=== PATIENT | female | born 1975 | race Two or more races ===

== ENCOUNTER → 2020-08-07 10:08 | Outpatient (BNVA) | payer MEDICAID, SELFPAY | PROVIDERS: PCP Internal Medicine; Referring Provider Family Medicine; Visit Provider Internal Medicine | DX: J30.9 Allergic rhinitis, unspecified (principal); R91.1 Solitary pulmonary nodule | CPT/HCPCS: 99212 ==

== ENCOUNTER 2020-08-14 14:52 | Outpatient (REF) | payer MEDICAID, SELFPAY ==
--- NOTE | 2020-08-14 12:54 | PFT_ITS ---
INDICATION: Shortness of breath. SPIROMETRY: The FEV1 to FVC 90% with an FEV1 of 2.54 L which is 79% predicted with an FVC of 2.82 L which is 70% predicted. No significant response to bronchodilator is noted. Maximum voluntary ventilation 99% predicted. LUNG VOLUMES: Total lung capacity 69% predicted with an expiratory reserve volume of 37% predicted. DIFFUSION CAPACITY: DLCO 85% predicted. COMPARISONS: None. INTERPRETATION: No obstructive ventilatory defect. No significant response to bronchodilators noted and normal maximum voluntary ventilation. However, the patient does have a moderate restrictive ventilatory defect of unclear etiology. Need to consider underlying interstitial lung conditions and/or neuromuscular conditions. The patient's diffusion capacity is low normal. Clinical correlation warranted. MD LIZA Desir/JOSÉ MIGUEL / [phone]
== END 2020-08-14 14:53 | disposition home or self-care (01) ==
LOC: HO.RESP 14:52
PROVIDERS: Visit Provider Internal Medicine
DX: D24.2 Benign neoplasm of left breast (principal); J30.9 Allergic rhinitis, unspecified; R91.1 Solitary pulmonary nodule
CPT/HCPCS: 94060; 94727; 94729; 99212

== ENCOUNTER 2020-08-17 09:57 | Outpatient (REF) | payer MEDICAID, SELFPAY ==
--- NOTE | 2020-08-17 09:59 | CT_ITS ---
EXAMINATION: CT CHEST WITHOUT CONTRAST CLINICAL INFORMATION: Solitary pulmonary nodule. COMPARISON: CT of the abdomen and pelvis from 06/12/2019. No prior chest CT. TECHNIQUE: Multidetector volumetric CT imaging of the chest was done. Axial MIP volume rendering provided. Sagittal and coronal reformatted images were obtained. This CT examination was performed using dose optimization techniques as appropriate, variously including the following: *Automated exposure control *Adjustment of mA and/or kV according to patient size (this includes techniques or standardized protocols for targeted exams where dose is matched to indication/reason for exam; i.e. extremities or head) *Use of iterative reconstruction technique DLP: 220 mGy-cm FINDINGS: LUNGS: The central airways are patent. There is no dense consolidation. Redemonstration of the 0.5 cm right lower lobe pulmonary nodule on series 5 image 238. This is unchanged from previous. There are no additional pulmonary nodules identified. MEDIASTINUM: Normal heart size. No pericardial effusion. No mediastinal lymphadenopathy. There is mild haziness of the fat of the anterior superior mediastinum which could represent faint residual thymic tissue. This does not have a masslike appearance. PLEURA: There is no pleural effusion. No pleural mass or thickening. AXILLA: No lymphadenopathy. Left breast calcifications noted. UPPER ABDOMEN: Cholecystectomy. OSSEOUS STRUCTURES: No acute or suspicious osseous abnormality. CT/CT chest wo con IMPRESSION: Right lower lobe 0.5 cm nodule is unchanged from prior, suggesting benign etiology. No suspicious pulmonary findings.
== END 2020-08-17 09:58 | disposition home or self-care (01) ==
LOC: HO.CT 09:57
PROVIDERS: Visit Provider Internal Medicine
DX: R91.1 Solitary pulmonary nodule (principal)
CPT/HCPCS: 71250

== ENCOUNTER 2020-08-27 06:57 | Day surgery (SDC) | payer MEDICAID, SELFPAY ==
[2020-08-21 11:22] VITALS: BMI 31.4
--- NOTE | 2020-08-24 10:56 | P.CONAN_ITS ---
Documented by User: Soila Doyle 08/24/20 11:00 HPI - Anesthesia Eval Consult details Narrative: 45yo F for Breast Biopsy Needle Localization PMFSH Past Medical History Medical History Allergic rhinitis Anemia Asthma Back pain Diabetes mellitus Fibroids GERD (gastroesophageal reflux disease) Hx of migraine headaches Intraductal papilloma Liver cyst Pulmonary nodule Family History Family History Mother History of breast cancer History of hypertension History of diabetes mellitus Son History of asthma History of ADHD Paternal Grandfather History of pancreatic cancer Maternal Uncle History of colon cancer Maternal Aunt History of breast cancer Paternal Grandmother History of diabetes mellitus Paternal Uncle History of rheumatoid arthritis Family/Other Family history of throat cancer Surgical History Surgical History History of breast biopsy (~01/2020) History of section History of colonoscopy (~12/08/19) History of hysterectomy (~12/17/18) History of knee surgery Hx laparoscopic cholecystectomy Social History Social History Alcohol intake: never Smoking Status: Never smoker Meds Allergies Allergy/AdvReac Type Severity Reaction Status Date / Time gadobutrol [From GADAVIST] Allergy Mild DIFFICULTY Verified 08/14/20 13:52 BREATHING shrimp [SHRIMP] Allergy Unknown SWELLING Verified 08/14/20 13:52 tramadol [TRAMADOL] Allergy Unknown HEADACHES Verified 08/14/20 13:52 lactose [LACTOSE] AdvReac Mild STOMACH Verified 08/14/20 13:52 UPSET Home Medications Medication Instructions Recorded Confirmed Type dulaglutide 0.75 mg/0.5 mL 1.5 mg SUBCUT QWEEK ml 08/07/20 08/21/20 History subcutaneous pen injector fluocinonide 0.05 % topical 1 applic TOPICAL BID 08/14/20 08/21/20 History ointment nystatin-triamcinolone topical applic TOPICAL 08/14/20 08/14/20 History cream famotidine 20 mg PO BID 08/21/20 08/21/20 History insulin glargine [Lantus U-100 65 unit SUBCUT QPM 08/21/20 08/27/20 History Insulin] Exam Exam Date and Time: August 24, 2020 1056 Height,Weight and Vital Signs: Height 5 ft 7 in Weight 91.172 kg Pertinent Lab Results Pertinent Lab Results: Laboratory Tests 11/22/19 12:58 BUN 8 L Creatinine 0.70 Assessment and Plan Assessment Anesthesia Assessment: Chart Reviewed Documented by User: Lela Dorantes 08/27/20 08:58 HPI - Anesthesia Eval Consult details Narrative: 45yo female patient here for Left breast biopsy with needle localization. [facility] Past Medical History Medical History Allergic rhinitis Anemia Asthma Back pain Diabetes mellitus Fibroids GERD (gastroesophageal reflux disease) Hx of migraine headaches Intraductal papilloma Liver cyst Pulmonary nodule Family History Family History Mother History of breast cancer History of hypertension History of diabetes mellitus Son History of asthma History of ADHD Paternal Grandfather History of pancreatic cancer Maternal Uncle History of colon cancer Maternal Aunt History of breast cancer Paternal Grandmother History of diabetes mellitus Paternal Uncle History of rheumatoid arthritis Family/Other Family history of throat cancer Family history of problems with anesthesia: No Surgical History Surgical History History of breast biopsy (~01/2020) History of section History of colonoscopy (~12/08/19) History of hysterectomy (~12/17/18) History of knee surgery Hx laparoscopic cholecystectomy History of Problems with Anesthesia: No Social History Social History Alcohol intake: never Smoking Status: Never smoker Meds Allergies Allergy/AdvReac Type Severity Reaction Status Date / Time gadobutrol [From GADAVIST] Allergy Mild DIFFICULTY Verified 08/14/20 13:52 BREATHING shrimp [SHRIMP] Allergy Unknown SWELLING Verified 08/14/20 13:52 tramadol [TRAMADOL] Allergy Unknown HEADACHES Verified 08/14/20 13:52 lactose [LACTOSE] AdvReac Mild STOMACH Verified 08/14/20 13:52 UPSET Home Medications Medication Instructions Recorded Confirmed Type dulaglutide 0.75 mg/0.5 mL 1.5 mg SUBCUT QWEEK ml 08/07/20 08/21/20 History subcutaneous pen injector fluocinonide 0.05 % topical 1 applic TOPICAL BID 08/14/20 08/21/20 History ointment nystatin-triamcinolone topical applic TOPICAL 08/14/20 08/14/20 History cream famotidine 20 mg PO BID 08/21/20 08/21/20 History insulin glargine [Lantus U-100 65 unit SUBCUT QPM 08/21/20 08/27/20 History Insulin] Exam Height,Weight and Vital Signs: Vital Signs Temp Pulse Resp BP Pulse Ox 08/27/20 07:20 96.9 F 84 18 124/75 98 Pertinent Lab Results Pertinent Lab Results: Lab Results 08/27/20 Range/Units 07:22 POC Glucose 168 H (60-115) mg/dL Airway Mallampati Class: II TM Dist: >3cm Neck ROM: Full Loose/Missing/Broken Teeth: Yes (Some missing) Heart: RRR Lungs: CTAB Assessment and Plan Assessment Anesthesia Assessment: Anesthesia Plan Discussed and Chart Reviewed Final Anesthetic Review NPO: Yes ASA Class: III Final Preanesthetic Review: No Changes in Pt Med Stat, Meds/Allgs Chart Reviewed, Consent Obtained/Reviewed and Anes Risks/Benef Reviewed Patient Risk: Intermediate Procedure Risk: Low Anesthetic Plan Anesthetic Plan: GA Disposition: Standard PACU
[2020-08-27] VITALS (8 sets, daily range): BP systolic 113–127; BP diastolic 73–81; PULSE 75–91; RESP 12–18; TEMP 36.1–36.3; O2SAT 98–100
[2020-08-27 07:26] LABS: Glucose, Whole Blood 168 mg/dL (60-115)
[2020-08-27] MEDS: Lactated Ringers 1,000 ML 100 ML IVCONT (07:33)
[2020-08-27] MEDS: ceFAZolin Sodium/Dextrose,Iso 2 GM/50 ML PIGGYBACK IV (07:33)
--- NOTE | 2020-08-27 07:39 | MHC.SHP ---
Pre-Procedural Eval Section A The patient is an INPATIENT: No Changes since office visit: Yes Patient answered all questions; No Cold of Flu in the past 2 weeks, No New Medical Problems and No Changes in Medication The History & Physical has been completed within 30 days and I have reviewed it.: Yes Section B Chief Complaint: Intraductal Papilloma Allergies: Allergies Allergy/AdvReac Type Severity Reaction Status Date / Time gadobutrol [From GADAVIST] Allergy Mild DIFFICULTY Verified 08/14/20 13:52 BREATHING shrimp [SHRIMP] Allergy Unknown SWELLING Verified 08/14/20 13:52 tramadol [TRAMADOL] Allergy Unknown HEADACHES Verified 08/14/20 13:52 lactose [LACTOSE] AdvReac Mild STOMACH Verified 08/14/20 13:52 UPSET Plan Diagnosis/Plan: Unchanged Patient has been examined and remains a candidate for the planned procedure
--- NOTE | 2020-08-27 10:48 | PM.OP ---
Brief Operative Note Date of Service: 08/27/20 Pre-op diagnosis: iNTRADUCTAL PAPILLOMA LEFT BREAST Post-op diagnosis: same Procedure: LEFT BREAST LUMPECTOMY WITH NEEDLE LOCALIZATION Implants: NONE Surgeon: Tonny Gamez MD Anesthesia: GLMA Chassis Inspector: Emily Aguilera Estimated blood loss (mL): 5 Pathology: other (LEFT BREAST LUMP) Condition: stable Disposition: PACU
--- NOTE | 2020-08-27 11:01 | P.OP_ITS ---
Operative Note Operative Note Date of Service: 08/27/20 Narrative: Preoperative diagnosis: Intraductal papilloma left breast Postoperative diagnosis: Same Procedure: Left breast lumpectomy with needle localization Surgeon: Tonny Gamez MD Director Of Creative Services: CARLA Calles anesthesia: General LMA Indications for procedure: 45-year-old female found to have an abnormal density on MRI status post MR guided biopsy which revealed intraductal papilloma. She presents today for wider excision to assure complete removal. Operative findings: Patient was found to have the localizing wire and clip within the specimen confirming the proper excision site. Specimen: Left breast lumpectomy Estimated blood loss: 5 mL Complications: None Procedure details patient was brought to the OR placed in a supine position. After administering general anesthesia the patient's left breast was prepped with ChloraPrep and draped in a sterile fashion. A surgical time-out was called the consent confirmed. Patient received preoperative antibiotics and Venodyne boots were in place. Local anesthesia consisting of 0.75% Sensorcaine was then infiltrated in a curvilinear fashion just lateral to the nipple-areolar complex at the site of the localizing wire. Incision was carried out through subcutaneous tissue. Superior and inferior skin flaps were then created with scalpel and electrocautery. Electrocautery was then used to dissect around the localizing wire. Dissection was continued well below the tip. Lesion was then completely excised and sent to pathology for further examination. He was marked with a long suture on the lateral margin and a short suture on the superior margin and a loop suture in the posterior margin. Specimen was sent for a specimen x-ray and immediate gross pathology. Wounds were checked for hemostasis and hemostasis was assured using elec trocautery. Wounds were then irrigated with saline solution and suctioned dry. The deep breast tissue was closed using interrupted 3-0 Polysorb sutures. Superficial breast tissue and dermis reapproximated using interrupted 3-0 Polysorb sutures. Skin was then closed using a running subcuticular 4 0 Polysorb suture. Steri-Strips, 2 x 2 gauze and Tegaderm were then applied. The patient tolerated the procedure well. Sponge, instrument, needle counts reported as correct. The patient was transferred to PACU in stable condition.
[2020-08-27] MEDS: oxyCODONE HCl Immed Release 5 MG TABLET PO (11:44)
[2020-08-27] MEDS: Acetaminophen 325 MG TABLET 650 MG PO (11:44)
[2020-08-27] MEDS: ondansetron HCL 4 MG/2 ML VIAL IVPUSH (11:44)
--- NOTE | 2020-08-27 12:15 | HO.POSTANES ---
Post Anesthesia Evaluation Post Anesthesia Evaluation Vital Signs: Vital Signs Temp Pulse Resp BP Pulse Ox 08/27/20 11:45 97.4 F 78 18 113/73 99 08/27/20 11:30 75 16 127/81 98 08/27/20 11:15 86 16 123/79 98 08/27/20 11:10 82 16 114/74 99 08/27/20 11:05 78 16 116/74 99 08/27/20 11:00 80 14 122/77 99 08/27/20 10:55 97.4 F 91 12 118/75 100 08/27/20 07:20 96.9 F 84 18 124/75 98 Anesthesia: General LMA Mental Status: Awake Pain Control: Satisfactory Nausea/Vomiting: None Hydration: Adequate Anesthesia-Related Issues: No Anes. Related Issues
== END 2020-08-27 13:31 | disposition home or self-care (01) ==
PROVIDERS: PCP Internal Medicine; Visit Provider Surgery
PROC: (CPT 19301; principal; 2020-08-27 08:50)
DX: D24.2 Benign neoplasm of left breast (principal); E11.9 Type 2 diabetes mellitus without complications; Z79.4 Long term (current) use of insulin; J45.909 Unspecified asthma, uncomplicated; Z79.899 Other long term (current) drug therapy
CPT/HCPCS: 19301; 82947; 88307; 88329; J0690; J1100; J2250; J2405; J2765; J3010

== ENCOUNTER 2020-08-27 07:03 | Outpatient (REF) | payer MEDICAID, SELFPAY ==
--- NOTE | 2020-08-27 07:06 | MM_ITS ---
EXAMINATION: MM MAMMOGRAM GUIDED NEEDLE LOCALIZATION BREAST, LEFT MM NEEDLE LOCALIZATION SPECIMEN FROM THE LEFT BREAST CLINICAL INFORMATION: Detached fragments of papillary lesion/papilloma on MR biopsy 01/18/2020. COMPARISON: MRI guided biopsy and postbiopsy mammography 01/18/2020, mammography 07/13/2019 TECHNIQUE NEEDLE LOC: Proper informed consent is obtained from the patient after discussion of the procedure, potential risks and complications, and alternatives including declining the procedure today. Patient was given an opportunity for questions. The patient appeared to understand. The patient consented to the procedure and signed the consent form. GUIDANCE: Digital mammography. APPROACH: Lateral Medial. TARGET: Cylinder shaped biopsy clip marker. Note: There is another remote biopsy clip marker in the left breast, spool/barbell shaped, unrelated to the papilloma. ANESTHESIA: lidocaine 1%: 8 mL. LOCALIZATION MARKER: [employer]. 5 cm length. The skin is prepped and local anesthesia administered. The needle is positioned and position assessed with mammography. The wire is hooked into position. [place] needle protector placed. The patient tolerated the procedure well and had no immediate complication. Preliminary results called to bilingual medical receptionist (Elaine) for Dr. Gamez following the localization. TECHNIQUE SPECIMEN RADIOGRAPH: Imaging of the excised specimen is performed using digital mammography in 1 view. FINDINGS SPECIMEN RADIOGRAPH: The specimen shows the needle and hookwire are delivered intact. The cylinder shaped biopsy clip marker is within the specimen. There is also a short linear metallic density at periphery of specimen not on preoperative imaging, possibly laterality marker for the specimen. Results were called to Dr. Tonny Gamez in the operating room at the time of imaging. MM/MM needle loc LT IMPRESSION: 1. Status post left breast needle localization with wire hooked into position. 2. Post operative specimen radiograph obtained.
== END 2020-08-27 07:04 | disposition home or self-care (01) ==
LOC: HO.MAMMO 07:03
PROVIDERS: PCP Internal Medicine; Visit Provider Surgery
DX: D24.2 Benign neoplasm of left breast (principal); D36.9 Benign neoplasm, unspecified site
CPT/HCPCS: 19281; A4648

== ENCOUNTER → 2020-09-04 09:09 | Outpatient (BNVA) | payer MEDICAID, SELFPAY | PROVIDERS: PCP Internal Medicine; Visit Provider Surgery | DX: D24.2 Benign neoplasm of left breast (principal); Z12.39 Encounter for other screening for malignant neoplasm of breast | CPT/HCPCS: 99212 ==

== ENCOUNTER 2020-10-10 08:29 | Outpatient (REF) | payer MEDICAID, SELFPAY ==
--- NOTE | 2020-10-10 | XR_ITS ---
EXAMINATION: XR LUMBOSACRAL SPINE CLINICAL INFORMATION: Low back pain COMPARISON: CT abdomen and pelvis from 06/12/2019 TECHNIQUE: Three views of the lumbosacral spine. FINDINGS: The vertebral bodies have normal height and alignment. The curvature of the lumbar spine is normal. The disc spaces are maintained. Minimal anterior vertebral osteophyte formation at L3-L4 and L4-L5. No evidence of degenerative disc disease, pars interarticularis defect or vertebral compression fracture. The anterior and posterior elements are intact. No lytic or osteoblastic lesions. Sacrum and sacroiliac joints are unremarkable. The visualized bowel gas pattern is normal. Cholecystectomy clips are present in the right upper quadrant the abdomen. XR/XR lumbar spine 2-3V IMPRESSION: No significant findings. No fracture or malalignment. The intervertebral disc spaces are well-preserved throughout the lumbar spine. No evidence of sacroiliitis.
== END 2020-10-10 08:30 | disposition home or self-care (01) ==
LOC: HO.HMGCX 08:29
PROVIDERS: PCP Internal Medicine; Visit Provider Internal Medicine
DX: M54.5 Low back pain (principal)
CPT/HCPCS: 72100

== ENCOUNTER → 2020-11-07 12:39 | Outpatient (BNVA) | payer MEDICAID, SELFPAY | PROVIDERS: PCP Internal Medicine; Visit Provider Physician Assistant ==

== ENCOUNTER → 2020-11-13 13:05 | Outpatient (BNVA) | payer MEDICAID, SELFPAY | PROVIDERS: PCP Internal Medicine; Visit Provider Surgery | DX: D24.2 Benign neoplasm of left breast (principal); Z12.39 Encounter for other screening for malignant neoplasm of breast | CPT/HCPCS: 99212 ==

== ENCOUNTER 2020-11-28 12:16 | Outpatient (REF) | payer MEDICAID, SELFPAY ==
--- NOTE | ~2020-11-28 | MM_ITS ---
EXAMINATION: MM DIAGNOSTIC DIGITAL BREAST TOMOSYNTHESIS, BILATERAL US DIAGNOSTIC ULTRASOUND BREAST, LEFT CLINICAL INFORMATION: Left breast pain for months. No palpable mass or discharge. Family history history breast cancer mother and aunt. Personal history benign intraductal papilloma status post excision 08/27/2020 left breast. Probable benign finding right breast 11/22/2019. Due for yearly. The lifetime risk of breast cancer based on the Tyrer-Cuzick Model is 21%. COMPARISON: Mammography: 01/18/2020 08/27/2020, 01/18/2020, 07/13/2019, 07/05/2018; bilateral breast MRI report 11/22/2019. TECHNIQUE: Digital breast tomosynthesis is performed in both the craniocaudal and mediolateral oblique views along with computer-aided detection (CAD). Synthesized 2D images are generated from the tomosynthesis. Ultrasound left breast is targeted to the 3:00 and 9:00 position. Patient is able to point to the areas of concern at time of imaging. Grayscale imaging and color Doppler are performed without and with harmonics. FINDINGS: There are scattered areas of fibroglandular density (ACR BI-RADS breast composition Category b). There are no significant masses, abnormal calcifications, or other abnormalities. There is a spool-shaped biopsy clip marker anterior upper outer left breast. The cylinder-shaped clip marker is no longer present, excised on prior surgery 08/27/2020. The axilla and skin contours are unremarkable. No coarsening of the Huber's ligaments. Ultrasound left breast demonstrates no cystic or solid mass or architectural abnormality. No focal duct ectasia.. No skin thickening or edema tracking in the soft tissue planes. No hyperemia on color Doppler. Results are discussed with the patient at time of visit. The breast MRI 11/22/2019 notes BI-RADS 3 finding on right with short interval follow-up recommended. Patient due for follow-up MRI. MM/MM diagnostic mammo BI IMPRESSION: No mammographic evidence of malignancy or inflammatory changes. Unremarkable targeted left breast ultrasound. ASSESSMENT: BI-RADS 1: Negative RECOMMENDATION: 1. Patient's breast pain should be managed based on the clinical impression. 2. Patient due for follow-up bilateral breast MR (right BI-RADS 3 MR finding prior study 11/22/2019). 3. Otherwise, routine annual screening mammography. This patient's information was entered into a reminder system with a target due date for their next mammogram.
== END 2020-11-28 12:17 | disposition home or self-care (01) ==
LOC: HO.MAMMO 12:16
PROVIDERS: PCP Internal Medicine; Visit Provider Internal Medicine
DX: Z12.31 Encounter for screening mammogram for malignant neoplasm of breast (principal)
CPT/HCPCS: 76642; 77066

== ENCOUNTER → 2020-11-30 09:03 | Outpatient (BNVA) | payer MEDICAID, SELFPAY | PROVIDERS: PCP Internal Medicine; Visit Provider Nurse Practitioner Family | DX: M47.816 Spondylosis without myelopathy or radiculopathy, lumbar region (principal); M25.562 Pain in left knee; M53.3 Sacrococcygeal disorders, not elsewhere classified; G89.29 Other chronic pain | CPT/HCPCS: 99202 ==

== ENCOUNTER → 2020-12-03 08:33 | Outpatient (REF) | payer MEDICAID, SELFPAY ==
--- NOTE | 2020-12-03 08:30 | CA_ITS ---
Acquisition Time: 2020-12-03 08:44:58 Total Exercise Time: 00:07:31 Test Indications: CP, PALPITATIONS Medications: SEE CHART Protocol: GOVIND Max HR: 160 BPM 91% of Pred: 174 BPM Max BP: 154/084 mmHG Max Work Load: 9.3 METS Exercsice stress test using Govind protocol total of 7 min 31 sec. METS 9.30 and TAPHR up to 92%. Pt denies any anginal sx. EKG without arrhythmias, no ischemic changes seen during exercise or in recovery. Normotensive response to exercise. Test reviewed with Dr. Cifuentes. Referred By: Pedro Luis Lawler Overread By:
== END ==
LOC: HO.CARD 08:33
PROVIDERS: Visit Provider Internal Medicine
DX: R07.9 Chest pain, unspecified (principal)
CPT/HCPCS: 93016; 93017; 93018

== ENCOUNTER → 2020-12-27 13:57 | Outpatient (REF) | payer MEDICAID, SELFPAY | LOC: HO.CARD 13:57 | PROVIDERS: Visit Provider Internal Medicine | DX: R00.2 Palpitations (principal) | CPT/HCPCS: 93225; 93226 ==

== ENCOUNTER → 2021-01-03 12:44 | Outpatient (REF) | payer MEDICAID, SELFPAY ==
--- NOTE | 2021-01-03 13:30 | ECG_ITS ---
Hook-up date: 2021-01-03 12:58:00 Duration: 24:54:00 Test Indications: Palpitations Medications: [id number] QRS complexes * Ventricular ectopics which represent % of total QRS comp. 2 Supraventricular ectopics which represent <1 % of total QRS comp. * Paced QRS complexs which represent % of total QRS comp. VENTRICULAR ECTOPY * Isolated * Bigeminal Cycles * Couplets * Runs * Beats in Runs * Beats LONGEST at * BPM at :: -- * Beats FASTEST at * BPM at :: -- SUPRAVENTRICULAR ECTOPY 2 Isolated 0 Couplets 0 Runs 0 Beats in Runs * Beats LONGEST at * BPM at :: -- * Beats FASTEST at * BPM at :: -- HEART RATES 72 MIN at 17:43:06 2021-01-03 88 AVG 127 MAX at 08:25:29 2021-01-04 LONGEST RR 0.9200 secs at 02:18:16 2021-01-04 S-T LEVELS Channel 1 - 128 mm at 12:58:00 2021-01-03 - 128 mm at 12:58:00 2021-01-03 Channel 2 - 128 mm at 12:58:00 2021-01-03 - 128 mm at 12:58:00 2021-01-03 Channel 3 - 128 mm at 03:21:71 -- - 128 mm at 03:21:71 Basic rhythm Normal sinus rhythm No long pause or profound bradycardia No diary submitted Referred By: Pedro Luis Martinez Torr Overread By: ALFREDA WEBSTER MD
== END ==
LOC: HO.CARD 12:44
PROVIDERS: PCP Internal Medicine; Visit Provider Internal Medicine
DX: R00.2 Palpitations (principal)
CPT/HCPCS: 93225; 93226

== ENCOUNTER → 2021-01-11 12:58 | Outpatient (BNVA) | payer MEDICAID, SELFPAY | PROVIDERS: PCP Internal Medicine; Visit Provider Nurse Practitioner Family ==

== ENCOUNTER → 2021-02-06 10:33 | Outpatient (BNVA) | payer MEDICAID, SELFPAY | PROVIDERS: PCP Internal Medicine; Visit Provider Internal Medicine | DX: R91.1 Solitary pulmonary nodule (principal); J30.9 Allergic rhinitis, unspecified | CPT/HCPCS: 99212 ==

== ENCOUNTER → 2021-02-14 14:56 | Outpatient (BNVA) | payer MEDICAID, SELFPAY | PROVIDERS: PCP Internal Medicine; Referring Provider Internal Medicine; Visit Provider Surgery | DX: Z12.39 Encounter for other screening for malignant neoplasm of breast (principal); D24.2 Benign neoplasm of left breast | CPT/HCPCS: 99212 ==

== ENCOUNTER 2021-02-19 06:57 | Outpatient (REF) | payer MEDICAID, SELFPAY | END 2021-02-19 06:58 | disposition home or self-care (01) | LOC: HO.RADIR 06:57 | PROVIDERS: Visit Provider Anesthesiology | DX: Z13.89 Encounter for screening for other disorder (principal) ==

== ENCOUNTER 2021-05-04 17:57 | Emergency (ER) | payer MEDICAID, SELFPAY ==
[2021-05-04 18:02] VITALS: BP 133/84; PULSE 98; RESP 18; TEMP 36.7; O2SAT 99; BMI 31.8
[2021-05-04] MEDS: Acetaminophen 325 MG TABLET 650 MG PO (18:11)
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
[2021-05-04] MEDS: Diphth,Pertus(ACell),Tet Adult 0.5 ML SYRINGE IM (19:08)
[2021-05-04] MEDS: Ibuprofen 600 MG TABLET PO (19:09)
[2021-05-04] MEDS: Silver Sulfadiazine 1 % Cream 20 GM TUBE 1 APPL TOPICAL (19:10)
[2021-05-04] MEDS: oxyCODONE HCl Immed Release 5 MG TABLET PO (19:10)
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
== END 2021-05-04 19:45 | disposition home or self-care (01) ==
PROVIDERS: Emergency Provider Emergency Medicine Emergency Medical Services; PCP Internal Medicine
DX: T24.201A Burn of second degree of unspecified site of right lower limb, except ankle and foot, initial encounter (principal); T24.101A Burn of first degree of unspecified site of right lower limb, except ankle and foot, initial encounter; X04.XXXA Exposure to ignition of highly flammable material, initial encounter; Y93.G2 Activity, grilling and smoking food; Y92.830 Public park as the place of occurrence of the external cause; Y99.9 Unspecified external cause status
CPT/HCPCS: 16030; 90471; 90715; 99283; 99284

== ENCOUNTER 2021-05-07 08:59 | Outpatient (RCR) | payer MEDICAID, SELFPAY | END 2021-06-28 12:15 | disposition home or self-care (01) | LOC: HO.WCC 08:59 | PROVIDERS: PCP Internal Medicine; Visit Provider Physician Assistant | DX: T24.201D Burn of second degree of unspecified site of right lower limb, except ankle and foot, subsequent encounter (principal); E11.65 Type 2 diabetes mellitus with hyperglycemia; T31.0 Burns involving less than 10% of body surface; Z79.4 Long term (current) use of insulin; Z79.899 Other long term (current) drug therapy | CPT/HCPCS: 16020; 97597; 97598; 99212; 99213 ==

== ENCOUNTER 2021-05-07 12:53 | Outpatient (REF) | payer MEDICAID, SELFPAY ==
--- NOTE | ~2021-05-07 | US_ITS ---
EXAMINATION: US SCREENING ULTRASOUND BREAST, BILATERAL CLINICAL INFORMATION: Family history breast cancer, mother and aunt. Personal history benign intraductal papilloma status post excision 08/27/2020 left breast. Tyrer-Cuzick Score 21%. COMPARISON: Digital breast tomosynthesis 11/28/2020. MRI bilateral breasts 11/22/2019 TECHNIQUE: Ultrasound is performed using grayscale imaging and color Doppler. Imaging is performed to include the four quadrants and retroareolar region. Both breasts are imaged. FINDINGS: Right breast: There is no suspicious finding by ultrasound. There is no cystic or solid mass or focal architectural abnormality. Left breast: There is no suspicious finding by ultrasound. There is no cystic or solid mass or focal architectural abnormality. US/US breast RT complete IMPRESSION: Normal study. ASSESSMENT: BI-RADS 1: Negative RECOMMENDATION: 1. Routine annual mammography screening. 2. Patient due for follow-up bilateral breast MR (right BI-RADS 3 MR finding prior study 11/22/2019). This could be performed with premedication (question of prior contrast reaction versus anxiety). This patient's information was entered into a reminder system with a target due date for their next mammogram.
--- NOTE | ~2021-05-07 | US_ITS ---
EXAMINATION: US SCREENING ULTRASOUND BREAST, BILATERAL CLINICAL INFORMATION: Family history breast cancer, mother and aunt. Personal history benign intraductal papilloma status post excision 08/27/2020 left breast. Tyrer-Cuzick Score 21%. COMPARISON: Digital breast tomosynthesis 11/28/2020. MRI bilateral breasts 11/22/2019 TECHNIQUE: Ultrasound is performed using grayscale imaging and color Doppler. Imaging is performed to include the four quadrants and retroareolar region. Both breasts are imaged. FINDINGS: Right breast: There is no suspicious finding by ultrasound. There is no cystic or solid mass or focal architectural abnormality. Left breast: There is no suspicious finding by ultrasound. There is no cystic or solid mass or focal architectural abnormality. US/US breast LT complete IMPRESSION: Normal study. ASSESSMENT: BI-RADS 1: Negative RECOMMENDATION: 1. Routine annual mammography screening. 2. Patient due for follow-up bilateral breast MR (right BI-RADS 3 MR finding prior study 11/22/2019). This could be performed with premedication (question of prior contrast reaction versus anxiety). This patient's information was entered into a reminder system with a target due date for their next mammogram.
== END 2021-05-07 12:54 | disposition home or self-care (01) ==
LOC: HO.MAMMO 12:53
PROVIDERS: Visit Provider Surgery
DX: D24.2 Benign neoplasm of left breast (principal); Z85.3 Personal history of malignant neoplasm of breast
CPT/HCPCS: 76641

== ENCOUNTER 2021-07-12 12:33 | Day surgery (SDC) | payer MEDICAID, SELFPAY ==
--- NOTE | 2021-07-11 10:14 | HO.ANESPROP2 ---
Documented by User: Soila Doyle NP 07/11/21 10:15 HPI - Anesthesia Eval Consult details Narrative: 46yo F for Ganglion Impar Block PMFSH Active Problems Active Problems: All Active Problems (Updated 05/05/21 @ 00:01 by Jihan Amin) Left knee pain (Acute) Pre-procedural laboratory examination (Acute) Coccygeal pain (Acute) Spondylosis of lumbar region without myelopathy or radiculopathy (Acute) Chronic constipation (Acute) Intraductal papilloma of left breast (Acute) Breast cancer screening, high risk patient (Acute) Pulmonary nodule (Acute) Allergic rhinitis (Acute) Past Medical History Medical History Allergic rhinitis Anemia Asthma Back pain Breast cancer screening, high risk patient Chronic constipation Diabetes mellitus Fibroids GERD (gastroesophageal reflux disease) Hx of migraine headaches Intraductal papilloma Liver cyst Pulmonary nodule Family History Family History Mother History of breast cancer History of hypertension History of diabetes mellitus Son History of asthma History of ADHD Paternal Grandfather History of pancreatic cancer Maternal Uncle History of colon cancer Maternal Aunt History of breast cancer Paternal Grandmother History of diabetes mellitus Paternal Uncle History of rheumatoid arthritis Family/Other Family history of throat cancer Family history of problems with anesthesia: No Surgical History Surgical History History of breast biopsy (~01/2020) History of section History of colonoscopy (~12/08/19) History of hysterectomy (~12/17/18) History of knee surgery Hx laparoscopic cholecystectomy History of Problems with Anesthesia: No Social History Social History Household Members: Spouse and Children Alcohol intake: current Alcohol intake frequency: does not drink Patient Tobacco Use Status: Never used Tobacco Use of substances other than those prescribed or required for medical reasons: No Are you DNR?: No Advance Directives: No Advance Directives Information Provided: Yes Meds Allergies Allergy/AdvReac Type Severity Reaction Status Date / Time gadobutrol [From GADAVIST] Allergy Mild DIFFICULTY Verified 07/12/21 13:02 BREATHING shrimp [SHRIMP] Allergy Unknown SWELLING Verified 07/12/21 13:02 tramadol [TRAMADOL] Allergy Unknown HEADACHES Verified 07/12/21 13:02 lactose [LACTOSE] AdvReac Mild STOMACH Verified 07/12/21 13:02 UPSET Home Medications Medication Instructions Recorded Confirmed Last Taken Type fluocinonide 0.05 % topical 1 applic TOPICAL BID 08/14/20 01/11/21 Unknown History ointment nystatin-triamcinolone topical applic TOPICAL 08/14/20 01/11/21 Unknown History cream insulin glargine 100 unit/mL 65 unit SUBCUT QPM 08/21/20 01/11/21 07/11/21 22:00 History subcutaneous solution (Lantus 65 units U-100 Insulin) docusate sodium 100 mg capsule 100 mg PO DAILY 11/07/20 01/11/21 Unknown History (DOK) insulin lispro 100 unit/mL 5 unit SUBCUT TID 11/07/20 01/11/21 07/11/21 22:00 History subcutaneous pen (Humalog KwikPen 30 units (U-100) Insulin) atorvastatin 20 mg tablet 20 mg PO DAILY 11/30/20 01/11/21 Unknown History dulaglutide 0.75 mg/0.5 mL 3 mg SUBCUT QWEEK ml 11/30/20 01/11/21 Unknown History subcutaneous pen injector (Trulicity) famotidine 20 mg tablet (Acid 20 mg PO BID 11/30/20 01/11/21 Unknown History Clinical Neuropsychologist (famotidine)) latanoprost 0.005 % eye drops 1 drp OPHTHALMIC (EYE) DAILY 11/30/20 01/11/21 Unknown History lidocaine 5 % topical patch 1 patch TOPICAL DAILY 11/30/20 01/11/21 Unknown History nabumetone 750 mg tablet 1,500 mg PO DAILY PRN 02/06/21 Unknown History sennosides 8.6 mg capsule (senna) 8.6 mg PO DAILY PRN 02/06/21 Unknown History Exam Exam Date and Time: July 11, 2021 1014 Narrative Narrative: Exercise Stress 12/2020 Protocol: ADY ? Max HR: 160 BPM? 91% of? Pred: 174 BPM Max BP: 154/084 mmHG Max Work Load: 9.3 METS ? Exercsice stress test using Ady protocol total of 7 min 31 sec.? METS 9.30 and ?TAPHR up to 92%.? Pt denies any anginal sx.? EKG without arrhythmias, no ?ischemic changes seen during exercise or in recovery.? Normotensive response to ?exercise. ? Test reviewed with Dr. Cifuentes. Assessment and Plan Assessment Anesthesia Assessment: Chart Reviewed Final Anesthetic Review Family History of Problems with Anesthesia: No History of Problems with Anesthesia: No Documented by User: Floresita Graves MD 07/12/21 13:30 PMF Past Medical History Medical History Allergic rhinitis Anemia Asthma Back pain Breast cancer screening, high risk patient Chronic constipation Diabetes mellitus Fibroids GERD (gastroesophageal reflux disease) Hx of migraine headaches Intraductal papilloma Liver cyst Pulmonary nodule Family History Family History Mother History of breast cancer History of hypertension History of diabetes mellitus Son History of asthma History of ADHD Paternal Grandfather History of pancreatic cancer Maternal Uncle History of colon cancer Maternal Aunt History of breast cancer Paternal Grandmother History of diabetes mellitus Paternal Uncle History of rheumatoid arthritis Family/Other Family history of throat cancer Surgical History Surgical History History of breast biopsy (~01/2020) History of section History of colonoscopy (~12/08/19) History of hysterectomy (~12/17/18) History of knee surgery Hx laparoscopic cholecystectomy Social History Social History Household Members: Spouse and Children Alcohol intake: current Alcohol intake frequency: does not drink Patient Tobacco Use Status: Never used Tobacco Use of substances other than those prescribed or required for medical reasons: No Are you DNR?: No Advance Directives: No Advance Directives Information Provided: Yes Meds Allergies Allergy/AdvReac Type Severity Reaction Status Date / Time gadobutrol [From GADAVIST] Allergy Mild DIFFICULTY Verified 07/12/21 13:02 BREATHING shrimp [SHRIMP] Allergy Unknown SWELLING Verified 07/12/21 13:02 tramadol [TRAMADOL] Allergy Unknown HEADACHES Verified 07/12/21 13:02 lactose [LACTOSE] AdvReac Mild STOMACH Verified 07/12/21 13:02 UPSET Home Medications Medication Instructions Recorded Confirmed Last Taken Type fluocinonide 0.05 % topical 1 applic TOPICAL BID 08/14/20 01/11/21 Unknown History ointment nystatin-triamcinolone topical applic TOPICAL 08/14/20 01/11/21 Unknown History cream insulin glargine 100 unit/mL 65 unit SUBCUT QPM 08/21/20 01/11/21 07/11/21 22:00 History subcutaneous solution (Lantus 65 units U-100 Insulin) docusate sodium 100 mg capsule 100 mg PO DAILY 11/07/20 01/11/21 Unknown History (DOK) insulin lispro 100 unit/mL 5 unit SUBCUT TID 11/07/20 01/11/21 07/11/21 22:00 History subcutaneous pen (Humalog KwikPen 30 units (U-100) Insulin) atorvastatin 20 mg tablet 20 mg PO DAILY 11/30/20 01/11/21 Unknown History dulaglutide 0.75 mg/0.5 mL 3 mg SUBCUT QWEEK ml 11/30/20 01/11/21 Unknown History subcutaneous pen injector (Trulicity) famotidine 20 mg tablet (Acid 20 mg PO BID 11/30/20 01/11/21 Unknown History Clinical Neuropsychologist (famotidine)) latanoprost 0.005 % eye drops 1 drp OPHTHALMIC (EYE) DAILY 11/30/20 01/11/21 Unknown History lidocaine 5 % topical patch 1 patch TOPICAL DAILY 11/30/20 01/11/21 Unknown History nabumetone 750 mg tablet 1,500 mg PO DAILY PRN 02/06/21 Unknown History sennosides 8.6 mg capsule (senna) 8.6 mg PO DAILY PRN 02/06/21 Unknown History Exam Airway Mallampati Class: II TM Dist: >3cm Neck ROM: Full Assessment and Plan Assessment Anesthesia Assessment: Anesthesia Plan Discussed Final Anesthetic Review NPO: Yes ASA Class: II Final Preanesthetic Review: No Changes in Pt Med Stat, Meds/Allgs Chart Reviewed, Consent Obtained/Reviewed and Anes Risks/Benef Reviewed Patient Risk: Low Procedure Risk: Low Assessment/Block/Sedation in SS: Assess/Block/Sedation-SS Anesthetic Plan Anesthetic Plan: MAC: Disposition: Standard PACU
--- NOTE | ~2021-07-12 | FL_ITS ---
EXAMINATION: XR FLUOROSCOPY WITH IMAGES CLINICAL INFORMATION: Ganglion impar block. COMPARISON: None. TECHNIQUE: Fluoroscopy performed by Dr. Jamal Tena. Fluoroscopy time: 0.3 minutes DAP: 5 mGycm2 Images: 2 FINDINGS: Images demonstrate needle placement and contrast injection in the soft tissues anterior to the lower sacrum. FL/FL guidance in OR IMPRESSION: Fluoroscopy guidance for sacral pain management procedure.
[2021-07-12 12:52] VITALS: BMI 31.3
[2021-07-12 13:03] VITALS: BP 121/79; PULSE 88; RESP 16; TEMP 36.6; O2SAT 100
[2021-07-12 13:09] LABS: Glucose, Whole Blood 146 mg/dL (60-115)
[2021-07-12] MEDS: Lactated Ringers 1,000 ML 100 ML IVCONT (13:12)
--- NOTE | 2021-07-12 14:20 | MHC.SHP ---
Pre-Procedural Eval Section A Date of Service: 07/12/21 The patient is an INPATIENT: No Changes since office visit: Yes Patient answered all questions The History & Physical has been completed within 30 days and I have reviewed it.: No Section B Chief Complaint: Coccygeal Pain Details of Present Illness: coccydynia Relevant Family History (Specify if Yes): No Relevant Social History: None Present Medications: see Short Stay Collaborative assessment Medical History: Significant History (Diabetes mellitus) History of Previous Operations: Relevant previous surgery/procedure and date(s) Allergies: Allergies Allergy/AdvReac Type Severity Reaction Status Date / Time gadobutrol [From GADAVIST] Allergy Mild DIFFICULTY Verified 07/12/21 13:02 BREATHING shrimp [SHRIMP] Allergy Unknown SWELLING Verified 07/12/21 13:02 tramadol [TRAMADOL] Allergy Unknown HEADACHES Verified 07/12/21 13:02 lactose [LACTOSE] AdvReac Mild STOMACH Verified 07/12/21 13:02 UPSET Review of Systems Sugical H&P ROS: Negative: Cardiovascular, Respiratory, Neurological, Psychiatric, Hem-Onc, Allergic/Immunologic, Gastrointestinal, Genitourinary, Musculoskeletal, Integumentary and Eyes/Ears/Nose/Throat and Yes, Specify: Constitution (Morbid obesity) and Endocrine (Diabetes mellitus) Exam Surgical H&P Exam: Normal: HEENT, Normal: Heart, Normal: Lungs, Normal: Extremities, Normal: Skin and Normal: Neurological and Significant Findings: Abdomen (Greatly enlarged secondary to subcutaneous) Plan Diagnosis/Plan: Unchanged I have reviewed the history and physical and performed a pertinent physical examination on my patient. No changes have occurred unless specified.
[2021-07-12 15:03] VITALS: BP 124/71; PULSE 94; RESP 16; TEMP 36.1; O2SAT 100
--- NOTE | 2021-07-12 15:05 | W.PM.OPN ---
Operative Note Operative Note Date of Service: 07/12/21 Narrative: Mira is very pleasant 46 years old female who came to operating room today to treat coccydynia. Informed consent was explained to the patient. All questions were explained and answered. The patient was taken inside the operating room where she was positioned prone on the operating table. ? Time-out was performed delineating correct site, side, the nature of the procedure, patient's allergy, preoperative antibiotic if needed. All operating room staff was participating in OR time-out procedure. [employer] [employer] monitors were applied and patient was deeply sedated. ? The lower back both buttocks and intergluteal crease were prepped with ChloraPrep and draped with sterile utility towels. Sterilely draped C-arm was brought over the operating field picture of coccyx vertebras superimposing on symphysis pubis were demonstrated on the screen. The projection of the interval in between 1st and 2nd coccygeal vertebra is was injected with lidocaine 2%. 22 gauge 3-1/2 inch needle was inserted through the skin wheal and advanced toward the coccygeal 1 coccygeal 2 intervertebral disc. When needle gently contacted surface of the disc the C-arm was switched to the lateral view and the needle was advanced further through the disc until the very tip of the needle less than 1 mm was cleared out of the anterior vertebral surfaces. Injection of the contrast at this moment was performed demonstrating retro pelvic spread of the contrast. After that 5 cc of bupivacaine 0.5% mixed with Kenalog 40 mg was performed into the needle. The needle was removed sterile dressing was applied. Patient tolerated procedure well she was taking outside of the operating room to recovery room where she recovered uneventfully.
[2021-07-12 15:16] VITALS: BP 128/71; PULSE 97; RESP 16; O2SAT 100
[2021-07-12 15:30] VITALS: BP 122/76; PULSE 83; RESP 16; TEMP 36.1; O2SAT 100
== END 2021-07-12 15:57 | disposition home or self-care (01) ==
PROVIDERS: PCP Internal Medicine; Visit Provider Anesthesiology
PROC: (CPT 64999; principal; 2021-07-12 14:40)
DX: M53.3 Sacrococcygeal disorders, not elsewhere classified (principal); M47.816 Spondylosis without myelopathy or radiculopathy, lumbar region; G89.29 Other chronic pain; M25.562 Pain in left knee; E11.9 Type 2 diabetes mellitus without complications; J44.9 Chronic obstructive pulmonary disease, unspecified; Z79.4 Long term (current) use of insulin; Z79.899 Other long term (current) drug therapy
CPT/HCPCS: 64999; 82947; J3300; Q9967

== ENCOUNTER → 2021-08-14 10:58 | Outpatient (BNVA) | payer MEDICAID, SELFPAY | PROVIDERS: PCP Internal Medicine; Visit Provider Nurse Practitioner Family | DX: M47.816 Spondylosis without myelopathy or radiculopathy, lumbar region (principal); M25.562 Pain in left knee; M53.3 Sacrococcygeal disorders, not elsewhere classified; G89.29 Other chronic pain; Z88.8 Allergy status to other drugs, medicaments and biological substances; Z88.6 Allergy status to analgesic agent; Z91.011 Allergy to milk products; Z91.013 Allergy to seafood | CPT/HCPCS: 99212 ==

== ENCOUNTER → 2021-09-03 10:51 | Outpatient (BNVA) | payer MEDICAID, SELFPAY | PROVIDERS: PCP Internal Medicine; Visit Provider Internal Medicine | DX: J30.9 Allergic rhinitis, unspecified (principal); R06.09 Other forms of dyspnea; R06.83 Snoring; R05.9 Cough, unspecified; R91.1 Solitary pulmonary nodule; E11.9 Type 2 diabetes mellitus without complications; E78.5 Hyperlipidemia, unspecified; Z80.3 Family history of malignant neoplasm of breast; Z83.3 Family history of diabetes mellitus; Z82.49 Family history of ischemic heart disease and other diseases of the circulatory system; Z82.5 Family history of asthma and other chronic lower respiratory diseases; Z81.8 Family history of other mental and behavioral disorders; Z88.8 Allergy status to other drugs, medicaments and biological substances; Z91.041 Radiographic dye allergy status; Z91.011 Allergy to milk products; Z91.013 Allergy to seafood; Z79.4 Long term (current) use of insulin; Z79.899 Other long term (current) drug therapy | CPT/HCPCS: 99212 ==

== ENCOUNTER → 2021-09-10 10:05 | Outpatient (BNVA) | payer MEDICAID, SELFPAY | PROVIDERS: PCP Internal Medicine; Referring Provider Internal Medicine; Visit Provider Surgery | DX: Z12.39 Encounter for other screening for malignant neoplasm of breast (principal); N64.4 Mastodynia; D24.2 Benign neoplasm of left breast | CPT/HCPCS: 99212 ==

== ENCOUNTER → 2021-09-24 10:52 | Outpatient (REF) | payer MEDICAID, SELFPAY | LOC: HO.SL 10:52 | PROVIDERS: PCP Internal Medicine; Visit Provider Internal Medicine | DX: R40.0 Somnolence (principal) | CPT/HCPCS: 95806 ==

== ENCOUNTER 2021-11-04 09:58 | Outpatient (REF) | payer MEDICAID, SELFPAY ==
[2021-11-04 11:14] LABS: Blood Urea Nitrogen 9 mg/dL (9-16); Estimated Glomerular Filt Rate > 60
== END 2021-11-04 09:59 | disposition home or self-care (01) ==
LOC: HO.MRI 09:58
PROVIDERS: PCP Internal Medicine; Visit Provider Surgery
DX: D24.2 Benign neoplasm of left breast (principal); N64.4 Mastodynia
CPT/HCPCS: 36415; 82565; 84520

== ENCOUNTER → 2021-11-06 11:10 | Outpatient (BNVA) | payer MEDICAID, SELFPAY | PROVIDERS: PCP Internal Medicine; Visit Provider Internal Medicine | DX: J30.9 Allergic rhinitis, unspecified (principal); R91.1 Solitary pulmonary nodule; R06.83 Snoring | CPT/HCPCS: 99212 ==

== ENCOUNTER 2021-11-20 16:35 | Outpatient (REF) | payer MEDICAID, SELFPAY ==
--- NOTE | ~2021-11-20 | MR_ITS ---
EXAMINATION: MR BREAST WITHOUT AND WITH CONTRAST, BILATERAL CLINICAL INFORMATION: Family history of breast cancer; mother and maternal aunt. Right breast pain 12:00. Left breast papillary lesion 3:00. Resection in 2019. Probably benign right breast lesion reported at 11/22/2019 at 2:00. COMPARISON: Breast MRI 11/22/2019. Breast MRI 09/03/2018. Breast MRI 06/19/2017. Mammography from 11/28/2020. TECHNIQUE: Imaging was performed with a dedicated breast coil. Prior to the administration of contrast, bilateral axial T1 and bilateral axial T2 weighted sequences were obtained. After the uneventful administration of?10 mL of Gadavist, dynamic contrast-enhanced VIBRANT series through the breasts in the axial plane were performed. Subtracted images were performed and reviewed. A delayed sagittal sequence through both breasts was acquired. Additionally, CAD post-processing, including maximum intensity projections, 3-D reconstructions and kinetic analysis, were performed an independent workstation and reviewed by the interpreting radiologist is a portion of this exam. FINDINGS: The breasts are comprised of scattered fibroglandular elements. The tissue undergoes mild background enhancement. Mild motion artifact is noted. LEFT BREAST: There is architectural distortion and susceptibility artifact at the left breast 2-3:00 anterior position site of prior excision for papillary lesion. No abnormal associated enhancement. Resolution of previously identified 7 mm nonmass enhancement. No new left breast mass or dominant nonmass enhancement. RIGHT BREAST: A small central focus of nonmass enhancement in the subareolar right breast (image 80/126) is unchanged since 2018. A tiny focus of nonmass enhancement at 2:00, 4 cm from the nipple (image 70/126) is unchanged. A 3 mm focus of nonmass enhancement in the anterior lower outer quadrant 7:00 position, 3 cm from the nipple (image 89/126) remains stable. No additional findings on T2-weighted sequence, volume renderings or kinetic analysis. There is no suspicious internal mammary chain or axillary adenopathy. Limited views of the chest and abdomen are unremarkable. MR/MR breast BI wo/w con IMPRESSION: 1. Post biopsy changes left breast. 2. Stable right breast foci. ASSESSMENT: LEFT BREAST: BI-RADS Category 2, benign findings. RIGHT BREAST: BI-RADS Category 2, benign findings. RECOMMENDATIONS: Repeat bilateral breast MRI in 12 months. The patient is due for screening mammography at this time.
== END 2021-11-20 16:36 | disposition home or self-care (01) ==
LOC: HO.MRI 16:35
PROVIDERS: Visit Provider Surgery
DX: Z12.39 Encounter for other screening for malignant neoplasm of breast (principal); D24.2 Benign neoplasm of left breast; N64.4 Mastodynia
CPT/HCPCS: 77049; A9585

== ENCOUNTER 2021-11-21 10:00 | Day surgery (SDC) | payer MEDICAID, SELFPAY ==
[2021-11-14 13:49] VITALS: BMI 31.4
--- NOTE | 2021-11-20 12:36 | P.CONAN_ITS ---
Documented by User: Soila Doyle NP 11/20/21 12:38 HPI - Anesthesia Eval Consult details Narrative: 46yo F Caudal Epidural Steroid Injection with catheter s/p ganglion block 07/2021 with MAC PMFSH Active Problems Active Problems: All Active Problems (Updated 11/14/21 @ 13:49 by Domenica Barrett RN) Intraductal papilloma of left breast (Acute) Spondylosis of lumbar region without myelopathy or radiculopathy (Acute) Coccygeal pain (Acute) Pre-procedural laboratory examination (Acute) Left knee pain (Acute) Sacroiliac joint pain (Acute) Mastodynia (Acute) Snoring (Acute) Somnolence, daytime (Acute) Chronic constipation (Acute) Breast cancer screening, high risk patient (Acute) Pulmonary nodule (Acute) Allergic rhinitis (Acute) Past Medical History Medical History (Updated 11/14/21 @ 13:49 by Domenica Barrett RN) Allergic rhinitis Anemia Asthma Back pain Breast cancer screening, high risk patient Chronic constipation Diabetes mellitus Fibroids GERD (gastroesophageal reflux disease) History of COVID-19 Hx of migraine headaches Intraductal papilloma Liver cyst Pulmonary nodule Snoring Somnolence, daytime Family History Family History Mother History of breast cancer History of hypertension History of diabetes mellitus Son History of asthma History of ADHD Paternal Grandfather History of pancreatic cancer Maternal Uncle History of colon cancer Maternal Aunt History of breast cancer Paternal Grandmother History of diabetes mellitus Paternal Uncle History of rheumatoid arthritis Family/Other Family history of throat cancer Family history of problems with anesthesia: No Surgical History Surgical History (Updated 11/14/21 @ 13:52 by Domenica Barrett RN) History of breast biopsy (~01/2020) History of section History of colonoscopy (~12/08/19) History of hysterectomy (~12/17/18) History of knee surgery History of surgical procedure Hx laparoscopic cholecystectomy History of Problems with Anesthesia: No Social History Social History Household Members: Spouse and Children Alcohol intake: current Alcohol intake frequency: does not drink Patient Tobacco Use Status: Never used Tobacco Advance Directives: Yes Advance Directives Information Provided: Yes Advance Directives on File: Yes Advance Directives Date on File: 12/15/18 Meds Allergies Allergy/AdvReac Type Severity Reaction Status Date / Time shrimp [SHRIMP] Allergy Intermediate SWELLING Verified 11/14/21 13:41 tramadol [TRAMADOL] Allergy Intermediate HEADACHES Verified 11/14/21 13:41 gadobutrol [From GADAVIST] Allergy Mild DIFFICULTY Verified 11/06/21 11:42 BREATHING lactose [LACTOSE] AdvReac Mild STOMACH Verified 11/06/21 11:42 UPSET Home Medications Medication Instructions Recorded Confirmed Last Taken Type insulin glargine 100 unit/mL 65 unit SUBCUT QPM 08/21/20 11/14/21 07/11/21 22:00 History subcutaneous solution (Lantus 65 units U-100 Insulin) ergocalciferol (vitamin D2) 1,250 1,250 mcg PO QWEEK 08/14/21 11/14/21 Unknown History mcg (50,000 unit) capsule fluconazole 150 mg tablet 150 mg PO QWEEK tab 08/14/21 11/14/21 Unknown History insulin lispro 100 unit/mL See Rx Instructions SUBCUT TID 08/14/21 11/14/21 Unknown History subcutaneous pen (Humalog KwikPen (U-100) Insulin) ascorbate calcium (vitamin C) 500 500 mg PO DAILY 11/06/21 11/14/21 Unknown History mg tablet famotidine 20 mg tablet 20 mg PO BID PRN tab 11/06/21 11/14/21 Unknown History latanoprost 0.005 % eye drops 1 drp OPHTHALMIC (EYE) DAILY 11/06/21 11/14/21 Unknown History methocarbamol 500 mg tablet 500 mg PO BEDTIME PRN 11/06/21 11/14/21 Unknown History Exam Exam Date and Time: November 20, 2021 1236 Height,Weight and Vital Signs: Height 5 ft 7 in Weight 91 kg Narrative Narrative: 24 hour holter 01/2021 Basic rhythm Normal sinus rhythm No long pause or profound bradycardia No diary submitted Exercise Stress 12/2020 Protocol: ADY ? Max HR: 160 BPM? 91% of? Pred: 174 BPM Max BP: 154/084 mmHG Max Work Load: 9.3 METS ? Exercsice stress test using Ady protocol total of 7 min 31 sec.? METS 9.30 and ?TAPHR up to 92%.? Pt denies any anginal sx.? EKG without arrhythmias, no ?ischemic changes seen during exercise or in recovery.? Normotensive response to ?exercise. ? Test reviewed with Dr. Cifuentes. Assessment and Plan Assessment Anesthesia Assessment: Chart Reviewed Final Anesthetic Review Family History of Problems with Anesthesia: No History of Problems with Anesthesia: No Documented by User: Lela Dorantes MD 11/21/21 12:17 [facility] Active Problems Active Problems: All Active Problems (Updated 11/14/21 @ 13:49 by Domenica Barrett RN) Intraductal papilloma of left breast (Acute) Spondylosis of lumbar region without myelopathy or radiculopathy (Acute) Coccygeal pain (Acute) Pre-procedural laboratory examination (Acute) Left knee pain (Acute) Sacroiliac joint pain (Acute) Mastodynia (Acute) Snoring (Acute) Somnolence, daytime (Acute) Chronic constipation (Acute) Breast cancer screening, high risk patient (Acute) Pulmonary nodule (Acute) Allergic rhinitis (Acute) Moderate restrictive lung disease TLC 69% FRC 52% RV 61% ERV 37% all of predicted. No obstructive ventilatory defect. ??Interstitial lung disease vs neuromuscular problem No TRI on sleep study Past Medical History Medical History (Updated 11/14/21 @ 13:49 by Domenica Barrett RN) Allergic rhinitis Anemia Asthma Back pain Breast cancer screening, high risk patient Chronic constipation Diabetes mellitus Fibroids GERD (gastroesophageal reflux disease) History of COVID-19 Hx of migraine headaches Intraductal papilloma Liver cyst Pulmonary nodule Snoring Somnolence, daytime Family History Family History Mother History of breast cancer History of hypertension History of diabetes mellitus Son History of asthma History of ADHD Paternal Grandfather History of pancreatic cancer Maternal Uncle History of colon cancer Maternal Aunt History of breast cancer Paternal Grandmother History of diabetes mellitus Paternal Uncle History of rheumatoid arthritis Family/Other Family history of throat cancer Surgical History Surgical History (Updated 11/14/21 @ 13:52 by Domenica Barrett RN) History of breast biopsy (~01/2020) History of section History of colonoscopy (~12/08/19) History of hysterectomy (~12/17/18) History of knee surgery History of surgical procedure Hx laparoscopic cholecystectomy Social History Social History Household Members: Spouse and Children Alcohol intake: current Alcohol intake frequency: does not drink Patient Tobacco Use Status: Never used Tobacco Advance Directives: Yes Advance Directives Information Provided: Yes Advance Directives on File: Yes Advance Directives Date on File: 12/15/18 Meds Allergies Allergy/AdvReac Type Severity Reaction Status Date / Time shrimp [SHRIMP] Allergy Intermediate SWELLING Verified 11/14/21 13:41 tramadol [TRAMADOL] Allergy Intermediate HEADACHES Verified 11/14/21 13:41 gadobutrol [From GADAVIST] Allergy Mild DIFFICULTY Verified 11/06/21 11:42 BREATHING lactose [LACTOSE] AdvReac Mild STOMACH Verified 11/06/21 11:42 UPSET Home Medications Medication Instructions Recorded Confirmed Last Taken Type insulin glargine 100 unit/mL 65 unit SUBCUT QPM 08/21/20 11/14/21 07/11/21 22:00 History subcutaneous solution (Lantus 65 units U-100 Insulin) ergocalciferol (vitamin D2) 1,250 1,250 mcg PO QWEEK 08/14/21 11/14/21 Unknown History mcg (50,000 unit) capsule fluconazole 150 mg tablet 150 mg PO QWEEK tab 08/14/21 11/14/21 Unknown History insulin lispro 100 unit/mL See Rx Instructions SUBCUT TID 08/14/21 11/14/21 Unknown History subcutaneous pen (Humalog KwikPen (U-100) Insulin) ascorbate calcium (vitamin C) 500 500 mg PO DAILY 11/06/21 11/14/21 Unknown History mg tablet famotidine 20 mg tablet 20 mg PO BID PRN tab 11/06/21 11/14/21 Unknown History latanoprost 0.005 % eye drops 1 drp OPHTHALMIC (EYE) DAILY 11/06/21 11/14/21 Unknown History methocarbamol 500 mg tablet 500 mg PO BEDTIME PRN 11/06/21 11/14/21 Unknown History Exam Height,Weight and Vital Signs: Height 5 ft 7 in Weight 91 kg Vital Signs Temp Pulse Resp BP Pulse Ox 11/21/21 10:37 98.3 F 80 17 125/77 98 Pertinent Lab Results Pertinent Lab Results: Lab Results 11/21/21 Range/Units 10:45 POC Glucose 196 H (60-115) mg/dL Airway Mallampati Class: II TM Dist: >3cm Neck ROM: Full Loose/Missing/Broken Teeth: No Heart: RRR Lungs: CTAB Assessment and Plan Assessment Anesthesia Assessment: Anesthesia Plan Discussed Final Anesthetic Review NPO: Yes ASA Class: III Final Preanesthetic Review: No Changes in Pt Med Stat, Meds/Allgs Chart Reviewed, Consent Obtained/Reviewed and Anes Risks/Benef Reviewed Patient Risk: Intermediate Procedure Risk: Low Assessment/Block/Sedation in SS: Assess/Block/Sedation-SS Anesthetic Plan Anesthetic Plan: MAC: Disposition: Standard PACU
--- NOTE | ~2021-11-21 | FL_ITS ---
EXAMINATION: XR FLUOROSCOPY WITH IMAGES CLINICAL INFORMATION: Epidural injection COMPARISON: July 12, 2021 TECHNIQUE: Fluoroscopy performed by Dr. Jamal Tena. Fluoroscopy time: 0.1 minutes DAP: 2.27 Gycm2 Images: 2 FINDINGS: [place] and contrast seen in place about the caudal coccyx and sacrum. FL/FL guidance in OR IMPRESSION: Fluoroscopy for injection.
[2021-11-21 10:37] VITALS: BP 125/77; PULSE 80; RESP 17; TEMP 36.8; O2SAT 98; BMI 32.1
[2021-11-21 10:48] LABS: Glucose, Whole Blood 196 mg/dL (60-115)
--- NOTE | 2021-11-21 11:57 | MHC.SHP ---
Pre-Procedural Eval Section A Date of Service: 11/21/21 The patient is an INPATIENT: No Changes since office visit: Yes Patient answered all questions The History & Physical has been completed within 30 days and I have reviewed it.: No Section B Chief Complaint: sacrococcygeal disorders Details of Present Illness: as above Relevant Family History (Specify if Yes): No Relevant Social History: None Present Medications: None Medical History: No relevant PMH History of Previous Operations: No relevant previous surgery Allergies: Allergies Allergy/AdvReac Type Severity Reaction Status Date / Time shrimp [SHRIMP] Allergy Intermediate SWELLING Verified 11/14/21 13:41 tramadol [TRAMADOL] Allergy Intermediate HEADACHES Verified 11/14/21 13:41 gadobutrol [From GADAVIST] Allergy Mild DIFFICULTY Verified 11/06/21 11:42 BREATHING lactose [LACTOSE] AdvReac Mild STOMACH Verified 11/06/21 11:42 UPSET Review of Systems Sugical H&P ROS: Negative: Constitution, Cardiovascular, Respiratory, Neurological, Psychiatric, Hem-Onc, Allergic/Immunologic, Gastrointestinal, Genitourinary, Musculoskeletal, Integumentary, Endocrine and Eyes/Ears/Nose/Throat Exam Surgical H&P Exam: Normal: HEENT, Normal: Heart, Normal: Lungs, Normal: Extremities, Normal: Abdomen, Normal: Skin and Normal: Neurological Plan Diagnosis/Plan: Unchanged I have reviewed the history and physical and performed a pertinent physical examination on my patient. No changes have occurred unless specified.
--- NOTE | 2021-11-21 12:40 | PM.OP ---
Brief Operative Note Date of Service: 11/21/21 Pre-op diagnosis: Sacrococcygeal pain disorder Post-op diagnosis: same Procedure: caudal epidural steroid injection with catheter Implants: in a Surgeon: Jamal Tena MD Anesthesia: MAC Was an Lamps Tester And Inspector used for this Procedure?: No Estimated blood loss (mL): 0 Pathology: none sent Condition: stable Disposition: PACU
--- NOTE | 2021-11-21 12:41 | P.OP_ITS ---
Operative Note Operative Note Date of Service: 11/21/21 Narrative: caudal epidural steroid injection with catheter. Before the procedure was patient was explained informed consent all questions were answered. The patient came to the operating room. She was positioned prone on operating table [employer] monitors were applied. The patient was deeply sedated. Time-out was performed delineating name and date of of the patient, site and side of the procedure, allergies, need for antibiotic prophylaxis, need for DVT prophylaxis, risk of fire. The patient's lower back all the buttocks and intergluteal crease were prepped with DuraPrep and draped with sterile utility towels. C-arm was brought of the operating field and sq picture of the patient's pelvis was demonstrated on the screen. The lowest point of sacral bone was chosen as the target of the injection. To cm below the lowest point of the sacral bone strictly on midline injection of the local anesthetic 1% lidocaine was performed and skin wheal was raised. After that 18 gauge Touhy needle 10 cm was inserted through the skin and advanced to were the caudal canal on anterior posterior and lateral views. When tip of the needle entered caudal canal injection of the contrast was perf ormed demonstrating epidural spread of the contrast. After that epidural catheter was inserted through the needle and advanced to 20 cm into the needle. Injection of the contrast was performed demonstrating spread of the contrast in anterior L5-S1 epidural space. The spread of the contrast was also delineating caudal spinal canal mostly on the right side. After that injection of the 20 cc of normal saline was performed into the catheter. After that injection of the lidocaine 1% mixed with Kenalog 20 mg was performed into the catheter. Upon completion of the injection catheter was removed sterile dressing was applied. The patient was tolerating procedure well. She was taking outside of the operating room to recovery room where she recovered uneventfully.
[2021-11-21 12:44] VITALS: BP 113/71; PULSE 80; RESP 16; TEMP 36.3; O2SAT 98
[2021-11-21 12:59] VITALS: BP 124/78; PULSE 75; RESP 16; O2SAT 100
[2021-11-21] MEDS: Acetaminophen 325 MG TABLET 650 MG PO (13:13)
[2021-11-21] MEDS: oxyCODONE HCl Immed Release 5 MG TABLET PO (13:13)
[2021-11-21 13:14] VITALS: BP 122/70; PULSE 75; RESP 18; TEMP 36.3; O2SAT 100
== END 2021-11-21 13:50 | disposition home or self-care (01) ==
PROVIDERS: PCP Internal Medicine; Visit Provider Anesthesiology
PROC: 3E0R3GC Introduction of Other Therapeutic Substance into Spinal Canal, Percutaneous Approach (ICD-10-PCS; CPT 62322; principal; 2021-11-21 11:50)
DX: M47.816 Spondylosis without myelopathy or radiculopathy, lumbar region (principal); G89.29 Other chronic pain; M53.3 Sacrococcygeal disorders, not elsewhere classified; M54.50 Low back pain, unspecified; M25.562 Pain in left knee; E11.9 Type 2 diabetes mellitus without complications; J45.909 Unspecified asthma, uncomplicated
CPT/HCPCS: 62323; 82947; J2370; J3300; Q9967

== ENCOUNTER 2022-01-15 11:01 | Outpatient (REF) | payer MEDICAID, SELFPAY ==
--- NOTE | ~2022-01-15 | XR_ITS ---
EXAMINATION: XR SACRUM AND COCCYX CLINICAL INFORMATION: Sacrococcygeal disorders. Pain. COMPARISON: None TECHNIQUE: 2 views of the sacrum and 2 views of the coccyx were obtained. FINDINGS: There are no fractures. No bone, joint or soft tissue abnormality is demonstrated. XR/XR sacrum coccyx min 2V IMPRESSION: Unremarkable examination.
== END 2022-01-15 11:02 | disposition home or self-care (01) ==
LOC: HO.XRAY 11:01
PROVIDERS: PCP Internal Medicine; Visit Provider Nurse Practitioner Family
DX: M53.3 Sacrococcygeal disorders, not elsewhere classified (principal); M47.816 Spondylosis without myelopathy or radiculopathy, lumbar region; M62.838 Other muscle spasm
CPT/HCPCS: 72220; 99212

== ENCOUNTER → 2022-03-12 10:50 | Outpatient (BNVA) | payer MEDICAID, SELFPAY | PROVIDERS: PCP Internal Medicine; Visit Provider Internal Medicine | DX: J30.9 Allergic rhinitis, unspecified (principal); R06.83 Snoring; R91.1 Solitary pulmonary nodule; E66.9 Obesity, unspecified; Z68.31 Body mass index [BMI] 31.0-31.9, adult; Z79.899 Other long term (current) drug therapy | CPT/HCPCS: 99212 ==

== ENCOUNTER → 2022-03-13 10:27 | Outpatient (BNVA) | payer MEDICAID, SELFPAY | PROVIDERS: PCP Internal Medicine; Visit Provider Surgery | DX: Z12.39 Encounter for other screening for malignant neoplasm of breast (principal); D24.2 Benign neoplasm of left breast | CPT/HCPCS: 99212 ==

== ENCOUNTER → 2022-03-14 11:01 | Outpatient (BNVA) | payer MEDICAID, SELFPAY | PROVIDERS: PCP Internal Medicine; Visit Provider Nurse Practitioner Family | DX: M47.816 Spondylosis without myelopathy or radiculopathy, lumbar region (principal); M53.3 Sacrococcygeal disorders, not elsewhere classified; M62.838 Other muscle spasm | CPT/HCPCS: 99212 ==

== ENCOUNTER 2022-04-21 15:36 | Outpatient (REF) | payer MEDICAID, SELFPAY ==
--- NOTE | ~2022-04-21 | MM_ITS ---
EXAMINATION: MM SCREENING DIGITAL BREAST TOMOSYNTHESIS, BILATERAL CLINICAL INFORMATION: Screening. Asymptomatic. Family history breast cancer, mother and maternal aunt. Personal history papillary lesion left breast in size 08/27/2020. The lifetime risk of breast cancer based on the Tyrer-Cuzick Model is 18%. COMPARISON: Mammography: 11/28/2020, 01/18/2020, 07/13/2019, 07/05/2018 TECHNIQUE: Digital breast tomosynthesis is performed in both the craniocaudal and mediolateral oblique views along with computer-aided detection (CAD). Synthesized 2D images are generated from the tomosynthesis. FINDINGS: There are scattered areas of fibroglandular density (ACR BI-RADS breast composition Category b). Parenchymal pattern is similar to prior study. There is no interval mass or architectural abnormality or abnormal calcifications. Some mild right retroareolar duct ectasia. Similar to prior exam. There is biopsy clip marker again seen anterior upper outer left breast. Dermal lesion overlies posterior 5:00 left breast and a dermal lesion overlying upper right breast. No significant changes. MM/MM tomosynthesis screening BI IMPRESSION: No mammographic evidence of malignancy. ASSESSMENT: BI-RADS 2: Benign RECOMMENDATION: Routine annual mammography screening. This patient's information was entered into a reminder system with a target due date for their next mammogram.
== END 2022-04-21 15:37 | disposition home or self-care (01) ==
LOC: HO.MAMMO 15:36
PROVIDERS: Visit Provider Internal Medicine
DX: Z12.31 Encounter for screening mammogram for malignant neoplasm of breast (principal)
CPT/HCPCS: 77063; 77067

== ENCOUNTER 2022-04-29 16:30 | Outpatient (REF) | payer MEDICAID, SELFPAY ==
--- NOTE | ~2022-04-29 | US_ITS ---
EXAMINATION: US THYROID CLINICAL INFORMATION: Localized swelling, mass, and lump, evaluate for thyromegaly. COMPARISON: Ultrasound soft tissue head/neck thyroid dated 01/02/2020. TECHNIQUE: Linear transducer grayscale and color Doppler examination with attention to the region of the thyroid. FINDINGS: SIZE: Measurements of the thyroid lobes and nodules are given in sagittal, anteroposterior and transverse dimensions respectively. Right Thyroid Lobe: 5.0 x 1.4 x 2.0 cm, volume 7.0 mL. Previously 5.4 x 1.3 x 1.6 cm, volume 5.9 mL. Parenchyma: The gland echotexture is homogeneous. Thyroid vascularity is normal. Left Thyroid Lobe: 5.3 x 1.4 x 1.9 cm, volume 7.1 mL. Previously 4.6 x 1.6 x 1.2 cm, volume 4.8 mL. Parenchyma: The gland echotexture is homogeneous. Thyroid vascularity is normal. Isthmus: 0.4 cm in maximum AP dimension. Previously 0.3 cm. Estimated total number of nodules greater than or equal to 1 cm: 0. Fly Rail Operator nodules are described as follows: There are two small anechoic cyst-like structures in the right upper pole measuring 0.1 x 0.1 x 0.1 cm and right lower pole measuring 0.2 x 0.1 x 0.1 cm. No solid nodule seen. NODES: No lymphadenopathy is seen in the tissue surrounding the thyroid gland. US/US thyroid IMPRESSION: Two cysts in the right upper pole and right lower pole. No solid nodule seen. ACR TI-RADS RECOMMENDATION REFERENCE: Ultrasound-guided fine-needle aspiration, followup ultrasound, no further follow up. * TR1 (0 point) and TR 2 (2 points): No FNA or follow up * TR3 (3 points): FNA if more than or equal to 2.5 cm in maximum dimension, followup ultrasound in 1, 3 and 5 years if 1.5 to 2.4 cm in maximum dimension. * TR4 (4-6 points): FNA if more than or equal to 1.5 cm in maximum dimension, followup ultrasound in 1, 2, 3 and 5 years if 1 to 1.4 cm in maximum dimension. * TR5 (more than or equal to 7 points): FNA if more than or equal to 1 cm in maximum dimension, followup ultrasound every year for 5 years if 0.5 to 0.9 cm in maximum dimension. * TR3, TR4 or TR5 nodules that are below the size threshold for follow up receive no follow up.
== END 2022-04-29 16:31 | disposition home or self-care (01) ==
LOC: HO.US 16:30
PROVIDERS: PCP Internal Medicine; Visit Provider Internal Medicine
DX: R22.1 Localized swelling, mass and lump, neck (principal)
CPT/HCPCS: 76536

== ENCOUNTER 2022-07-22 16:39 | Outpatient (REF) | payer MEDICAID, SELFPAY ==
[2022-07-22 16:51] LABS: MANUAL DIFF FLAG NO
[2022-07-22 17:26] LABS: Basophils Absolute Auto 0.1 X10*3/uL (0.0-0.2); Basophils Percent Auto 0.6 % (0-2); Eosinophils Absolute Auto 0.2 X10*3/uL (0.0-0.4); Eosinophils Percent Auto 2.6 % (0-4); Hematocrit 42.9 % (37.0-47.0); Imm Gran Abs Auto 0.04 X10*3/uL (0.00-0.03); Imm Gran Pct Auto 0.5 % (0.0-0.4); Lymphocytes Absolute Auto 2.7 X10*3/uL (1.2-4.9); Lymphocytes Percent Auto 31.7 % (20-40); Mean Corpuscular HGB Conc 32.6 g/dl (31.0-35.0); Mean Corpuscular Hemoglobin 28.2 pg (27.0-33.0); Mean Corpuscular Volume 86.3 fL (80.0-98.0); Mean Platelet Volume 10.6 fL (9.4-12.3); Monocytes Absolute Auto 0.7 X10*3/uL (0.1-1.2); Monocytes Percent Auto 8.1 % (2-11); Neutrophils Absolute Auto 4.8 x10*3/uL (2.0-8.3); Neutrophils Percent Auto 56.5 % (45-73); Platelet Count 283 X10*3/uL (160-400); Red Blood Count 4.97 X10*6/uL (4.20-5.50); Red Cell Distribution Width 10.9 % (11.0-16.0); White Blood Count 8.5 X10*3/uL (4.8-10.8)
[2022-07-22 17:46] LABS: Alanine Aminotransferase 24 U/L (0-31); Albumin Level 4.2 g/dL (3.5-5.0); Alkaline Phosphatase 86 U/L (39-117); Anion Gap 13 (12-20); Aspartate Amino Transferase 22 U/L (5-31); Bilirubin Total 0.3 mg/dL (0.0-1.0); Blood Urea Nitrogen 9 mg/dL (9-16); Calcium 9.5 mg/dL (8.4-10.2); Carbon Dioxide 27 mmol/L (22-29); Chloride 102 mmol/L (96-108); Estimated Glomerular Filt Rate > 60; Glucose Random 197 mg/dL (60-115); Sodium 138 mmol/L (135-145); Total Protein 7.4 g/dL (6.5-8.0)
[2022-07-22 18:07] LABS: Vitamin D 25-OH Total 22.2 ng/mL (>30)
== END 2022-07-22 16:40 | disposition home or self-care (01) ==
LOC: HO.LAB 16:39
PROVIDERS: Absent Provider Internal Medicine; PCP Internal Medicine; Visit Provider Internal Medicine
DX: R42 Dizziness and giddiness (principal)
CPT/HCPCS: 36415; 80053; 82306; 85025

== ENCOUNTER → 2022-09-10 11:17 | Outpatient (BNVA) | payer MEDICAID, SELFPAY | PROVIDERS: PCP Internal Medicine; Visit Provider Internal Medicine | DX: J30.9 Allergic rhinitis, unspecified (principal); R91.1 Solitary pulmonary nodule; R06.83 Snoring | CPT/HCPCS: 99212 ==

== ENCOUNTER → 2022-09-12 09:34 | Outpatient (BNVA) | payer MEDICAID, SELFPAY | PROVIDERS: PCP Internal Medicine; Visit Provider Surgery | DX: N64.4 Mastodynia (principal); D24.2 Benign neoplasm of left breast; Z80.3 Family history of malignant neoplasm of breast | CPT/HCPCS: 99212 ==

== ENCOUNTER 2022-12-08 14:41 | Outpatient (REF) | payer MEDICAID, SELFPAY ==
--- NOTE | ~2022-12-08 | MR_ITS ---
EXAMINATION: MR BREAST WITHOUT AND WITH CONTRAST, BILATERAL CLINICAL INFORMATION: High risk screening. Mastodynia. Family history of breast cancer (mother and maternal aunt). Personal history of papillary lesion of the left breast. Patient questionnaire indicates breast tenderness. COMPARISON: Portions of previous MRI 11/20/2021. Mammography (nondiagnostic monitor review): 04/21/2022. TECHNIQUE: A 1.5 T system and a dedicated breast coil. T1-weighted sequences without fat-saturation were obtained prior to the administration of contrast. Fat-saturated T1 and T2-weighted sequences were also acquired. The patient received 10 mL of IV gadolinium-based contrast, Gadavist. Multiple sequential dynamic T1-weighted sequences were obtained through both breasts with fat-saturation. Subtracted images were reviewed. CAD postprocessing with 3-D reconstructions, maximum intensity projections and kinetic analysis was performed by the interpreting radiologist at an independent workstation and reviewed as a portion of this exam. FINDINGS: AMOUNT OF REMAINING FIBROGLANDULAR SIGNAL: There are scattered areas of fibroglandular tissue (ACR BI-RADS breast composition category B).* BACKGROUND PARENCHYMAL ENHANCEMENT: Moderate. SYMMETRY OF BACKGROUND ENHANCEMENT: Symmetric. RIGHT BREAST: There are no suspicious findings. Masses: There are no suspicious enhancing masses. Non-mass Enhancement: There is no suspicious non-mass enhancement. Focus: There are no suspicious enhancing foci. NON-ENHANCING FINDINGS: Associated findings: There are no suspicious associated findings. KINETIC CURVE ASSESSMENT: Initial Phase: There are no suspicious areas of color signal. Delayed Phase: There are no areas of washout kinetics. LEFT BREAST: There are no suspicious findings. Masses: There are no suspicious enhancing masses. Non-mass Enhancement: There is no suspicious non-mass enhancement. Focus: There are no suspicious enhancing foci. NON-ENHANCING FINDINGS: Associated Findings: There are no suspicious associated findings. KINETIC CURVE ASSESSMENT: Initial Phase: There are no areas of suspicious color signal. Delayed Phase: There are no areas of washout kinetics. The axillary lymph nodes are morphologically normal. No suspicious internal mammary lymph nodes are seen. No suspicious abnormality in the visualized portions of chest or abdomen. MR/MR breast BI wo/w con IMPRESSION: No MR evidence of malignancy. No suspicious interval change. ASSESSMENT: Right Breast: ACR BI-RADS 1: Negative examination. Left Breast: ACR BI-RADS 1: Negative examination. RECOMMENDATIONS: Continue screening.
== END 2022-12-08 14:42 | disposition home or self-care (01) ==
LOC: HO.MRI 14:41
PROVIDERS: PCP Internal Medicine; Visit Provider Surgery
DX: Z12.39 Encounter for other screening for malignant neoplasm of breast (principal); N64.4 Mastodynia
CPT/HCPCS: 77049; A9585

== ENCOUNTER → 2022-12-23 07:49 | Outpatient (BNVA) | payer MEDICAID, SELFPAY | PROVIDERS: PCP Internal Medicine; Visit Provider Student in an Organized Health Care Education/Training Program | DX: M53.3 Sacrococcygeal disorders, not elsewhere classified (principal) | CPT/HCPCS: 99202 ==

== ENCOUNTER → 2023-04-03 09:39 | Outpatient (BNVA) | payer MEDICAID, SELFPAY | PROVIDERS: PCP Internal Medicine; Visit Provider Surgery | DX: N64.4 Mastodynia (principal); D24.2 Benign neoplasm of left breast; E11.9 Type 2 diabetes mellitus without complications; Z91.89 Other specified personal risk factors, not elsewhere classified; Z85.3 Personal history of malignant neoplasm of breast; Z80.3 Family history of malignant neoplasm of breast; Z80.42 Family history of malignant neoplasm of prostate; Z80.41 Family history of malignant neoplasm of ovary; Z79.4 Long term (current) use of insulin | CPT/HCPCS: 99212 ==

== ENCOUNTER → 2023-05-08 08:30 | Outpatient (BNV) | payer MEDICAID, SELFPAY | PROVIDERS: PCP Internal Medicine; Visit Provider Radiology Diagnostic Radiology | DX: Z12.31 Encounter for screening mammogram for malignant neoplasm of breast (principal) | CPT/HCPCS: 77063; 77067 ==

== ENCOUNTER 2023-05-08 08:32 | Outpatient (REF) | payer MEDICAID, SELFPAY ==
--- NOTE | ~2023-05-08 | MM_ITS ---
EXAMINATION: MM SCREENING DIGITAL BREAST TOMOSYNTHESIS, BILATERAL CLINICAL INFORMATION: Screening. Asymptomatic. The lifetime risk of breast cancer based on the Tyrer-Cuzick Model is 18.1%. COMPARISON: Mammography: This study is compared with prior exams dating back to 2017. TECHNIQUE: Digital breast tomosynthesis is performed in both the craniocaudal and mediolateral oblique views along with computer-aided detection (CAD). Synthesized 2D images are generated from the tomosynthesis. FINDINGS: There are scattered areas of fibroglandular density (ACR BI-RADS breast composition Category b). There are no significant masses, abnormal calcifications, or other abnormalities. There is tissue marker present in the left breast from prior benign percutaneous biopsy. MM/MM tomosynthesis screening BI IMPRESSION: No mammographic evidence of malignancy. ASSESSMENT: BI-RADS BI-RADS 2 - Benign Findings RECOMMENDATION: Routine annual mammography screening. 1 year F/U This examination should not preclude the clinical evaluation of a suspicious palpable abnormality. This patient's information was entered into a reminder system with a target due date for their next mammogram.
== END 2023-05-08 08:33 | disposition home or self-care (01) ==
LOC: HO.MAMMO 08:32
PROVIDERS: PCP Internal Medicine; Visit Provider Surgery
DX: Z12.31 Encounter for screening mammogram for malignant neoplasm of breast (principal)
CPT/HCPCS: 77063; 77067

== ENCOUNTER 2023-05-14 08:56 | Outpatient (AMB) | payer MEDICAID, SELFPAY ==
[2023-05-14 09:06] VITALS: BP 126/64; PULSE 84; O2SAT 98; BMI 32.1
--- NOTE | 2023-05-14 09:06 | A.OFFVIS_ITS ---
Intake Vital Signs 05/14/23 09:06 Height 5 ft 7 in Weight 205 lb 0.478 oz BMI 32.1 BP 126/64 Blood Pressure Location Lt brachial Position Sitting Pulse 84 Pulse Source Pulse Oximeter Pulse Oximetry (%) 98 Oxygen Delivery Method Room Air Intake Visit Reasons: allergic Rhinitis, Asthma Intake Note: Pt presents for a fu and reports everything has been going well. Allergies shrimp [SHRIMP] Allergy (Intermediate, Verified 05/14/23 09:29) SWELLING tramadol [TRAMADOL] Allergy (Intermediate, Verified 05/14/23 09:29) HEADACHES gadobutrol [From GADAVIST] Allergy (Mild, Verified 05/14/23 09:29) DIFFICULTY BREATHING lactose [LACTOSE] Adverse Reaction (Mild, Verified 05/14/23 09:29) STOMACH UPSET Medication List - Last Reconciled 05/14/23 by Jose Ho MD cetirizine 10 mg PO DAILY diclofenac sodium 1% 2 grams topical TID diphenhydramine HCl (Allergy (diphenhydramine)) 25 mg PO ONCE diphenhydramine HCl (Benadryl Allergy) 25 mg PO ONCE PRN ergocalciferol (vitamin D2) 1,250 mcg PO QWEEK famotidine 20 mg PO BID PRN fluconazole 150 mg PO QWEEK fluticasone propionate 50 mcg/actuation 2 sprays intranasal DAILY ibuprofen 600 mg PO Q6H PRN insulin glargine (Lantus U-100 Insulin) 65 units subcut QPM insulin lispro (Humalog KwikPen (U-100) Insulin) 30 units am, 40 units lunch, 35 units dinner subcut 3 times a day; lorazepam (Ativan) 0.5 mg PO BID PRN montelukast 10 mg PO QPM pen needle, diabetic (BD Jahaira 2nd Gen Pen Needle) As directed prednisone 50 mg PO .one day semaglutide (Rybelsus) 7 mg PO DAILY Do you need a note to return to daycare/school/sports/work: No HPI Asthma HPI Details 47 years old female, who is moderately obese , has chronic symptoms of nasal congestion, partial obstruction, And intermittent cough. Does not have much wheezing, . Or shortness of breath Her nasal symptoms remain under control as long as she is using the current medications. In the last 6 months she has had no recurrence. She sleeps mostly in lateral position, does have some snoring at night due to nasal obstruction, but to she is able to get good sleep. [facility] Medical History Allergic rhinitis Anemia Asthma Back pain Breast cancer screening, high risk patient Chronic constipation Diabetes mellitus Fibroids GERD (gastroesophageal reflux disease) History of COVID-19 Hx of migraine headaches Intraductal papilloma Liver cyst Pulmonary nodule Snoring Somnolence, daytime Surgical History History of breast biopsy (~01/2020) History of section History of colonoscopy (~12/08/19) History of hysterectomy (~12/17/18) History of knee surgery History of surgical procedure Hx laparoscopic cholecystectomy Family History Mother History of breast cancer History of hypertension History of diabetes mellitus Son History of asthma History of ADHD Paternal Grandfather History of pancreatic cancer Maternal Uncle History of colon cancer Maternal Aunt History of breast cancer Paternal Grandmother History of diabetes mellitus Paternal Uncle History of rheumatoid arthritis Family/Other Family history of throat cancer Social History Household Members: Spouse and Children Alcohol intake: current Alcohol intake frequency: does not drink Patient Tobacco Use Status: Never used Tobacco Advance Directives Date on File: 12/15/18 Review of Systems Const All systems reviewed & are unremarkable except as noted in HPI and below Reports snoring Eyes Reports no additional complaints ENT Reports nasal congestion (Every night) Card Denies chest pain, Denies irregular heart rhythm and Denies leg edema Resp Reports cough (Mild intermittent), Reports snoring and Denies wheezing GI Reports heartburn (GERD symptoms controlled) Reports no additional complaints Musc Reports back pain (And back spasms) Skin/Breast Reports system reviewed and no additional complaints, except as documented Neuro Reports no additional complaints Psych Reports no additional complaints Aller/Immun Denies wheezing Physical Exam Vital Signs: Last Vital Signs Pulse 84 05/14/23 09:06 BP 126/64 05/14/23 09:06 Pulse Ox 98 05/14/23 09:06 Oxygen Delivery Method Room Air 05/14/23 09:06 BMI result Body Mass Index 32.1 She is moderately obese but there is a weight loss of 10 lb since last visit . Const General: comfortable, no acute distress, alert and awake Orientation/consciousness: patient oriented x3 HEENT Head: Yes normal to inspection General nose exam: No nasal polyps present, No nasal discharge present and Other nasal findings present (Marked bilateral nasal congestion) Face and sinus: Yes sinuses nontender Mouth: oropharynx normal Throat: Yes posterior oropharynx normal Eyes General: appearance normal, both eyes and all related structures Neck Neck: Yes normal visual inspection, Yes no lymphadenopathy, Yes trachea midline and Yes no JVD Thyroid: Thyroid normal Chest Chest palpation & inspection: normal inspection of the chest, normal palpation of entire chest wall and no tenderness Resp Other: Percussion note resonant, breath sounds are equal and normal on both sides . No audible wheezes rhonchi or crepitations. Cardio Palpation: normal PMI Rate: regular rate Rhythm: regular rhythm Heart sounds: no gallops and no murmurs Peripheral pulses: Peripheral pulses 2+ throughout GI Palpation (GI): Soft to palpation, nontender, No hepatosplenomegaly present and no masses Auscultation: normal bowel sounds Back/Spine/Pelvis Thoracic/Lumbar Spine: thoracic and lumbar spine normal to inspection and thoraco-lumbar ROM limited Skin General skin exam: no rashes or lesions noted Neuro General: patient oriented x3 and no focal motor deficits Cranial nerves: Yes CN's II-XII intact bilaterally Extrem General: Yes normal to inspection, Yes no clubbing, cyanosis or edema and Yes no calf tenderness Psych Appearance: grossly normal and well kempt Speech and movement: Normal speech and movement present Assessment & Plan Assessment & Plan (1) Allergic rhinitis: Comment: CHRONIC ALMOST PERSISTENT, ALLERGIC RHINITIS, AROUND THE YEAR . TX : DISCUSSED IN DETAIL, AND REVIEWED TREATMENT PLAN. CONT. MONTELUKAST 10 MG DAILY. USE CETRAZINE 10 MG DAILY. USE FLONASE 2 SPRAY IN EACH NOSTRIL DAILY BEFORE SLEEP. Code(s): J30.9 - Allergic rhinitis, unspecified (2) Snoring: Comment: SHE HAS EXCESSIVE SNORING,68 % of Sleep time . MOST LIKELY SECONDARY TO HER OBESITY AND ALLERGIC RHINITIS, TREATMENT PLAN UNDER ALLERGIC RHINITIS. POSITION THERAPY : ADVISED TO SLEEP ALWAYS IN LATERAL POSITION. ADVISED TO LOSE WEIGHT. Code(s): R06.83 - Snoring Medications: Changed From cetirizine 10 mg PO DAILY 90 tabs 0RF To cetirizine 10 mg PO DAILY PRN 90 tabs 3RF allergy symptoms 90 days Refilled montelukast 10 mg PO QPM 90 tabs 3RF ALLERGIC rHINITIS J30.9 - Allergic rhinitis, unspecified Coding Level of Care Code Est Pt Level 3 (08893) Diagnoses Allergic rhinitis J30.9 Snoring R06.83
== END 2023-05-14 09:31 | disposition home or self-care (01) ==
PROVIDERS: PCP Internal Medicine; Visit Provider Internal Medicine
DX: J30.9 Allergic rhinitis, unspecified (principal); R06.83 Snoring
CPT/HCPCS: 99213

== ENCOUNTER → 2023-05-14 08:56 | Outpatient (BNVA) | payer MEDICAID, SELFPAY | PROVIDERS: PCP Internal Medicine; Visit Provider Internal Medicine | DX: J30.9 Allergic rhinitis, unspecified (principal); R06.83 Snoring; Z79.899 Other long term (current) drug therapy | CPT/HCPCS: 99212 ==

== ENCOUNTER 2023-06-24 11:46 | Outpatient (REF) | payer MEDICAID, SELFPAY ==
[2023-06-24 18:31] LABS: CT PCR NOT DETECTED (Not Detect.); NG PCR NOT DETECTED (Not Detect.)
[2023-06-25 14:29] LABS: BV Int Neg Control Negative (Negative); BV Int Pos Control Positive (Positive)
== END 2023-06-24 11:47 | disposition home or self-care (01) ==
LOC: HO.CHCLNP 11:46
PROVIDERS: Visit Provider Family Medicine
DX: R10.2 Pelvic and perineal pain (principal)
CPT/HCPCS: 0353U; 87086; 87480; 87510; 87660

== ENCOUNTER 2023-06-25 07:34 | Emergency (ER) | payer MEDICAID, SELFPAY ==
--- NOTE | ~2023-06-25 | US_ITS ---
EXAMINATION: US PELVIS CLINICAL INFORMATION: Pelvic pain for 2 weeks COMPARISON: CT abdomen pelvis 06/12/2019 TECHNIQUE: Ultrasound of the pelvis is performed using both transabdominal and transvaginal transducers along with Doppler. Transvaginal imaging is performed due to inadequate visualization transabdominally. FINDINGS: Uterus: Surgically removed Adnexa: Both ovaries are visualized. There is normal color flow to the adnexa. There is no ovarian torsion. There is no pelvic ascites or fluid collection. Right ovary measures 3.5 x 1.8 x 1.6 cm for a volume of 6.0 mL. Some calcifications are noted in the ovary. Left ovary measures 6.4 x 5.9 x 4.0 cm for a volume of 79 mL which includes 3 cysts, the largest of which is complex measuring 3.6 x 3.4 x 3.0 cm. In 2019, a 2.9 cm cyst may have been present in the left ovary US/US pelvic ovarian doppler IMPRESSION: 1. Status post hysterectomy. 2. Left ovarian cysts, the largest of which is complex measuring 3.6 cm. Follow-up ultrasound in 6-12 weeks is recommended to ensure resolution. 3. No evidence of ovarian torsion. 4. No free fluid or fluid collection.
--- NOTE | ~2023-06-25 | US_ITS ---
EXAMINATION: US PELVIS CLINICAL INFORMATION: Pelvic pain for 2 weeks COMPARISON: CT abdomen pelvis 06/12/2019 TECHNIQUE: Ultrasound of the pelvis is performed using both transabdominal and transvaginal transducers along with Doppler. Transvaginal imaging is performed due to inadequate visualization transabdominally. FINDINGS: Uterus: Surgically removed Adnexa: Both ovaries are visualized. There is normal color flow to the adnexa. There is no ovarian torsion. There is no pelvic ascites or fluid collection. Right ovary measures 3.5 x 1.8 x 1.6 cm for a volume of 6.0 mL. Some calcifications are noted in the ovary. Left ovary measures 6.4 x 5.9 x 4.0 cm for a volume of 79 mL which includes 3 cysts, the largest of which is complex measuring 3.6 x 3.4 x 3.0 cm. In 2019, a 2.9 cm cyst may have been present in the left ovary US/US pelvic and transvaginal IMPRESSION: 1. Status post hysterectomy. 2. Left ovarian cysts, the largest of which is complex measuring 3.6 cm. Follow-up ultrasound in 6-12 weeks is recommended to ensure resolution. 3. No evidence of ovarian torsion. 4. No free fluid or fluid collection.
--- NOTE | ~2023-06-25 | CT_ITS ---
EXAMINATION: CT ABDOMEN AND PELVIS WITH CONTRAST CLINICAL INFORMATION: Pelvic pain x2 weeks COMPARISON: Ultrasound pelvis today 06/25/2023 CT abdomen pelvis 06/12/2019 TECHNIQUE: Multidetector volumetric images were obtained from the superior aspect of the liver through the pubic symphysis following administration 85 mL of Omnipaque 350 intravenous contrast. Sagittal and coronal reformatted images were obtained on the technologist's workstation. Oral contrast: No This CT examination was performed using dose optimization techniques as appropriate, variously including the following: *Automated exposure control *Adjustment of mA and/or kV according to patient size (this includes techniques or standardized protocols for targeted exams where dose is matched to indication/reason for exam; i.e. extremities or head) *Use of iterative reconstruction technique DLP: 706 mGy-cm FINDINGS: LUNG BASES: The visualized lung bases are unremarkable. LIVER, GALLBLADDER, AND BILIARY TREE: The liver is mildly enlarged at 17 cm. Attenuation difficult to customer account coordinator after IV contrast. No focal hepatic lesion or biliary ductal dilatation is present. Status post cholecystectomy. PANCREAS: Unremarkable. SPLEEN: Unremarkable. ADRENAL GLANDS: Unremarkable. KIDNEYS AND URETERS: The kidneys are normal in size, shape, and attenuation. No hydronephrosis, hydroureter, or calculi seen. No perinephric stranding. BLADDER: Unremarkable. GASTROINTESTINAL TRACT: The small and large bowel are unremarkable. The appendix is unremarkable. ABDOMINAL WALL: No significant hernia is appreciated. LYMPH NODES: Normal. VASCULAR: Unremarkable. PELVIC VISCERA: As seen on the pelvic ultrasound exam earlier today, left ovarian cysts are present the largest of which measures 3.5 cm. Right adnexa appears normal. No free intraperitoneal fluid is seen. Patient status post hysterectomy. OSSEOUS STRUCTURES: Unremarkable. CT/CT abdomen pelvis w IV con IMPRESSION: 1. Left ovarian cysts are present the largest of which measures 3.5 cm., Identical to ultrasound performed earlier today 2. Mild hepatomegaly. 3. Status post cholecystectomy and hysterectomy. Fleischner guidelines were followed.
[2023-06-25 07:40] VITALS: BP 152/62; PULSE 93; RESP 16; TEMP 35.7; O2SAT 100; BMI 31.3
--- NOTE | 2023-06-25 09:06 | ED_ITS ---
HPI - General Adult General Chief complaint: Abdominal Pain Stated complaint: vaginal pain Time Seen by Provider: 06/25/23 08:17 Source: patient Mode of arrival: ambulatory Limitations: no limitations History of Present Illness HPI narrative: 48 y o female PMH intraductal papilloma L breast, arthritis, uterine fibroids s/p hysterectomy in 2019 presenting for evaluation of b/l pelvic pain x2 weeks. She states she went to her OBGYN 2 weeks ago when the pain first began, states her OBGYN completed a pelvic exam and treated her for a yeast infection with fluconazole. States her pelvic pain has continued, she saw her PCP for this complaint yesterday who also completed a pelvic exam and then ordered a pelvic US which has not yet been completed. Patient states her PCP told her to go to the ER if her symptoms persisted and worsened, so she presented today. She describes constant sharp pain in the RLQ/LLQ which does not radiate. She states that it feels better in the evening, and that it improves with rest. She also endorses mild vaginal pruritus without discharge. She also states that lately her urine has been darker, describing it as dark orange, maybe red and states she has been having hot flashes intermittently. She reports she is sexually active with 1 partner, does not use condoms but states she has no concerns for STDs. She denies any associated vaginal bleeding or discharge, dysuria, cathi hematuria, urinary urgency or frequency, flank pain, fevers or chills. Also denying any chest pain, shortness of breath, nausea, vomiting, diarrhea or constipation, BRBPR or melena. PSH of cholecystectomy and hysterectomy. Related Data Home Medications Medication Instructions Recorded Confirmed insulin glargine 100 unit/mL 65 unit subcut QPM 08/21/20 04/03/23 subcutaneous solution (Lantus U-100 Insulin) ergocalciferol (vitamin D2) 1,250 1,250 mcg PO QWEEK 08/14/21 04/03/23 mcg (50,000 unit) capsule fluconazole 150 mg tablet 150 mg PO QWEEK 08/14/21 04/03/23 insulin lispro 100 unit/mL See Rx Instructions subcut TID 08/14/21 04/03/23 subcutaneous pen (Humalog KwikPen (U-100) Insulin) famotidine 20 mg tablet 20 mg PO BID PRN Gastric Reflux 11/06/21 04/03/23 diclofenac sodium 1 % topical gel 2 g topical TID 03/12/22 04/03/23 pen needle, diabetic 32 gauge x #50 ea 09/12/22 04/03/23 (BD Jahaira 2nd Gen Pen Needle) semaglutide 7 mg tablet (Rybelsus) 7 mg PO DAILY 09/12/22 04/03/23 lorazepam 0.5 mg tablet (Ativan) 0.5 mg PO BID PRN anxiety 05/14/23 Previous Rx's Medication Instructions Recorded ibuprofen 600 mg tablet 600 mg PO Q6H PRN pain #20 tabs 05/04/21 fluticasone propionate 50 2 spray intranasal DAILY #48 grams 11/06/21 mcg/actuation nasal spray,suspension diphenhydramine HCl 25 mg tablet 25 mg PO ONCE contrast allergy #2 11/08/21 (Allergy (diphenhydramine)) tabs diphenhydramine HCl 25 mg tablet 25 mg PO ONCE PRN sleep #2 tabs 12/01/22 (Benadryl Allergy) prednisone 50 mg tablet 50 mg PO .one day contrast allergy 12/01/22 #4 tabs cetirizine 10 mg tablet 10 mg PO DAILY PRN allergy 05/14/23 symptoms 90 days #90 tabs montelukast 10 mg tablet 10 mg PO QPM ALLERGIC rHINITIS #90 05/14/23 tabs ketorolac 10 mg tablet 10 mg PO TID PRN pain 5 days #15 06/25/23 tabs Allergies Allergy/AdvReac Type Severity Reaction Status Date / Time shrimp [SHRIMP] Allergy Intermediate SWELLING Verified 06/25/23 07:40 tramadol [TRAMADOL] Allergy Intermediate HEADACHES Verified 06/25/23 07:40 gadobutrol [From GADAVIST] Allergy Mild DIFFICULTY Verified 06/25/23 07:40 BREATHING lactose [LACTOSE] AdvReac Mild STOMACH Verified 06/25/23 07:40 UPSET Review of Systems 2 Review of Systems: Constitutional : No Weight loss, No Fever, No Chills, No Fatigue, No Malaise Cardiovascular : No Chest Pain, No SOB, No Dyspnea on Exertion, No Orthopnea, No Edema, No Palpitations Respiratory : No Cough, No Sputum, No Wheezing Gastrointestinal : No Nausea, No Vomiting, No Diarrhea, No Constipation, + abdominal Pain, No Hematochezia, No Melena Genitourinary : No Dysuria, No Urinary Frequency, No Hematuria, no vaginal discharge, no vaginal bleeding, + dark urine Musculoskeletal : No joint pain, No Myalgias, No Joint Swelling Skin : No Skin Lesions, No rash Neuro : No Weakness, No Numbness, No Dizziness, No Headache Psych : No Anxiety/Panic, No Depression All other systems reviewed and are negative Yes all other systems are reviewed and are negative [facility] Past Medical History Attestation statement: The following information was validated with the patient. Source: old records reviewed and nursing notes reviewed Medical History Allergic rhinitis Anemia Asthma Back pain Breast cancer screening, high risk patient Chronic constipation Diabetes mellitus Fibroids GERD (gastroesophageal reflux disease) History of COVID-19 Hx of migraine headaches Intraductal papilloma Liver cyst Pulmonary nodule Snoring Somnolence, daytime Surgical History History of breast biopsy (~01/2020) History of section History of colonoscopy (~12/08/19) History of hysterectomy (~12/17/18) History of knee surgery History of surgical procedure Hx laparoscopic cholecystectomy Family History Family History Mother History of breast cancer History of hypertension History of diabetes mellitus Son History of asthma History of ADHD Paternal Grandfather History of pancreatic cancer Maternal Uncle History of colon cancer Maternal Aunt History of breast cancer Paternal Grandmother History of diabetes mellitus Paternal Uncle History of rheumatoid arthritis Family/Other Family history of throat cancer Social History Social History Household Members: Spouse and Children Alcohol intake: current Alcohol intake frequency: does not drink Patient Tobacco Use Status: Never used Tobacco Advance Directives: Yes Advance Directives on File: Yes Advance Directives Date on File: 12/15/18 Physical Exam ED Vital Signs: Vital Signs - 24 hr 06/25/23 07:40 Temperature 96.2 F L Pulse Rate 93 Respiratory Rate 16 Blood Pressure 152/62 H Pulse Oximetry 100 Oxygen Delivery Method Room Air BMI result Body Mass Index 31.3 vss Appearance: Alert.? Oriented X3.? No acute distress.? Head: Normocephalic, atraumatic, no step-offs or deformities Eyes: Pupils equal, round and reactive to light. Neck: Normal inspection.? Neck supple.? CVS: Normal heart rate and rhythm.? Pulses normal.? Respiratory: No respiratory distress.? Breath sounds normal.? Abdomen: Soft, non distended. Diffuse lower abdominal tenderness, L>R, no rebound or guarding. Skin: Skin warm and dry.? Normal skin color.? Normal skin turgor.? Extremities: No lower extremity edema.? No calf ttp. 5/5 strength to bilateral upper and lower extremities Neuro: Oriented X 3.? No motor deficit.? No sensory deficit. CN 2-12 intact Course Reevaluation(s) Reevaluation #1: CBC unremarkable. Chemistry with no acute findings requiring intervention. Lipase within normal limits. Beta hCG negative. Time: 13:00 Reevaluation #2: Re-evaluated patient, feeling much improved following the toradal injection. Pelvic US resulted demonstrating status post hysterectomy, left ovarian cysts largest being 3.6cm with a recommendation in 6-12 weeks to follow up for a repeat scan. US demonstrated no evidence of ovarian torsion and no free fluid or fluid collection. CT abdomen and pelvis resulted, demonstrating left ovarian cysts are present, the largest of which is 3.5cm and identical to ultrasound. CT also demonstrated mild hepatomegaly, although chemistry including LFTs without acute findings, and demonstrated an abdomen status post cholecystectomy and hysterectomy. The findings of the US and CT were both discussed with the patient. Plan to discharge home to self care with outpatient follow up pending UA and continued pain control. Time: 13:35 Reevaluation #3: Patient feeling much better. Urine clean without infection. At this time patient to be discharged home with Toradol. Educated patient on diagnosis and treatment plan, answered all question, patient verbalizes understanding. At this time patient will be discharged home, advised to return with new or worsening symptoms. Educated on worrisome signs and symptoms and when to return. At this time I feel comfortable discharge home. Time: 13:47 Medications Administered Discontinued Medications Generic Name Dose Route Start Last Admin Trade Name Freq PRN Reason Stop Dose Admin Iohexol 85 ml 06/25/23 10:58 06/25/23 10:59 Iohexol 350 Mg/Ml 100 Ml Infus..Btl IV 06/25/23 10:59 85 ml ONCE ONE Administration Ketorolac Tromethamine 30 mg 06/25/23 09:27 06/25/23 09:55 Ketorolac Tromethamine 15 Mg/Ml Vial IVPUSH 06/25/23 09:28 30 mg ONCE ONE Administration Medical Decision Making Medical Decision Making [facility] Narrative: 919 48 y o female PMH intraductal papilloma L breast, uterine fibroids s/p hysterectomy in 2019 presenting for evaluation of b/l pelvic pain x2 weeks. Physical exam significant for abdomen is soft, non distended. Diffuse lower abdominal tenderness, L>R, no rebound or guarding. Patient is non-toxic appearing. Concern for diverticulitis versus appendicitis vs IBS. Less likely PID, patient reports one consistent sexual partner, recently seen and examined by OBGYN 2 weeks ago without any acute STIs found, non-toxic appearing and afebrile. Given patient's previous hysterectomy and secondary amenorrhea, less likely concern for endometriosis. I am not concerned for cauda equina, patient has had no incontinence of urine or stool, no saddle paresthesias, no numbness or tingling of the distal extremities. Malignancy cannot be ruled out. I do not suspect acute torsion, ectopic Plan Imaging and labs, reassess Differential Diagnosis Differential Diagnoses: The differential diagnosis associated with the presentation includes Concern for diverticulitis versus appendicitis vs IBS. Less likely PID, patient reports one consistent sexual partner, recently seen and examined by OBGYN 2 weeks ago without any acute STIs found, non-toxic appearing and afebrile. Given patient's previous hysterectomy and secondary amenorrhea, less likely concern for endometriosis. I am not concerned for cauda equina, patient has had no incontinence of urine or stool, no saddle paresthesias, no numbness or tingling of the distal extremities. Malignancy cannot be ruled out. I do not suspect acute torsion, ectopic Admission/Observation Consideration of admission/observation: Escalation of care including admission/observation considered unlikely Lab Data [facility] Lab Attestation statement: I reviewed the patient's lab results. 06/25/23 09:54 06/25/23 09:54 Labs: Lab Results 06/25/23 06/25/23 06/25/23 Range/Units 09:54 09:54 13:27 WBC 6.4 (4.8-10.8) X10*3/uL RBC 4.84 (4.20-5.50) X10*6/uL Hgb 13.9 (12.0-16.0) g/dl Hct 42.2 (37.0-47.0) % MCV 87.2 (80.0-98.0) fL MCH 28.7 (27.0-33.0) pg MCHC 32.9 (31.0-35.0) g/dl RDW 11.2 (11.0-16.0) % Plt Count 281 (160-400) X10*3/uL MPV 10.7 (9.4-12.3) fL Immature Gran % (Auto) 0.3 (0.0-0.4) % Neut % (Auto) 54.5 (45-73) % Lymph % (Auto) 34.8 (20-40) % [place] % (Auto) 7.4 (2-11) % Eos % (Auto) 2.4 (0-4) % Baso % (Auto) 0.6 (0-2) % Lymph # (Auto) 2.2 (1.2-4.9) X10*3/uL [place] # (Auto) 0.5 (0.1-1.2) X10*3/uL Eos # (Auto) 0.2 (0.0-0.4) X10*3/uL Baso # (Auto) 0.0 (0.0-0.2) X10*3/uL Abs Immat Gran (auto) 0.02 (0.00-0.03) X10*3/uL Absolute Neuts (auto) 3.5 (2.0-8.3) x10*3/uL Absolute Nucleated RBC 0.000 (0.0-0.012) X10*3/uL Nucleated RBC % (auto) 0.0 (0.0-0.2) /100WBC Sodium 142 (135-145) mmol/L Potassium 4.3 (3.3-5.1) mmol/L Chloride 108 (96-108) mmol/L Carbon Dioxide 27 (22-29) mmol/L Anion Gap 11 L (12-20) BUN 8 L (9-16) mg/dL Creatinine 0.77 (0.5-1.4) mg/dL Estim Creat Clear Calc 102.2 Estimated GFR > 60 Random Glucose 188 H (60-115) mg/dL Calcium 9.5 (8.4-10.2) mg/dL Total Bilirubin 0.3 (0.0-1.0) mg/dL AST 26 (5-31) U/L ALT 28 (0-31) U/L Alkaline Phosphatase 100 (39-117) U/L Total Protein 7.3 (6.5-8.0) g/dL Albumin 4.0 (3.5-5.0) g/dL Lipase 46 (8-78) U/L Beta HCG, Quant < 2 Cancelled mIU/mL Urine Color Yellow Urine Appearance Clear Urine pH 5.5 (5.0-9.0) Ur Specific [place] >= 1.030 H (1.005-1.025) Urine Protein Negative (Neg-Trace) mg/dL Urine Glucose (UA) Negative (Negative) mg/dL Urine Ketones Negative (Negative) mg/dL Urine Blood Negative (Negative) Urine Nitrite Negative (Negative) Ur Leukocyte Esterase Negative (Negative) Independent Interpretation I performed an independent interpretation of an: Ultrasound (US/US pelvic and transvaginal IMPRESSION: 1. Status post hysterectomy. 2. Left ovarian cysts, the largest of which is complex measuring 3.6 cm. Follow-up ultrasound in 6-12 weeks is recommended to ensure resolution. 3. No evidence of ovarian torsion. 4. No free fluid or fluid collection.) and CT Scan (CT/CT abdomen pelvis w IV con IMPRESSION: 1. Left ovarian cysts are present the largest of which measures 3.5 cm., Identical to ultrasound performed earlier today 2. Mild hepatomegaly. 3. Status post cholecystectomy and hysterectomy. Fleischner guidelines were followed.) Radiology Impression Discussion of test interpretation with radiology: I have reviewed the radiologist's reading. External Record Review External record reviewed: Inpatient record Critical Care Time Critical Care Time Critical Care Time: No Discharge Plan Discharge Clinical Impression: Abdominal pain, Ovarian cyst Patient Disposition: Home, Self-Care Instructions: Ovarian Cyst (ED), Abdominal Pain (ED) Additional Instructions: Take your medications as prescribed. If you were prescribed antibiotics today, it is important that you take your medication to their entirety, do not skip any doses, do not finish them early. Follow-up with your primary care provider this week. Follow up with OBGYN within the next week Return to the emergency department with new or worsening symptoms. Such as fevers, chills, chest pain, shortness of breath, nausea, vomiting, dizziness, headache, vision changes, lethargy In case of emergency call 911 Toradol has been sent to your pharmacy, you tolerated this well in the department. Please take this as prescribed do not take this with ibuprofen, or other NSAIDs, do not mix this with alcohol. Side effects of this medication including increased risk for bleeding and possible kidney injury. CT/CT abdomen pelvis w IV con IMPRESSION: 1. Left ovarian cysts are present the largest of which measures 3.5 cm., Identical to ultrasound performed earlier today 2. Mild hepatomegaly. 3. Status post cholecystectomy and hysterectomy. Fleischner guidelines were followed. US/US pelvic and transvaginal IMPRESSION: 1. Status post hysterectomy. 2. Left ovarian cysts, the largest of which is complex measuring 3.6 cm. Follow-up ultrasound in 6-12 weeks is recommended to ensure resolution. 3. No evidence of ovarian torsion. 4. No free fluid or fluid collection. Prescriptions: New ketorolac 10 mg tablet 10 mg PO TID PRN (Reason: pain) 5 Days Qty: 15 0RF No Action fluticasone propionate 50 mcg/actuation spray,suspension 2 spray intranasal DAILY Qty: 48 0RF diphenhydramine HCl [Allergy (diphenhydramine)] 25 mg tablet 25 mg PO ONCE Qty: 2 0RF Rx Instructions: take both tablets one hour prior to contrast injection prednisone 50 mg tablet 50 mg PO .one day Qty: 4 0RF Rx Instructions: Take one tablet at 6pm the day before the procedure, one tablet at midnight, one tablet at 6am and bring the 4th tablet with you to the hospital. diphenhydramine HCl [Benadryl Allergy] 25 mg tablet 25 mg PO ONCE PRN (Reason: sleep) Qty: 2 0RF Rx Instructions: Take both tablets one hour prior to the procedure. ibuprofen 600 mg tablet 600 mg PO Q6H PRN (Reason: pain) Qty: 20 0RF Lantus U-100 Insulin 100 unit/mL solution 65 unit subcut QPM insulin lispro [Humalog KwikPen Insulin] 100 unit/mL insulin pen See Rx Instructions subcut TID Rx Instructions: 30 units am, 40 units lunch, 35 units dinner subcut 3 times a day; ergocalciferol (vitamin D2) 1,250 mcg (50,000 unit) capsule 1,250 mcg PO QWEEK fluconazole 150 mg tablet 150 mg PO QWEEK famotidine 20 mg tablet 20 mg PO BID PRN (Reason: Gastric Reflux) diclofenac sodium 1 % gel 2 g topical TID (DME) pen needle, diabetic [BD Jahaira 2nd Gen Pen Needle] 32 gauge x 5/32 needle See Rx Instructions .ROUTE QID Qty: 50 Rx Instructions: As directed Rybelsus 7 mg tablet 7 mg PO DAILY lorazepam [Ativan] 0.5 mg tablet 0.5 mg PO BID PRN (Reason: anxiety) Rx Instructions: Take 1-2 tabs po prior to MRI examination montelukast 10 mg tablet 10 mg PO QPM Qty: 90 3RF cetirizine 10 mg tablet 10 mg PO DAILY PRN (Reason: allergy symptoms) 90 Days Qty: 90 3RF Referrals: Pedro Luis Amado MD [Primary Care Provider] - 2 days
[2023-06-25] MEDS: Ketorolac Tromethamine 15 MG/ML VIAL 30 MG IVPUSH (09:55)
[2023-06-25 10:06] LABS: MANUAL DIFF FLAG NO
[2023-06-25 10:10] LABS: Basophils Percent Auto 0.6 % (0-2); Eosinophils Absolute Auto 0.2 X10*3/uL (0.0-0.4); Eosinophils Percent Auto 2.4 % (0-4); Hematocrit 42.2 % (37.0-47.0); Hemoglobin 13.9 g/dl (12.0-16.0); Imm Gran Abs Auto 0.02 X10*3/uL (0.00-0.03); Imm Gran Pct Auto 0.3 % (0.0-0.4); Lymphocytes Absolute Auto 2.2 X10*3/uL (1.2-4.9); Lymphocytes Percent Auto 34.8 % (20-40); Mean Corpuscular HGB Conc 32.9 g/dl (31.0-35.0); Mean Corpuscular Hemoglobin 28.7 pg (27.0-33.0); Mean Corpuscular Volume 87.2 fL (80.0-98.0); Mean Platelet Volume 10.7 fL (9.4-12.3); Monocytes Absolute Auto 0.5 X10*3/uL (0.1-1.2); Monocytes Percent Auto 7.4 % (2-11); Neutrophils Absolute Auto 3.5 x10*3/uL (2.0-8.3); Neutrophils Percent Auto 54.5 % (45-73); Platelet Count 281 X10*3/uL (160-400); Red Blood Count 4.84 X10*6/uL (4.20-5.50); Red Cell Distribution Width 11.2 % (11.0-16.0); White Blood Count 6.4 X10*3/uL (4.8-10.8)
[2023-06-25 10:34] LABS: Alanine Aminotransferase 28 U/L (0-31); Alkaline Phosphatase 100 U/L (39-117); Anion Gap 11 (12-20); Aspartate Amino Transferase 26 U/L (5-31); Bilirubin Total 0.3 mg/dL (0.0-1.0); Blood Urea Nitrogen 8 mg/dL (9-16); Calcium 9.5 mg/dL (8.4-10.2); Carbon Dioxide 27 mmol/L (22-29); Chloride 108 mmol/L (96-108); Creatinine Clr Calc Pharmacy 102.2; Estimated Glomerular Filt Rate > 60; Glucose Random 188 mg/dL (60-115); Lipase 46 U/L (8-78); Potassium 4.3 mmol/L (3.3-5.1); Sodium 142 mmol/L (135-145); Total Protein 7.3 g/dL (6.5-8.0)
[2023-06-25 10:42] LABS: HCG Quantitative < 2 mIU/mL
[2023-06-25] MEDS: iohexoL 350 MG/ML 100 ML INFUS..BTL 85 ML IV (10:59)
--- NOTE | 2023-06-25 13:31 | PC.NURSE ---
PTS GLUCOSE MONITOR READING 79 SHE WAS PROVIDED JUICE AND A SNACK , URINE SPEC WAS SENT
[2023-06-25 13:39] LABS: Appearance Urine Clear; Color Urine Yellow; Glucose Urine UA Negative (Negative); Leukocyte Esterase Urine Negative (Negative); Nitrite Urine Negative (Negative); PH 5.5 (5.0-9.0); Specific Gravity - Urine >= 1.030 (1.005-1.025); Urine Blood Negative (Negative); Urine Ketones Negative (Negative); Urine Protein Negative (Neg-Trace)
== END 2023-06-25 14:54 | disposition home or self-care (01) ==
PROVIDERS: Physician Assistant; Emergency Provider Emergency Medicine; PCP Internal Medicine
DX: N83.292 Other ovarian cyst, left side (principal); R10.2 Pelvic and perineal pain; E11.9 Type 2 diabetes mellitus without complications; Z90.710 Acquired absence of both cervix and uterus; Z90.49 Acquired absence of other specified parts of digestive tract; Z79.4 Long term (current) use of insulin; Z79.899 Other long term (current) drug therapy
CPT/HCPCS: 36415; 74177; 76830; 76856; 80053; 81003; 83690; 84702; 85025; 93975; 96374; 99284; J1885; Q9967

== ENCOUNTER 2023-07-16 09:37 | Outpatient (REF) | payer MEDICAID, SELFPAY ==
[2023-07-16 14:51] LABS: MANUAL DIFF FLAG NO
[2023-07-16 14:53] LABS: Basophils Absolute Auto 0.1 X10*3/uL (0.0-0.2); Basophils Percent Auto 0.7 % (0-2); Eosinophils Absolute Auto 0.2 X10*3/uL (0.0-0.4); Eosinophils Percent Auto 2.6 % (0-4); Hemoglobin 13.6 g/dl (12.0-16.0); Imm Gran Abs Auto 0.02 X10*3/uL (0.00-0.03); Imm Gran Pct Auto 0.3 % (0.0-0.4); Lymphocytes Absolute Auto 2.3 X10*3/uL (1.2-4.9); Lymphocytes Percent Auto 33.6 % (20-40); Mean Corpuscular HGB Conc 32.4 g/dl (31.0-35.0); Mean Corpuscular Hemoglobin 28.6 pg (27.0-33.0); Mean Corpuscular Volume 88.4 fL (80.0-98.0); Mean Platelet Volume 11.2 fL (9.4-12.3); Monocytes Absolute Auto 0.5 X10*3/uL (0.1-1.2); Monocytes Percent Auto 6.9 % (2-11); Neutrophils Absolute Auto 3.9 x10*3/uL (2.0-8.3); Neutrophils Percent Auto 55.9 % (45-73); Platelet Count 263 X10*3/uL (160-400); Red Blood Count 4.75 X10*6/uL (4.20-5.50); Red Cell Distribution Width 11.3 % (11.0-16.0)
[2023-07-16 14:57] LABS: Creatinine Urine 169.92 mg/dL
[2023-07-16 15:23] LABS: Alanine Aminotransferase 27 U/L (0-31); Alkaline Phosphatase 94 U/L (39-117); Anion Gap 13 (12-20); Aspartate Amino Transferase 24 U/L (5-31); Bilirubin Total 0.4 mg/dL (0.0-1.0); Blood Urea Nitrogen 7 mg/dL (9-16); Calcium 9.8 mg/dL (8.4-10.2); Carbon Dioxide 24 mmol/L (22-29); Chloride 105 mmol/L (96-108); Cholesterol 123 mg/dL (<200); Estimated Glomerular Filt Rate > 60; Glucose Fasting 223 mg/dL (60-99); HDL Cholesterol 38 mg/dL (>40); Iron 56 mcg/dL (30-160); LDL Cholesterol Calculated 69 mg/dL (<100); Percent Iron Saturation 21 % (15-50); Potassium 3.9 mmol/L (3.3-5.1); Sodium 138 mmol/L (135-145); Total Iron Binding Capacity 270 mcg/dL (228-428); Total Protein 7.1 g/dL (6.5-8.0); Triglycerides 84 mg/dL (<150); Unsaturated Iron Binding 214 ug/dL
[2023-07-16 15:38] LABS: TSH reflex Free T4 0.74 uIU/mL (0.32-4.0)
[2023-07-16 15:42] LABS: Folate 9.3 ng/mL (> or = 4.0); Vitamin B12 564 pg/mL (200-900)
== END 2023-07-16 09:38 | disposition home or self-care (01) ==
LOC: HO.CHCLDS 09:37
PROVIDERS: Visit Provider Internal Medicine
DX: E11.9 Type 2 diabetes mellitus without complications (principal); Z79.4 Long term (current) use of insulin; D50.0 Iron deficiency anemia secondary to blood loss (chronic)
CPT/HCPCS: 36415; 80053; 80061; 82043; 82570; 82607; 82746; 83540; 84443; 85025

== ENCOUNTER 2023-09-18 13:09 | Outpatient (REF) | payer MEDICAID, SELFPAY ==
--- NOTE | ~2023-09-18 | US_ITS ---
EXAMINATION: US PELVIS CLINICAL INFORMATION: History of left ovarian cyst. COMPARISON: Pelvic ultrasound 06/25/2023, CT abdomen and pelvis 06/25/2023. TECHNIQUE: Ultrasound of the pelvis is performed using both transabdominal and transvaginal transducers along with Doppler. Transvaginal imaging is performed due to inadequate visualization transabdominally. FINDINGS: UTERUS: Status post hysterectomy. ADNEXA: Both ovaries are visualized. There is normal color flow to the adnexa. There is no ovarian torsion. There is no pelvic ascites or fluid collection. Right ovary measures 3.1 x 1.9 x 2.4 cm for a volume of 7.3 mL, which includes a 0.5 cm benign simple cyst. Left ovary measures 5.0 x 4.3 x 4.5 cm for a volume of 51 mL, which includes a 4.9 cm hemorrhagic cyst and a 2.9 cm exophytic cortical cyst. At the time of the prior CT scan, the largest cyst on the left was 3.5 cm as measured on the CT, and 3.6 cm as measured on the ultrasound. US/US pelvic and transvaginal IMPRESSION: 1. Continued enlargement of complex cyst on the left. Because of this, pelvic MRI is recommended for further evaluation to exclude neoplasm. 2. Status post hysterectomy.
== END 2023-09-18 13:10 | disposition home or self-care (01) ==
LOC: HO.HMGCX 13:09
PROVIDERS: PCP Internal Medicine; Visit Provider Internal Medicine
DX: N83.202 Unspecified ovarian cyst, left side (principal)
CPT/HCPCS: 76830; 76856

== ENCOUNTER 2023-10-23 09:52 | Outpatient (AMB) | payer MEDICAID, SELFPAY ==
--- NOTE | 2023-10-23 09:54 | A.OFFVIS_ITS ---
Intake Vital Signs 10/23/23 10:00 Height 5 ft 7 in Weight 202 lb 6 oz BMI 31.7 BP 126/77 Blood Pressure Location Lt brachial Position Sitting Pulse 92 Intake Visit Reasons: 6 mth breast exam Intake Note: Patient is seen in office for 6 month follow up visit, breast exam. 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 She has a strong history of breast cancer including her mother who developed breast cancer at the age of 48, a maternal aunt with breast cancer at the age of 48 and another maternal aunt with breast cancer x2 in her 50s. Her uncle was diagnosed with prostate cancer, and a cousin diagnosed with ovarian cancer. She underwent genetic testing along with her sister and both were reported to be negative. She underwent a hysterectomy for a large bleeding fibroid at [facility] and recently developed an infection at the incision. The patient continues to reports some breast pain in the left breast in the upper outer portion of the breast. She also has some pain in the right breast. She was noted on breast MRI to have an abnormality which subsequently required biopsy. Pathology revealed a papilloma. She underwent a lumpectomy for complete removal on 01/23/2020 which revealed benign adenosis and apocrine metaplasia and detached fragment a papillary lesion/papilloma. Her last mammogram of 05/08/2023 revealed no mammographic evidence of malignancy (BI-RADS 2).. The lifetime risk of breast cancer based on the Tyrer-Cuzick model calculated at 18%. MRI of the breast on 12/08/2022 revealed no MR specific suspicious findings (BI-RADS 1 bilaterally). She is awaiting evaluation of an ovarian cyst which has been increasing in size. [facility] Medical History History of COVID-19 Snoring Somnolence, daytime Chronic constipation Breast cancer screening, high risk patient Hx of migraine headaches Anemia GERD (gastroesophageal reflux disease) Liver cyst Pulmonary nodule Allergic rhinitis Intraductal papilloma Back pain Fibroids Diabetes mellitus Asthma Surgical History History of surgical procedure Hx laparoscopic cholecystectomy History of breast biopsy (~01/2020) History of colonoscopy (~12/08/19) History of hysterectomy (~12/17/18) History of section History of knee surgery Family History Mother History of breast cancer History of hypertension History of diabetes mellitus Son History of asthma History of ADHD Paternal Grandfather History of pancreatic cancer Maternal Uncle History of colon cancer Maternal Aunt History of breast cancer Paternal Grandmother History of diabetes mellitus Paternal Uncle History of rheumatoid arthritis Family/Other Family history of throat cancer Social History Household Members: Spouse and Children Alcohol intake: current Alcohol intake frequency: does not drink Patient Tobacco Use Status: Never used Tobacco Advance Directives Date on File: 12/15/18 Review of Systems Const Denies chills, Denies fever(s), Denies headache(s) and Denies poor appetite ENT Denies dizziness and Denies headache(s) Card Denies chest pain, Denies rapid heart rate, Denies palpitations and Denies slow heart rate Resp Denies chest congestion, Denies cough, Denies pain on inspiration and Denies wheezing GI Denies abdominal pain, Denies bloating, Denies change in stool character, Denies constipation, Denies diarrhea, Denies nausea, Denies vomiting and Denies hemat emesis Musc Denies back pain, Denies arthralgias, Denies joint swelling and Denies numbness Skin/Breast Reports breast swelling, Reports breast pain, Denies breast mass, Denies change in pigmentation, Denies erythema and Denies rash Neuro Denies dizziness, Denies headache(s) and Denies numbness Psych Denies anxiety and Denies depression Endo Denies palpitations Manny/Lymph Denies easy bleeding, Denies easy bruising and Denies lymphadenopathy Aller/Immun Denies wheezing Physical Exam Vital Signs: Last Vital Signs Pulse 92 10/23/23 10:00 BP 126/77 10/23/23 10:00 BMI result Body Mass Index 31.7 Const General: healthy appearing and no acute distress Nutritional Appearance: well nourished Orientation/consciousness: patient oriented x3 Limitations: no limitations HEENT Head: Yes normocephalic and Yes atraumatic Ears: hearing grossly normal bilaterally Chest Other: Well-healed incision in the left breast without redness or discharge. No suspicious findings are noted within the breast tissue. No skin changes, nipple discharge, or enlarged lymph nodes are appreciated. Right breast: No skin ch jhonatan, nipple discharge, palpable mass, or enlarged lymph nodes are identified. There is tenderness throughout the breast however. Resp Effort & Inspection: normal respiratory effort, no audible wheezes, no cough and no respiratory distress GI Inspection: Yes normal to inspection Skin General skin exam: no rashes or lesions noted Neuro General: patient oriented x3 Extrem General: Yes no clubbing, cyanosis or edema Assessment & Plan Assessment & Plan (1) Intraductal papilloma of left breast: Code(s): D24.2 - Benign neoplasm of left breast (2) Breast cancer screening, high risk patient: Code(s): Z12.39 - Encounter for other screening for malignant neoplasm of breast (3) Mastodynia: Code(s): N64.4 - Mastodynia Plan 48-year-old female patient being followed for high risk for breast cancer, status post excision of a papilloma of the left breast returning today for routine follow-up breast examination. Exam today reveals no suspicious findings in either breast. Her most recent breast MRI revealed no suspicious findings in either breast (BI-RADS 2 bilaterally ). Bilateral mammogram performed on 05/08/2023 revealed no mammographic evidence of malignancy (BI-RADS 2). She will be due for a breast MRI in December 2023 and mammogram in May 2024. I recommended follow-up examination in 6 months. She is welcome to call sooner for any new concerns. Orders: Orders MR breast BI wo/w con 12/14/23 D24.2 - Benign neoplasm of left breast, Z12.39 - Encounter for other screening for malignant neoplasm of breast Coding Level of Care Code Est Pt Level 3 (04820) Diagnoses Intraductal papilloma of left breast D24.2 Breast cancer screening, high risk patient Z12.39 Mastodynia N64.4
[2023-10-23 10:00] VITALS: BP 126/77; PULSE 92; BMI 31.7
== END 2023-10-23 10:16 | disposition home or self-care (01) ==
PROVIDERS: PCP Internal Medicine; Visit Provider Surgery
DX: D24.2 Benign neoplasm of left breast (principal); Z12.39 Encounter for other screening for malignant neoplasm of breast; N64.4 Mastodynia
CPT/HCPCS: 99213

== ENCOUNTER → 2023-10-23 09:52 | Outpatient (BNVA) | payer MEDICAID, SELFPAY | PROVIDERS: PCP Internal Medicine; Visit Provider Surgery | DX: Z12.39 Encounter for other screening for malignant neoplasm of breast (principal); D24.2 Benign neoplasm of left breast; N64.4 Mastodynia | CPT/HCPCS: 99212 ==

== ENCOUNTER 2023-11-12 09:14 | Outpatient (AMB) | payer MEDICAID, SELFPAY ==
--- NOTE | 2023-11-12 09:29 | A.OFFVIS_ITS ---
Intake Vital Signs 11/12/23 09:30 Height 5 ft 7 in Weight 206 lb 2.115 oz BMI 32.3 BP 118/60 Blood Pressure Location Lt brachial Position Sitting Pulse 85 Pulse Source Pulse Oximeter Pulse Oximetry (%) 98 Oxygen Delivery Method Room Air Intake Visit Reasons: Asthma Intake Note: pt is here for follow up and states sometimes she feels pressure neck area, that gives her a strange feeling Batch Room Technician Required: No Allergies shrimp [SHRIMP] Allergy (Intermediate, Verified 11/12/23 09:37) SWELLING tramadol [TRAMADOL] Allergy (Intermediate, Verified 11/12/23 09:37) HEADACHES gadobutrol [From GADAVIST] Allergy (Mild, Verified 11/12/23 09:37) DIFFICULTY BREATHING lactose [LACTOSE] Adverse Reaction (Mild, Verified 11/12/23 09:37) STOMACH UPSET Medication List - Last Reconciled 11/12/23 by Jose Ho MD cetirizine 10 mg PO DAILY PRN 90 days diclofenac sodium 1% 2 grams topical TID diphenhydramine HCl (Benadryl Allergy) 25 mg PO ONCE PRN ergocalciferol (vitamin D2) 1,250 mcg PO QWEEK famotidine 20 mg PO BID PRN glucagon (Glucagon Emergency Kit) 1 mg IM ONCE PRN ibuprofen 600 mg PO Q6H PRN insulin glargine (Lantus U-100 Insulin) 65 units subcut QPM insulin lispro (Humalog KwikPen (U-100) Insulin) 30 units am, 40 units lunch, 35 units dinner subcut 3 times a day; ketorolac 10 mg PO TID PRN 5 days magnesium 200 mg PO DAILY montelukast 10 mg PO QPM pen needle, diabetic (BD Jahaira 2nd Gen Pen Needle) As directed rosuvastatin 10 mg PO QAM semaglutide (Rybelsus) 7 mg PO DAILY Do you need a note to return to daycare/school/sports/work: No HPI Asthma HPI Details This 48 years old very pleasant female is here for follow-up after 6 months. Majority of her symptoms are related to nasal allergy, and also snoring. Her weight remains moderately high , and she has not been able to lose. much weight She always sleeps in lateral position, and sleep is fairly good. Her allergic rhinitis is around the year, related to environmental allergies. [facility] Medical History History of COVID-19 Snoring Somnolence, daytime Chronic constipation Breast cancer screening, high risk patient Hx of migraine headaches Anemia GERD (gastroesophageal reflux disease) Liver cyst Pulmonary nodule Allergic rhinitis Intraductal papilloma Back pain Fibroids Diabetes mellitus Asthma Surgical History History of surgical procedure Hx laparoscopic cholecystectomy History of breast biopsy (~01/2020) History of colonoscopy (~12/08/19) History of hysterectomy (~12/17/18) History of section History of knee surgery Family History Mother History of breast cancer History of hypertension History of diabetes mellitus Son History of asthma History of ADHD Paternal Grandfather History of pancreatic cancer Maternal Uncle History of colon cancer Maternal Aunt History of breast cancer Paternal Grandmother History of diabetes mellitus Paternal Uncle History of rheumatoid arthritis Family/Other Family history of throat cancer Social History Household Members: Spouse and Children Alcohol intake: current Alcohol intake frequency: does not drink Patient Tobacco Use Status: Never used Tobacco Advance Directives Date on File: 12/15/18 Review of Systems Const All systems reviewed & are unremarkable except as noted in HPI and below Reports snoring Eyes Reports no additional complaints ENT Reports nasal congestion (Every night) Card Denies chest pain, Denies irregular heart rhythm and Denies leg edema Resp Reports cough (Mild intermittent), Reports snoring and Denies wheezing GI Reports heartburn (GERD symptoms controlled) Reports no additional complaints Musc Reports back pain (And back spasms) Skin/Breast Reports system reviewed and no additional complaints, except as documented Neuro Reports no additional complaints Psych Reports no additional complaints Aller/Immun Denies wheezing Physical Exam She is moderately obese but there is a weight loss of 10 lb since last visit . Const General: comfortable, no acute distress, alert and awake Orientation/consciousness: patient oriented x3 HEENT Head: Yes normal to inspection General nose exam: No nasal polyps present, No nasal discharge present and Other nasal findings present (Marked bilateral nasal congestion) Face and sinus: Yes sinuses nontender Mouth: oropharynx normal Throat: Yes posterior oropharynx normal Eyes General: appearance normal, both eyes and all related structures Neck Neck: Yes normal visual inspection, Yes no lymphadenopathy, Yes trachea midline and Yes no JVD Thyroid: Thyroid normal Chest Chest palpation & inspection: normal inspection of the chest, normal palpation of entire chest wall and no tenderness Resp Other: Percussion note resonant, breath sounds are equal and normal on both sides . No audible wheezes rhonchi or crepitations. Cardio Palpation: normal PMI Rate: regular rate Rhythm: regular rhythm Heart sounds: no gallops and no murmurs Peripheral pulses: Peripheral pulses 2+ throughout GI Palpation (GI): Soft to palpation, nontender, No hepatosplenomegaly present and no masses Auscultation: normal bowel sounds Back/Spine/Pelvis Thoracic/Lumbar Spine: thoracic and lumbar spine normal to inspection and thoraco-lumbar ROM limited Skin General skin exam: no rashes or lesions noted Neuro General: patient oriented x3 and no focal motor deficits Cranial nerves: Yes CN's II-XII intact bilaterally Extrem General: Yes normal to inspection, Yes no clubbing, cyanosis or edema and Yes no calf tenderness Psych Appearance: grossly normal and well kempt Speech and movement: Normal speech and movement present Results Reviewed Results Reviewed: SPIROMETRY IN OFFICE : Moderate degree of restrictive pulmonary disorder, FVC 70% This is mostly due to obesity HOME BASED SLEEP STUDY ON 10/07/2021 NEG. FOR TRI AHI=1.7 SNORING = 66 % OF SLEEP TIME . Assessment & Plan Assessment & Plan (1) Allergic rhinitis: Comment: CHRONIC ALMOST PERSISTENT, ALLERGIC RHINITIS, AROUND THE YEAR . Code(s): J30.9 - Allergic rhinitis, unspecified Plan: [place] : DISCUSSED IN DETAIL, AND REVIEWED TREATMENT PLAN. CONT. MONTELUKAST 10 MG DAILY. USE CETRAZINE 10 MG DAILY. USE FLONASE 2 SPRAY IN EACH NOSTRIL DAILY BEFORE SLEEP., NEEDED, (2) Snoring: Comment: SHE HAS EXCESSIVE SNORING,68 % of Sleep time . MOST LIKELY SECONDARY TO HER OBESITY AND ALLERGIC RHINITIS, Code(s): R06.83 - Snoring Plan: TREATMENT PLAN AGAIN REVIEWED WITH HER, UNDER ALLERGIC RHINITIS. POSITION THERAPY : ADVISED TO SLEEP ALWAYS IN LATERAL POSITION. ADVISED TO LOSE WEIGHT. (3) Pulmonary nodule: Comment: Rt lower lobe [address] scan of abdomen in sept [address] SCAN OF CHEST ON 08/17/2020 SHOWS A 5 MM PULMONARY NODULE IN RIGHT LOWER LOBE, UNCHANGED FROM 2019, CONSIDERED TO BE BENIGN. *PATIENT HAS LOW RISK SO DOES NOT NEED ANY FURTHER FOLLOW-UP. Code(s): R91.1 - Solitary pulmonary nodule Plan: ABOVE Coding Level of Care Code Est Pt Level 3 (29991) Diagnoses Allergic rhinitis J30.9 Snoring R06.83 Pulmonary nodule R91.1
[2023-11-12 09:30] VITALS: BP 118/60; PULSE 85; O2SAT 98; BMI 32.3
== END 2023-11-12 10:22 | disposition home or self-care (01) ==
PROVIDERS: PCP Internal Medicine; Referring Provider Internal Medicine; Visit Provider Internal Medicine
DX: J30.9 Allergic rhinitis, unspecified (principal); R06.83 Snoring; R91.1 Solitary pulmonary nodule
CPT/HCPCS: 94010; 99213

== ENCOUNTER → 2023-11-12 09:14 | Outpatient (BNVA) | payer MEDICAID, SELFPAY | PROVIDERS: PCP Internal Medicine; Visit Provider Internal Medicine | DX: J30.9 Allergic rhinitis, unspecified (principal); R06.83 Snoring; R91.1 Solitary pulmonary nodule | CPT/HCPCS: 94010; 99212 ==

== ENCOUNTER 2023-11-27 20:11 | Emergency (ER) | payer OTHER, MEDICAID, SELFPAY ==
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
[2023-11-27 20:28] VITALS: BP 148/79; BP 150/88; PULSE 102; RESP 16; TEMP 37.1; O2SAT 96; O2SAT 97; BMI 31.6
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
[2023-11-27 22:56] VITALS: BP 143/79; PULSE 96; RESP 18; TEMP 36.3; O2SAT 100
[2023-11-28 00:13] VITALS: BP 140/71; PULSE 93; RESP 16; O2SAT 99
[2023-11-28 00:13] LABS: UPreg QC Valid YES; Urine Pregnancy NEGATIVE (NEGATIVE)
[2023-11-28] MEDS: oxyCODONE HCl Immed Release 5 MG TABLET 10 MG PO (00:33)
[2023-11-28 00:47] LABS: IDNOW Serial# 6674DD1D; Strep A Nucleic Acid Negative (Negative)
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
== END 2023-11-28 01:06 | disposition home or self-care (01) ==
PROVIDERS: Physician Assistant Medical; Emergency Provider Internal Medicine
DX: S80.01XA Contusion of right knee, initial encounter (principal); V43.52XA Car driver injured in collision with other type car in traffic accident, initial encounter; Y93.9 Activity, unspecified; Y92.9 Unspecified place or not applicable; Y99.9 Unspecified external cause status; M25.561 Pain in right knee; R07.9 Chest pain, unspecified; J02.9 Acute pharyngitis, unspecified
CPT/HCPCS: 71046; 72125; 73560; 81025; 87651; 99284

== ENCOUNTER 2023-12-23 11:30 | Outpatient (REF) | payer OTHER, MEDICAID, SELFPAY ==
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
== END 2023-12-23 11:31 | disposition home or self-care (01) ==
LOC: HO.XRAY 11:30
PROVIDERS: PCP Internal Medicine; Visit Provider Internal Medicine
DX: M79.641 Pain in right hand (principal); M79.642 Pain in left hand
CPT/HCPCS: 73130

== ENCOUNTER 2024-04-26 09:07 | Outpatient (AMB) | payer MEDICAID, SELFPAY ==
--- NOTE | 2024-04-26 09:09 | MHC.OFFVIS ---
Vital Signs 04/26/24 09:16 Height 5 ft 7 in Weight 206 lb BMI 32.3 BP 124/67 Blood Pressure Location Lt brachial Position Sitting Pulse 83 Intake Visit Reasons: 6 mth breast exam Intake Note: Patient is seen in office for 6 month follow up visit, breast exam. Pt c/o: under bilateral breast has a rash redness, itching at times, some skin tags under breast, denies lump, discharge or other concerns MRI OVER DUE mm sched: 05/10/24 Public Relations Manager Required: No Reweaver: Reweaver Present Accompanied by: Self / Same As Patient Allergies shrimp [SHRIMP] Allergy (Intermediate, Verified 04/26/24 09:10) SWELLING tramadol [TRAMADOL] Allergy (Intermediate, Verified 04/26/24 09:10) HEADACHES gadobutrol [From GADAVIST] Allergy (Mild, Verified 04/26/24 09:10) DIFFICULTY BREATHING lactose [LACTOSE] Adverse Reaction (Mild, Verified 04/26/24 09:10) STOMACH UPSET HPI Comments Details: 48-year-old female patient returns for follow-up high risk breast cancer examination. She has a strong history of breast cancer including her mother who developed breast cancer at the age of 48, a maternal aunt with breast cancer at the age of 48 and another maternal aunt with breast cancer x2 in her 50s. Her uncle was diagnosed with prostate cancer, and a cousin diagnosed with ovarian cancer. She underwent genetic testing along with her sister and both were reported to be negative. She underwent a hysterectomy for a large bleeding fibroid at [facility] and recently developed an infection at the incision. The patient continues to reports some breast pain in the left breast in the upper outer portion of the breast. She also has some pain in the right breast. She was noted on breast MRI to have an abnormality which subsequently required biopsy. Pathology revealed a papilloma. She underwent a lumpectomy for complete removal on 01/23/2020 which revealed benign adenosis and apocrine metaplasia and detached fragment a papillary lesion/papilloma. Her last mammogram of 05/08/2023 revealed no mammographic evidence of malignancy (BI-RADS 2 breast composition category B). The lifetime risk of breast cancer based on the Tyrer-Cuzick model calculated at 18%. MRI of the breast on 12/08/2022 revealed no MR specific suspicious findings (BI-RADS 1 bilaterally). [facility] Medical History History of COVID-19 Snoring Somnolence, daytime Chronic constipation Breast cancer screening, high risk patient Hx of migraine headaches Anemia GERD (gastroesophageal reflux disease) Liver cyst Pulmonary nodule Allergic rhinitis Intraductal papilloma Back pain Fibroids Diabetes mellitus Asthma Surgical History History of surgical procedure Hx laparoscopic cholecystectomy History of breast biopsy (~01/2020) History of colonoscopy (~12/08/19) History of hysterectomy (~12/17/18) History of section History of knee surgery Family History Mother History of breast cancer History of hypertension History of diabetes mellitus Son History of asthma History of ADHD Paternal Grandfather History of pancreatic cancer Maternal Uncle History of colon cancer Maternal Aunt History of breast cancer Paternal Grandmother History of diabetes mellitus Paternal Uncle History of rheumatoid arthritis Family/Other Family history of throat cancer Social History Household Members: Spouse and Children Alcohol intake: current Alcohol intake frequency: does not drink Patient Tobacco Use Status: Never used Tobacco Advance Directives Date on File: 12/15/18 Review of Systems Const Denies chills, Denies fever(s), Denies headache(s) and Denies poor appetite ENT Denies dizziness and Denies headache(s) Card Denies chest pain, Denies rapid heart rate, Denies palpitations and Denies slow heart rate Resp Denies chest congestion, Denies cough, Denies pain on inspiration and Denies wheezing GI Denies abdominal pain, Denies bloating, Denies change in stool character, Denies constipation, Denies diarrhea, Denies nausea, Denies vomiting and Denies hematemesis Musc Denies back pain, Denies arthralgias, Denies joint swelling and Denies numbness Skin/Breast Reports breast swelling, Reports breast pain, Denies breast mass, Denies change in pigmentation, Denies erythema and Denies rash Neuro Denies dizziness, Denies headache(s) and Denies numbness Psych Denies anxiety and Denies depression Endo Denies palpitations Manny/Lymph Denies easy bleeding, Denies easy bruising and Denies lymphadenopathy Aller/Immun Denies wheezing Physical Exam Const General: healthy appearing and no acute distress Nutritional Appearance: well nourished Orientation/consciousness: patient oriented x3 Limitations: no limitations HEENT Head: Yes normocephalic and Yes atraumatic Ears: hearing grossly normal bilaterally Chest Other: Well-healed incision in the left breast without redness or discharge. No suspicious findings are noted within the breast tissue. No skin changes, nipple discharge, or enlarged lymph nodes are appreciated. Right breast: No skin change, nipple discharge, palpable mass, or enlarged lymph nodes are identified. There is tenderness throughout both breasts. Chest/axillae images: 1. Resp Effort & Inspection: normal respiratory effort, no audible wheezes, no cough and no respiratory distress GI Inspection: Yes normal to inspection Skin General skin exam: no rashes or lesions noted Neuro General: patient oriented x3 Extrem General: Yes no clubbing, cyanosis or edema Assessment & Plan Assessment & Plan (1) Intraductal papilloma of left breast: Code(s): D24.2 - Benign neoplasm of left breast Category: Medical (2) Breast cancer screening, high risk patient: Code(s): Z12.39 - Encounter for other screening for malignant neoplasm of breast Category: Medical (3) Mastodynia: Code(s): N64.4 - Mastodynia Category: Medical Plan 48-year-old female patient being followed for high risk for breast cancer, status post excision of a papilloma of the left breast returning today for routine follow-up breast examination. Exam today reveals no suspicious findings in either breast. Her most recent breast MRI revealed no suspicious findings in either breast (BI-RADS 2 bilaterally ). Bilateral mammogram performed on 05/08/2023 revealed no mammographic evidence of malignancy (BI-RADS 2). She missed her MRI appointment in 02/22/2024 but will reschedule this in the fall. She will be due for mammogram in May 2024. I recommended a follow-up appointment in 6 months. Coding Level of Care Code Est Pt Level 3 (69228) Diagnoses Intraductal papilloma of left breast D24.2 Breast cancer screening, high risk patient Z12.39 Mastodynia N64.4
[2024-04-26 09:16] VITALS: BP 124/67; PULSE 83; BMI 32.3
== END 2024-04-26 09:29 | disposition home or self-care (01) ==
PROVIDERS: PCP Internal Medicine; Visit Provider Surgery
DX: D24.2 Benign neoplasm of left breast (principal); N64.4 Mastodynia
CPT/HCPCS: 99213

== ENCOUNTER → 2024-04-26 09:07 | Outpatient (BNVA) | payer MEDICAID, SELFPAY | PROVIDERS: PCP Internal Medicine; Visit Provider Surgery | DX: D24.2 Benign neoplasm of left breast (principal); N64.4 Mastodynia; Z80.3 Family history of malignant neoplasm of breast; Z98.890 Other specified postprocedural states | CPT/HCPCS: 99212 ==

== ENCOUNTER 2024-05-12 09:25 | Outpatient (AMB) | payer MEDICAID, SELFPAY ==
[2024-05-12 09:40] VITALS: BP 112/70; PULSE 79; O2SAT 99; BMI 31.9
--- NOTE | 2024-05-12 09:40 | A.OFFVIS_ITS ---
Vital Signs 05/12/24 09:40 Height 5 ft 7 in Weight 203 lb 14.841 oz BMI 31.9 BP 112/70 Blood Pressure Location Lt brachial Position Sitting Pulse 79 Pulse Source Pulse Oximeter Pulse Oximetry (%) 99 Oxygen Delivery Method Room Air Intake Visit Reasons: Asthma Intake Note: pt is here for follow up and had covid begginning of April, and now has some short of breath with exercise and climbing stairs. Ticket Scheduler Required: No Allergies shrimp [SHRIMP] Allergy (Intermediate, Verified 05/12/24 10:03) SWELLING tramadol [TRAMADOL] Allergy (Intermediate, Verified 05/12/24 10:03) HEADACHES gadobutrol [From GADAVIST] Allergy (Mild, Verified 05/12/24 10:03) DIFFICULTY BREATHING lactose [LACTOSE] Adverse Reaction (Mild, Verified 05/12/24 10:03) STOMACH UPSET Medication List - Last Reconciled 05/12/24 by Jose Ho MD cetirizine 10 mg PO DAILY diclofenac sodium 1% 2 grams topical TID diphenhydramine HCl (Benadryl Allergy) 25 mg PO ONCE PRN ergocalciferol (vitamin D2) 1,250 mcg PO QWEEK famotidine 20 mg PO BID PRN glucagon (Glucagon Emergency Kit) 1 mg IM ONCE PRN ibuprofen 600 mg PO Q6H PRN ibuprofen 600 mg PO Q6H PRN insulin glargine (Lantus U-100 Insulin) 65 units subcut QPM insulin lispro (Humalog KwikPen (U-100) Insulin) 30 units am, 40 units lunch, 35 units dinner subcut 3 times a day; ketorolac 10 mg PO TID PRN 5 days magnesium 200 mg PO DAILY montelukast 10 mg PO QPM pen needle, diabetic (BD Jahaira 2nd Gen Pen Needle) As directed rosuvastatin 10 mg PO QAM semaglutide (Rybelsus) 7 mg PO DAILY Do you need a note to return to daycare/school/sports/work: No HPI HPI Asthma: Details: THIS 48 YEARS OLD FEMALE IS HERE FOR HER ROUTINE FOLLOW-UP SHE IS MAINLY TREATED FOR ALLERGIC RHINITIS, WITH MINIMAL DEGREE ASTHMA. SHE HAS HAD HISTORY OF SNORING, AND QUESTIONABLE OBSTRUCTIVE SLEEP APNEA. SHE IS SUPPOSED TO DO SOME WEIGHT REDUCTION AND SLEEP IN LATERAL POSITION. THE USE OF MONTELUKAST TABLET AND CETIRIZINE HAS BEEN KEEPING HER SYMPTOMS UNDER CONTROL. SHE HAD COVID INFECTION IN APRIL OF THIS YEAR, SHE RECOVERED AT HOME, COMPLAINS OF MILD INTERMITTENT COUGH AND ALSO INCREASED SHORTNESS OF BREATH ON EXERTION SINCE THEN. IS GRADUALLY IMPROVING SHE IS NONSMOKER. FORMERLY [facility] Medical History History of COVID-19 Snoring Somnolence, daytime Chronic constipation Breast cancer screening, high risk patient Hx of migraine headaches Anemia GERD (gastroesophageal reflux disease) Liver cyst Pulmonary nodule Allergic rhinitis Intraductal papilloma Back pain Fibroids Diabetes mellitus Asthma Surgical History History of surgical procedure Hx laparoscopic cholecystectomy History of breast biopsy (~01/2020) History of colonoscopy (~12/08/19) History of hysterectomy (~12/17/18) History of section History of knee surgery Family History Mother History of breast cancer History of hypertension History of diabetes mellitus Son History of asthma History of ADHD Paternal Grandfather History of pancreatic cancer Maternal Uncle History of colon cancer Maternal Aunt History of breast cancer Paternal Grandmother History of diabetes mellitus Paternal Uncle History of rheumatoid arthritis Family/Other Family history of throat cancer Social History Household Members: Spouse and Children Alcohol intake: current Alcohol intake frequency: does not drink Patient Tobacco Use Status: Never used Tobacco Advance Directives Date on File: 12/15/18 Review of Systems Const All systems reviewed & are unremarkable except as noted in HPI and below Reports snoring Eyes Reports no additional complaints ENT Reports nasal congestion (Every night) Card Denies chest pain, Denies irregular heart rhythm and Denies leg edema Resp Reports cough (Mild intermittent), Reports snoring and Denies wheezing GI Reports heartburn (GERD symptoms controlled) Reports no additional complaints Musc Reports back pain (And back spasms) Skin/Breast Reports system reviewed and no additional complaints, except as documented Neuro Reports no additional complaints Psych Reports no additional complaints Aller/Immun Denies wheezing Physical Exam Vital Signs: Last Vital Signs Pulse 79 05/12/24 09:40 BP 112/70 05/12/24 09:40 Pulse Ox 99 05/12/24 09:40 Oxygen Delivery Method Room Air 05/12/24 09:40 BMI result Body Mass Index 31.9 She is moderately obese but there is a weight loss of 10 lb since last visit . Const General: comfortable, no acute distress, alert and awake Orientation/consciousness: patient oriented x3 HEENT Head: Yes normal to inspection General nose exam: No nasal polyps present, No nasal discharge present and Other nasal findings present (Marked bilateral nasal congestion) Face and sinus: Yes sinuses nontender Mouth: oropharynx normal Throat: Yes posterior oropharynx normal Eyes General: appearance normal, both eyes and all related structures Neck Neck: Yes normal visual inspection, Yes no lymphadenopathy, Yes trachea midline and Yes no JVD Thyroid: Thyroid normal Chest Chest palpation & inspection: normal inspection of the chest, normal palpation of entire chest wall and no tenderness Resp Other: Percussion note resonant, breath sounds are equal and normal on both sides . No audible wheezes rhonchi or crepitations. Cardio Palpation: normal PMI Rate: regular rate Rhythm: regular rhythm Heart sounds: no gallops and no murmurs Peripheral pulses: Peripheral pulses 2+ throughout GI Palpation (GI): Soft to palpation, nontender, No hepatosplenomegaly present and no masses Auscultation: normal bowel sounds Back/Spine/Pelvis Thoracic/Lumbar Spine: thoracic and lumbar spine normal to inspection and thoraco-lumbar ROM limited Skin General skin exam: no rashes or lesions noted Neuro General: patient oriented x3 and no focal motor deficits Cranial nerves: Yes CN's II-XII intact bilaterally Extrem General: Yes normal to inspection, Yes no clubbing, cyanosis or edema and Yes no calf tenderness Psych Appearance: grossly normal and well kempt Speech and movement: Normal speech and movement present Results Reviewed Results Reviewed: SPIROMETRY FVC 68%, FEV1 73%, FEF 25-75 102% THESE RESULTS ARE CONSISTENT WITH MILD RESTRICTIVE LUNG DISORDER, , THERE IS NO SIGNIFICANT OBSTRUCTIVE DISORDER . COMPARED TO SPIROMETRY FINDINGS IN NOVEMBER 2023, THE FLOW NUMBERS ARE SLIGHTLY DECREASED Assessment & Plan Assessment & Plan (1) Allergic rhinitis: Comment: CHRONIC ALMOST PERSISTENT, ALLERGIC RHINITIS, AROUND THE YEAR . SYMPTOMS INCREASE AND DECREASE ACCORDING TO THE CLIMATE CHANGES. Code(s): J30.9 - Allergic rhinitis, unspecified Category: Medical Plan: CONTINUE MONTELUKAST 10 MG DAILY CETIRIZINE 10 MG ONCE A DAY DAILY, COUNSELED THAT SHE SHOULD NOT USE BENADRYL ALONG WITH CETIRIZINE. FLONASE NASAL SPRAY 2 SPRAY IN EACH NOSTRIL DAILY (2) Snoring: Comment: SHE HAS EXCESSIVE SNORING,68 % of Sleep time . MOST LIKELY SECONDARY TO HER OBESITY AND ALLERGIC RHINITIS, Code(s): R06.83 - Snoring Category: Medical Plan: CONTINUE TREATMENT FOR ALLERGIC RHINITIS, DISCUSSED AND ENCOURAGED TO WALK DAILY AND TRY TO LOSE SOME WEIGHT. Medications: Changed From cetirizine 10 mg PO DAILY 90 days PRN 90 tabs 3RF allergy symptoms To cetirizine 10 mg PO DAILY allergy symptoms Coding Level of Care Code Est Pt Level 3 (01048) Diagnoses Allergic rhinitis J30.9 Snoring R06.83
== END 2024-05-12 10:15 | disposition home or self-care (01) ==
PROVIDERS: PCP Internal Medicine; Visit Provider Internal Medicine
DX: J30.9 Allergic rhinitis, unspecified (principal); R06.83 Snoring
CPT/HCPCS: 99213

== ENCOUNTER → 2024-05-12 09:25 | Outpatient (BNVA) | payer MEDICAID, SELFPAY | PROVIDERS: PCP Internal Medicine; Visit Provider Internal Medicine | DX: J30.9 Allergic rhinitis, unspecified (principal); R06.83 Snoring | CPT/HCPCS: 99212 ==

== ENCOUNTER 2024-05-31 15:15 | Outpatient (REF) | payer MEDICAID, SELFPAY ==
--- NOTE | ~2024-05-31 | MM_ITS ---
EXAMINATION: MM SCREENING DIGITAL BREAST TOMOSYNTHESIS, BILATERAL CLINICAL INFORMATION: Screening. Asymptomatic. COMPARISON: Mammography: Comparison is made with available priors TECHNIQUE: Digital breast tomosynthesis is performed in both the craniocaudal and mediolateral oblique views along with computer-aided detection (CAD). Synthesized 2D images are generated from the tomosynthesis. FINDINGS: There are scattered areas of fibroglandular density (ACR BI-RADS breast composition Category b). Left marker clip. There are no significant masses, abnormal calcifications, or other abnormalities. MM/MM tomosynthesis screening BI IMPRESSION: No mammographic evidence of malignancy. ASSESSMENT: BI-RADS BI-RADS 2 - Benign Findings RECOMMENDATION: Routine annual mammography screening. 1 year F/U This examination should not preclude the clinical evaluation of a suspicious palpable abnormality. This patient's information was entered into a reminder system with a target due date for their next mammogram. Electronically signed by: Petra Lovelace DO 06/24/2024 03:29 PM EDT
== END 2024-05-31 15:16 | disposition home or self-care (01) ==
LOC: HO.MAMMO 15:15
PROVIDERS: Visit Provider Internal Medicine
DX: Z12.31 Encounter for screening mammogram for malignant neoplasm of breast (principal)
CPT/HCPCS: 77063; 77067

== ENCOUNTER → 2024-05-31 15:30 | Outpatient (BNV) | payer MEDICAID, SELFPAY | PROVIDERS: Visit Provider Internal Medicine | DX: Z12.31 Encounter for screening mammogram for malignant neoplasm of breast (principal) | CPT/HCPCS: 77063; 77067 ==

== ENCOUNTER → 2024-11-15 15:16 | Outpatient (BNVA) | payer MEDICAID, SELFPAY | PROVIDERS: Visit Provider Internal Medicine | DX: J30.9 Allergic rhinitis, unspecified (principal); R91.1 Solitary pulmonary nodule; R06.83 Snoring | CPT/HCPCS: 99212 ==

== ENCOUNTER 2024-12-28 08:54 | Outpatient (REF) | payer MEDICAID, SELFPAY ==
[2024-12-28 14:18] LABS: MANUAL DIFF FLAG NO
[2024-12-28 14:19] LABS: Basophils Absolute Auto 0.1 X10*3/uL (0.0-0.2); Basophils Percent Auto 0.7 % (0-2); Eosinophils Absolute Auto 0.2 X10*3/uL (0.0-0.4); Eosinophils Percent Auto 2.5 % (0-4); Hemoglobin 14.2 g/dl (12.0-16.0); Imm Gran Abs Auto 0.03 X10*3/uL (0.00-0.03); Imm Gran Pct Auto 0.4 % (0.0-0.4); Lymphocytes Absolute Auto 2.4 X10*3/uL (1.2-4.9); Lymphocytes Percent Auto 34.9 % (20-40); Mean Corpuscular HGB Conc 32.3 g/dl (31.0-35.0); Mean Corpuscular Hemoglobin 28.2 pg (27.0-33.0); Mean Corpuscular Volume 87.5 fL (80.0-98.0); Monocytes Absolute Auto 0.5 X10*3/uL (0.1-1.2); Monocytes Percent Auto 7.7 % (2-11); Neutrophils Absolute Auto 3.6 x10*3/uL (2.0-8.3); Neutrophils Percent Auto 53.8 % (45-73); Platelet Count 264 X10*3/uL (160-400); Red Blood Count 5.03 X10*6/uL (4.20-5.50); Red Cell Distribution Width 11.3 % (11.0-16.0); White Blood Count 6.7 X10*3/uL (4.8-10.8)
[2024-12-28 14:40] LABS: Alanine Aminotransferase 39 U/L (0-31); Albumin Level 4.1 g/dL (3.5-5.0); Alkaline Phosphatase 98 U/L (39-117); Anion Gap 8 (12-20); Aspartate Amino Transferase 42 U/L (5-31); Bilirubin Total 0.6 mg/dL (0.0-1.0); Blood Urea Nitrogen 10 mg/dL (9-16); Calcium 9.5 mg/dL (8.4-10.2); Carbon Dioxide 28 mmol/L (22-29); Chloride 109 mmol/L (96-108); Cholesterol 93 mg/dL (<200); Estimated Glomerular Filt Rate > 60; Glucose Random 155 mg/dL (60-115); HDL Cholesterol 39 mg/dL (>40); Iron 110 mcg/dL (30-160); LDL Cholesterol Calculated 42 mg/dL (<100); Percent Iron Saturation 39 % (15-50); Potassium 3.8 mmol/L (3.3-5.1); Sodium 141 mmol/L (135-145); Total Iron Binding Capacity 281 mcg/dL (228-428); Total Protein 7.2 g/dL (6.5-8.0); Triglycerides 64 mg/dL (<150); Unsaturated Iron Binding 171 ug/dL
[2024-12-28 15:06] LABS: Creatinine Urine 212.92 mg/dL; Microalbum/Creatinine Ratio Ur 8.4 ug/mg cr (<30)
[2024-12-28 15:07] LABS: Folate 9.5 ng/mL (> or = 4.0); Vitamin B12 523 pg/mL (200-900)
== END 2024-12-28 08:55 | disposition home or self-care (01) ==
LOC: HO.CHCLDS 08:54
PROVIDERS: Visit Provider Internal Medicine
DX: E11.65 Type 2 diabetes mellitus with hyperglycemia (principal)
CPT/HCPCS: 36415; 80053; 80061; 82043; 82570; 82607; 82746; 83540; 85025

== ENCOUNTER 2025-03-17 10:18 | Outpatient (REF) | payer MEDICAID, SELFPAY ==
--- OUTSIDE RECORDS SUMMARY | 2025-03-17 11:16 | XMS_ITS | Encounter Summary ---
Author Organization [employer] Address [address] [place] [address] [address] [place] [address] Care Team Providers Care Leasing Manager Name Role Phone Pedro Luis Amado MD Primary Care Prov ider Encounter Details Date Type Department Care Team (Late Contact Info) Description 06/26/2023 [facility] Information Management [address] [place], [place] [phone] Pedro Luis Amado MD [address] [place], [place] [phone] Social History Tobacco Use Types Packs/Day Years Used Date Smoking Tobacco: Never Smokeless Tobacco: Never Alcohol Use Standard Drinks/Week Comments Never 0 (1 standard drink = 0.6 oz pur e alcohol) Depression Answer Date Recorded Patient Health Questionnaire-9 Score 2 01/01/2023 Depression Answer Date Recorded Patient Health Questionnaire-2 Score 0 01/01/2023 Comments Unknown Sex and Gender Information Value Date Recorded Sex Assigned at Female 08/04/2022 10:28 AM EDT Legal Sex Female 10:28 AM EDT Gender Identity Female 08/04/2022 10:28 AM EDT Sexual Orientation Straight 08/04/2022 10 :28 AM EDT documented as of this encounter Plan of Treatment Upcoming Encounters Date Type Department Care Team (Late st Contact Info) Description 03/24/2025 9:30 AM EDT Telemedicine [facility] [address] [place], [place] [phone] Pedro Luis Amado MD [address] [place], [place] [phone] documented as of this encounter Visit Diagnoses Not on filedocumented in this encounter Additional Health Concerns Assessment Noted Time PHQ-9 Depression Total Score: 2 01/02/20 23 9:06 AM EDT documented as of this encounter Care Teams Leasing Manager Relationship Specialty Start Date End Date Pedro Luis Amado MD [address] [place] [id number] PCP - General Internal Medicine 10/10/20 [facility] CoordinatorCharge Rn 07/31/23 documented as of this encounter
[2025-03-17 14:24] LABS: Anion Gap 10 (12-20); Blood Urea Nitrogen 14 mg/dL (9-16); Calcium 9.8 mg/dL (8.4-10.2); Carbon Dioxide 28 mmol/L (22-29); Chloride 107 mmol/L (96-108); Cholesterol 96 mg/dL (<200); Estimated Glomerular Filt Rate > 60; Glucose Random 172 mg/dL (60-115); HDL Cholesterol 39 mg/dL (>40); LDL Cholesterol Calculated 47 mg/dL (<100); Magnesium 1.9 mg/dL (1.6-2.6); Phosphorus 3.7 mg/dL (2.7-4.5); Potassium 3.8 mmol/L (3.3-5.1); Sodium 141 mmol/L (135-145); Triglycerides 52 mg/dL (<150)
== END 2025-03-17 10:19 | disposition home or self-care (01) ==
LOC: HO.CHCLDS 10:18
PROVIDERS: Visit Provider Internal Medicine
DX: Z79.4 Long term (current) use of insulin (principal); E11.65 Type 2 diabetes mellitus with hyperglycemia
CPT/HCPCS: 36415; 80048; 80061; 83735; 84100

== ENCOUNTER 2025-05-15 15:56 | Outpatient (AMB) | payer MEDICAID, SELFPAY ==
--- OUTSIDE RECORDS SUMMARY | 2025-05-15 15:58 | XMS_ITS | Encounter Summary ---
Author Organization [employer] Address [address] [place] [address] [address] [place] [address] Care Team Providers Care Advanced Practice Rn Name Role Phone Pedro Luis Amado MD Primary Care Prov ider Encounter Details Date Type Department Care Team (Late Contact Info) Description 06/26/2023 [facility] Information Management [address] [place], [place] [phone] Pedro Luis Amado MD [address] [place], [place] [phone] Social History Tobacco Use Types Packs/Day Years [...] Care Team (Late st Contact Info) Description 06/22/2025 8:45 AM EDT Telemedicine [facility] [address] [place], [place] [phone] Pedro Luis Amado MD [address] [place], [place] [phone] documented as of this encounter Visit Diagnoses Not on filedocumented in this encounter Additional Health Concerns Assessment Noted Time PHQ-9 Depression Total Score: 2 01/02/20 23 9:06 AM EDT documented as of this encounter Care Teams Advanced Practice Rn Relationship Specialty Start Date End Date Pedro Luis Amado MD [address] [place] [id number] PCP - General Internal Medicine 10/10/20 Estiven De La [facility] InspectorDukey Rider 07/31/23 documented as of this encounter
[2025-05-15 15:59] VITALS: BP 110/68; PULSE 89; O2SAT 98; BMI 31.1
--- NOTE | 2025-05-15 15:59 | MHC.OFFVIS ---
Vital Signs 05/15/25 15:59 Height 5 ft 7 in Weight 198 lb 6.656 oz BMI 31.1 BP 110/68 Blood Pressure Location Lt brachial Position Sitting Pulse 89 Pulse Source Pulse Oximeter Pulse Oximetry (%) 98 Oxygen Delivery Method Room Air Intake Visit Reasons: Asthma Intake Note: pt is here for follow up and still having a problem with sleeping, waiting for ENT appt in August. Cross Tie Cutter Required: No Allergies shrimp (SHRIMP) Allergy (Intermediate, Verified 05/15/25 16:15) SWELLING tramadol (TRAMADOL) Allergy (Intermediate, Verified 05/15/25 16:15) HEADACHES gadobutrol (From GADAVIST) Allergy (Mild, Verified 05/15/25 16:15) DIFFICULTY BREATHING lactose (LACTOSE) Adverse Reaction (Mild, Verified 05/15/25 16:15) STOMACH UPSET Medication List - Last Reconciled 05/15/25 by Jose Ho MD cetirizine 10 mg PO DAILY cholecalciferol (vitamin D3) 50 mcg PO DAILY diclofenac sodium 1% 2 grams topical TID diphenhydramine HCl (Benadryl Allergy) 25 mg PO ONCE PRN famotidine 20 mg PO BID PRN fluticasone propionate 50 mcg/actuation (Children's Flonase Allergy Relief) 2 sprays intranasal DAILY 30 days glucagon (Glucagon Emergency Kit) 1 mg IM ONCE PRN ibuprofen 600 mg PO Q6H PRN insulin glargine (Lantus U-100 Insulin) 65 units subcut QPM insulin lispro (Humalog KwikPen (U-100) Insulin) 30 units am, 40 units lunch, 35 units dinner subcut 3 times a day; montelukast 10 mg PO QPM pen needle, diabetic (BD Jahaira 2nd Gen Pen Needle) As directed rosuvastatin 10 mg PO QAM semaglutide (Rybelsus) 14 mg PO DAILY Do you need a note to return to daycare/school/sports/work: No HPI HPI Asthma: Details: This 49 years old female is here. For follow-up after 6 months Her previous sleep study was negative for. sleep apnea but she does have lot of snoring Her main issue is ongoing nasal congestion due to allergic rhinitis. Sleep gets disturbed by snoring Nasal allergies/ cough remain under control as long as she takes montelukast 10 mg daily and cetirizine 10 mg daily. Her weight is down by a few lb S For nasal congestion and hypertrophic nasal turbinates she is awaiting to see allergy specialists. [facility] Medical History History of COVID-19 Snoring Somnolence, daytime Chronic constipation Breast cancer screening, high risk patient Hx of migraine headaches Anemia GERD (gastroesophageal reflux disease) Liver cyst Pulmonary nodule Allergic rhinitis Intraductal papilloma Back pain Fibroids Diabetes mellitus Asthma Surgical History History of surgical procedure Hx laparoscopic cholecystectomy History of breast biopsy (~01/2020) History of colonoscopy (~12/08/19) History of hysterectomy (~12/17/18) History of section History of knee surgery Family History Mother History of breast cancer History of hypertension History of diabetes mellitus Son History of asthma History of ADHD Paternal Grandfather History of pancreatic cancer Maternal Uncle History of colon cancer Maternal Aunt History of breast cancer Paternal Grandmother History of diabetes mellitus Paternal Uncle History of rheumatoid arthritis Family/Other Family history of throat cancer Social History Household Members: Spouse and Children Alcohol intake: current Alcohol intake frequency: does not drink Patient Tobacco Use Status: Never used Tobacco Advance Directives Date on File: 12/15/18 Review of Systems Const All systems reviewed & are unremarkable except as noted in HPI and below Reports snoring Eyes Reports no additional complaints ENT Reports nasal congestion (Every night) Card Denies chest pain, Denies irregular heart rhythm and Denies leg edema Resp Reports cough (Mild intermittent), Reports snoring and Denies wheezing GI Reports heartburn (GERD symptoms controlled) Reports no additional complaints Musc Reports back pain (And back spasms) Skin/Breast Reports system reviewed and no additional complaints, except as documented Neuro Reports no additional complaints Psych Reports no additional complaints Aller/Immun Denies wheezing Physical Exam Vital Signs: Last Vital Signs Pulse 89 05/15/25 15:59 BP 110/68 05/15/25 15:59 Pulse Ox 98 05/15/25 15:59 Oxygen Delivery Method Room Air 05/15/25 15:59 BMI result Body Mass Index 31.1 She is moderately obese but there is a weight loss of 10 lb since last visit . Const General: comfortable, no acute distress, alert and awake Orientation/consciousness: patient oriented x3 HEENT Head: Yes normal to inspection General nose exam: No nasal polyps present, mucous membranes and turbinates abnormal (IS HYPERTROPHY OF THE NASAL TURBINATES.), No nasal discharge present and Other nasal findings present (Marked bilateral nasal congestion) Face and sinus: Yes sinuses nontender Mouth: oropharynx normal Throat: Yes posterior oropharynx normal Eyes General: appearance normal, both eyes and all related structures Neck Neck: Yes normal visual inspection, Yes no lymphadenopathy, Yes trachea midline and Yes no JVD Thyroid: Thyroid normal Chest Chest palpation & inspection: normal inspection of the chest, normal palpation of entire chest wall and no tenderness Resp Other: Percussion note resonant, breath sounds are equal and normal on both sides . No audible wheezes rhonchi or crepitations. Cardio Palpation: normal PMI Rate: regular rate Rhythm: regular rhythm Heart sounds: no gallops and no murmurs Peripheral pulses: Peripheral pulses 2+ throughout GI Palpation (GI): Soft to palpation, nontender, No hepatosplenomegaly present and no masses Auscultation: normal bowel sounds Back/Spine/Pelvis Thoracic/Lumbar Spine: thoracic and lumbar spine normal to inspection and thoraco-lumbar ROM limited Skin General skin exam: no rashes or lesions noted Neuro General: patient oriented x3 and no focal motor deficits Cranial nerves: Yes CN's II-XII intact bilaterally Extrem General: Yes normal to inspection, Yes no clubbing, cyanosis or edema and Yes no calf tenderness Psych Appearance: grossly normal and well kempt Speech and movement: Normal speech and movement present Assessment & Plan Assessment & Plan (1) Allergic rhinitis: Comment: CHRONIC ALMOST PERSISTENT, ALLERGIC RHINITIS, AROUND THE YEAR . SYMPTOMS INCREASE AND DECREASE ACCORDING TO THE CLIMATE CHANGES. SHE CLAIMS THAT LONG SHE IS TAKING MONTELUKAST AND CETIRIZINE THE SYMPTOMS REMAIN UNDER CONTROL. Code(s): J30.9 - Allergic rhinitis, unspecified Category: Medical Plan: ADVISED TO CONTINUE TAKING MONTELUKAST 10 MG DAILY, AND CETIRIZINE 10 MG ONCE A DAY, FOR NASAL CONGESTION. KEEP APPOINTMENT WITH THE ENT SPECIALIST. (2) Snoring: Comment: SHE HAS EXCESSIVE SNORING,68 % of Sleep time . MOST LIKELY SECONDARY TO HER OBESITY AND ALLERGIC RHINITIS, Code(s): R06.83 - Snoring Category: Medical Plan: CONTINUE THE ABOVE-NOTED MEDICATIONS. TRY TO LOSE MORE WEIGHT. Coding Level of Care Code Est Pt Level 3 (74177) Diagnoses Allergic rhinitis J30.9 Snoring R06.83
--- OUTSIDE RECORDS SUMMARY | 2025-05-15 15:59 | XMS_ITS | Clinical Summary ---
Author Organization [address] [facility] Address [address] [place] [address] Phone Care Team Providers Care Vacuum Cleaner Assembler Name Role Phone Pedro Luis Amado Primary Care Provide r Allergies No known active allergies Encounters Date Type Department Care Team Description 03/31/2025 8:00 AM EDT Office Visit Orthopedic Surgery [facility] [address] [phone] Christa Mortensen PA Bilateral carpal tunnel syndrome (Primary Dx); Trigger ring finger of right hand 03/22/2025 Telephone Obstetrics and Gynecology [address] [phone] Pam Plata PA Pelvic Pain 03/01/2025 1:30 PM EDT Office Visit [address] [phone] Christa Mortensen PA Bilateral carpal tunnel syndrome (Primary Dx); Trigger ring finger of right hand from Last 3 Months Surgical History Surgery Date Site/Laterality Comments KNEE SURGERY PROCEDURE: HISTORICAL KNEE SURGERY SECTION PROCEDURE: HISTORICAL ; COMMENT: x2 CHOLECYSTECTOMY PROCEDURE: HISTORICAL CHOLECYSTECTOMY BREAST BIOPSY PROCEDURE: RI BIOPSY BREAST OPEN INCISIONAL; COMMENT: benign, benign second biopsy 01/2020, scheduled for excision in 03/2020 TUBAL LIGATION PROCEDURE: HISTORICAL TUBAL LIGATION OTHER SURGICAL HISTORY 12/17/2018 PROCEDURE: RI TOTAL ABDOMINAL HYSTERECT W/WO RMVL TUBE OVARY; COMMENT: fibroid uterus, heavy bleeding, anemia, Eppsteiner- incidental cystotomy repaired Medical History Medical History Date Comments Back pain DX:Back pain Knee pain DX:Knee pain Diabetes mellitus type 2 in obese DX:Diabetes mellitus type 2 in obese BRCA negative DX:BRCA negative ; COMMENT: at [place] Intraoperative bladder injury 12/22/2018 DX :Intraoperative bladder injury; COMMENT: Repaired in two layers by Dr. Sawyer in Urology at time of hysterectomy Family History Medical History Relation Name Comments Breast cancer Aunt 1 mat 50 Breast cancer Aunt 2 mat 50 Breast cancer Mother 50 Pancreatic cancer Uncle mat 60 Colon cancer Neg Hx Ovarian cancer Neg Hx Prostate cancer Neg Hx Uterine cancer Neg Hx Relation Name Status Comments Aunt 1 mat 50 Alive Aunt 2 mat 50 Alive Mother 50 Uncle mat 60 Social History Tobacco Use Types Packs/Day Years Used Date Smoking Tobacco: Never Smokeless Tobacco: Never Alcohol Use Standard Drinks/Week Comments No 0 (1 standard drink = 0.6 oz pur e alcohol) Comments Unknown Sex and Gender Information Value Date Recorded Sex Assigned at Female 02/28/2025 3:12 PM EDT Legal Sex Female 11:13 PM EST Gender Identity Female 02/28/2025 3:12 PM EDT Sexual Orientation Straight 02/28/2025 3 :12 PM EDT Obstetrics History Last Filed Vital Signs Vital Sign Reading Time Taken Comments Blood Pressure 123/83 03/29/2024 1:40 PM EDT Pulse 82 03/29/2024 1:40 PM EDT Temperature - - Respiratory Rate - - Oxygen Saturation - - Inhaled Oxygen Concentration - - Weight 94 kg (207 lb 3.7 oz) 03/01/2025 1:22 PM EDT Height 170.2 cm (5' 7.01 ) 03/01/2025 1:22 PM ED T Body Mass Index 32.45 03/01/2025 1:22 PM EDT Plan of Treatment Health Maintenance Due Date Last Done Comments Breast Cancer Screening 1974 Diabetes: Annual Foot Exam 1984 Diabetes: Annual Retina Eye Exam 1984 Hepatitis B Vaccines (1 of 3 - 19+ 3-dose series) 1993 Cervical Cancer Screening: Pap Smear 11/01/2021 11/01/2018, 11/01/2018 Colorectal Cancer Screening: Colonoscopy 09/07/2022 HIV Screening 09/07/2022 Social Influencers of Health Screening 09/07/2022 Diabetes: Annual Urine Albumin-Creatinine Ratio (uACR) 09/14/2022 Pneumococcal Vaccine: 50+ Years (2 of 2 - PCV) 2024 06/01/2015 Zoster Vaccines (1 of 2) 2024 COVID-19 Vaccine (3 - season) 2024 01/30/2021, 12/29/2020 Depression Screening 10/05/2024 Influenza Vaccine (#1) 2025 8, 07/15/2017, 08/26/2016, Additional history exists Diabetes: Blood Sugar Control Test (HGBA1C) 06/23/2025 12/21/2024 Diabetes: Annual GFR (Glomerular Filtration Rate) 03/17/2026 03/17/2025, 12/28/2024 Hypertension/CHF/CAD Annual BMP Blood Test 03/17/2026 03/17/2025, 12/28/2024 Cholesterol Screening (Lipid Panel) 03/17/2030 03/17/2025, 12/28/2024 DTaP,Tdap,and Td Vaccines (4 - Td or Tdap) 05/04/2031 05/04/2021, 08/10/2016, 09/21/2013 Hepatitis C Screening Completed 10/16/2022 HIB Vaccines Aged Out No longer eligi ble based on patient's age to complete this topic HPV Vaccines Aged Out No longer eligi ble based on patient's age to complete this topic Hepatitis A Vaccines Aged Out No long er eligible based on patient's age to complete this topic IPV Vaccines Aged Out No longer eligi ble based on patient's age to complete this topic MMR Vaccines Aged Out No longer eligi ble based on patient's age to complete this topic Meningococcal ACWY Vaccine Aged Out N o longer eligible based on patient's age to complete this topic Meningococcal B Vaccine Aged Out No l onger eligible based on patient's age to complete this topic RSV Immunization Patients Under 20 months Aged Out No longer eligible based on patient's age to complete this topic Varicella Vaccines Aged Out No longer eligible based on patient's age to complete this topic Procedures Procedure Name Priority Date/Time Associated Diagnosis Comments RI INJECTION SINGLE TENDON SHEATH OR LIGAMENT APONEUROSIS Routine 03/31/2025 8:00 AM EDT Trigger ring finger of right hand RI INJECTION CARPAL TUNNEL THERAPEUTIC Routine 03/31/2025 8:00 AM EDT Bilateral carpal tunnel syndrome RI INJECTION CARPAL TUNNEL THERAPEUTIC Routine 03/01/2025 1:30 PM EDT Bilateral carpal tunnel syndrome PAP SMEAR Routine 11/01/2018 from Last 3 Months or Most Recently Relevant to Health Maintenance Results * RI INJECTION SINGLE TENDON SHEATH OR LIGAMENT APONEUROSIS (03/31/2025 8:00 AM EDT) Christa Zurita PA - 03/31/2025 8:00 AM EDT ARABELLA Ceja 03/31/2025 9:14 AM Hand / UE Inj/Asp: R ring A1 for trigger finger Indications: pain Details: 25 G needle, volar approach Medications: 0.5 mL lidocaine 1 %; 20 mg triamcinolone acetonide 40 mg/mL Informed Consent: Laterality: Right Relevant images/test results available and reviewed: yes Health status cleared: Yes Procedure/treatment, purpose, treatment alternatives, risks/potential complications and benefits explained: yes Risk/complications/benefits details: Risks of infection, thinning of the skin and temporary skin discoloration discussed. Discussed risks of temporary increased pain after injection and swelling and mild redness at injection site for couple days. Explained occasionally cortisone injection can cause facial flushing temporarily. Benefits pain management. For postop injection pain ice, Tylenol and/or NSAIDs if patient can take Patient questions answered: yes Patient agrees, verbalizes understanding, and wants to proceed: yes Consent given by: Patient Informed consent discussion completed by Physician/TON with patient: Verbal Pre-procedure timeout performed: yes us Christa BELL IN CLINIC/BEDSIDE ORDERABLES Final Result * RI INJECTION CARPAL TUNNEL THERAPEUTIC (03/31/2025 8:00 AM EDT) Christa Zurita PA - 03/31/2025 8:00 AM EDT ARABELLA Ceja 03/31/2025 9:14 AM Hand / UE Inj/Asp: L carpal tunnel for carpal tunnel syndrome Details: 25 G needle, volar approach Medications: 0.5 mL lidocaine 1 %; 20 mg triamcinolone acetonide 40 mg/mL Informed Consent: Laterality: Left Relevant images/test results available and reviewed: yes Health status cleared: Yes Procedure/treatment, purpose, treatment alternatives, risks/potential complications and benefits explained: yes Risk/complications/benefits details: Risks of infection, thinning of the skin and temporary skin discoloration discussed. Discussed risks of temporary increased pain after injection and swelling and mild redness at injection site for couple days. Explained occasionally cortisone injection can cause facial flushing temporarily. Benefits pain management. For postop injection pain ice, Tylenol and/or NSAIDs if patient can take Patient questions answered: yes Patient agrees, verbalizes understanding, and wants to proceed: yes Consent given by: Patient Informed consent discussion completed by Physician/TON with patient: Verbal Pre-procedure timeout performed: yes us Christa BELL IN CLINIC/BEDSIDE ORDERABLES Final Result * RI INJECTION CARPAL TUNNEL THERAPEUTIC (03/01/2025 1:30 PM EDT) Christa Zurita PA - 03/01/2025 1:30 PM EDT ARABELLA Ceja 03/01/2025 3:56 PM Hand / UE Inj/Asp: R carpal tunnel for carpal tunnel syndrome Indications: pain Details: 25 G needle, volar approach Medications: 0.5 mL lidocaine 1 %; 40 mg triamcinolone acetonide 40 mg/mL Informed Consent: Laterality: Right Relevant images/test results available and reviewed: yes Health status cleared: Yes Procedure/treatment, purpose, treatment alternatives, risks/potential complications and benefits explained: yes Risk/complications/benefits details: Risks of infection, thinning of the skin and temporary skin discoloration discussed. Discussed risks of temporary increased pain after injection and swelling and mild redness at injection site for couple days. Explained occasionally cortisone injection can cause facial flushing temporarily. Benefits pain management. For postop injection pain ice, Tylenol and/or NSAIDs if patient can take Patient questions answered: yes Patient agrees, verbalizes understanding, and wants to proceed: yes Consent given by: Patient Informed consent discussion completed by Physician/TON with patient: Verbal Pre-procedure timeout performed: yes us Christa BELL IN CLINIC/BEDSIDE ORDERABLES Final Result * Pap smear (11/01/2018) 11/01/2018 Narrative HISTORICAL TESTING LAB RESULTING AGENCY - 11/04/2018 1:45 PM EST [id number] THINPREP PAP, IMAGED: NEGATIVE FOR SQUAMOUS INTRAEPITHELIAL LESION AND MALIGNANCY . ALLYN TEJADA(ASCP) (CASE ELECTRONICALLY SIGNED 11 03 2018) RESULT OF APTIMA HIGH RISK HPV ASSAY: HIGH RISK HPV: NEGATIVE (SEROTYPES 16,18,31,33,35,39,45,51,52,56,58,59,66,68) COMPLETED ON 2018-11-03 ADEQUACY: SATISFACTORY ENDOCERVICAL/TRANSFORMATION ZONE COMPONENT PRESENT. SOURCE: THINPREP PAP HPV ANY DX: REFLEX 16 AND 18, CERVICAL, IMAGED CLINICAL INFORMATION: HPV ANY DIAGNOSIS. Z12.4, PAP HX: NEGATIVE Mackenzie Bradley MD LAB CYTOLOGY ORDERABLES Fin al Result HISTORICAL TESTING LAB RESULTING AGENCY from Last 3 Months or Most Recently Relevant to Health Maintenance Insurance MEDICAID - [place] Care Teams Vacuum Cleaner Assembler Relationship Specialty Start Date End Date Pedro Luis Amado [address] [place], [place] PCP - General 11/11/22
== END 2025-05-15 16:14 | disposition home or self-care (01) ==
LOC: HO.HPS 15:56
PROVIDERS: PCP Internal Medicine; Visit Provider Internal Medicine
DX: J30.9 Allergic rhinitis, unspecified (principal); R06.83 Snoring
CPT/HCPCS: 99213

== ENCOUNTER → 2025-05-15 15:56 | Outpatient (BNVA) | payer MEDICAID, SELFPAY | PROVIDERS: PCP Internal Medicine; Visit Provider Internal Medicine | DX: R06.83 Snoring (principal); J30.9 Allergic rhinitis, unspecified; E66.9 Obesity, unspecified | CPT/HCPCS: 99212 ==

== ENCOUNTER 2025-07-07 14:53 | Outpatient (AMB) | payer MEDICAID, SELFPAY ==
--- NOTE | 2025-07-07 14:57 | A.OFFVIS_ITS ---
Vital Signs 07/07/25 14:58 Height 5 ft 7 in Weight 192 lb BMI 30.1 BP 129/67 Blood Pressure Location Lt brachial Position Sitting Pulse 70 Intake Visit Reasons: colo screening Intake Note: Patient new consult for 1st pre Colonoscopy screening/Vanna strong was 11/07/2020 for constipation. Patient cc: constipation, abdominal bloating on and off, acid reflux, denies any other GI issues. Outside Industrial Sales Representative Required: No Accompanied by: Spouse Allergies shrimp (SHRIMP) Allergy (Intermediate, Verified 07/07/25 14:57) SWELLING tramadol (TRAMADOL) Allergy (Intermediate, Verified 07/07/25 14:57) HEADACHES gadobutrol (From GADAVIST) Allergy (Mild, Verified 07/07/25 14:57) DIFFICULTY BREATHING lactose (LACTOSE) Adverse Reaction (Mild, Verified 07/07/25 14:57) STOMACH UPSET HPI HPI colo screening: Details: Patient is a 50-year-old female with PMH of allergic rhinitis, diabetes, migraine. Last colonoscopy in 2019 with reports of fair prep. Patient reports longstanding constipation, having bowel movements approximately every other day, with occasional hard stool and the need to strain. Denies hematochezia. Symptoms partially relieved by increased water intake and certain foods (e.g., oatmeal, pancakes). She notes intermittent bloating, sometimes described as a ?big? or distended belly, with associated mild pain, and frequent episodes of gas with foul-smelling burps (?bad eggs?). Symptoms of discomfort and bloating are exacerbated by onions, garlic, and tomato-based foods, which also trigger heartburn; episodes rarely accompanied by burning sensation. She takes famotidine (as needed) for reflux. She has sporadic difficulty swallowing solids, which is more frequent than with liquids; no history of food regurgitation or aspiration. Recent weight loss (~11 lbs in six months, from 209 to 198 lbs), prescribed semaglutide with recent dose adjustment aslo implemented new dietary changes (cessation of soda intake). comorbidities include diabetes (currently on therapy, likely contributing to GI symptoms and weight loss per chart review). Family history notable for gastric ulcer and breast cancer in mother, colon cancer in maternal uncle. Patient denies: fever/chills, n/v, appetite changes, regurgitation, unintentional wt loss or melena/hematochezia. Social hx: -denies ETOH use -denies recreational drug use -non-smoker - family hx as below -denies personal hx of CA -tolerated anesthesia in the past without difficulty. [facility] Medical History (Updated 07/07/25 @ 16:50 by Melissa Dc CNP) Dysphagia Colon cancer screening History of COVID-19 Snoring Somnolence, daytime Chronic constipation Breast cancer screening, high risk patient Hx of migraine headaches Anemia GERD (gastroesophageal reflux disease) Liver cyst Pulmonary nodule Allergic rhinitis Intraductal papilloma Back pain Fibroids Diabetes mellitus Asthma Surgical History History of surgical procedure Hx laparoscopic cholecystectomy History of breast biopsy (~01/2020) History of colonoscopy (~12/08/19) History of hysterectomy (~12/17/18) History of section History of knee surgery Family History Mother History of breast cancer History of hypertension History of diabetes mellitus Son History of asthma History of ADHD Paternal Grandfather History of pancreatic cancer Maternal Uncle History of colon cancer Maternal Aunt History of breast cancer Paternal Grandmother History of diabetes mellitus Paternal Uncle History of rheumatoid arthritis Family/Other Family history of throat cancer Social History Household Members: Spouse and Children Alcohol intake: current Alcohol intake frequency: does not drink Patient Tobacco Use Status: Never used Tobacco Advance Directives Date on File: 12/15/18 Review of Systems Const Reports as per HPI ENT Reports as per HPI Card Reports as per HPI Resp Reports as per HPI GI Reports as per HPI Reports as per HPI Physical Exam Vital Signs: Last Vital Signs Pulse 70 07/07/25 14:58 BP 129/67 07/07/25 14:58 BMI result Body Mass Index 30.1 Const General: healthy appearing, no acute distress and well developed Nutritional Appearance: average body habitus Orientation/consciousness: patient oriented x3 HEENT Head: Yes normal to inspection, Yes normocephalic and Yes atraumatic Face and sinus: Yes normal facial exam Eyes General: appearance normal, both eyes and all related structures Neck Neck: Yes normal visual inspection Resp Effort & Inspection: normal respiratory effort, able to speak in complete sentences, no tracheal deviation and symmetric chest movement Cardio Jugular venous distension: no JVD GI Inspection: Yes normal to inspection, No distended and Yes obesity Palpation (GI): Soft to palpation, not firm, nontender and No hepatosplenomegaly present Auscultation: normal bowel sounds Neuro General: patient oriented x3 Gait exam (Neuro): Normal gait present Psych Appearance: grossly normal Mental Status: mental status grossly normal Speech and movement: Normal speech and movement present Affect: normal affect Attitude: cooperative Thought process: Normal thought process present Thought content: Normal thought content present Insight: Good insight present (Psych) Judgement: Good judgement present (Psych) Assessment & Plan Assessment & Plan (1) Colon cancer screening: Comment: 12/08/19 colonoscopy complete with fair prep despite copious irrigation- no polyps. Recommendation for repeat due to fair prep and FH hx. Code(s): Z12.11 - Encounter for screening for malignant neoplasm of colon Category: Medical Plan: Due for repeat colonoscopy given fair prep at time of last screening. Medications: -prescriptions for senna laxative tablets (bisacodyl contraindicated) and PEG sent to pharmacy; instructions on clear liquid diet given. -Understands diabetes medications will need to be held days prior to procedure. Nurse to review med holds per protocol. Patient educated on scheduling process, procedure preparation, including avoiding certain foods and ensuring clear liquid intake Advised on necessity for ride post-procedure due to sedation. (2) GERD (gastroesophageal reflux disease): Code(s): K21.9 - Gastro-esophageal reflux disease without esophagitis Category: Medical Qualifiers: Esophagitis presence: esophagitis presence not specified Qualified Code(s): K21.9 - Gastro-esophageal reflux disease without esophagitis Plan: Triggered by acidic and sulfur-containing foods, responds to famotidine PRN, no frequent symptoms. Additional Testing: Recommend UGI endoscopy at time of colonoscopy for mucosal evaluation; fasting labs including LFTs. Medication Management: Continue famotidine PRN. Declined further pharmacological management. Lifestyle Recommendations: Avoid identified triggers; further increase dietary fiber cautiously to avoid exacerbating dyspepsia. Follow-Up: Upper endoscopy at time of colonoscopy; review symptoms and mucosal findings after procedure. (3) Dysphagia: Code(s): R13.10 - Dysphagia, unspecified Category: Medical Qualifiers: Dysphagia type: unspecified Qualified Code(s): R13.10 - Dysphagia, unspecified Plan: Intermittent, more prominent with solids; no aspiration Additional Testing: Order swallow study (per patient request/ENT suggestion); schedule UGI endoscopy for full evaluation. Medication Management: None indicated. Lifestyle Recommendations: Continue avoidance of food triggers pending evaluation, maintain adequate hydration. Follow-Up: Review swallow study and endoscopy results, coordinate care with pulmonary and ENT as needed. (4) Chronic constipation: Code(s): K59.09 - Other constipation Category: Medical Plan: Intermittent symptoms, straining, relief with dietary modification, mild severity. Additional Testing: None indicated beyond planned colonoscopy. Medication Management: Initiate stool softener (2 tabs HS), start fiber tablet (1 tab daily x 2 wks, then 2 tabs daily). Lifestyle Recommendations: Gradually increase dietary fiber via fruits, vegetables, legumes, nuts. Maintain high water intake. Follow-Up: Reassess symptom control at colonoscopy follow-up. Plan Follow-up after colonoscopy or sooner if needed Time: I spent a total of 45 minutes on the date of encounter which includes: Preparing to see the patient (reviewed previous documentation, test results and medical history) Performing a medically appropriate exam and/or evaluation Ordering medications, tests, and procedures Documenting clinical information in the health record Orders: Orders FL barium swallow Today K21.9 - Gastro-esophageal reflux disease without esophagitis, R13.10 - Dysphagia, unspecified Referrals GI Procedure Notification K21.9 - Gastro-esophageal reflux disease without esophagitis, R13.10 - Dysphagia, unspecified, Z12.11 - Encounter for screening for malignant neoplasm of colon Medications: New methylcellulose (laxative) (Citrucel) Take one tablet daily X 2 week, follow by two tablets daily thereafter 180 tabs 2RF peg 3350-electrolytes 236-22.74-6.74 -5.86 gram until fecal effluent is clear 240 mL PO Q10M 4,000 mL 0RF docusate sodium Take one tablet at bedtime 100 mg PO BEDTIME 90 caps 1RF constipation scopolamine base Apply 1 patch (1 mg/3 days) behind ear 8 hours prior to required antiemetic effect for use up to 72 hours 1 patch transdermal Q3D PRN 4 ea 0RF nausea and vomiting simethicone (Gas Relief (simethicone)) per colonoscopy prep instructions 125 mg PO ONCE 4 caps 0RF abdominal distention sennosides (senna) two capsules nightly, starting 3 days prior to colonoscopy 17.2 mg (2 x 8.6 mg) PO BEDTIME 6 caps 0RF 3 days Coding Level of Care Code New Pt New Pt Level 4 (33927) Patient Type New Diagnoses Colon cancer screening Z12.11 Gastroesophageal reflux disease, unspecified whether esophagitis present K21.9 Esophagitis presence: esophagitis presence not specified Dysphagia, unspecified type R13.10 Dysphagia type: unspecified Chronic constipation K59.09
[2025-07-07 14:58] VITALS: BP 129/67; PULSE 70; BMI 30.1
--- OUTSIDE RECORDS SUMMARY | 2025-07-07 14:58 | XMS_ITS | Encounter Summary ---
Author Organization [employer] Address [address] [facility] [address] [place] [address] Care Team Providers Care Payroll Director Name Role Phone Pedro Luis Amado MD Primary Care Prov ider Reason for Visit * Reason Onset Date Comments Results 09/30/2023 Encounter Details Date Type Department Care Team ([facility] st Contact Info) Description 09/30/2023 Telephone [facility] [address] [place] [address] Pedro Luis Amado MD [address] [place] [address] Results Social History Tobacco Use Types Packs/Day Years Used Date Smoking Tobacco: Never Smokeless Tobacco: Never Alcohol Use Standard Drinks/Week Comments Never 0 (1 standard drink = 0.6 oz pur e alcohol) Depression Answer Date Recorded Patient Health Questionnaire-9 Score 2 01/01/2023 Housing Stability Answer Date Recorded What is your housing situation today? I have janice castrejon 07/21/[address] you li ve. Do you have problems with any of the following? None of the above 07/21/2023 Food Insecurity Answer Date Recorded Within the past 12 months, y ou worried that your food would run out before you got money to buy more: Never True 07/21/2023 Within the past 12 months,th e food you bought just didn't last and you didn't have enough money to get more: Never True Transportation Answer Date Recorded In the past 12 months, has l ack of transportation kept you from medical appts, meetings, work or from getting things needed for daily living? No 07/21/2023 Utilities Answer Date Recorded In the past 12 months, has t he electric, gas, oil or water company threatened to shut off services in your home? No 07/21/2023 Depression Answer Date Recorded Patient Health Questionnaire-2 Score 0 01/01/2023 Comments Unknown Sex and Gender Information Value Date Recorded Sex Assigned at Female 08/04/2022 10:28 AM EDT Legal Sex Female 10:28 AM EDT Gender Identity Female 08/04/2022 10:28 AM EDT Sexual Orientation Straight 08/04/2022 10 :28 AM EDT documented as of this encounter Miscellaneous Notes * Telephone Encounter - Hudson Colin RN - 09/30/2023 1:58 PM EST Pt requesting US pelvis tranvaginal results. Please review and advise nurse's. Thanks. * Telephone Encounter - Awa Rosales - 09/30/2023 10:17 AM EST Tc from pt requesting a call back in regards pelvis ultrasound results. documented in this encounter Plan of Treatment Not on file documented as of this encounter Visit Diagnoses Not on filedocumented in this encounter Additional Health Concerns Assessment Noted Time PHQ-9 Depression Total Score: 2 01/02/20 23 9:06 AM EDT documented as of this encounter Care Teams Payroll Director Relationship Specialty Start Date End Date Pedro Luis Amado MD [address] [place] [id number] PCP - General Internal Medicine 10/10/20 Estiven De La Garza [employer] 07/31/23 documented as of this encounter
--- OUTSIDE RECORDS SUMMARY | 2025-07-07 14:58 | XMS_ITS | Clinical Summary ---
Author Organization [address] [facility] Address [address] [place] [address] Phone Care Team Providers Care Interdisciplinary Professor Name Role Phone Pedro Luis Amado Primary Care Provide r Allergies No known active allergies Surgical History Surgery Date Site/Laterality Comments KNEE SURGERY PROCEDURE: HISTORICAL KNEE SURGERY SECTION PROCEDURE: HISTORICAL ; COMMENT: x2 CHOLECYSTECTOMY PROCEDURE: HISTORICAL CHOLECYSTECTOMY BREAST BIOPSY PROCEDURE: TX BIOPSY BREAST OPEN INCISIONAL; COMMENT: benign, benign second biopsy 01/2020, scheduled for excision in 03/2020 TUBAL LIGATION PROCEDURE: HISTORICAL TUBAL LIGATION OTHER SURGICAL HISTORY 12/17/2018 PROCEDURE: TX TOTAL ABDOMINAL HYSTERECT W/WO RMVL TUBE OVARY; COMMENT: fibroid uterus, heavy bleeding, anemia, Eppsteiner- incidental cystotomy repaired Medical History Medical History Date Comments Back pain DX:Back pain Knee pain DX:Knee pain Diabetes mellitus type 2 in obese DX:Diabetes mellitus type 2 in obese BRCA negative DX:BRCA negative ; COMMENT: at [place] Intraoperative bladder injury 12/22/2018 DX :Intraoperative bladder [...] 3:12 PM EDT Sexual Orientation Straight 02/28/2025 3: 12 PM EDT Obstetrics History Last Filed Vital Signs Vital Sign Reading Time Taken Comments Blood Pressure 123/83 03/29/2024 1:40 PM EDT Pulse 82 03/29/2024 1:40 PM EDT Temperature - - Respiratory Rate - - Oxygen Saturation - - Inhaled Oxygen Concentration - - Weight 94 kg (207 lb 3.7 oz) 03/01/2025 1:22 PM EDT Height 170.2 cm (5' 7.01 ) 03/01/2025 1:22 PM E DT Body Mass Index 32.45 03/01/2025 1:22 PM EDT Plan of Treatment Health Maintenance Due Date Last Done Comments Breast Cancer Screening 1974 Colorectal Cancer Screening: Colonoscopy 1974 Diabetes: Annual Foot Exam 1984 Diabetes: Annual Retina Eye Exam 1984 Hepatitis B Vaccines (1 of 3 - 19+ 3-dose series) 1993 Cervical Cancer Screening: Pap Smear 11/01/2021 11/01/2018, 11/01/2018 HIV Screening 09/07/2022 Social Influencers of Health Screening 09/07/2022 Diabetes: Annual Urine Albumin-Creatinine Ratio (uACR) 09/14/2022 Pneumococcal Vaccine: 50+ Years (2 of 2 - PCV) 2024 06/01/2015 Zoster Vaccines (1 of 2) 2024 Depression Screening 10/05/2024 COVID-19 Vaccine (3 - season) 2025 01/30/2021, 12/29/2020 Influenza Vaccine (#1) 2025 8, 07/15/2017, 08/26/2016, Additional history exists Diabetes: Blood Sugar Control Test (HGBA1C) 06/23/2025 12/21/2024 Diabetes: Annual GFR (Glomerular Filtration Rate) 03/17/2026 03/17/2025, 12/28/2024 Hypertension/CHF/CAD Annual BMP Blood Test 03/17/2026 03/17/2025, 12/28/2024 Cholesterol Screening (Lipid Panel) 03/17/2030 03/17/2025, 12/28/2024 DTaP,Tdap,and Td Vaccines (4 - Td or Tdap) 05/04/2031 05/04/2021, 08/10/2016, 09/21/2013 RSV Immunization Adult Patients (1 - 1-dose 75+ series) 2049 Hepatitis C Screening Completed 10/16/2022 HIB Vaccines [...] Procedure Name Priority Date/Time Associated Diagnosis Comments PAP SMEAR Routine 11/01/2018 from Last 3 Months or Most Recently Relevant to Health Maintenance Results * Pap smear (11/01/2018) 11/01/2018 Narrative HISTORICAL TESTING LAB RESULTING AGENCY - 11/04/2018 1:45 PM EST [id number] THINPREP PAP, IMAGED: NEGATIVE FOR SQUAMOUS INTRAEPITHELIAL LESION AND MALIGNANCY . ALLYN TEJADA(ASCP) (CASE ELECTRONICALLY SIGNED 11 03 2018) RESULT OF APTIMA HIGH RISK HPV ASSAY: HIGH RISK HPV: NEGATIVE (SEROTYPES 16,18,31,33,35,39,45,51,52,56,58,59,66,68) COMPLETED ON 2018-11-03 ADEQUACY: SATISFACTORY ENDOCERVICAL/TRANSFORMATION ZONE COMPONENT PRESENT. SOURCE: THINPREP PAP HPV ANY DX: REFLEX 16 AND 18, CERVICAL, IMAGED CLINICAL INFORMATION: HPV ANY DIAGNOSIS. Z12.4, PAP HX: NEGATIVE us Mackenzie Bradley MD LAB CYTOLOGY ORDERABLES Fin al Result HISTORICAL TESTING LAB RESULTING AGENCY from Last 3 Months or Most Recently Relevant to Health Maintenance Insurance MEDICAID - [place] Care Teams Interdisciplinary Professor Relationship Specialty Start Date End Date Pedro Luis Amado [address] [place], [place] PCP - General 11/11/22
--- OUTSIDE RECORDS SUMMARY | 2025-07-07 14:58 | XMS_ITS | Encounter Summary ---
Author Organization [employer] Address [address] [place] [address] 7 [place] [address] Care Team Providers Care [employer] Advisor Name Role Phone Pedro Luis Amado MD Primary Care Prov ider Encounter Details Date Type Department Care Team (Late st Contact Info) Description 09/01/2022 Abstract [facility] MEDICINE [address] [place] [address] ProviderEmil MD Social History Tobacco Use Types Packs/Day Years Used Date Smoking Tobacco: Never Assessed Comments Unknown Sex and Gender Information Value Date Recorded Sex Assigned at Female 08/04/2022 10:28 AM EDT Legal Sex Female 10:28 AM EDT Gender Identity Female 08/04/2022 10:28 AM EDT Sexual Orientation Straight 08/04/2022 10 :28 AM EDT documented as of this encounter Plan of Treatment Not on file documented as of this encounter Visit Diagnoses Not on filedocumented in this encounter Care Teams [employer] Advisor Relationship Specialty Start Date End Date Pedro Luis Amado MD [address] [facility] [place] [address] PCP - General Internal Medicine 10/10/20 Estiven De La Garza PolysomnographerButt Trimmer 07/31/23 documented as of this encounter
--- OUTSIDE RECORDS SUMMARY | 2025-07-07 14:58 | XMS_ITS | Encounter Summary ---
Author Organization [employer] Address [address] [place] [address] 7 [place] [address] Care Team Providers Care Livestock Trucker Name Role Phone Pedro Luis Amado MD Primary Care Prov ider Encounter Details Date Type Department Care Team (Latest Contact Info) Description 08/02/2019 Abstract [facility] CONVERSIONS Dental, Provider, DDS Social History Tobacco Use Types Packs/Day Years [...] on filedocumented in this encounter Care Teams Livestock Trucker Relationship Specialty Start Date End Date Pedro Luis Amado MD [address] [place] [address] PCP - General Internal Medicine 10/10/20 Estiven De La Garza Director Consumer AffairsHumidifier Operator 07/31/23 documented as of this encounter
--- OUTSIDE RECORDS SUMMARY | 2025-07-07 14:58 | XMS_ITS | Encounter Summary ---
Author Organization [employer] Address [address] [facility] [address] [place] [address] Care Team Providers Care Film Waxer Name Role Phone Pedro Luis Amado MD Primary Care Prov ider Reason for Visit * Reason Comments Med Refill Encounter Details Date Type Department Care Team ([facility] Contact Info) Description 03/31/2025 Refill [facility] MEDICINE [address] [place] [address] Jocelynn Stanley MD [address] [place] [address] Candidiasis, intertriginous Social History Tobacco Use Types Packs/Day Years Used Date Smoking Tobacco: Never Smokeless Tobacco: Never Alcohol Use Standard Drinks/Week Comments Never 0 (1 standard drink = 0.6 oz pur e alcohol) Depression Answer Date Recorded Patient Health Questionnaire-9 Score 0 05/17/2024 Patient Health Questionnaire-9 Score 0 05/17/2024 Last PHQ-9: Questionnaire Data Not on file 0 05/17/2024 Housing Stability Answer Date Recorded What is your housing situation today? I have janice castrejon 05/17/[address] you li ve. Do you have problems with any of the following? None of the above 05/17/2024 Food Insecurity Answer Date Recorded Within the past 12 months, y ou worried that your food would run out before you got money to buy more: Never True 05/17/2024 Within the past 12 months,th e food you bought just didn't last and you didn't have enough money to get more: Never True Transportation Answer Date Recorded In the past 12 months, has l ack of transportation kept you from medical appts, meetings, work or from getting things needed for daily living? No 05/17/2024 Utilities Answer Date Recorded In the past 12 months, has t he electric, gas, oil or water company threatened to shut off services in your home? No 05/17/2024 Depression Answer Date Recorded Patient Health Questionnaire-2 Score 0 05/17/2024 Internet Access Answer Date Recorded Internet Access Q1 No 06/06/2024 Internet Access Q2 I do not want or need it 11/2023 Comments Unknown Sex and Gender Information Value Date Recorded Sex Assigned at Female 08/04/2022 10:28 AM EDT Legal Sex Female 10:28 AM EDT Gender Identity Female 08/04/2022 10:28 AM EDT Sexual Orientation Straight 08/04/2022 10 :28 AM EDT documented as of this encounter Plan of Treatment Not on file documented as of this encounter Visit Diagnoses Diagnosis Candidiasis, intertriginous documented in this encounter Additional Health Concerns Assessment Noted Time PHQ-9 Depression Total Score: 0 05/17/20 24 8:35 AM EDT documented as of this encounter Care Teams Film Waxer Relationship Specialty Start Date End Date Pedro Luis Amado MD [address] [place] [id number] PCP - General Internal Medicine 10/10/20 Estiven De La Garza C.O.D. BillerChemical Waste Management Technician 07/31/23 documented as of this encounter
--- OUTSIDE RECORDS SUMMARY | 2025-07-07 14:58 | XMS_ITS | Encounter Summary ---
Author Organization [employer] Address [address] [facility] 7 [place] [address] Care Team Providers Care Marble Finisher Name Role Phone Pedro Luis Amado MD Primary Care Prov ider Reason for Visit * Reason Onset Date Comments Results 10/02/2023 Encounter Details Date Type Department Care Team ([facility] st Contact Info) Description 10/02/2023 Telephone [facility] MED & PEDS [address] [place], [place] [phone] Pedro Luis Amado MD [address] [place] [address] Results Social History Tobacco Use Types Packs/Day [...] encounter Miscellaneous Notes * Telephone Encounter - Yelena Stevie - 10/02/2023 11:04 AM EST TC from pt requesting call back regarding Results. Type of results: US to pelvis Date when done: 09/24 documented in this encounter Plan of Treatment Not on file documented as of this encounter Visit Diagnoses Not on filedocumented in this encounter Additional Health Concerns Assessment Noted Time PHQ-9 Depression Total Score: 2 01/02/20 23 9:06 AM EDT documented as of this encounter Care Teams Marble Finisher Relationship Specialty Start Date End Date Pedro Luis Amado MD [address] [place] [id number] PCP - General Internal Medicine 10/10/20 Estiven De La Garza Energy Sales BrokerSystems Project Manager 07/31/23 documented as of this encounter
--- OUTSIDE RECORDS SUMMARY | 2025-07-07 14:58 | XMS_ITS | Encounter Summary ---
Author Organization [employer] Address [address] [place] [address] [place] [address] Care Team Providers Care Pug Mill Operator Helper Name Role Phone Pedro Luis Amado MD Primary Care Prov ider Encounter Details Date Type Department Care Team (Late st Contact Info) Description 06/26/2023 Abstract [facility] [address] [place], [place] [phone] Pedro Luis Amado MD [address] [place], [place] [phone] Social History Tobacco Use Types Packs/Day Years [...] documented as of this encounter Care Teams Pug Mill Operator Helper Relationship Specialty Start Date End Date Pedro Luis Amado MD [address] [place] [address] PCP - General Internal Medicine 10/10/20 Estiven De La Garza Technical Documentation SpecialistSterile Processing Tech 07/31/23 documented as of this encounter
--- OUTSIDE RECORDS SUMMARY | 2025-07-07 14:58 | XMS_ITS | Encounter Summary ---
Author Organization [employer] Address [address] [facility] [facility] [address] 7[address] [place] [address] Care Team Providers Care Car Storer Name Role Phone Pedro Luis Amado MD Primary Care Prov ider Encounter Details Date Type Department Care Team (Late st Contact Info) Description 01/19/2024 Orders Only [facility] MEDICINE [address] [place], [place] [phone] ProviderEmil MD Social History Tobacco Use Types [...] on file documented as of this encounter Procedures Procedure Name Priority Date/Time Associated Diagnosis Comments HM COLONOSCOPY Routine 12/08/2019 10:24 AM EST documented in this encounter Results * Hm Colonoscopy (12/08/2019 10:24 AM EST) us Historical Provider HEALTH MAINTENANCE Final Result documented in this encounter Visit Diagnoses Not on filedocumented in this encounter Additional Health Concerns Assessment Noted Time PHQ-9 Depression Total Score: 2 01/02/20 23 9:06 AM EDT documented as of this encounter Care Teams Car Storer Relationship Specialty Start Date End Date MartinezPedro Luis Vu MD [address] [place] [id number] PCP - General Internal Medicine 10/10/20 Estiven De La Garza Farm ButcherCosmetology Teacher 07/31/23 documented as of this encounter
--- OUTSIDE RECORDS SUMMARY | 2025-07-07 14:58 | XMS_ITS | Clinical Summary ---
Author Organization [employer] Address [address] [place] [address] Care Team Providers Care Stonehand Name Role Phone Pedro Luis Amado MD Primary Care Prov ider Allergies Active Allergy Reactions Criticality Noted Date Comments Lactose 12/10/2016 Shellfish Allergy 05/24/2018 Shellfish-Derived Products 7 Tramadol Headache Medium 02/14/2020 Medications lactulose (Chronulac) 10 GM/15ML solution Take 15 mL by mouth at bed time. 1 Active acetaminophen (Tylenol) 500 MG tablet Take 1 tablet by mouth every 8 (eight) hours. 1 Active insulin glargine (Lantus SoloStar) 100 UNIT/ML pen Inject 40 Units under the skin at bedtime. 2 Active sucralfate (Carafate) 1 g tablet Take 1 tablet by mouth in the morning and 1 tablet in the evening. 2 Active terbinafine (LamISIL) 1 % cream Apply topically at bed time. 2 Active triamcinolone (Kenalog) 0.1 % cream Apply topically every 12 (twelve) hours. 2 Active insulin lispro (HumaLOG KWIKPEN) 100 UNIT/ML injectionIndicatio ns:Type 2 diabetes mellitus without complication, with long-term current use of insulin (HCC) Inject 30 Units under the skin before breakfast AND 42 Units before lunch AND 36 Units with evening meal. 30U before breakfast, 42U before lunch and 36U before super. 97.2 mL 3 3 Active BD Pen Needle Jahaira 2nd Gen 32G X 4 MM misc USE DIRECTED FOUR TIMES DAILY 100 each 11 3 Active BD Pen Needle Jahaira 2nd Gen 32G X 4 MM misc USE DIRECTED FOUR TIMES DAILY 3 Active semaglutide (Rybelsus) 7 MG tabletIndications: Type 2 diabetes mellitus without complication, with long-term current use of insulin (HCC) Take 1 tablet (7 mg) by mouth before breakfast. 90 tablet 1 3 Active diclofenac (Cataflam) 50 MG tablet Take 1 tablet (50 mg) by mouth 3 times daily. 30 tablet 3 Active Blood Pressure kit 1 kit in the morning. 1 kit 3 Active hydrocortisone 2.5 % creamIndications:C andidiasis, intertriginous APPLY TOPICALLY TO THE AFFECTED AREA TWICE DAILY 30 g 1 3 Active econazole nitrate 1 % creamIndications:C andidiasis, intertriginous APPLY TOPICALLY TO THE AFFECTED AREA TWICE DAILY 30 g 1 3 Active FreeStyle lancets USE DIRECTED FIVE TIMES PER DAY 100 each 3 4 Active famotidine (Pepcid) 20 MG tablet TAKE 1 TABLET(20 MG) BY MOUTH EVERY 12 HOURS 180 tablet 3 4 Active rosuvastatin (Crestor) 10 MG tablet TAKE ONE TABLET EVERY MORNING 90 tablet 3 4 Active cholecalciferol VITAMIN D (Vitamin D-3) 50 MCG (2000 UT) capsuleIndications :Vitamin D deficiency TAKE 1 CAPSULE BY MOUTH EVERY DAY 90 capsule 3 5 Active Diclofenac Sodium 1 % gel Apply 2 g topically 3 times daily. 100 g 3 5 Active ibuprofen 600 MG tablet TAKE 1 TABLET BY MOUTH THREE TIMES DAILY WITH FOOD NEEDED FOR PAIN 90 tablet 5 Active Ketotifen Fumarate 0.035 % solution Administer 1 drop into affected eye(s) 2 times daily. 10 mL 5 Active losartan (Cozaar) 25 MG tablet Take 1 tablet (25 mg) by mouth Once per day. 90 tablet 3 5 026 Active montelukast (Singulair) 10 MG tablet Take 1 tablet (10 mg) by mouth Once per day. 90 tablet 3 5 026 Active hydrOXYzine HCl (Atarax) 25 MG tablet Take 1 tablet (25 mg) by mouth if needed in the morning, at noon, and at bedtime for itching. 90 tablet 3 5 025 Active EPINEPHrine (Epipen) 0.3 MG/0.3ML injection syringe Inject 0.3 mL (0.3 mg) as directed 1 (one) time for 1 dose. use as directed for allergic reaction and then call 911 0.3 mL 5 Active FREESTYLE LITE test strip USE DIRECTED TO TEST BLOOD GLUCOSE THREE TIMES DAILY 100 strip 1 5 Active Active Problems Problem Noted Date Diagnosed Date Benign paroxysmal positional vertigo due to bilateral vestibular disorder 02/23/2025 Assessment & Plan (03/22/2025 9:37 AM EDT): Will refer to PT for vestibular rehab, she has on-off symptoms Assessment & Plan (02/23/2025 1:35 PM EDT): Will prescribe meclizine, call back if not improving Snoring 12/21/2024 Assessment & Plan (12/21/2024 11:35 AM EDT): Seen by pneumology, refers was recommended to follow up with ent Pain in both wrists 02/15/2024 Assessment & Plan (02/15/2024 9:56 AM EDT): Following ortho, pain has improved with occupational therapy and otc remedies, no changes in treatment Type 2 diabetes mellitus wit h hyperglycemia, with long-term current use of insulin 02/15/2024 Assessment & Plan (06/22/2025 11:12 AM EDT): On rybelsus, lantus, and short acting insulin, last A1c below 7.0%, keep low carb/no sugar diet, follow up in 3 months Assessment & Plan (02/15/2024 9:57 AM EDT): Following endocrinology, pending eye exam which was due last week but had to reschedule it. Will send new lab order for guidance of therapy Class 1 obesity 12/22/2023 Primary hypertension 08/17/2023 Assessment & Plan (06/22/2025 11:10 AM EDT): Controlled, keep low sodium diet and exercise as tolerated, keep bp log, target <140/90, follow up in 3 months Assessment & Plan (02/15/2024 9:57 AM EDT): Patient not monitoring bp at home, discussed importance of daily monitoring, call back if bp >130/80. Assessment & Plan (09/22/2023 2:19 PM EST): Controlled with losartan, refers has maintained below 130/80, told to keep bp monitoring, low sodium diet, follow up in 3 month Assessment & Plan (08/17/2023 1:35 PM EST): Not at target, will provide losartan 25mg for renal protection, reinforced low sodium diet and exercise as tolerated. Blood pressure elevated without history of HTN 1 Assessment & Plan (07/15/2023 10:17 AM EDT): Will provide a blood pressure monitor, bp target < 130/80, will follow up in 1 month Left ovarian cyst 06/30/2023 Assessment & Plan (06/30/2023 12:20 PM EDT): Ct/Us showed a left ovarian cyst that measures 3.5cm, recommended to be repeated in 6-12 weeks, will leave u/s order and will follow up in 12 weeks Pelvic pain 06/24/2023 Assessment & Plan (06/24/2023 9:44 AM EDT): Unknown etiology, unclear if she still has adenexa (ovaries/fallopian tubes), denies constipation, urine was clear, will send out for UCx. Swabs sent. Sent for US. Rx diclofenac for pain. Tushar 06/24/2022 Overview (12/22/2023): Last Assessment & Plan: Reassured her sx are likely related to ovulation and are not worrisome. If become persistent, she should call and be seen. Recurrent vaginitis 10/17/2020 Overview (12/22/2023): Last Assessment & Plan: Resolved. Likely secondary to history of poorly controlled DM 2, but resolved since better controlled. Continue blood sugar management. Call prn for evaluation. Lichen simplex chronicus 10/11/2019 Overview (12/22/2023): Last Assessment & Plan: Topical nystatin. Continue to work on sugars. Sent yeast culture. Allergies 10/05/2019 Wound disruption 02/08/2019 Overview (12/22/2023): Last Assessment & Plan: Reviewed with patient it now appears to be healthy with no evidence of infection. Skin still , likely not healing as quickly due to recent poorly controlled blood sugars. Reviewed importance of tight glucose both for improved healing and decreasing risk of infection. She agreed. She will complete final day of PO abx, keep the area clean and dry, and apply Mupirocin BID. She will follow up in 1-2 weeks or sooner prn. Abscess 02/02/2019 Overview (12/22/2023): Last Assessment & Plan: Patient encouraged to complete remaining two days of antibiotics and continue using warm compresses to encourage continued drainage and healing of the abscess. Signs of worsening infection and reasons to call or return were reviewed. Patient expressed understanding. She has a follow-up appointment scheduled with Dr. Bradley on 02/12/21. Intraoperative bladder injury 12/22/2018 Overview (12/22/2023): Repaired in two layers by Dr. Sawyer in Urology at time of hysterectomy Last Assessment & Plan: Seems to be healing well by symptoms. Will check to see if she has a UTI given has had recently, but intermittent dysuria may be due to history of bladder injury and will likely improve and hopefull resolve over time. Poorly controlled type 2 diabetes mellitus 11/01 Overview (12/22/2023): Last A1C 7 Last Assessment & Plan: Improving with new measures. Will follow up with next A1C at next visit. I congratulated her on her progress. Assessment & Plan (12/21/2024 11:32 AM EDT): Improving, encouraged to continue low carb/no sugar diet, she is following endocrinology, no changes will be made Iron deficiency anemia due to chronic blood loss 08/11/2018 Obesity 08/11/2018 Osteoarthritis involving mul tiple joints on both sides of body 08/11/2018 Uterine leiomyoma 08/11/2018 Chronic low back pain 05/21/2018 Irritable bowel syndrome 05/21/2018 Enlarged thyroid 04/29/2018 Overview (12/22/2023): Last Assessment & Plan: Sent for US to follow up. Will also have thyroid studies as ordered for AUB. Resolved Problems Problem Noted Date Diagnosed Date Resolved Date Acute cough 09/22/2022 11/19/2022 Assessment & Plan (09/22/2022 2:49 PM EST): Patient tested positive for covid, refers symptoms started 3 days ago, currently complains of cough/headaches , chills, body aches. Paxlovid offered risk vs benefits were discussed, reviewed medication and labs, in case of worsening told to visit er. Headache associated with infection 09/22/2022 09/22/2022 COVID 10/03/2021 11/19/2022 Encounters Date Type Department Care Team Description 06/22/2025 8:45 AM EDT Telemedicine [facility] [address] [place] [address] Pedro Luis Amado MD Primary hypertension (Primary Dx); Type 2 diabetes mellitus with hyperglycemia, with long-term current use of insulin ([facility]) 06/22/2025 Travel 06/20/2025 Telephone [facility] [address] [place] [address] Pedro Luis Amado MD chart prep 06/06/2025 Refill [facility] [address] [place] [address] Pedro Luis Amado MD from Last 3 Months Immunizations Immunization Administration Dates Next Due Influenza injectable quadriv alent IIV4 with preservative 08/11/2018,08/26/2016,07/03/2015 Influenza injectable quadriv alent preservative free 07/15/2017,09/21/2013 Moderna Covid-19 Vaccine 12+ 01/30/2021,12/30/19 21 Pneumococcal Polysaccharide PPSV23 06/01/2015 Td (adult), 5 Lf tetanus tox oid, preservative free, adsorbed 08/10/2016 Tdap 05/04/2021,09/21/2013 Family History Medical History Relation Name Comments Breast cancer Mother Breast cancer Mother's Sister Diabetes Other Hypertension Other Relation Name Status Comments Mother Mother's Sister Other Social History Tobacco Use Types Packs/Day Years Used Date Smoking Tobacco: Never Smokeless Tobacco: Never Tobacco Cessation:Counseling Given: Not Answered Alcohol Use Standard Drinks/Week Comments Never 0 (1 standard drink = 0.6 oz pur e alcohol) Depression Answer Date Recorded Patient Health Questionnaire-9 Score 0 06/22/2025 Patient Health Questionnaire-9 Score 0 06/22/2025 Last PHQ-9: Questionnaire Data Not on file 0 06/22/2025 Housing Stability Answer Date Recorded What is your housing situation today? I have janice castrejon 06/22/[address] you li ve. Do you have problems with any of the following? None of the above 06/22/2025 Food Insecurity Answer Date Recorded Within the past 12 months, y ou worried that your food would run out before you got money to buy more: Never True 06/22/2025 Within the past 12 months,th e food you bought just didn't last and you didn't have enough money to get more: Never True Transportation Answer Date Recorded In the past 12 months, has l ack of transportation kept you from medical appts, meetings, work or from getting things needed for daily living? No 06/22/2025 Utilities Answer Date Recorded In the past 12 months, has t he electric, gas, oil or water company threatened to shut off services in your home? No 06/22/2025 Depression Answer Date Recorded Patient Health Questionnaire-2 Score 0 06/22/2025 Internet Access Answer Date Recorded Internet Access Q1 Yes 06/22/2025 Internet Access Q2 Not on file 06/22/2025 Comments Unknown Sex and Gender Information Value Date Recorded Sex Assigned at Female 08/04/2022 10:28 AM EDT Legal Sex Female 10:28 AM EDT Gender Identity Female 08/04/2022 10:28 AM EDT Sexual Orientation Straight 08/04/2022 10 :28 AM EDT Last Filed Vital Signs Vital Sign Reading Time Taken Comments Blood Pressure 128/88 06/22/2025 9:17 AM EDT Pulse 80 02/23/2025 11:52 AM EDT Temperature 36.6 C (97.8 F) 02/23/2025 11:52 AM EDT Respiratory Rate 20 02/23/2025 11:52 AM EDT Oxygen Saturation 96% 04/11/2024 5:09 PM EDT Inhaled Oxygen Concentration - - Weight 94.3 kg (208 lb) 02/23/2025 11:52 AM EDT Height 170.2 cm (5' 7 ) 02/23/2025 11:52 AM EDT Body Mass Index 32.58 02/23/2025 11:52 AM EDT Plan of Treatment Health Maintenance Due Date Last Done Comments CT Colonography 1974 FIT DNA/Cologuard 1974 FIT 1975 FOBT 1975 Sigmoidoscopy 1975 Disability Screening 1974 Eye Exam 1984 Family Planning (PISQ) 1989 Hepatitis B Vaccines (1 of 3 - 19+ 3-dose series) 1993 Pneumococcal Vaccine: 50+ Years (2 of 2 - PCV) 06/01/2016 06/01/2015 Zoster Vaccines (1 of 2) 2024 Diabetes: Foot Exam 07/15/2024 07/15/2023, 07/15/2023, 07/15/2023, Additional history exists Colonoscopy 12/07/2024 12/08/2019 Colorectal Cancer Screening 12/07/2024 Diabetes: Hemoglobin A1C 03/23/2025 025, 07/15/2023, 10/16/2022, Additional history exists COVID-19 Vaccine ( season) 2025 01/30/2021, 12/29/2020 Influenza Vaccine (#1) 2025 8, 07/15/2017, 08/26/2016, Additional history exists Tobacco Screening 12/21/2025 12/21/2024 Diabetes: Urine Protein Screening 12/28/2025 12/28/2024, 07/16/2023, 02/12/2022, Additional history exists Lipid Panel 03/17/2026 03/17/2025, 2 03/2025, 07/16/2023, Additional history exists Mammogram 05/31/2026 05/31/2024, 08/0 01/2023, 12/08/2022, Additional history exists Alcohol/Substance Use Screening 06/22/2026 06/22/2025 Depression Screening 06/22/2026 06/22/2025, 06/22/20 25 SDOH Screening 06/22/2026 06/22/2025 DTaP/Tdap/Td Vaccines (4 - Td or Tdap) 05/04/2031 05/04/2021, 08/10/2016, 09/21/2013 RSV Patients and Patients Aged 60 years or older (1 - 1-dose 75+ series) 2049 Cervical Cancer Screening Discontinued Pap Smear Discontinued 11/01/2018, 10/12/2018 HIV Screening Completed 10/16/2022 Hepatitis C Screening Completed 10/16/2022 HIB Vaccines Aged Out No longer eligi ble based on patient's age to complete this topic HPV Vaccines Aged Out No longer eligi ble based on patient's age to complete this topic HPV/Cotest Discontinued Hepatitis A Vaccines Aged Out No long er eligible based on patient's age to complete this topic IPV Vaccines Aged Out No longer eligi ble based on patient's age to complete this topic Meningococcal B Vaccine Aged Out No l onger eligible based on patient's age to complete this topic Meningococcal Vaccine Aged Out No mayra del eligible based on patient's age to complete this topic RSV under 20 months Aged Out No longe r eligible based on patient's age to complete this topic Rotavirus Vaccines Aged Out No longer eligible based on patient's age to complete this topic Procedures Procedure Name Priority Date/Time Associated Diagnosis Comments LIPID PANEL, STANDARD Routine 03/17/2025 10:23 AM EDT Type 2 diabetes mellitus with hyperglycemia, with long-term current use of insulin (CMS/HCC) ALBUMIN, RANDOM URINE W/CREATININE Routine 12/28/2024 9:00 AM EDT Poorly controlled type 2 diabetes mellitus (CMS/HCC) POCT GLYCATED HEMOGLOBIN, TOTAL Routine 12/21/2024 9:18 AM EDT Poorly controlled type 2 diabetes mellitus (CMS/HCC) BI MAMMOGRAM SCREENING TOMOSYNTHESIS BILATERAL Routine 05/31/2024 3:30 PM EDT HEPATITIS C AB W/REFL TO HCV RNA, QN, PCR Routine 10/16/2022 9:27 AM EST Type 2 diabetes mellitus without complication, with long-term current use of insulin (CMS/HCC) HIV 1 RNA, QN PCR W/RFL VENUS (RTI,PI,INTEGRASE) Routine 10/16/2022 9:27 AM EST Type 2 diabetes mellitus without complication, with long-term current use of insulin (CMS/HCC) HM COLONOSCOPY Routine 12/08/2019 10:24 AM EST PAP SMEAR Routine 11/01/2018 12:00 AM EST from Last 3 Months or Most Recently Relevant to Health Maintenance Results * (ABNORMAL) Lipid Panel, Standard (03/17/2025 10:23 AM EDT) Triglycerides 52 <150 mg/dL [facility] Comment:Desirable Triglyceri de: less than 150 mg/dLBorderline High Triglyceride 150-199 mg/dLHigh Triglyceride: 200-499 mg/dLVery High Triglyceride: greater than or equal to 5OO mg/dL Cholesterol 96 <200 mg/dL [facility] Comment:Desirable Cholestero l: less than 200 mg/dLBorderline High Cholesterol: 200-239 mg/dLHigh Cholesterol: greater than 239 mg/dL LDL Cholesterol Calculated 47 <100 mg/dL [facility] Comment:Desirable LDL: less than 100 mg/dLNear Optimal/Above Optimal LDL: 110- 129 mg/dLBorderline High LDL: 130-159 mg/dLHigh LDL: 160-189 mg/dLVery High LDL: greater than or equal to 190 mg/dL HDL Cholesterol 39(L) >40 mg/dL [facility] Comment:Desirable HDL: great er than 40 mg/dL Note: This HDL assay may give artificially low results in patients with liver disease. Blood Venous blood specimen / Unknown 03/17/2025 10:23 AM EDT 03/17/2025 2:05 PM EDT us Pedro Luis Sierra MD LAB BLOOD ORDERABL ES Final Result [facility] [address] [place] [phone] * Albumin, Random Urine W/Creatinine (12/28/2024 9:00 AM EDT) Creatinine, Urine 212.92 mg/dL [facility] Microalbumin Urine 18.0 mg/L [facility] Microalbum Creatinine Ratio Ur 8.4 <30 ug/mg cr [facility] Comment:Albumin/Creatinine R atio Reference Ranges: Normal: < 30 ug/mg creatinine Microalbuminuria: 30 - 300 ug/mg creatinineClinical Albuminuria: > 300 ug/mg creatinine Urine (Urine, Random) 12/28/2024 9:00 AM EDT 12/28/2024 2:09 PM EDT us Pedro Luis Sierra MD LAB URINE ORDERABL ES Final Result [facility] [address] [place] [phone] * (ABNORMAL) POCT HGB A1C (12/21/2024 9:18 AM EDT) Hemoglobin A1C 7.8(A) 4.0 - 6.0 % QC Media Lot # [id number] Lot# Expiration Date Blood 12/21/2024 9:18 AM EDT us Pedro Luis Sierra MD POINT OF CARE TEST ENTER/EDIT ORDERABLES Final Result * BI Mammogram Screening Tomosynthesis Bilateral (05/31/2024 3:30 PM EDT) Anatomical Region Laterality Modality Breast Bilateral Mammography 05/31/2024 3:30 PM EDT Narrative 06/24/2024 3:32 PM EDT [facility] [address] [place] [address] Mammography Report Signed Patient: Mira Darnell R#: [id number] : 1975 Acct:[id number] Age/Sex: 49 / F ADM Date: 05/31/24 Loc: HO.MAMMO Attending Dr: Pedro Luis Sierra MD Ordering Physician: Pedro Luis Amado MD Res ults: 2Benign Findings Date of Service: 05/31/24 Follow Up: 1 Year From [facility] Mammogram Procedure(s): MM tomosynthesis screening BI Accession Number(s): [id number] cc: Pedro Luis Amado MD EXAMINATION: MM SCREENING DIGITAL BREAST TOMOSYNTHESIS, BILATERAL CLINICAL INFORMATION: Screening. Asymptomatic. COMPARISON: Mammography: Comparison is made with available priors TECHNIQUE: Digital breast tomosynthesis is performed in both the craniocaudal and mediolateral oblique views along with computer-aided detection (CAD). Synthesized 2D images are generated from the tomosynthesis. FINDINGS: There are scattered areas of fibroglandular density (ACR BI-RADS breast composition Category b). Left marker clip. There are no significant masses, abnormal calcifications, or other abnormalities. MM/MM tomosynthesis screening BI IMPRESSION: No mammographic evidence of malignancy. ASSESSMENT: BI-RADS BI-RADS 2 - Benign Findings RECOMMENDATION: Routine annual mammography screening. 1 year F/U This examination should not preclude the clinical evaluation of a suspicious palpable abnormality. This patient's information was entered into a reminder system with a target due date for their next mammogram. Electronically signed by: Petra Lovelace DO 06/24/2024 03:29 PM EDT RP Dictated By: Petra Lovelace DO Signed By: <Electronically signed by Petra Lovelace DO in OV> 06/24/24 1529 DD/ 1530 TD/TT: 05/31/24 1545 Rail Flaw Detector Operator: Procedure Note Donotuseinterpreter, Image - [facility] [address] [place] [address] Mammography Report Signed Patient: Mira Darnell R#: [id number] : 1975Acct:[id number] Age/Sex: 49 / FADM Date: 05/31/24 Loc: HO.MAMMO Attending Dr: Pedro Luis Sierra MD Ordering Physician: Pedro Luis Amado ults: 2Benign Findings Date of Service: 05/31/24Follow Up: 1 Year From Orig ina Mammogram Procedure(s): MM tomosynthesis screening BI Accession Number(s): [id number] cc: Pedro Luis Amado MD EXAMINATION: MM SCREENING DIGITAL BREAST TOMOSYNTHESIS, BILATERAL CLINICAL INFORMATION: Screening. Asymptomatic. COMPARISON: Mammography: Comparison is made with available priors TECHNIQUE: Digital breast tomosynthesis is performed in both the craniocaudal and mediolateral oblique views along with computer-aided detection (CAD). Synthesized 2D images are generated from the tomosynthesis. FINDINGS: There are scattered areas of fibroglandular density (ACR BI-RADS breast composition Category b). Left marker clip. There are no significant masses, abnormal calcifications, or other abnormalities. MM/MM tomosynthesis screening BI IMPRESSION: No mammographic evidence of malignancy. ASSESSMENT: BI-RADS BI-RADS 2 - Benign Findings RECOMMENDATION: Routine annual mammography screening. 1 year F/U This examination should not preclude the clinical evaluation of a suspicious palpable abnormality. This patient's information was entered into a reminder system with a target due date for their next mammogram. Electronically signed by: Petra Lovelace DO 06/24/2024 03:29 PM EDT Dictated By: Petra Lovelace DO Signed By: <Electronically signed by Petra Lovelace DO in OV> 06/24/24 1529 DD/ 1530 TD/TT: 05/31/24 1545 Rail Flaw Detector Operator: us Pedro Luis Sierra MD IMG BI PROCEDURES Edited Result - Final * HIV-1 RNA, Quantitative, Real-Time PCR with Reflex to Genotype (RTI, PI, Integrase) (10/16/2022 9:27 AM EST) HIV 1 RNA, QN PCR NOT DETECTED copies/mL [facility] [employer] [facility], HIV 1 RNA, QN PCR NOT DETECTED Log copies/mL [facility] [employer] [facility], Comment: REFERENCE RANGE: NOT DETECTED copies/mL NOT DETECTED Log copies/mL This test was performed using Real-Time Polymerase Chain Reaction. Reportable range is 20 to 10,000,000 copies/mL (1.30-7.00 Log copies/mL). 10/16/2022 9:27 AM EST 10/16/2022 9:28 AM EST Pedro Luis Sierra MD LAB BLOOD ORDERABL ES Final Result [facility] [address], [place] [address] [facility], [address] [place] [address] * Hepatitis C Antibody with Reflex to HCV, RNA, Quantitative, Real-Time PCR (10/16/2022 9:27 AM EST) Hepatitis C Antibody NON-REACT ASTRID NON-REACT ASTRID [facility] [place] [facility] Index <0.02 <1.00 [employer] [place] [facility] Comment: HCV antibody was non-reactive. There is no laboratory evidence of HCV infection. In most cases, no further action is required. However, if recent HCV exposure is suspected, a test for HCV RNA (test code 65686) is suggested. For additional information please refer to http://education.Aipai/faq/XBN31c7 (This link is being provided for informational/ educational purposes only.) Blood Venous blood specimen / Unknown 10/16/2022 9:27 AM EST 10/16/2022 9:28 AM EST Pedro Luis Sierra MD LAB BLOOD ORDERABL ES Final Result [facility] [address] [place] [address], [place] [address] [employer] [place] [facility] [address] [facility], ([address]) [place] [address] * Hm Colonoscopy (12/08/2019 10:24 AM EST) Historical Provider HEALTH MAINTENANCE Final Result * Pap Smear (11/01/2018 12:00 AM EST) Swab Historical Provider LAB CYTOLOGY ORDERABLES F inal Result Performing Organization Address [facility]/ZIP Co de Phone Number [facility] [address] [place] [address], [place] [address] from Last 3 Months or Most Recently Relevant to Health Maintenance Insurance [facility] [employer] Teams Stonehand Relationship Specialty Start Date End Date Pedro Luis Amado MD [address] [place] [address] PATY Krishnan [address] PCP - General Internal Medicine 10/10/20 Estiven De La Garza Agriculture InternDry Mixer 07/31/23
--- OUTSIDE RECORDS SUMMARY | 2025-07-07 14:59 | XMS_ITS | Encounter Summary ---
Author Organization [employer] Address 75 [facility] 7 [place] [address] Care Team Providers Care Cheese Packer Name Role Phone Pedro Luis Amado MD Primary Care Prov ider Encounter Details Date Type Department Care Team ([facility] st Contact Info) Description 03/05/2023 Orders Only [facility] CHC MED & PEDS [address] [place], [place] [phone] Ro Castanon LPN Social History Tobacco Use Types Packs/Day Years [...] documented as of this encounter Care Teams Cheese Packer Relationship Specialty Start Date End Date Pedro Luis Amado MD [address] [place] [address] PCP - General Internal Medicine 10/10/20 Estiven De La Garza Rubber Boots And Shoes RepairerSolution Design Engineer 07/31/23 documented as of this encounter
--- OUTSIDE RECORDS SUMMARY | 2025-07-07 14:59 | XMS_ITS | Encounter Summary ---
Author Organization [employer] Address [address] [place] [address] 7 [place] [address] Care Team Providers Care Child Therapist Name Role Phone Pedro Luis Amado MD Primary Care Prov ider Reason for Visit * Reason Comments Med Refill Encounter Details Date Type Department Care Team ([facility] Contact Info) Description 05/27/2023 Refill [facility] CHC MED & PEDS [address] [place], [place] [phone] Pedro Luis Amado MD [address] [place] [address] Type 2 diabetes mellitus without complication, with long-term current use of insulin ([facility]) Social History Tobacco Use Types Packs/Day Years [...] as of this encounter Visit Diagnoses Diagnosis Type 2 diabetes mellitus without complication, with long-term current use of insulin ([facility]) documented in this encounter Additional Health Concerns Assessment Noted Time PHQ-9 Depression Total Score: 2 01/02/20 23 9:06 AM EDT documented as of this encounter Care Teams Child Therapist Relationship Specialty Start Date End Date Pedro Luis Amado MD [address] [place] [address] PCP - General Internal Medicine 10/10/20 Estiven De La Garza Pharmacy Picking TechnicianCasino Floorperson 07/31/23 documented as of this encounter
== END 2025-07-07 16:19 | disposition home or self-care (01) ==
LOC: HO.HGI 14:54
PROVIDERS: PCP Internal Medicine; Visit Provider Nurse Practitioner Family
DX: Z01.818 Encounter for other preprocedural examination (principal); Z12.11 Encounter for screening for malignant neoplasm of colon; K21.9 Gastro-esophageal reflux disease without esophagitis; K59.09 Other constipation; R13.10 Dysphagia, unspecified
CPT/HCPCS: 99204

== ENCOUNTER → 2025-07-07 14:53 | Outpatient (BNVA) | payer MEDICAID, SELFPAY | PROVIDERS: PCP Internal Medicine; Visit Provider Nurse Practitioner Family | DX: Z01.818 Encounter for other preprocedural examination (principal); K21.9 Gastro-esophageal reflux disease without esophagitis; R13.10 Dysphagia, unspecified; K59.09 Other constipation | CPT/HCPCS: 99212 ==

== ENCOUNTER 2025-08-08 21:29 | Emergency (ER) | payer MEDICAID, SELFPAY ==
--- OUTSIDE RECORDS SUMMARY | 2025-08-03 13:30 | XMS_ITS | Encounter Summary ---
Author Organization [employer] Address 75 [facility] 7t [place] [address] Care Team Providers Care Master Coastwise Yacht Name Role Phone Pedro Luis Amado MD Primary Care Prov ider Reason for Referral * Imaging (Routine) - Authorized Specialty Diagnoses / Procedures Referred By Contac t Referred To Contact Radiology Diagnoses Breast nodule Procedures BI Mammogram Diagnostic Tomosynthesis Bilateral Deb Ulloa MD [address] [place] [address] Phone: tel: fax: [address] Phone: tel: fax: Referral ID Status Reason Start Date Expiration Date V isits Requested Visits Authorized [id number] Authorized 08/03/2025 08/03/2026 1 1 * Imaging (Urgent) - Authorized Specialty Diagnoses / Procedures Referred By Contac t Referred To Contact Radiology Diagnoses Breast nodule Procedures BI US Breast Limited Right Deb Ulloa MD [address] [place] [address] Phone: tel: fax: [address] Phone: tel: fax: Referral ID Status Reason Start Date Expiration Date V isits Requested Visits Authorized [id number] Authorized 08/03/2025 08/03/2026 1 1 Encounter Details Date Type Department Care Team (Late st Contact Info) Description 08/03/2025 2:30 PM EDT Office Visit [facility] MEDICINE [address] [place] [address] Deb Ulloa MD [address] [place] [address] Breast nodule Social History Tobacco Use Types Packs/Day Years [...] AM EDT documented as of this encounter Last Filed Vital Signs Vital Sign Reading Time Taken Comments Blood Pressure 126/80 08/03/2025 2:26 PM EDT Pulse 80 08/03/2025 2:26 PM EDT Temperature 34.8 C (94.7 F) 08/03/2025 2:26 PM EDT Respiratory Rate 20 08/03/2025 2:26 PM EDT Oxygen Saturation 99% 08/03/2025 2:26 PM EDT Inhaled Oxygen Concentration - - Weight 87.8 kg (193 lb 9.6 oz) 08/03/2025 2:26 P M EDT Height 170.2 cm (5' 7 ) 08/03/2025 2:26 PM EDT Body Mass Index 30.32 08/03/2025 2:26 PM EDT documented in this encounter Progress Notes * Deb Valentino MD - 08/03/2025 2:30 PM EDT Images from the original note were not included. SUBJECTIVE: Mira Wright is a 50 y.o. year old female who presents for acute visit . Mira Wright, 50 years Right Breast Pain and Lump - Noted mild pain at the edge of the right breast prior to the visit - On palpation, felt a lump in the same area - Pain increases with pressure or certain movements - Area appeared slightly red - Denies skin changes such as peau d???orange, nipple retraction, or nipple discharge - Denies axillary swelling - Reports family history of breast conditions in mother and aunt - Applied topical Vicks to the area without improvement - No prior occurrence of lump in this location; previous lumps occurred in other areas but not here Social History Social History Narrative Not on file Problem List[1] Chronic low back pain Iron deficiency anemia due to chronic blood loss Irritable bowel syndrome Obesity Osteoarthritis involving multiple joints on both sides of body Uterine leiomyoma Pelvic pain Left ovarian cyst Blood pressure elevated without history of HTN Primary hypertension Allergies Enlarged thyroid Intraoperative bladder injury Lichen simplex chronicus Mittelschmerz Recurrent vaginitis Wound disruption Abscess Class 1 obesity Poorly controlled type 2 diabetes mellitus (HCC) Pain in both wrists Type 2 diabetes mellitus with hyperglycemia, with long-term current use of insulin (HCC) Snoring Benign paroxysmal positional vertigo due to bilateral vestibular disorder Breast nodule Family History[2] Review of Systems Constitutional: Negative. HENT: Negative. Respiratory: Negative. Cardiovascular: Negative. Skin: Breast lump/nodule OBJECTIVE: Vitals: 08/03/25 1426 BP: 126/80 BP Location: Left arm Patient Position: Sitting BP Cuff Size: Adult Pulse: 80 Resp: 20 Temp: 94.7 ??F (34.8 ??C) TempSrc: Temporal SpO2: 99% Weight: 193 lb 9.6 oz (87.8 kg) Height: 5' 7 (1.702 m) Physical Exam Constitutional: Appearance: Normal appearance. Cardiovascular: Rate and Rhythm: Normal rate and regular rhythm. Pulmonary: Effort: Pulmonary effort is normal. Breath sounds: Normal breath sounds. Chest: Comments: Nodule sold hard to palpation about 2.5cm in diameter located on right breast at about 5 o' clock outer area towards sternum Abdominal: General: Abdomen is flat. Palpations: Abdomen is soft. Musculoskeletal: Right lower leg: No edema. Left lower leg: No edema. Neurological: Mental Status: She is alert. Follow Up: No follow-ups on file. Medications Ordered Prior to Encounter[3] Problem List Items Addressed This Visit Breast nodule Relevant Orders BI US Breast Limited Right BI Mammogram Diagnostic Tomosynthesis Bilateral Palpable mass in right breast: - Palpable mass in the right breast, regular borders, no signs of infection or nipple discharge. Differential diagnosis includes lipoma or benign fatty nodule. Malignancy considered less likely basedon current findings, but cannot be ruled out without imaging. - Ordered bilateral breast ultrasound and diagnostic mammogram. Await imaging results for further evaluation. Will follow up once results are available. This note was drafted using [employer] ([employer] technology. The patient/patient's guardian has been informed and has consented to the use of this technology: Yes [1] Patient Active Problem List Diagnosis Chronic low back pain Iron deficiency anemia due to chronic blood loss Irritable bowel syndrome Obesity Osteoarthritis involving multiple joints on both sides of body Uterine leiomyoma Pelvic pain Left ovarian cyst Blood pressure elevated without history of HTN Primary hypertension Allergies Enlarged thyroid Intraoperative bladder injury Lichen simplex chronicus Mittelschmerz Recurrent vaginitis Wound disruption Abscess Class 1 obesity Poorly controlled type 2 diabetes mellitus (HCC) Pain in both wrists Type 2 diabetes mellitus with hyperglycemia, with long-term current use of insulin (HCC) Snoring Benign paroxysmal positional vertigo due to bilateral vestibular disorder Breast nodule [2] Family History Problem Relation Name Age of Onset Breast cancer Mother Breast cancer Mother's Sister Diabetes Other Hypertension Other [3] Current Outpatient Medications on File Prior to Visit Medication Sig Dispense Refill acetaminophen (Tylenol) 500 MG tablet Take 1 tablet by mouth every 8 (eight) hours. BD Pen Needle Jahaira 2nd Gen 32G X 4 MM misc USE DIRECTED FOUR TIMES DAILY 100 each 11 BD Pen Needle Jahaira 2nd Gen 32G X 4 MM misc USE DIRECTED FOUR TIMES DAILY Blood Pressure kit 1 kit in the morning. 1 kit 0 cholecalciferol VITAMIN D (Vitamin D-3) 50 MCG (1999 UT) capsule TAKE 1 CAPSULE BY MOUTH EVERY DAY 90 capsule 3 diclofenac (Cataflam) 50 MG tablet Take 1 tablet (50 mg) by mouth 3 times daily. 30 tablet 0 Diclofenac Sodium 1 % gel Apply 2 g topically 3 times daily. 100 g 3 econazole nitrate 1 % cream APPLY TOPICALLY TO THE AFFECTED AREA TWICE DAILY 30 g 1 EPINEPHrine (Epipen) 0.3 MG/0.3ML injection syringe Inject 0.3 mL (0.3 mg) as directed 1 (one) timefor 1 dose. use as directed for allergic reaction and then call 911 0.3 mL 0 famotidine (Pepcid) 20 MG tablet TAKE 1 TABLET(20 MG) BY MOUTH EVERY 12 HOURS 180 tablet 3 FreeStyle lancets USE DIRECTED FIVE TIMES PER DAY 100 each 3 FREESTYLE LITE test strip USE DIRECTED TO TEST BLOOD GLUCOSE THREE TIMES DAILY 100 strip 1 hydrocortisone 2.5 % cream APPLY TOPICALLY TO THE AFFECTED AREA TWICE DAILY 30 g 1 hydrOXYzine HCl (Atarax) 25 MG tablet Take 1 tablet (25 mg) by mouth if needed in the morning, at noon, and at bedtime for itching. 90 tablet 3 ibuprofen 600 MG tablet TAKE 1 TABLET BY MOUTH THREE TIMES DAILY WITH FOOD NEEDED FOR PAIN 90 tablet 0 insulin glargine (Lantus SoloStar) 100 UNIT/ML pen Inject 40 Units under the skin at bedtime. insulin lispro (HumaLOG KWIKPEN) 100 UNIT/ML injection Inject 30 Units under the skin before breakfast AND 42 Units before lunch AND 36 Units with evening meal. 30U before breakfast, 42U before lunchand 36U before super. 97.2 mL 3 Ketotifen Fumarate 0.035 % solution Administer 1 drop into affected eye(s) 2 times daily. 10 mL 0 lactulose (Chronulac) 10 GM/15ML solution Take 15 mL by mouth at bed time. losartan (Cozaar) 25 MG tablet Take 1 tablet (25 mg) by mouth Once per day. 90 tablet 3 montelukast (Singulair) 10 MG tablet Take 1 tablet (10 mg) by mouth Once per day. 90 tablet 3 rosuvastatin (Crestor) 10 MG tablet TAKE ONE TABLET EVERY MORNING 90 tablet 3 semaglutide (Rybelsus) 7 MG tablet Take 1 tablet (7 mg) by mouth before breakfast. 90 tablet 1 sucralfate (Carafate) 1 g tablet Take 1 tablet by mouth in the morning and 1 tablet in the evening. terbinafine (LamISIL) 1 % cream Apply topically at bed time. triamcinolone (Kenalog) 0.1 % cream Apply topically every 12 (twelve) hours. No current facility-administered medications on file prior to visit. documented in this encounter Plan of Treatment Scheduled Orders Name Type Priority Associated Diagnoses Orde r Schedule BI US Breast Limited Right Imaging Urgent Breast nodule Expected: 08/03/2025, Expires: 08/03/2026 BI Mammogram Diagnostic Tomosynthesis Bilateral Imaging Routine Breast nodule Expected: 08/03/2025, Expires: 10/03/2026 documented as of this encounter Visit Diagnoses Diagnosis Breast nodule Other (abnormal) findings on radiological examination of breast documented in this encounter Additional Health Concerns Assessment Noted Time PHQ-9 Depression Total Score: 0 06/22/20 25 8:45 AM EDT documented as of this encounter Care Teams Master [employer] Relationship Specialty Start Date End Date Pedro Luis Amado MD [address] [place] [address] PCP - General Internal Medicine 10/10/20 Estiven De La Garza Driver SupervisorPolymerization Oven Tender 07/31/23 documented as of this encounter
[2025-08-08 21:32] VITALS: BP 138/71; PULSE 83; RESP 16; TEMP 36.4; O2SAT 97
--- OUTSIDE RECORDS SUMMARY | 2025-08-08 22:29 | XMS_ITS | Encounter Summary ---
Author Organization [employer] Address 75 [facility] 7 [place] [address] Care Team Providers Care Instrument And Control Service Person Name Role Phone Pedro Luis Amado MD Primary Care Prov ider Encounter Details Date Type Department Care Team ([facility] st Contact Info) Description 03/05/2023 Orders Only [facility] CHC MED & PEDS [address] [place], [place] [phone] Ro Castanon LPN Social History Tobacco Use [...] documented as of this encounter Care Teams Instrument And Control Service Person Relationship Specialty Start Date End Date Pedro Luis Amado MD [address] [place] [address] PCP - General Internal Medicine 10/10/20 Estiven De La Garza Mirror FramerGeneral Adjuster 07/31/23 documented as of this encounter
--- OUTSIDE RECORDS SUMMARY | 2025-08-08 22:29 | XMS_ITS | Encounter Summary ---
Author Organization [employer] Address [address] [facility] [address] 7t [place] [address] Care Team Providers Care Quality Project Manager Name Role Phone Pedro Luis Amado MD Primary Care Prov ider Encounter Details Date Type Department Care Team (Latest Contact Info) Description 08/03/2025 Travel Social History Tobacco Use Types Packs/Day Years [...] documented as of this encounter Care Teams Quality Project Manager Relationship Specialty Start Date End Date Pedro Luis Amado MD 505 [place] [address] PCP - General Internal Medicine 10/10/20 Estiven De La Garza General Assignment ReporterLibrary Media Technician 07/31/23 documented as of this encounter
--- OUTSIDE RECORDS SUMMARY | 2025-08-08 22:29 | XMS_ITS | Encounter Summary ---
Author Organization [employer] Address [address] [place] [address] [place] [address] Care Team Providers Care Chief Console Operator Name Role Phone Pedro Luis Amado MD Primary Care Prov ider Encounter Details Date Type Department Care Team (Late st Contact Info) Description 06/26/2023 Abstract [employer] [facility] [address] [place], [place] [phone] Pedro Luis Amado MD [address] [place], [place] [phone] Social History Tobacco Use Types Packs/Day Years [...] documented as of this encounter Care Teams Chief Console Operator Relationship Specialty Start Date End Date Pedro Luis Amado MD [address] [place] [address] PCP - General Internal Medicine 10/10/20 Estiven De La Garza Medical Data AnalystRetail Sales Merchandiser 07/31/23 documented as of this encounter
--- OUTSIDE RECORDS SUMMARY | 2025-08-08 22:29 | XMS_ITS | Encounter Summary ---
Author Organization [employer] Address 75 [facility] 7 [place] [address] Care Team Providers Care Buzzsaw Operator Name Role Phone Pedro Luis Amado MD Primary Care Prov ider Reason for Visit * Reason Onset Date Comments Results 10/02/2023 Encounter Details Date Type Department Care Team ([facility] st Contact Info) Description 10/02/2023 Telephone [facility] CHC MED & PEDS [address] [place], [place] [phone] Pedro Luis Amado MD [address] [place] [address] Results Social History Tobacco Use Types Packs/Day [...] documented as of this encounter Care Teams Buzzsaw Operator Relationship Specialty Start Date End Date Pedro Luis Amado MD [address] [place] [address] PCP - General Internal Medicine 10/10/20 Estiven De La Garza Combination PresserInteractive Media Director 07/31/23 documented as of this encounter
--- OUTSIDE RECORDS SUMMARY | 2025-08-08 22:29 | XMS_ITS | Encounter Summary ---
Author Organization [employer] Address 75 [facility] 7 [place] [address] Care Team Providers Care Rouge Miller Name Role Phone Pedro Luis Amado MD Primary Care Prov ider Reason for Visit * Reason Onset Date Comments Nurse Triage 08/03/2025 Encounter Details Date Type Department Care Team ([facility] Contact Info) Description 08/03/2025 Telephone C CHC MED & PEDS [address] [place] [address] Pedro Luis Amado MD [address] [place] [address] Nurse Triage Social History Tobacco Use Types Packs/Day Years [...] your housing situation today? I have janice sing 06/22/[address] you li [...] encounter Miscellaneous Notes * Telephone Encounter - Sangita Bran RN - 08/03/2025 9:37 AM EDT TC to pt to triage for skin lump. pt states that 3 days ago she noticed a lump on her right breast.lump is hard to touch and red, painful to touch and when rubbing against clothing. no pus filling or discharge. pt is able to move lump without issue. size is about a dime. pt states she does have a family history of breast cancer, mother was diagnosed, pt worrisome. Pt offered appt in [facility]. Pt scheduled for 2:[address] Alaniz on 08/03/25. Pt agrees to plan. Multiple (2) protocols were used on this call. Disposition for Call: See in Office or Video Visit Today or Tomorrow Protocol Used: Skin - Lump or Localized Swelling (Pediatric) Protocol-Based Disposition: See in Office or Video Visit Today or Tomorrow Video visit offered and caller accepted Positive Triage Questions: * Swelling is painful and unexplained * Large swelling or lump > 1 inch (2.5 cm) and unexplained * All higher-acuity triage questions were negative Protocol Used: Skin Lump or Localized Swelling (Adult) Protocol-Based Disposition: See in Office or Video Visit within 3 Days Positive Triage Questions: * Patient wants to be seen * Small swelling or lump present < 1 week * All higher-acuity triage questions were negative Care Advice Discussed: * Reasons To Call Back - Fever occurs - Spreading redness occurs - Swelling becomes painful - Swelling lasts over 1 week - You become worse * Telephone Encounter - Ishan Yang - 08/03/2025 8:59 AM EDT Symptom: Skin Lump Outcome: Schedule an urgent appointment (within 4 hours) or talk to a nurse or provider soon Reason: Growing rapidly The caller accepted this outcome. Contact pt at [phone] documented in this encounter Plan of Treatment Not on file documented as of this encounter Visit Diagnoses Not on filedocumented in this encounter Additional Health Concerns Assessment Noted Time PHQ-9 Depression Total Score: 0 06/22/20 25 8:45 AM EDT documented as of this encounter Care Teams Rouge Miller Relationship Specialty Start Date End Date Pedro Luis Amado MD [address] [place] [address] PCP - General Internal Medicine 10/10/20 Estiven De La Garza Slate HandlerTake Out Waiter/Waitress 07/31/23 documented as of this encounter
--- OUTSIDE RECORDS SUMMARY | 2025-08-08 22:29 | XMS_ITS | Encounter Summary ---
Author Organization [employer] Address [address] [place] [address] 7 [place] [address] Care Team Providers Care Regulatory Analyst Name Role Phone Pedro Luis Amado MD Primary Care Prov ider Encounter Details Date Type Department Care Team (Late st Contact Info) Description 09/01/[address] [facility] MEDICINE [address] [place] [address] ProviderEmil MD Social History Tobacco Use Types [...] on filedocumented in this encounter Care Teams Regulatory Analyst Relationship Specialty Start Date End Date Pedro Luis Amado MD [address] [place] [address] PCP - General Internal Medicine 10/10/20 Estiven De La Garza Credit SpecialistCenter Director Lead Teacher 07/31/23 documented as of this encounter
--- OUTSIDE RECORDS SUMMARY | 2025-08-08 22:29 | XMS_ITS | Encounter Summary ---
Author Organization [employer] Address 75 [facility] 7 [place] [address] Care Team Providers Care Manager Stars Name Role Phone Pedro Luis Amado MD Primary Care Prov ider Reason for Visit * Reason Onset Date Comments Results 09/30/2023 Encounter Details Date Type Department Care Team ([facility] st Contact Info) Description 09/30/2023 Telephone [facility] MEDICINE [address] [place] [address] Pedro Luis Amado MD [address] [place] [address] Results Social History Tobacco Use Types Packs/Day [...] documented as of this encounter Care Teams Manager Stars Relationship Specialty Start Date End Date Pedro Luis Amado MD [address] [place] [address] PCP - General Internal Medicine 10/10/20 Estiven De La Garza BarmanBoilermaking Supervisor 07/31/23 documented as of this encounter
--- OUTSIDE RECORDS SUMMARY | 2025-08-08 22:29 | XMS_ITS | Encounter Summary ---
Author Organization [employer] Address [address] [facility] [address] 7t [place] [address] Care Team Providers Care Purchasing Contracting Clerk Name Role Phone Pedro Luis Amado MD Primary Care Prov ider Encounter Details Date Type Department Care Team (Late st Contact Info) Description 01/19/2024 Orders Only [facility] MEDICINE [address] [place], [place] [phone] ProviderEmil MD Social History Tobacco Use Types [...] documented as of this encounter Care Teams Purchasing Contracting Clerk Relationship Specialty Start Date End Date MartinezPedro Luis Vu MD [address] [place] [address] PCP - General Internal Medicine 10/10/20 Estiven De La Garza Computer TechnologistManager Solar 07/31/23 documented as of this encounter
--- OUTSIDE RECORDS SUMMARY | 2025-08-08 22:29 | XMS_ITS | Clinical Summary ---
Author Organization [employer] Address [address] [place] [address] Care Team Providers Care Financial Services Associate Name Role Phone Pedro Luis Amado MD Primary Care Prov ider Allergies Active Allergy Reactions Criticality Noted Date Comments Lactose 12/10/2016 Shellfish Allergy 05/24/2018 Shellfish Protein-Containing Drug Products 12/10/2016 Tramadol Headache Medium 02/14/2020 Medications lactulose (Chronulac) 10 GM/15ML solution Take 15 mL by mouth at bed time. 10/11/19 21 Active acetaminophen (Tylenol) 500 MG tablet Take 1 tablet by mouth every 8 (eight) hours. 10/03/20 21 Active insulin glargine (Lantus SoloStar) 100 UNIT/ML pen Inject 40 Units under the skin at bedtime. 06/26/20 22 Active sucralfate (Carafate) 1 g tablet Take 1 tablet by mouth in the morning and 1 tablet in the evening. 07/07/20 22 Active terbinafine (LamISIL) 1 % cream Apply topically at bed time. 05/08/20 22 Active triamcinolone (Kenalog) 0.1 % cream Apply topically every 12 (twelve) hours. 02/11/20 22 Active insulin lispro (HumaLOG KWIKPEN) 100 UNIT/ML injectionIndicati ons:Type 2 diabetes mellitus without complication, with long-term current use of insulin (HCC) Inject 30 Units under the skin before breakfast AND 42 Units before lunch AND 36 Units with evening meal. 30U before breakfast, 42U before lunch and 36U before super. 97.2 mL 3 11/10/19 23 Active BD Pen Needle Jahaira 2nd Gen 32G X 4 MM misc USE DIRECTED FOUR TIMES DAILY 100 each 11 03/05/20 23 Active BD Pen Needle Jahaira 2nd Gen 32G X 4 MM misc USE DIRECTED FOUR TIMES DAILY 02/12/20 23 Active semaglutide (Rybelsus) 7 MG tabletIndications :Type 2 diabetes mellitus without complication, with long-term current use of insulin (HCC) Take 1 tablet (7 mg) by mouth before breakfast. 90 tablet 1 03/30/20 23 Active diclofenac (Cataflam) 50 MG tablet Take 1 tablet (50 mg) by mouth 3 times daily. 30 tablet 06/24/20 23 Active Blood Pressure kit 1 kit in the morning. 1 kit 07/15/20 Active hydrocortisone 2.5 % creamIndications: Candidiasis, intertriginous APPLY TOPICALLY TO THE AFFECTED AREA TWICE DAILY 30 g 1 10/01/20 23 Active econazole nitrate 1 % creamIndications: Candidiasis, intertriginous APPLY TOPICALLY TO THE AFFECTED AREA TWICE DAILY 30 g 1 10/01/20 23 Active FreeStyle lancets USE DIRECTED FIVE TIMES PER DAY 100 each 3 11/09/19 24 Active famotidine (Pepcid) 20 MG tablet TAKE 1 TABLET(20 MG) BY MOUTH EVERY 12 HOURS 180 tablet 3 08/01/20 24 Active rosuvastatin (Crestor) 10 MG tablet TAKE ONE TABLET EVERY MORNING 90 tablet 3 08/09/20 24 Active cholecalciferol VITAMIN D (Vitamin D-3) 50 MCG (1999 UT) capsuleIndication s:Vitamin D deficiency TAKE 1 CAPSULE BY MOUTH EVERY DAY 90 capsule 3 12/28/19 25 Active Diclofenac Sodium 1 % gel Apply 2 g topically 3 times daily. 100 g 3 12/28/19 25 Active ibuprofen 600 MG tablet TAKE 1 TABLET BY MOUTH THREE TIMES DAILY WITH FOOD NEEDED FOR PAIN 90 tablet 01/21/20 25 Active Ketotifen Fumarate 0.035 % solution Administer 1 drop into affected eye(s) 2 times daily. 10 mL 02/24/20 25 Active losartan (Cozaar) 25 MG tablet Take 1 tablet (25 mg) by mouth Once per day. 90 tablet 3 03/22/20 25 2025 Active montelukast (Singulair) 10 MG tablet Take 1 tablet (10 mg) by mouth Once per day. 90 tablet 3 03/22/20 25 2025 Active EPINEPHrine (Epipen) 0.3 MG/0.3ML injection syringe Inject 0.3 mL (0.3 mg) as directed 1 (one) time for 1 dose. use as directed for allergic reaction and then call 911 0.3 mL 03/22/20 Active FREESTYLE LITE test strip USE DIRECTED TO TEST BLOOD GLUCOSE THREE TIMES DAILY 100 strip 1 06/07/20 Active hydrOXYzine HCl (Atarax) 25 MG tablet Take 1 tablet (25 mg) by mouth if needed in the morning, at noon, and at bedtime for itching. 90 tablet 3 03/22/20 25 2024 Discontinued Active Problems Problem Noted Date Diagnosed Date Breast nodule 08/03/2025 Benign paroxysmal positional vertigo due to bilateral [...] Encounters Date Type Department Care Team Description 08/03/2025 2:30 PM EDT Office Visit [facility] [address] [place] [address] Deb Ulloa MD Breast nodule 08/03/2025 Travel 08/03/2025 Telephone [facility] [address] [place] [address] Pedro Luis Amado MD Nurse Triage 06/22/2025 8:45 AM EDT Telemedicine [facility] [address] [place] [address] Pedro Luis Amado MD Primary hypertension (Primary Dx); Type 2 diabetes mellitus with hyperglycemia, with long-term current use of insulin ([facility]) 06/22/2025 Travel 06/20/2025 Telephone [facility] [address] [place] [address] Pedro Luis Amado MD chart prep 06/06/2025 Refill [facility] [address] [place] [address] Pedro Luis Amado MD from Last 3 [...] Mass Index 30.32 08/03/2025 2:26 PM EDT Plan of Treatment Health Maintenance Due Date Last Done Comments CT Colonography 1974 FIT DNA/Cologuard 1974 FIT 1974 FOBT 1975 Sigmoidoscopy 1975 Eye Exam 1984 Family Planning (PISQ) [...] 8, 07/15/2017, 08/26/2016, Additional history exists Diabetes: Urine Protein Screening 12/28/2025 12/28/2024, 07/16/2023, 02/12/2022, Additional history exists Lipid Panel 03/17/2026 03/17/2025, 03/2 03/2025, 07/16/2023, Additional history exists Mammogram 05/31/2026 05/31/2024, 08/0 01/2023, 12/08/2022, Additional history exists Alcohol/Substance Use Screening 06/22/2026 06/22/2025 Depression Screening 06/22/2026 06/22/2025, 06/22/20 25 SDOH Screening 06/22/2026 06/22/2025 Disability Screening 08/03/2026 08/03/2025 Tobacco Screening 08/03/2026 08/03/2025 DTaP/Tdap/Td Vaccines (4 - Td or Tdap) [...] 10:23 AM EDT) Triglycerides 52 <150 mg/dL [facility] Comment:Desirable Triglyceri de: less than 150 mg/dLBorderline High Triglyceride 150-199 mg/dLHigh Triglyceride: 200-499 mg/dLVery High Triglyceride: greater than or equal to 5OO mg/dL Cholesterol 96 <200 mg/dL [facility] Comment:Desirable Cholestero l: less than 200 mg/dLBorderline High Cholesterol: 200-239 mg/dLHigh Cholesterol: greater than 239 mg/dL LDL Cholesterol Calculated 47 <100 mg/dL [facility] Comment:Desirable LDL: less than 100 mg/dLNear Optimal/Above Optimal LDL: 110- 129 mg/dLBorderline High LDL: 130-159 mg/dLHigh LDL: 160-189 mg/dLVery High LDL: greater than or equal to 190 mg/dL HDL Cholesterol 39(L) >40 mg/dL [facility] Comment:Desirable HDL: great er than 40 mg/dL Note: This HDL assay may give artificially low results in patients with liver disease. Blood Venous blood specimen / Unknown 03/17/2025 10:23 AM EDT 03/17/2025 2:05 PM EDT us Pedro Luis Sierra MD LAB BLOOD ORDERABL ES Final Result [facility] [address], [place] [phone] * Albumin, Random Urine W/Creatinine (12/28/2024 9:00 AM EDT) Creatinine, Urine 212.92 mg/dL [facility] Microalbumin Urine 18.0 mg/L [facility] Microalbum Creatinine Ratio Ur 8.4 <30 ug/mg cr [facility] Comment:Albumin/Creatinine R atio Reference Ranges: Normal: < 30 ug/mg creatinine Microalbuminuria: 30 - 300 ug/mg creatinineClinical Albuminuria: > 300 ug/mg creatinine Urine (Urine, Random) 12/28/2024 9:00 AM EDT 12/28/2024 2:09 PM EDT us Pedro Luis Sierra MD LAB URINE ORDERABL ES Final Result [facility] [address] [place] [phone] * (ABNORMAL) POCT HGB A1C (12/21/2024 [...] PM EDT Narrative 06/24/2024 3:32 PM EDT [facility] [address] [place] [address] Mammography Report Signed Patient: Mira Darnell#: [id number] : 1975 Acct:[id number] Age/Sex: 49 / F ADM Date: 05/31/24 Loc: ANIL Attending Dr: Pedro Luis Sierra MD Ordering Physician: Pedro Luis Amado MD Res ults: 2Benign Findings Date of Service: 05/31/24 Follow Up: 1 Year From Orig inal Mammogram Procedure(s): MM tomosynthesis screening BI Accession Number(s): [id number] cc: Pedro Luis Amado MD EXAMINATION: MM [...] 06/24/24 1529 DD/ 1530 TD/TT: 05/31/24 1545 Fox Raiser: Procedure Note Donotuseinterpreter, Image - [facility]/24/2024 [facility] [address] [place], [place] [address] Mammography Report Signed Patient: Mira Darnell R#: [id number] : 1975Acct:[id number] Age/Sex: 49 / FADM Date: 05/31/24 Loc: MAMMO Attending Dr: Pedro Luis Sierra MD Ordering Physician: Pedro Luis Amado ults: 2Benign Findings Date of Service: 05/31/24Follow Up: 1 Year From Orig inal Mammogram Procedure(s): MM tomosynthesis screening BI Accession Number(s): [id number] cc: Pedro Luis Amado MD EXAMINATION: MM [...] 06/24/24 1529 DD/ 1530 TD/TT: 05/31/24 1545 Fox Raiser: Pedro Luis Sierra MD IM BI PROCEDURES Edited Result - Final * HIV-1 RNA, Quantitative, Real-Time PCR with Reflex to Genotype (RTI, PI, Integrase) (10/16/2022 9:27 AM EST) HIV 1 RNA, QN PCR NOT DETECTED copies/mL [facility] [facility], HIV 1 RNA, QN PCR NOT DETECTED Log copies/mL [facility] [employer] [facility], Comment: REFERENCE RANGE: NOT DETECTED copies/mL NOT DETECTED Log copies/mL This test was performed using Real-Time Polymerase Chain Reaction. Reportable range is 20 to 10,000,000 copies/mL (1.30-7.00 Log copies/mL). 10/16/2022 9:27 AM EST 10/16/2022 9:28 AM EST Pedro Luis Sierra MD LAB BLOOD ORDERABL ES Final Result Performing Organization Address City/[facility] Co de Phone Number [address], [place] [address] [facility], [address] [place] [address] * Hepatitis C Antibody with Reflex to HCV, RNA, Quantitative, Real-Time PCR (10/16/2022 9:27 AM EST) Hepatitis C Antibody NON-REACT ASTRID NON-REACT ASTRID [facility] [place] [facility] Index <0.02 <1.00 [facility] [place] [facility] Comment: HCV antibody was non-reactive. There is no laboratory evidence of HCV infection. In most cases, no further action is required. However, if recent HCV exposure is suspected, a test for HCV RNA (test code 69913) is suggested. For additional information please refer to http://education.[employer]/faq/RUG38q2 (This link is being provided for informational/ educational purposes only.) Blood Venous blood specimen / Unknown 10/16/2022 9:27 AM EST 10/16/2022 9:28 AM EST Pedro Luis Sierra MD LAB BLOOD ORDERABL ES Final Result Performing Organization Address City/[facility]/ZIP Co de Phone Number [address], [place] [address] [facility] [address] [place] [address], (Nl2) [place] [address] * Hm Colonoscopy (12/08/2019 10:24 AM EST) Historical Provider HEALTH MAINTENANCE Final Result * Pap Smear (11/01/2018 12:00 AM EST) Swab us Historical Provider LAB CYTOLOGY ORDERABLES F inal Result [facility] [address] [facility], [place] [address] from Last 3 Months or Most Recently Relevant to Health Maintenance Insurance [employer] C3 Care Teams Financial Services Associate Relationship Specialty Start Date End Date Pedro Luis Amado MD [address] [place] [address] [place] [address] PCP - General Internal Medicine 10/10/20 Estiven De La Garza Food SelectorExhibit Carpenter 07/31/23
--- OUTSIDE RECORDS SUMMARY | 2025-08-08 22:29 | XMS_ITS | Clinical Summary ---
Author Organization [facility] Address [address] [place] [address] Phone Care Team Providers Care Block Hacker Name Role Phone Pedro Luis Amado Primary Care Provide r Allergies No known active allergies Medications Hospital, Clinic, or Other Facility Administered Medication Ordered Dose Route Frequency Start Date End Date Status lidocaine (XYLOCAINE) 1 % injection 0.5 mLIndications:Bilate ral carpal tunnel syndrome .5 mL Once PRN Procedure 07/27/2025 07/27/2025 Ended triamcinolone acetonide (KENALOG-40) 40 mg/mL injection 40 mgIndications:Bilate ral carpal tunnel syndrome 40 mg Once PRN Procedure 07/27/2025 07/27/2025 Ended Encounters Date Type Department Care Team Description 07/27/2025 10:15 AM EDT Office Visit Orthopedic Surgery [address] [place] [phone] Christa Mortensen PA Bilateral carpal tunnel syndrome (Primary Dx) from Last 3 Months Surgical History Surgery Date Site/Laterality Comments KNEE SURGERY PROCEDURE: HISTORICAL KNEE SURGERY SECTION PROCEDURE: HISTORICAL ; COMMENT: x2 CHOLECYSTECTOMY PROCEDURE: HISTORICAL CHOLECYSTECTOMY BREAST BIOPSY PROCEDURE: [place] BIOPSY BREAST OPEN INCISIONAL; COMMENT: benign, benign second biopsy 01/2020, scheduled for excision in 03/2020 TUBAL LIGATION PROCEDURE: HISTORICAL TUBAL LIGATION OTHER SURGICAL HISTORY 12/17/2018 PROCEDURE: MA TOTAL ABDOMINAL HYSTERECT W/WO RMVL TUBE OVARY; COMMENT: fibroid uterus, heavy bleeding, anemia, Eppsteiner- incidental cystotomy repaired Medical History Medical History Date Comments Back pain DX:Back pain Knee pain DX:Knee pain Diabetes mellitus type 2 in obese DX:Diabetes mellitus type 2 in obese BRCA negative DX:BRCA negative ; COMMENT: at [place] Intraoperative bladder injury 12/22/2018 DX :Intraoperative bladder [...] (2 of 2 - PCV) 2024 06/01/2015 RSV Immunization Adult Patients (1 - Risk 50-74 years 1-dose series) 2024 Zoster Vaccines (1 of 2) 2024 Depression [...] Procedure Name Priority Date/Time Associated Diagnosis Comments [place] INJECTION CARPAL TUNNEL THERAPEUTIC Routine 07/27/2025 10:15 AM EDT Bilateral carpal tunnel syndrome PAP SMEAR Routine 11/01/2018 from Last 3 Months or Most Recently Relevant to Health Maintenance Results * [place] INJECTION CARPAL TUNNEL THERAPEUTIC (07/27/2025 10:15 AM EDT) Narrative Christa Mortensen PA - 07/27/2025 10:15 AM EDT ARABELLA Ceja 07/27/2025 11:00 AM Hand / UE Inj/Asp: R carpal tunnel [...] RESULTING AGENCY - 11/04/2018 1:45 PM EST [id number] THINPREP PAP, IMAGED: NEGATIVE FOR SQUAMOUS INTRAEPITHELIAL [...] Maintenance Insurance MEDICAID - [place] Care Teams Block Hacker Relationship Specialty Start Date End Date Pedro Luis Amado [address] [place], [place] PCP - General 11/11/22
--- OUTSIDE RECORDS SUMMARY | 2025-08-08 22:29 | XMS_ITS | Encounter Summary ---
Author Organization [employer] Address [address] [place] [address] 7 [place] [address] Care Team Providers Care Postal Worker Name Role Phone Pedro Luis Amado MD Primary Care Prov ider Encounter Details Date Type Department Care Team (Latest Contact Info) Description 08/02/2019 Abstract [facility], Provider, DDS Social History Tobacco [...] on filedocumented in this encounter Care Teams Postal Worker Relationship Specialty Start Date End Date Pedro Luis Amado MD [address] [place] [address] PCP - General Internal Medicine 10/10/20 Estiven De La Garza Animal Trainer SupervisorLife Insurance Underwriter 07/31/23 documented as of this encounter
--- OUTSIDE RECORDS SUMMARY | 2025-08-08 22:29 | XMS_ITS | Encounter Summary ---
Author Organization [employer] Address [address] [place] [address] Care Team Providers Care Triple Drum Operator Name Role Phone Pedro Luis Amado MD Primary Care Prov ider Reason for Visit * Reason Comments Med Refill Encounter Details Date Type Department Care Team ([facility] Contact Info) Description 03/31/2025 Refill [facility] [address] [place] [address] Jocelynn Stanley MD [address] [place] [address] Candidiasis, intertriginous Social History Tobacco Use Types [...] documented as of this encounter Care Teams Triple Drum Operator Relationship Specialty Start Date End Date Pedro Luis Amado MD [address] [place] [phone] PCP - General Internal Medicine 10/10/20 Estiven De La Garza Ic Designer Gate ArraysPipelines Supervisor 07/31/23 documented as of this encounter
--- OUTSIDE RECORDS SUMMARY | 2025-08-08 22:29 | XMS_ITS | Encounter Summary ---
Author Organization [employer] Address [address] [place] [address] [address] [place] [address] Care Team Providers Care Editor Dictionary Name Role Phone Pedro Luis Amado MD Primary Care Prov ider Reason for Visit * Reason Comments Med Refill Encounter Details Date Type Department Care Team ([facility] Contact Info) Description 05/27/2023 Refill [facility] [address] [place], [place] [phone] Pedro Luis Amado MD [address] [place] [address] Type 2 diabetes mellitus without complication, with long-term current use of insulin ([facility]) Social History Tobacco Use Types Packs/Day Years [...] complication, with long-term current use of insulin ([facility]) documented in this encounter Additional Health Concerns Assessment Noted Time PHQ-9 Depression Total Score: 2 01/02/20 23 9:06 AM EDT documented as of this encounter Care Teams Editor Dictionary Relationship Specialty Start Date End Date Pedro Luis Amado MD [address] [place] [phone] PCP - General Internal Medicine 10/10/20 Estiven De La Garza Solar Lab TechnicianLoader Helper 07/31/23 documented as of this encounter
--- NOTE | 2025-08-09 00:37 | ED.SKABFB ---
HPI - Skin/Abscess/Foreign Bdy General Chief complaint: Skin/Abscess/Foreign Body Stated complaint: lump between the breast/thinks its getting bigger Time Seen by Provider: 08/08/25 23:35 Source: patient and family Mode of arrival: ambulatory Limitations: no limitations History of Present Illness ED Provider: Dr. Lucero Villanueva HPI narrative: 50-year-old female with a history of breast lump status post biopsy and resection found to be noncancerous presenting with right breast pain and chest wall pain ongoing for the last several days. Went to an urgent care earlier today and was told that she needed to have a mammogram. Patient having continued pain, worse with palpation of the area and wearing bras. No reported fever. No nausea, vomiting, difficulty breathing, recent illness. Has a history of abscesses on her perineum. No recent antibiotic use. No history of IVDA. Related Data Home Medications ?Medication ?Instructions ?Recorded ?Confirmed insulin lispro 100 unit/mL See Rx Instructions subcut TID 08/14/21 05/15/25 subcutaneous pen (Humalog KwikPen (U-100) Insulin) famotidine 20 mg tablet 20 mg PO BID PRN Gastric Reflux 11/06/21 05/15/25 diclofenac sodium 1 % topical gel 2 g topical TID 03/12/22 05/15/25 pen needle, diabetic 32 gauge x #50 ea 09/12/22 05/15/25 (BD Jahaira 2nd Gen Pen Needle) glucagon 1 mg solution for 1 mg IM ONCE PRN 11/12/23 05/15/25 injection (Glucagon Emergency Kit) rosuvastatin 10 mg tablet 10 mg PO QAM 11/12/23 05/15/25 cholecalciferol (vitamin D3) 50 50 mcg PO DAILY 11/15/24 05/15/25 mcg (2,000 unit) capsule semaglutide 7 mg tablet (Rybelsus) 14 mg PO DAILY 05/15/25 05/15/25 insulin glargine 100 unit/mL 45 unit subcut QPM 07/07/25 subcutaneous solution (Lantus U-100 Insulin) Previous Rx's ?Medication ?Instructions ?Recorded ibuprofen 600 mg tablet 600 mg PO Q6H PRN pain #20 tabs 05/04/21 diphenhydramine HCl 25 mg tablet 25 mg PO ONCE PRN sleep #2 tabs 12/01/22 (Benadryl Allergy) fluticasone propionate 50 2 spray intranasal DAILY ALLERGIC 07/06/25 mcg/actuation nasal RHINITIS/SNORING 30 days #16 grams spray,suspension (Children's Flonase Allergy Relief) docusate sodium 100 mg capsule 100 mg PO BEDTIME constipation #90 07/07/25 caps methylcellulose (laxative) 500 mg 500 mg PO .COMPLEX #180 tabs 07/07/25 tablet (Citrucel) montelukast 10 mg tablet 10 mg PO QPM ALLERGIC rHINITIS #90 07/07/25 tabs peg 3350-electrolytes 236 240 ml PO Q10M #4,000 mL 07/07/25 gram-22.74 gram-6.74 gram-5.86 gram solution scopolamine base 1 mg over 3 days 1 patch transdermal Q3D PRN nausea 07/07/25 transdermal patch and vomiting #4 ea sennosides 8.6 mg capsule (senna) 17.2 mg (2 x 8.6 mg) PO BEDTIME 3 07/07/25 days #6 caps simethicone 125 mg capsule (Gas 125 mg PO ONCE abdominal 07/07/25 Relief (simethicone)) distention #4 caps cetirizine 10 mg tablet 10 mg PO DAILY for allergies #30 08/04/25 tabs cephalexin 500 mg capsule 500 mg PO QID 7 days #28 caps 08/09/25 Allergies Allergy/AdvReac Type Severity Reaction Status Date / Time shrimp (SHRIMP) Allergy Intermediate SWELLING Verified 08/08/25 21:36 tramadol (TRAMADOL) Allergy Intermediate HEADACHES Verified 08/08/25 21:36 gadobutrol (From GADAVIST) Allergy Mild DIFFICULTY Verified 08/08/25 21:36 BREATHING lactose (LACTOSE) AdvReac Mild STOMACH Verified 08/08/25 21:36 UPSET Review of Systems Review of Systems: as per HPI, full review of systems performed and negative but for the above mentioned pertinent positives and negatives. [facility] Past Medical History Medical History Dysphagia Colon cancer screening History of COVID-19 Snoring Somnolence, daytime Chronic constipation Breast cancer screening, high risk patient Hx of migraine headaches Anemia GERD (gastroesophageal reflux disease) Liver cyst Pulmonary nodule Allergic rhinitis Intraductal papilloma Back pain Fibroids Diabetes mellitus Asthma Surgical History History of surgical procedure Hx laparoscopic cholecystectomy History of breast biopsy (~01/2020) History of colonoscopy (~12/08/19) History of hysterectomy (~12/17/18) History of section History of knee surgery Family History Family History Mother History of breast cancer History of hypertension History of diabetes mellitus Son History of asthma History of ADHD Paternal Grandfather History of pancreatic cancer Maternal Uncle History of colon cancer Maternal Aunt History of breast cancer Paternal Grandmother History of diabetes mellitus Paternal Uncle History of rheumatoid arthritis Family/Other Family history of throat cancer Social History Social History Household Members: Spouse and Children Alcohol intake: current Alcohol intake frequency: does not drink Patient Tobacco Use Status: Never used Tobacco Advance Directives: Yes Advance Directives on File: Yes Advance Directives Date on File: 12/15/18 Physical Exam Exam: Exam: GENERAL: Well-Appearing, conversant, no acute distress. SKIN: Normal skin color for ethnicity, warm, dry, no rashes noted. HEENT: Normocephalic, atraumatic, no stridor, posterior oropharynx nonerythematous, dentition intact, EOMI. NECK: Soft, supple, full ROM, midline structures nontender, no step-offs, no deformities, no lymphadenopathy. CHEST: Heart regular rate and rhythm, no murmurs, symmetric chest rise and fall, tenderness to palpation of the chest wall overlying the breast bone at the 4th intercostal space, minimal induration on the skin, palpable area of fluctuance that leads into the breast tissue in the medial aspect of the breast on the right side, no significant erythema, no vesicular lesions, no blistering, no pustules or crepitus. PULMONARY: Clear to auscultation bilaterally, no labored breathing, no wheezes/rhales/rhonchi. ABDOMINAL: Soft, nondistended, nontender, positive bowel sounds in all quadrants. : Deferred. MUSCULOSKELETAL: Normal tone, full range of motion, no deformities, no peripheral edema. NEURO: Alert and oriented x3, CN II through XII intact, equal strength and sensation bilateral upper and lower extremities, no focal neurologic deficits. PSYCHIATRIC: Normal affect, fluid speech, good eye contact and appropriate demeanor. Vital Signs: Vital Signs: Last Vital Signs Temp 98.4 F 08/09/25 01:00 Pulse 68 08/09/25 01:00 Resp 18 08/09/25 01:00 BP 131/74 08/09/25 01:00 Pulse Ox 97 08/09/25 01:00 O2 Del Method Room Air 08/09/25 01:00 BMI result Body Mass Index 30.0 Medications Administered Discontinued Medications Generic Name Dose Route Start Last Admin Trade Name Freq PRN Reason Stop Dose Admin Cephalexin HCl 500 mg 08/09/25 00:38 08/09/25 00:55 Cephalexin 500 Mg Capsule PO 08/09/25 00:39 500 mg ONCE ONE Administration Ibuprofen 600 mg 08/09/25 00:38 08/09/25 00:55 Ibuprofen 600 Mg Tablet PO 08/09/25 00:39 600 mg ONCE ONE Administration Medical Decision Making Medical Decision Making [facility] Narrative: Patient presents today with chief complaint of possible infection. Differential diagnosis includes abscess, cellulitis, deep space infection such as fasciitis, bone infection, vascular abnormality, among many others. Findings are not consistent with fasciitis specifically with no crepitus, blistering of the skin, pain out of proportion, hemodynamic instability, poor historical factors. Bedside ultrasound shows evidence of 1 cm x 1.5 cm lesion, consistent with potential abscess versus cyst. I had an extensive discussion with the patient regarding treatment options. Using shared decision-making, patient would like to see her breast surgeon that did her biopsy and lump removal previously. She understands that the treatment for abscess is incision and drainage. We initiate antibiotic treatment and she will follow up with the surgeon within the next couple of days. Discussed return precautions at length. Discharged home in stable condition. Differential Diagnosis Differential Diagnoses: The differential diagnosis associated with the presentation includes (As above) Admission/Observation Consideration of admission/observation: Escalation of care including admission/observation considered Independent Interpretation I performed an independent interpretation of an: Ultrasound Interpretation: EMERGENCY ULTRASOUND INTERPRETATION- Limited skin and soft tissue This study was ordered, performed, and interpreted by myself. The study reveals: 1 x 1.5 cm abscess along the medial aspect of the right breast Impression: ?Fluid collection, consistent with abscess versus cyst Indication: ?Pain and swelling Skin: ?Minimal overlying cellulitis, induration Performed by: ?Dr. Lucero Villanueva D.O. Independent Historian Clinical information obtained from an independent historian. History obtained from or confirmed by: Spouse External Record Review External record reviewed: Inpatient record and Outpatient record Prescription Management I considered prescription management with: Antibiotic Chronic Conditions Patient?s care impacted by: Diabetes and Hypertension Discharge Plan Discharge Clinical Impression: Abscess of parasternal chest wall, Pain of right breast Patient Disposition: Home, Self-Care Instructions: Abscess (ED) Additional Instructions: Call the surgeon's office as soon as possible to arrange for a follow up appointment. Return to the emergency department sooner if you develop any new or worsening symptoms including: Worsening pain despite antibiotics, fevers greater than 100?, redness that tracks away from your wound, vomiting, any new symptom that concerns you. Prescriptions: New cephalexin 500 mg capsule 500 mg PO QID 7 Days Qty: 28 0RF No Action diphenhydramine HCl [Benadryl Allergy] 25 mg tablet 25 mg PO ONCE PRN (Reason: sleep) Qty: 2 0RF Rx Instructions: Take both tablets one hour prior to the procedure. fluticasone propionate [Children's Flonase Allergy Rlf] 50 mcg/actuation spray,suspension 2 spray intranasal DAILY 30 Days Qty: 16 4RF Rx Instructions: administer into each nostril montelukast 10 mg tablet 10 mg PO QPM Qty: 90 3RF cetirizine 10 mg tablet 10 mg PO DAILY Qty: 30 0RF ibuprofen 600 mg tablet 600 mg PO Q6H PRN (Reason: pain) Qty: 20 0RF Lantus U-100 Insulin 100 unit/mL solution 45 unit subcut QPM insulin lispro [Humalog KwikPen Insulin] 100 unit/mL insulin pen See Rx Instructions subcut TID Rx Instructions: 30 units am, 40 units lunch, 35 units dinner subcut 3 times a day; famotidine 20 mg tablet 20 mg PO BID PRN (Reason: Gastric Reflux) diclofenac sodium 1 % gel 2 g topical TID (DME) pen needle, diabetic [BD Jahaira 2nd Gen Pen Needle] 32 gauge x 5/32 needle See Rx Instructions .ROUTE QID Qty: 50 Rx Instructions: As directed Rybelsus 7 mg tablet 14 mg PO DAILY cholecalciferol (vitamin D3) 50 mcg (2,000 unit) capsule 50 mcg PO DAILY Citrucel 500 mg tablet 500 mg PO .COMPLEX Qty: 180 2RF Rx Instructions: Take one tablet daily X 2 week, follow by two tablets daily thereafter docusate sodium 100 mg capsule 100 mg PO BEDTIME Qty: 90 1RF Rx Instructions: Take one tablet at bedtime scopolamine base 1 mg over 3 days patch 3 day 1 patch transdermal Q3D PRN (Reason: nausea and vomiting) Qty: 4 0RF Rx Instructions: Apply 1 patch (1 mg/3 days) behind ear 8 hours prior to required antiemetic effect for use up to 72 hours peg 3350-electrolytes 236-22.74-6.74 -5.86 gram recon soln 240 ml PO Q10M Qty: 4000 0RF Rx Instructions: until fecal effluent is clear simethicone [Gas Relief (simethicone)] 125 mg capsule 125 mg PO ONCE Qty: 4 0RF Rx Instructions: per colonoscopy prep instructions senna 8.6 mg capsule 17.2 mg PO BEDTIME 3 Days Qty: 6 0RF Rx Instructions: two capsules nightly, starting 3 days prior to colonoscopy Glucagon Emergency Kit (human) 1 mg recon soln 1 mg IM ONCE PRN rosuvastatin 10 mg tablet 10 mg PO QAM Referrals: Tonny Gamez MD [Physician, General Surgery] Clinical Impression: Abscess of parasternal chest wall Interventions: ED Discharge Assessment Last Done: 08/09/25 01:00 Discharge Date/Time: 08/09/25 01:01 Print Language: Jamaican
[2025-08-09 00:47] VITALS: BP 131/74; PULSE 68; RESP 18; TEMP 36.9; O2SAT 97
[2025-08-09 01:00] VITALS: BP 131/74; PULSE 68; RESP 18; TEMP 36.9; O2SAT 97
== END 2025-08-09 01:01 | disposition home or self-care (01) ==
PROVIDERS: Emergency Provider Emergency Medicine; PCP Internal Medicine
DX: L02.213 Cutaneous abscess of chest wall (principal); N64.4 Mastodynia; E11.9 Type 2 diabetes mellitus without complications; Z88.5 Allergy status to narcotic agent
CPT/HCPCS: 99283; 99284

== ENCOUNTER 2025-08-14 09:27 | Outpatient (AMB) | payer MEDICAID, SELFPAY ==
--- OUTSIDE RECORDS SUMMARY | 2025-08-12 23:59 | XMS_ITS | Continuity of Care Document ---
Author Organization [facility] [place] Address [address] [place] [address]- Care Team Providers Care Instrument And Control Service Person Name Role Phone Michelle Sierra MD, Pedro Luis Primary Care Phys [facility] Encounter [facility] Date(s): 07/13/25 - 08/12/25 [facility] [place] [address], [place] [address] Encounter Type: Triage Allergies, Adverse Reactions, Alerts Substance Criticality Severity Reaction Reaction Severity Status Seafood Active traMADol Active Lactose Active Medications BD Jahaira 2nd Gen Pen [place] BD Jahaira 2nd Gen Pen [place], See Instructions, # 2 each, Refills 11, Tot. Refills 11, Maintenance, use with insulin 4x per day, 08/12/23 12:35:00 PM EST, Supply, 165, cm, 08/12/23 9:03:00 EST, Height Start Date: 08/12/23 Status: Ordered Medication Dispense Status: Completed Quantity: 2.0 Unit: each Total Allowed Fills: 12 Fills Dispensed: 0 Indications: Type 2 diabetes mellitus without complications; BD PEN NDL [id number] 32G X 4 MM Miscellaneous BD PEN NDL [id number] 32G X 4 MM Miscellaneous, See Instructions, # 200 Unknown, 11 Refills, Maintenance, USE TO INJECT INSULIN UP TO 5X A DAY, E11.65, 08/25/24 10:48:00 AM EST, 165, cm, 05/24/24 12:28:00 EDT, Height Start Date: 08/25/24 Status: Ordered Medication Dispense Status: Completed Quantity: 200.0 Unit: Unknown Total Allowed Fills: 1 Fills Dispensed: 0 BD Ultra fine pen needles [id number] BD Ultra fine pen needles [id number], See Instructions, # 200 each, Refills 11, Tot. Refills 11, Maintenance, Use to inject insulin up to 5x a day, E11.65, 08/05/23 4:23:00 PM EDT, Supply, 165, cm, 07/02/23 16:37:00 EDT, Height Start Date: 08/05/23 Status: Ordered Medication Dispense Status: Completed Quantity: 200.0 Unit: each Total Allowed Fills: 12 Fills Dispensed: 0 Cequr simplicity 4 day Cequr simplicity 4 day, See Instructions, # 8 each, Refills 11, Tot. Refills 11, Maintenance, To use to admininster insulin with meals as directed. To change patch every 4 days. E11.9, 02/22/25 3:36:00 PM EDT, Supply, 165, cm, 12/07/24 9:32:00 EST, Height Start Date: 02/22/25 Status: Ordered Medication Dispense Status: Completed Quantity: 8.0 Unit: each Total Allowed Fills: 12 Fills Dispensed: 0 CEQUR SIMPLICITY TONGUE AND QUARTER STITCHER M Miscellaneous CEQUR SIMPLICITY TONGUE AND QUARTER STITCHER M Miscellaneous, See Instructions, # 1 Unknown, 0 Refills, Maintenance, TO USE DIRECTED WITH CEQUR SIMPLICITY., 03/27/25 9:10:00 AM EDT, 165, cm, 12/07/24 9:32:00 EST, Height Start Date: 03/27/25 Status: Ordered Medication Dispense Status: Completed Quantity: 1.0 Unit: Unknown Total Allowed Fills: 1 Fills Dispensed: 0 Cequr Simplicity Insterter Cequr Simplicity [place]sterter, See Instructions, # 1 each, Refills 0, Tot. Refills 0, Maintenance, To use as directed with Cequr simplicity. E11.9, 02/22/25 3:36:00 PM EDT, Supply, 165, cm, 12/07/24 9:32:00 EST, Height Start Date: 02/22/25 Status: Ordered Medication Dispense Status: Completed Quantity: 1.0 Unit: each Total Allowed Fills: 1 Fills Dispensed: 0 cetirizine 10 mg oral tablet 0 Refills, Maintenance, 02/14/22 9:36:00 AM EDT, Partial fill upon patient request if the prescription is for a schedule II opioid drug. Start Date: 02/14/22 Status: Ordered Medication Dispense Status: Completed Total Allowed Fills: 1 Fills Dispensed: 0 ergocalciferol 20862 iu oral capsule Refills 0, Maintenance, 02/14/22 9:35:00 AM EDT, Partial fill upon patient request if the prescription is for a schedule II opioid drug. Start Date: 02/14/22 Status: Ordered Medication Dispense Status: Completed Total Allowed Fills: 1 Fills Dispensed: 0 famotidine 20 mg oral tablet 180 each, 0 Refill(s), Refills 0, 12/06/24 10:16:00 AM EST, Partial fill upon patient request if the prescription is for a schedule II opioid drug. Start Date: 12/06/24 Status: Ordered Medication Dispense Status: Completed Total Allowed Fills: 1 Fills Dispensed: 0 fluconazole 150 mg oral tablet 0 Refills, Maintenance, 02/14/22 9:35:00 AM EDT, Partial fill upon patient request if the prescription is for a schedule II opioid drug. Start Date: 02/14/22 Status: Ordered Medication Dispense Status: Completed Total Allowed Fills: 1 Fills Dispensed: 0 fluticasone 50 mcg/inh nasal spray 48 Gm, 0 Refill(s), USE 2 SPRAYS INTRANASALLY DAILY NEEDED FOR ALLERGIC RHINITIS OR SNORING, 0 Refills, 12/07/24 9:26:00 AM EST, Partial fill upon patient request if the prescription is for a schedule II opioid drug. Start Date: 12/07/24 Status: Ordered Medication Dispense Status: Completed Total Allowed Fills: 1 Fills Dispensed: 0 Freestyle Smita 3 plus Sensors Freestyle Smita 3 plus Sensors, See Instructions, # 2 each, Refills 11, Tot. Refills 11, Maintenance, Use to monitor blood glucose continuously, change sensor every 15 days, E11.65, 05/02/25 9:30:00 AM EDT, Supply, 165, cm, 05/02/25 8:47:00 EDT, Height Start Date: 05/02/25 Status: Ordered Medication Dispense Status: Completed Quantity: 2.0 Unit: each Total Allowed Fills: 12 Fills Dispensed: 0 FREESTYLE PREC KYLE TEST STR Strip FREESTYLE PREC KYLE TEST STR Strip, See Instructions, # 100 Unknown, 11 Refills, Maintenance, USE TOTEST BLOOD GLUCOSE THREE TIMES A DAY, 03/25/23 4:01:00 PM EDT, 165, cm, 03/18/23 9:40:00 EDT, Height Start Date: 03/25/23 Status: Ordered Medication Dispense Status: Completed Quantity: 100.0 Unit: Unknown Total Allowed Fills: 1 Fills Dispensed: 0 Freestyle PREC KYLE test strips Freestyle PREC KYLE test strips, See Instructions, # 100 each, Refills 6, Tot. Refills 6, Maintenance, use to test blood glucose 3 times a day E11.9, 07/14/25 11:13:00 AM EDT, Supply, 165, cm, 05/02/25 8:47:00 EDT, Height Start Date: 07/14/25 Status: Ordered Medication Dispense Status: Completed Quantity: 100.0 Unit: each Total Allowed Fills: 7 Fills Dispensed: 0 Glucagon Emergency Kit See Instructions, PRN, # 2 each, Refills 3, Tot. Refills 3, Maintenance, Blood Glucose, use as needed to treat low blood glucose, 08/12/23 12:33:00 PM EST, Supply, 165, cm, 08/12/23 9:03:00 EST, Height Start Date: 08/12/23 Stop Date: 12/10/23 Status: Ordered Medication Dispense Status: Completed Quantity: 2.0 Unit: each Total Allowed Fills: 4 Fills Dispensed: 0 Indications: Type 2 diabetes mellitus without complications; glucose 4 gm oral tablet, chewable 4 tablet = 16 Gm, Chew, Once, PRN as needed for low blood sugar, # 50 tablet, 0 Refills, Soft Stop,08/12/23 12:33:00 PM EST, Chew Tablet, [facility], Partial fill upon patient request if the prescription is for a schedule II opioid drug., 165, cm, 08/12/23 9:03:00 EST, Height Start Date: 08/12/23 Status: Ordered Medication Dispense Status: Completed Quantity: 50.0 Unit: tablet Total Allowed Fills: 1 Fills Dispensed: 0 Indications: Type 2 diabetes mellitus without complications; ibuprofen 600 mg oral tablet Refills 0, Maintenance, 02/14/22 9:35:00 AM EDT, Partial fill upon patient request if the prescription is for a schedule II opioid drug. Start Date: 02/14/22 Status: Ordered Medication Dispense Status: Completed Total Allowed Fills: 1 Fills Dispensed: 0 ibuprofen 800 mg oral tablet 90 each, 0 Refill(s), Refills 0, 12/07/24 9:26:00 AM EST, Partial fill upon patient request if the prescription is for a schedule II opioid drug. Start Date: 12/07/24 Status: Ordered Medication Dispense Status: Completed Total Allowed Fills: 1 Fills Dispensed: 0 Insulin Glargine Inj units, Subcutaneous Injection, Daily at bedtime, 0 Refills, Maintenance, 07/31/16 2:42:38 PM EDT, Injection Start Date: 07/31/16 Status: Ordered Medication Dispense Status: Completed Total Allowed Fills: 1 Fills Dispensed: 0 Insulin Lispro KwikPen 100 units/mL injectable solution See Instructions, Inject 0-10 units before meals up to 3 times daily. per scale MAX DAILY DOSE 30 UNITS E11.9 90-day supply, # 30 mL, 3 Refills, Maintenance, 05/02/25 9:30:00 AM EDT, [facility] #[id number], 165, cm, 05/02/25 8:47:00 EDT, Height Start Date: 05/02/25 Status: Ordered Medication Dispense Status: Completed Quantity: 30.0 Unit: mL Total Allowed Fills: 4 Fills Dispensed: 0 Lantus Solostar Pen 100 units/mL subcutaneous solution = 40 units, Subcutaneous Infusion, Daily, E11.9. 90 day, # 45 mL, 3 Refills, Maintenance, 05/02/25 9:31:00 AM EDT, [facility] #[id number], Partial fill upon patient request if the prescription isfor a schedule II opioid drug., 165, cm, 05/02/25 8:47:00 EDT, Height Start Date: 05/02/25 Stop Date: 08/30/25 Status: Ordered Medication Dispense Status: Completed Quantity: 45.0 Unit: mL Total Allowed Fills: 4 Fills Dispensed: 0 Indications: Type 2 diabetes mellitus without complications; montelukast 10 mg oral tablet Refills 0, Maintenance, 02/14/22 9:35:00 AM EDT, Partial fill upon patient request if the prescription is for a schedule II opioid drug. Start Date: 02/14/22 Status: Ordered Medication Dispense Status: Completed Total Allowed Fills: 1 Fills Dispensed: 0 naproxen 500 mg oral tablet 1 tablet = 500 mg, By Mouth, 2 times a day, PRN as needed for pain, # 60 tablet, 0 Refills, Maintenance, 07/31/16 4:08:14 PM EDT, Tablet Start Date: 07/31/16 Status: Ordered Medication Dispense Status: Completed Quantity: 60.0 Unit: tablet Total Allowed Fills: 1 Fills Dispensed: 0 rosuvastatin 10 mg oral tablet 90 each, 0 Refill(s), TAKE ONE TABLET BY MOUTH EVERY MORNING, 0 Refills, 12/06/24 10:16:00 AM EST, Partial fill upon patient request if the prescription is for a schedule II opioid drug. Start Date: 12/06/24 Status: Ordered Medication Dispense Status: Completed Total Allowed Fills: 1 Fills Dispensed: 0 Rybelsus 14 mg oral tablet 1 tablet = 14 mg, By Mouth, Daily, take at least 30 minutes before first food, beverage, or other oral meds, # 30 tablet, 5 Refills, Maintenance, 03/30/25 12:00:00 PM EDT, Tablet, [id number], dx e11.9, 165, cm, 12/07/24 9:32:00 EST, Height Start Date: 03/30/25 Status: Ordered Medication Dispense Status: Completed Quantity: 30.0 Unit: tablet Total Allowed Fills: 6 Fills Dispensed: 0 triamcinolone 0.1% topical cream 0 Refills, Maintenance, 02/14/22 9:36:00 AM EDT, Partial fill upon patient request if the prescription is for a schedule II opioid drug. Start Date: 02/14/22 Status: Ordered Medication Dispense Status: Completed Total Allowed Fills: 1 Fills Dispensed: 0 Vitamin D3 2000 intl units oral capsule 90 each, 0 Refill(s), TAKE 1 CAPSULE BY MOUTH EVERY DAY, 0 Refills, 12/07/24 9:26:00 AM EST, Partial fill upon patient request if the prescription is for a schedule II opioid drug. Start Date: 12/07/24 Status: Ordered Medication Dispense Status: Completed Total Allowed Fills: 1 Fills Dispensed: 0 Problem List Condition Confirmation Course Effective Dates Status Health St [facility] Informant Obese class I Confirmed Active Social History Social History Type Response Smoking Status Never (less than 100 in lifetime) entered on: 05/02/25 Sexual Orientation Self described orien tation: ; Straight or heterosexual Sex Sex Representation Female (finding) Patient Care team information Care Team Personnel Name: Pedro Luis Amado MD Position: S Outreach Member Role: PCP Address: [address] [place] [address] Telecom: Care Team Related Persons Name: LINDA ALEXANDRA Name: LINDA BERUMEN Insurance Providers Guarantor name: FERNANDO ALVAREZ [facility] Plan Information #: 1 Payer: [employer] Payer Identifier: CORA Member Number: [id number] Group Number: [id number] Subscriber Identifier: CORA Relationship to Subscriber: self Coverage Type: MEDICAID Coverage Verification Date: NA Telecom: NA Address:
--- NOTE | 2025-08-14 09:29 | MHC.OFFVIS ---
Vital Signs 08/14/25 09:36 Height 5 ft 7 in Weight 190 lb BMI 29.8 BP 122/65 Blood Pressure Location Rt brachial Position Sitting Pulse 88 Intake Visit Reasons: ER~ abscess on Rt br Intake Note: Patient seen at [facility] ED on 08-09-2025. Here today to follow up Rt breast abscess. Patient c/o: reports still has a couple more days of Cephalexin 500mg QID X7. Rt breast site healed w/ bump. Pineda oozing, pain. Methods Specialist Required: No Accompanied by: Self / Same As Patient Allergies shrimp (SHRIMP) Allergy (Intermediate, Verified 08/14/25 09:38) SWELLING tramadol (TRAMADOL) Allergy (Intermediate, Verified 08/14/25 09:38) HEADACHES gadobutrol (From GADAVIST) Allergy (Mild, Verified 08/14/25 09:38) DIFFICULTY BREATHING lactose (LACTOSE) Adverse Reaction (Mild, Verified 08/14/25 09:38) STOMACH UPSET HPI HPI ER~ abscess on Rt br: Details: 50 year old female who was seen in the ED on 08/09/25 for right breast pain and chest wall pain that began several days prior. She had an area of fluctuance on exam without significant surrounding cellulitic changes. Bedside ultrasound was performed which showed 1 cm x 1.5 cm collection suggesting either an abscess or a cyst. The patient did not want to proceed with I&D and was prescribed Keflex 500mg QID x 7 days with follow up in the office. She reports significant improvement in her symptoms and has no pain at the site. She is now able to wear her bra again. She does report continued hardness of the area but denies drainage. She denies fevers, chills. She has a strong history of breast cancer including her mother who developed breast cancer at the age of 48, a maternal aunt with breast cancer at the age of 48 and another maternal aunt with breast cancer x2 in her 50s. Her uncle was diagnosed with prostate cancer, and a cousin diagnosed with ovarian cancer. She underwent genetic testing along with her sister and both were reported to be negative. She underwent a hysterectomy for a large bleeding fibroid at [facility]. She denies changes to her family history. The lifetime risk of breast cancer based on the Tyrer-Cuzick model calculated at 18%. She was noted on breast MRI to have an abnormality which subsequently required biopsy. Pathology revealed a papilloma. She underwent a lumpectomy for complete removal on 01/23/2020 which revealed benign adenosis and apocrine metaplasia and detached fragment a papillary lesion/papilloma. Her last mammogram of 05/31/2024 revealed scattered areas of fibroglandular density and no mammographic evidence of malignancy (BI-RADS 2 breast composition category B). Routine annual mammography screening which she is due for. This was ordered by the urgent care provider she was evaluated by prior to presentation to the ED. She is scheduled for September. [facility] Medical History Dysphagia Colon cancer screening History of COVID-19 Snoring Somnolence, daytime Chronic constipation Breast cancer screening, high risk patient Hx of migraine headaches Anemia GERD (gastroesophageal reflux disease) Liver cyst Pulmonary nodule Allergic rhinitis Intraductal papilloma Back pain Fibroids Diabetes mellitus Asthma Surgical History History of surgical procedure Hx laparoscopic cholecystectomy History of breast biopsy (~01/2020) History of colonoscopy (~12/08/19) History of hysterectomy (~12/17/18) History of section History of knee surgery Family History Mother History of breast cancer History of hypertension History of diabetes mellitus Son History of asthma History of ADHD Paternal Grandfather History of pancreatic cancer Maternal Uncle History of colon cancer Maternal Aunt History of breast cancer Paternal Grandmother History of diabetes mellitus Paternal Uncle History of rheumatoid arthritis Family/Other Family history of throat cancer Social History Household Members: Spouse and Children Alcohol intake: current Alcohol intake frequency: does not drink Patient Tobacco Use Status: Never used Tobacco Advance Directives Date on File: 12/15/18 Review of Systems Const Denies chills and Denies fever(s) Card Denies dyspnea Resp Denies dyspnea GI Denies abdominal pain, Denies nausea and Denies vomiting Denies nipple discharge Skin/Breast Reports as per HPI, Denies nipple discharge, Reports erythema, Denies rash and Denies wounds Physical Exam Vital Signs: Last Vital Signs Pulse 88 08/14/25 09:36 BP 122/65 08/14/25 09:36 BMI result Body Mass Index 29.8 Const General: comfortable, no acute distress and alert; No ill appearing Orientation/consciousness: patient oriented x3 Chest Other: Left breast- no skin change, no nipple retraction, no nipple discharge, no palpable mass, weal healed incision site left upper outer quadrant, no enlarged lymph nodes Right breast- small area of localized erythema measuring about 1cm just lateral to sternum at 4-5 o clock with associated induration and mild tenderness, area mobile, no fluctuance appreciated, no drainage from the area, no nipple retraction, no nipple discharge, no other palpable mass, no enlarged lymph nodes Resp Effort & Inspection: normal respiratory effort Skin Other: warm and dry Neuro General: patient oriented x3 Assessment & Plan Assessment & Plan (1) Breast abscess: Code(s): N61.1 - Abscess of the breast and nipple Category: Medical Plan 50 year old female found to have right breast cyst vs abscess on bedside US in the ED on Aug 09 and was given oral Keflex with improvement in her symptoms. On exam today, she has very mild localized erythema and induration of the area but I do not appreciate any fluctuance that would warrant incision and drainage or aspiration of the area. No significant cellulitis. Recommended extending her oral antibiotic therapy and beginning warm packs to the site to assist with reducing the indurated tissue. She is to follow up in the office in 1 week to ensure improvement in the site or return sooner if she develops concerns. It was also discussed she is due for her yearly screening mammogram and is scheduled in September. Patient comfortable with plan. Medications: New doxycycline hyclate 100 mg PO BID 10 caps 0RF Coding Level of Care Code Est Pt Level 3 (71007) Diagnoses Breast abscess N61.1
[2025-08-14 09:36] VITALS: BP 122/65; PULSE 88; BMI 29.8
--- OUTSIDE RECORDS SUMMARY | 2025-08-14 10:33 | XMS_ITS | Encounter Summary ---
Author Organization [employer] Address [address] 7[address] [place] [address] Care Team Providers Care Battery Filler Name Role Phone Pedro Luis Amado MD Primary Care Prov ider Encounter Details Date Type Department Care Team (Late st Contact Info) Description 01/19/2024 Orders Only [facility] [address] [place], [place] [phone] ProviderEmil MD Social History Tobacco Use Types [...] documented as of this encounter Care Teams Battery Filler Relationship Specialty Start Date End Date MartinezPedro Luis Vu MD [address] [place] [address] PCP - General Internal Medicine 10/10/20 Estiven De La Garza Race Car MechanicCooler Supervisor 07/31/23 documented as of this encounter
--- OUTSIDE RECORDS SUMMARY | 2025-08-14 10:33 | XMS_ITS | Encounter Summary ---
Author Organization [employer] Address [address] [facility] 7 [place] [address] Care Team Providers Care Strap Buckler Machine Name Role Phone Pedro Luis Amado MD Primary Care Prov ider Reason for Visit * Reason Onset Date Comments Results 10/02/2023 Encounter Details Date Type Department Care Team ([facility] st Contact Info) Description 10/02/2023 Telephone [facility] MED & PEDS [address] [place], [place] [phone] Pedro Luis Amado MD [address] [place] [address] Results Social History Tobacco Use Types Packs/Day [...] documented as of this encounter Care Teams Strap Buckler Machine Relationship Specialty Start Date End Date Pedro Luis Amado MD [address] [place] [address] PCP - General Internal Medicine 10/10/20 Estiven De La Garza Metal LatherSanitizer 07/31/23 documented as of this encounter
--- OUTSIDE RECORDS SUMMARY | 2025-08-14 10:33 | XMS_ITS | Encounter Summary ---
Author Organization [employer] Address [address] [facility] 7 [place] [address] Care Team Providers Care Data Coordinator Name Role Phone Pedro Luis Amado MD Primary Care Prov ider Reason for Visit * Reason Onset Date Comments Results 09/30/2023 Encounter Details Date Type Department Care Team ([facility] st Contact Info) Description 09/30/[address] [facility] [address] [place] [address] Pedro Luis Amado MD [address] [place] [address] Results Social History Tobacco Use Types Packs/Day [...] documented as of this encounter Care Teams Data Coordinator Relationship Specialty Start Date End Date Pedro Luis Amado MD [address] [place] [address] PCP - General Internal Medicine 10/10/20 Estiven De La Garza Borough CoordinatorAuricular Detoxification Specialist 07/31/23 documented as of this encounter
--- OUTSIDE RECORDS SUMMARY | 2025-08-14 10:33 | XMS_ITS | Clinical Summary ---
Author Organization [address] [facility] Address [address] [place] [address] Phone Care Team Providers Care Hospital Fellow Name Role Phone Pedro Luis Amado Primary [...] 10:15 AM EDT Office Visit Orthopedic Surgery [address] [place] [phone] Christa Mortensen PA Bilateral carpal tunnel syndrome (Primary Dx) from Last 3 Months Surgical History Surgery Date Site/Laterality Comments KNEE SURGERY PROCEDURE: HISTORICAL KNEE SURGERY SECTION PROCEDURE: HISTORICAL ; COMMENT: x2 CHOLECYSTECTOMY PROCEDURE: HISTORICAL CHOLECYSTECTOMY BREAST BIOPSY PROCEDURE: [place] BIOPSY BREAST OPEN INCISIONAL; COMMENT: benign, benign second biopsy 01/2020, scheduled for excision in 03/2020 TUBAL LIGATION PROCEDURE: HISTORICAL TUBAL LIGATION OTHER SURGICAL HISTORY 12/17/2018 PROCEDURE: [place] TOTAL ABDOMINAL HYSTERECT W/WO RMVL TUBE OVARY; COMMENT: fibroid uterus, heavy bleeding, anemia, Eppsteiner- incidental cystotomy repaired Medical History Medical History Date Comments Back pain DX:Back pain Knee pain DX:Knee pain Diabetes mellitus type 2 in obese DX:Diabetes mellitus type 2 in obese BRCA negative DX:BRCA negative ; COMMENT: at [place] Intraoperative bladder injury 12/22/2018 DX :Intraoperative bladder [...] Procedure Name Priority Date/Time Associated Diagnosis Comments [place] INJECTION CARPAL TUNNEL THERAPEUTIC Routine 07/27/2025 10:15 AM EDT Bilateral carpal tunnel syndrome PAP SMEAR Routine 11/01/2018 from Last 3 Months or Most Recently Relevant to Health Maintenance Results * [place] INJECTION CARPAL TUNNEL THERAPEUTIC (07/27/2025 10:15 AM [...] RESULTING AGENCY - 11/04/2018 1:45 PM EST [id number] THINPREP PAP, IMAGED: NEGATIVE FOR SQUAMOUS INTRAEPITHELIAL [...] Maintenance Insurance MEDICAID - [place] Care Teams Hospital Fellow Relationship Specialty Start Date End Date Pedro Luis Amado [address] [place], [place] PCP - General 11/11/22
--- OUTSIDE RECORDS SUMMARY | 2025-08-14 10:33 | XMS_ITS | Encounter Summary ---
Author Organization [employer] Address [address] [facility] 7 [place] [address] Care Team Providers Care Soft Mud Molder Name Role Phone Pedro Luis Amado MD Primary Care Prov ider Encounter Details Date Type Department Care Team ([facility] st Contact Info) Description 03/05/2023 Orders Only [facility] MED & PEDS [address] [place], [place] [phone] Ro Castanon LPN Social History Tobacco Use [...] documented as of this encounter Care Teams Soft Mud Molder Relationship Specialty Start Date End Date Pedro Luis Amado MD [address] [place] [address] PCP - General Internal Medicine 10/10/20 Estiven De La Garza Variety Saw OperatorCivil Structural Engineer 07/31/23 documented as of this encounter
--- OUTSIDE RECORDS SUMMARY | 2025-08-14 10:33 | XMS_ITS | Encounter Summary ---
Author Organization [employer] Address [address] [place] [address] 7 [place] [address] Care Team Providers Care Genetic Counsellor Name Role Phone Pedro Luis Amado MD Primary Care Prov ider Encounter Details Date Type Department Care Team (Latest Contact Info) Description 08/02/2019 Abstract [facility] CONVERSIONS Dental, Provider, DDS Social History Tobacco [...] on filedocumented in this encounter Care Teams Genetic Counsellor Relationship Specialty Start Date End Date Pedro Luis Amado MD [address] [place] [address] PCP - General Internal Medicine 10/10/20 Estiven De La Garza Manager Business ManagementNatural Resource Officer 07/31/23 documented as of this encounter
--- OUTSIDE RECORDS SUMMARY | 2025-08-14 10:33 | XMS_ITS | Clinical Summary ---
Author Organization [employer] Address [address] [facility] [address] 7t [place] [address] Care Team Providers Care Systems Qa Analyst Name Role Phone Pedro Luis Amado [...] Description 08/03/2025 2:30 PM EDT Office Visit [facility] [address] [place] [address] Deb Ulloa MD Breast nodule 08/03/2025 Travel 08/03/2025 Telephone [facility] [address] [place] [address] Pedro Luis Amado MD Nurse Triage 06/22/2025 8:45 AM EDT Telemedicine [facility] [address] [place] [address] Pedor Luis Amado MD Primary hypertension (Primary Dx); Type 2 diabetes mellitus with hyperglycemia, with long-term current use of insulin ([facility]) 06/22/2025 Travel 06/20/2025 Telephone [facility] [address] [place] [address] Pedro Luis Amado MD chart prep 06/06/2025 Refill [facility] [address] [place] [address] Pedro Luis Amado MD from Last 3 [...] 10:23 AM EDT) Triglycerides 52 <150 mg/dL [facility] Comment:Desirable Triglyceri de: less than 150 mg/dLBorderline High Triglyceride 150-199 mg/dLHigh Triglyceride: 200-499 mg/dLVery High Triglyceride: greater than or equal to 5OO mg/dL Cholesterol 96 <200 mg/dL [facility] Comment:Desirable Cholestero l: less than 200 mg/dLBorderline High Cholesterol: 200-239 mg/dLHigh Cholesterol: greater than 239 mg/dL LDL Cholesterol Calculated 47 <100 mg/dL [facility] Comment:Desirable LDL: less than 100 mg/dLNear Optimal/Above Optimal LDL: 110- 129 mg/dLBorderline High LDL: 130-159 mg/dLHigh LDL: 160-189 mg/dLVery High LDL: greater than or equal to 190 mg/dL HDL Cholesterol 39(L) >40 mg/dL [facility] Comment:Desirable HDL: great er than 40 mg/dL Note: This HDL assay may give artificially low results in patients with liver disease. Blood Venous blood specimen / Unknown 03/17/2025 10:23 AM EDT 03/17/2025 2:05 PM EDT us Pedro Luis Sierra MD LAB BLOOD ORDERABL ES Final Result [facility] [address] [place], [place] [phone] * Albumin, Random Urine W/Creatinine (12/28/2024 9:00 AM EDT) Creatinine, Urine 212.92 mg/dL [facility] Microalbumin Urine 18.0 mg/L [facility] Microalbum Creatinine Ratio Ur 8.4 <30 ug/mg cr [facility] Comment:Albumin/Creatinine R atio Reference Ranges: Normal: < 30 ug/mg creatinine Microalbuminuria: 30 - 300 ug/mg creatinineClinical Albuminuria: > 300 ug/mg creatinine Urine (Urine, Random) 12/28/2024 9:00 AM EDT 12/28/2024 2:09 PM EDT us Pedro Luis Sierra MD LAB URINE ORDERABL ES Final Result [facility] [address] [place] [phone] * (ABNORMAL) POCT HGB A1C (12/21/2024 [...] PM EDT Narrative 06/24/2024 3:32 PM EDT [facility] [address] [place] [address] Mammography Report Signed Patient: Mira Darnell#: [id number] : 1975 Acct:[id number] Age/Sex: 49 / F ADM Date: 05/31/24 Loc: ANIL Attending Dr: Pedro Luis Sierra MD Ordering Physician: Pedro Luis Amado MD Res ults: 2Benign Findings Date of Service: 05/31/24 Follow Up: 1 Year From Orig inal Mammogram Procedure(s): MM tomosynthesis screening BI Accession Number(s): [id number] cc: Pedro Luis Amado MD EXAMINATION: MM [...] 06/24/24 1529 DD/ 1530 TD/TT: 05/31/24 1545 Propulsion Motor And Generator Repairer: Procedure Note Donotuseinterpreter, Image - 06/24/2024 [facility] [address] [place], [place] [address] Mammography Report Signed Patient: Mira Darnell R#: [id number] : 1975Acct:[id number] Age/Sex: 49 / FADM Date: 05/31/24 Loc: MAMMO Attending Dr: Pedro Luis Sierra MD Ordering Physician: Pedro Luis Amado ults: 2Benign Findings Date of Service: 05/31/24Follow Up: 1 Year From Orig inal Mammogram Procedure(s): MM tomosynthesis screening BI Accession Number(s): [id number] cc: Pedro Luis Amado MD EXAMINATION: MM [...] 06/24/24 1529 DD/ 1530 TD/TT: 05/31/24 1545 Propulsion Motor And Generator Repairer: Pedro Luis Sierra MD IM BI PROCEDURES Edited Result - Final * HIV-1 RNA, Quantitative, Real-Time PCR with Reflex to Genotype (RTI, PI, Integrase) (10/16/2022 9:27 AM EST) HIV 1 RNA, QN PCR NOT DETECTED copies/mL [facility], HIV 1 RNA, QN PCR NOT DETECTED Log copies/mL [facility], Comment: REFERENCE RANGE: NOT DETECTED copies/mL NOT DETECTED Log copies/mL This test was performed using Real-Time Polymerase Chain Reaction. Reportable range is 20 to 10,000,000 copies/mL (1.30-7.00 Log copies/mL). 10/16/2022 9:27 AM EST 10/16/2022 9:28 AM EST Pedro Luis Sierra MD LAB BLOOD ORDERABL ES Final Result Performing Organization Address City/[facility] Co de Phone Number [address], [place] [address] [facility], [address] [place] [address] * Hepatitis C Antibody with Reflex to HCV, RNA, Quantitative, Real-Time PCR (10/16/2022 9:27 AM EST) Hepatitis C Antibody NON-REACT ASTRID NON-REACT ASTRID [facility] [place] [facility] Index <0.02 <1.00 [facility] Comment: HCV antibody was non-reactive. There is no laboratory evidence of HCV infection. In most cases, no further action is required. However, if recent HCV exposure is suspected, a test for HCV RNA (test code 37733) is suggested. For additional information please refer to http://education.agencyQ/faq/TZS86w5 (This link is being provided for informational/ educational purposes only.) Blood Venous blood specimen / Unknown 10/16/2022 9:27 AM EST 10/16/2022 9:28 AM EST Pedro Luis Sierra MD LAB BLOOD ORDERABL ES Final Result Performing Organization Address City/[facility]/ZIP Co de Phone Number [address], [place] [address] [employer] [place] [facility] [employer] [address] [place] [address], (Nl2) [place] [address] * Hm Colonoscopy (12/08/2019 10:24 AM EST) Historical Provider HEALTH MAINTENANCE Final Result * Pap Smear (11/01/2018 12:00 AM EST) Swab us Historical Provider LAB CYTOLOGY ORDERABLES F inal Result [facility] [address] [facility], [place] [address] from Last 3 Months or Most Recently Relevant to Health Maintenance Insurance [employer] Care Teams Systems Qa Analyst Relationship Specialty Start Date End Date Pedro Luis Amado MD [address] [place] [address] [place] [address] PCP - General Internal Medicine 10/10/20 Estiven De La Garza EndodontistGrocery Bagger 07/31/23
--- OUTSIDE RECORDS SUMMARY | 2025-08-14 10:33 | XMS_ITS | Encounter Summary ---
Author Organization [employer] Address [address] [facility] [facility] [address] [address] 7t [place] [address] Care Team Providers Care Instrument Installer Name Role Phone Pedro Luis Amado MD Primary Care Prov ider Reason for Visit * Reason Comments Med Refill Encounter Details Date Type Department Care Team ([facility] Contact Info) Description 03/31/2025 Refill [facility] [address] [place] [address] Jocelynn Stanley MD [address] [place] [address] Candidiasis, intertriginous Social History Tobacco Use Types [...] as of this encounter Care Teams Instrument Installer Relationship Specialty Start Date End Date Pedro Luis Amado MD [address] [place] [address] PCP - General Internal Medicine 10/10/20 Estiven De La Garza Development SpecWatch Hairspring Assembler 07/31/23 documented as of this encounter
--- OUTSIDE RECORDS SUMMARY | 2025-08-14 10:33 | XMS_ITS | Encounter Summary ---
Author Organization [employer] Address [address] [place] [address] 7 [place] [address] Care Team Providers Care Director Of Regulatory Affairs Name Role Phone Pedro Luis Amado MD Primary Care Prov ider Reason for Visit * Reason Comments Med Refill Encounter Details Date Type Department Care Team ([facility] Contact Info) Description 05/27/2023 Refill [facility] MED & PEDS [address] [place], [place] [phone] Pedro Luis Amado MD [address] [place] [address] Type 2 diabetes mellitus without complication, with long-term current use of insulin ([facility]) Social History Tobacco Use Types Packs/Day Years [...] complication, with long-term current use of insulin ([facility]) documented in this encounter Additional Health Concerns Assessment Noted Time PHQ-9 Depression Total Score: 2 01/02/20 23 9:06 AM EDT documented as of this encounter Care Teams Director Of Regulatory Affairs Relationship Specialty Start Date End Date Pedro Luis Amado MD [address] [place] [address] PCP - General Internal Medicine 10/10/20 Estiven De La Garza Dynamometer TunerOffice Machine Service Supervisor 07/31/23 documented as of this encounter
--- OUTSIDE RECORDS SUMMARY | 2025-08-14 10:33 | XMS_ITS | Encounter Summary ---
Author Organization [employer] Address [address] [place] [address] [place] [address] Care Team Providers Care Tool Tender Name Role Phone Pedro Luis Amado MD Primary Care Prov ider Encounter Details Date Type Department Care Team (Late st Contact Info) Description 06/26/2023 Abstract [employer] [facility] [address] [place], [place] [phone] Pedro Luis Amado MD [address] [place], [place] [phone] Social History Tobacco Use Types Packs/Day Years [...] documented as of this encounter Care Teams Tool Tender Relationship Specialty Start Date End Date Pedro Luis Amado MD [address] [place] [address] PCP - General Internal Medicine 10/10/20 Estiven De La Garza Rubbing Bed OperatorPattern Stamper 07/31/23 documented as of this encounter
--- OUTSIDE RECORDS SUMMARY | 2025-08-14 10:33 | XMS_ITS | Encounter Summary ---
Author Organization [employer] Address [address] [place] [address] 7 [place] [address] Care Team Providers Care Workday Manager Name Role Phone Pedro Luis Amado MD Primary Care Prov ider Encounter Details Date Type Department Care Team (Late st Contact Info) Description 09/01/2022 Abstract [facility] [address] [place] [address] ProviderEmil MD Social History Tobacco Use Types [...] on filedocumented in this encounter Care Teams Workday Manager Relationship Specialty Start Date End Date Pedro Luis Amado MD [address] [facility] [place] [address] PCP - General Internal Medicine 10/10/20 Estiven De La Garza Stope MinerGround Operations Crew Member 07/31/23 documented as of this encounter
== END 2025-08-14 09:57 | disposition home or self-care (01) ==
LOC: HO.HGS 09:28
PROVIDERS: PCP Internal Medicine; Visit Provider Physician Assistant Surgical
DX: N61.1 Abscess of the breast and nipple (principal)
CPT/HCPCS: 99213

== ENCOUNTER → 2025-08-14 09:27 | Outpatient (BNVA) | payer MEDICAID, SELFPAY | PROVIDERS: PCP Internal Medicine; Visit Provider Physician Assistant Surgical | DX: Z09 Encounter for follow-up examination after completed treatment for conditions other than malignant neoplasm (principal); N61.1 Abscess of the breast and nipple | CPT/HCPCS: 99212 ==

== ENCOUNTER 2025-08-25 09:36 | Outpatient (AMB) | payer MEDICAID, SELFPAY ==
--- NOTE | 2025-08-25 09:39 | MHC.OFFVIS ---
Vital Signs 08/25/25 09:48 Height 5 ft 7 in Weight 192 lb 8 oz BMI 30.1 BP 123/68 Blood Pressure Location Lt brachial Position Sitting Intake Visit Reasons: 1wk abscess Rt breast Intake Note: Patient is seen in office for one week follow up visit, following on abscess of the right breast. Pt c/o: started as a small lump on the right breast went to ED and was given abx and is currently healing, had no discharge, but still has a small lump and minor redness Electric Motor Assembler Required: No Accompanied by: Self / Same As Patient Allergies shrimp (SHRIMP) Allergy (Intermediate, Verified 08/25/25 09:49) SWELLING tramadol (TRAMADOL) Allergy (Intermediate, Verified 08/25/25 09:49) HEADACHES gadobutrol (From GADAVIST) Allergy (Mild, Verified 08/25/25 09:49) DIFFICULTY BREATHING lactose (LACTOSE) Adverse Reaction (Mild, Verified 08/25/25 09:49) STOMACH UPSET HPI HPI 1wk abscess Rt breast: Details: 50 year old female who was initially seen in the ED on 08/09/25 for right breast pain and lump found to have an area of fluctuance on exam without significant surrounding cellulitic changes. Bedside ultrasound was performed which showed 1 cm x 1.5 cm collection suggesting either an abscess or a cyst. The patient did not want to proceed with I&D and was prescribed Keflex 500mg QID x 7 days. At her follow up appointment, she felt overall improved with less breast pain but had very mild residual localized erythema and induration and she was given a course of oral doxycycline. She reports today the site is significantly improved and only has a little hardness left over. She denies any pain, redness. She has a diagnostic mammogram ordered for 09/04/25. She has a strong history of breast cancer including her mother who developed breast cancer at the age of 48, a maternal aunt with breast cancer at the age of 48 and another maternal aunt with breast cancer x2 in her 50s. Her uncle was diagnosed with prostate cancer, and a cousin diagnosed with ovarian cancer. She underwent genetic testing along with her sister and both were reported to be negative. She underwent a hysterectomy for a large bleeding fibroid at [facility]. She does report her maternal aunt recently had a mastectomy for a large precancerous breast mass. The lifetime risk of breast cancer based on the Tyrer-Cuzick model calculated at 18%. She was noted on breast MRI to have an abnormality of the left breast which subsequently required biopsy. Pathology revealed a papilloma. She underwent a left breast lumpectomy for complete removal on 01/23/2020 which revealed benign adenosis and apocrine metaplasia and detached fragment a papillary lesion/papilloma. Her last mammogram of 05/31/2024 revealed scattered areas of fibroglandular density and no mammographic evidence of malignancy (BI-RADS 2 breast composition category B). [facility] Medical History Dysphagia Colon cancer screening History of COVID-19 Snoring Somnolence, daytime Chronic constipation Breast cancer screening, high risk patient Hx of migraine headaches Anemia GERD (gastroesophageal reflux disease) Liver cyst Pulmonary nodule Allergic rhinitis Intraductal papilloma Back pain Fibroids Diabetes mellitus Asthma Surgical History History of surgical procedure Hx laparoscopic cholecystectomy History of breast biopsy (~01/2020) History of colonoscopy (~12/08/19) History of hysterectomy (~12/17/18) History of section History of knee surgery Family History Mother History of breast cancer History of hypertension History of diabetes mellitus Son History of asthma History of ADHD Paternal Grandfather History of pancreatic cancer Maternal Uncle History of colon cancer Maternal Aunt History of breast cancer Paternal Grandmother History of diabetes mellitus Paternal Uncle History of rheumatoid arthritis Family/Other Family history of throat cancer Social History Household Members: Spouse and Children Alcohol intake: current Alcohol intake frequency: does not drink Patient Tobacco Use Status: Never used Tobacco Advance Directives Date on File: 12/15/18 Review of Systems Const Denies chills and Denies fever(s) Card Denies chest pain and Denies dyspnea Resp Denies dyspnea Skin/Breast Reports as per HPI, Denies breast pain, Denies rash and Denies jaundice Physical Exam Vital Signs: Last Vital Signs BP 123/68 08/25/25 09:48 BMI result Body Mass Index 30.1 Const General: comfortable, no acute distress and alert Orientation/consciousness: patient oriented x3 Chest Other: Left breast- well healed periareolar scar of upper outer region, no skin change, no nipple retraction, no nipple discharge, no palpable mass, no enlarged lymph nodes Right breast- very small amount of residual induration of inner lower quadrant just lateral to sternum at 4-5 o clock region, no overlying skin changes or erythema, nontender, no fluctuance; remainder of breast without skin change, no nipple retraction, no nipple discharge, no other palpable mass, no enlarged lymph nodes Chest/axillae images:  1. small amount of residual induration Resp Effort & Inspection: normal respiratory effort and able to speak in complete sentences Skin General skin exam: no rashes or lesions noted Neuro General: patient oriented x3 and moves all extremities Assessment & Plan Assessment & Plan (1) Breast abscess: Code(s): N61.1 - Abscess of the breast and nipple Category: Medical Plan 50 year old female found to have right breast cyst vs abscess on bedside US in the ED on Aug 09 and was given oral Keflex followed by a course of doxycycline now with improvement in her symptoms. On exam today, she has very small area of residual induration of the area without evidence of infection or drainable collection. She has a diagnostic mammogram ordered for 09/04/25 by her PCP. We will see her in a year for her yearly breast exam pending the mammogram results, or sooner if she develops concerns. Patient comfortable with plan. Coding Level of Care Code Est Pt Level 3 (84199) Diagnoses Breast abscess N61.1
[2025-08-25 09:48] VITALS: BP 123/68; BMI 30.1
--- OUTSIDE RECORDS SUMMARY | 2025-08-25 10:15 | XMS_ITS | Encounter Summary ---
Author Organization [employer] Address [address] [place] [address] 7 [place] [address] Care Team Providers Care Small Engine Mechanic Name Role Phone Pedro Luis Amado MD Primary Care Prov ider Encounter Details Date Type Department Care Team (Latest Contact Info) Description 08/02/2019 Abstract [facility] CONVERSIONS Dental, Provider, DDS Social History Tobacco [...] on filedocumented in this encounter Care Teams Small Engine Mechanic Relationship Specialty Start Date End Date Pedro Luis Amado MD [address] [place] [address] PCP - General Internal Medicine 10/10/20 Estiven De La Garza Wet Machine OperatorProof Machine Operator Supervisor 07/31/23 documented as of this encounter
--- OUTSIDE RECORDS SUMMARY | 2025-08-25 10:15 | XMS_ITS | Clinical Summary ---
Author Organization [employer] Address [address] 7t [place] [address] Care Team Providers Care Valve Seater Operator Name Role Phone Pedro Luis Amado [...] Type Department Care Team Description 08/15/2025 Refill [facility] [address] [place] [address] Pedro Luis Amado MD 08/03/2025 2:30 PM EDT Office Visit [facility] MEDICINE [address] [place] [address] Deb Ulloa MD Breast nodule 08/03/2025 Travel 08/03/2025 Telephone [facility] [address] [place] [address] Pedro Luis Amado MD Nurse Triage 06/22/2025 8:45 AM EDT Telemedicine [facility] [address] [place] [address] Pedro Luis Amado MD Primary hypertension (Primary Dx); Type 2 diabetes mellitus with hyperglycemia, with long-term current use of insulin ([facility]) 06/22/2025 Travel 06/20/2025 Telephone [facility]EDS [address] [place] [address] Pedro Luis Amado MD chart prep 06/06/2025 Refill [facility] [address] [place] [address] Pedro Luis Amado MD from Last 3 [...] exists Diabetes: Urine Protein Screening 12/28/2025 12/28/2024, 12/28/2024, 07/16/2023, Additional history exists Lipid Panel 03/17/2026 03/17/2025, [...] 10:23 AM EDT) Triglycerides 52 <150 mg/dL [facility] Comment:Desirable Triglyceri de: less than 150 mg/dLBorderline High Triglyceride 150-199 mg/dLHigh Triglyceride: 200-499 mg/dLVery High Triglyceride: greater than or equal to 5OO mg/dL Cholesterol 96 <200 mg/dL [facility] Comment:Desirable Cholestero l: less than 200 mg/dLBorderline High Cholesterol: 200-239 mg/dLHigh Cholesterol: greater than 239 mg/dL LDL Cholesterol Calculated 47 <100 mg/dL [facility] Comment:Desirable LDL: less than 100 mg/dLNear Optimal/Above Optimal LDL: 110- 129 mg/dLBorderline High LDL: 130-159 mg/dLHigh LDL: 160-189 mg/dLVery High LDL: greater than or equal to 190 mg/dL HDL Cholesterol 39(L) >40 mg/dL [facility] Comment:Desirable HDL: great er than 40 mg/dL Note: This HDL assay may give artificially low results in patients with liver disease. Blood Venous blood specimen / Unknown 03/17/2025 10:23 AM EDT 03/17/2025 2:05 PM EDT us Pedro Luis Sierra MD LAB BLOOD ORDERABL ES Final Result [facility] [address] [place] [phone] * Albumin, Random Urine W/Creatinine (12/28/2024 9:00 AM EDT) Creatinine, Urine 212.92 mg/dL [facility] Microalbumin Urine 18.0 mg/L [facility] Microalbum Creatinine Ratio Ur 8.4 <30 ug/mg cr [facility] Comment:Albumin/Creatinine R atio Reference Ranges: Normal: < 30 ug/mg creatinine Microalbuminuria: 30 - 300 ug/mg creatinineClinical Albuminuria: > 300 ug/mg creatinine Urine (Urine, Random) 12/28/2024 9:00 AM EDT 12/28/2024 2:09 PM EDT Pedro Luis Sierra MD LAB URINE ORDERABL ES Final Result [facility] [address] [place] [address] [phone] * (ABNORMAL) POCT HGB A1C (12/21/2024 [...] PM EDT Narrative 06/24/2024 3:32 PM EDT [facility] [address] [place] [address] Mammography Report Signed Patient: Mira Darnell Trav#: [id number] : 1975 Acct:[id number] Age/Sex: 49 / F ADM Date: 05/31/24 Loc: MAMMO Attending Dr: Pedro Luis Sierra MD Ordering Physician: Pedro Luis Amado MD Res ults: 2Benign Findings Date of Service: 05/31/24 Follow Up: 1 Year From Orig ina Mammogram Procedure(s): MM tomosynthesis screening BI Accession Number(s): [id number] cc: Pedro Luis Amado MD EXAMINATION: MM [...] 06/24/24 1529 DD/ 1530 TD/TT: 05/31/24 1545 Computational Physicist: Procedure Note Donotuseinterpreter, Image - 06/24/2024 [facility] [address] [place] [address] Mammography Report Signed Patient: Mira Darnell LM R#: [id number] : 1975Acct:[id number] Age/Sex: 49 / FADM Date: 05/31/24 Loc: MAMMO Attending Dr: Pedro Luis Sierra MD Ordering Physician: Pedro Luis Amado ults: 2Benign Findings Date of Service: 05/31/24Follow Up: 1 Year From Orig ina Mammogram Procedure(s): MM tomosynthesis screening BI Accession Number(s): [id number] cc: Pedro Luis Amado MD EXAMINATION: MM [...] 06/24/24 1529 DD/ 1530 TD/TT: 05/31/24 1545 Computational Physicist: us Pedro Luis Sierra MD IM BI PROCEDURES Edited Result - Final * HIV-1 RNA, Quantitative, Real-Time PCR with Reflex to Genotype (RTI, PI, Integrase) (10/16/2022 9:27 AM EST) HIV 1 RNA, QN PCR NOT DETECTED copies/mL [facility], HIV 1 RNA, QN PCR NOT DETECTED Log copies/mL [facility], Comment: REFERENCE RANGE: NOT DETECTED copies/mL NOT DETECTED Log copies/mL This test was performed using Real-Time Polymerase Chain Reaction. Reportable range is 20 to 10,000,000 copies/mL (1.30-7.00 Log copies/mL). 10/16/2022 9:27 AM EST 10/16/2022 9:28 AM EST Pedro Luis Sierra MD LAB BLOOD ORDERABL ES Final Result Performing Organization Address [facility]/ZIP Co de Phone Number [facility] [address] [place] [address], [place] [address] [facility], [address] [place] [address] * Hepatitis C Antibody with Reflex to HCV, RNA, Quantitative, Real-Time PCR (10/16/2022 9:27 AM EST) Hepatitis C Antibody NON-REACT ASTRID NON-REACT ASTRID [facility] [place] [facility] Index <0.02 <1.00 [facility] ([facility])t Comment: HCV antibody was non-reactive. There is no laboratory evidence of HCV infection. In most cases, no further action is required. However, if recent HCV exposure is suspected, a test for HCV RNA (test code 70669) is suggested. For additional information please refer to http://education.THE FASHION.hyaqu/faq/HLH38n6 (This link is being provided for informational/ educational purposes only.) Blood Venous blood specimen / Unknown 10/16/2022 9:27 AM EST 10/16/2022 9:28 AM EST Pedro Luis Sierra MD LAB BLOOD ORDERABL ES Final Result Performing Organization Address [facility] Co de Phone Number [facility] [address] [place] [address], [place] [address] [facility] ([facility])t [address] [place] [address], (Nl2) [place] [address] * Hm Colonoscopy (12/08/2019 10:24 AM EST) us Historical Provider HEALTH MAINTENANCE Final Result * Pap Smear (11/01/2018 12:00 AM EST) Swab us Historical Provider LAB CYTOLOGY ORDERABLES F inal Result [facility] [address], [place] [address] from Last 3 Months or Most Recently Relevant to Health Maintenance Insurance [employer] C3 Care Teams Valve Seater Operator Relationship Specialty Start Date End Date Pedro Luis Amado MD [address] [place] [address] PATY Krishnan [address] PCP - General Internal Medicine 10/10/20 Estiven De La Garza Hand LasterDouble Needle Operator Lockstitch 07/31/23
--- OUTSIDE RECORDS SUMMARY | 2025-08-25 10:15 | XMS_ITS | Encounter Summary ---
Author Organization [email or web address] Address [address] 7t [place] [address] Care Team Providers Care Modern And Contemporary Art Curator Name Role Phone Pedro Luis Amado MD Primary Care Prov ider Reason for Visit * Reason Comments Med Refill Encounter Details Date Type Department Care Team ([facility] [address] Contact Info) Description 03/31/2025 Refill [facility] [address] [place] [address] Jocelynn Stanley MD [address] [place] [address] Candidiasis, intertriginous Social History Tobacco Use Types [...] documented as of this encounter Care Teams Modern And Contemporary Art Curator Relationship Specialty Start Date End Date Pedro Luis Amado MD [address] [place] [phone] PCP - General Internal Medicine 10/10/20 Estiven De La Garza Underground Mining Section ForemanFisher Troll Line 07/31/23 documented as of this encounter
--- OUTSIDE RECORDS SUMMARY | 2025-08-25 10:15 | XMS_ITS | Clinical Summary ---
Author Organization [address] [facility] Address [address] [place] [address] Phone Care Team Providers Care Client Support Administrator Name Role Phone Pedro Luis Amado Primary [...] 10:15 AM EDT Office Visit Orthopedic Surgery [address] [place] [phone] Christa Mortensen PA Bilateral carpal tunnel syndrome (Primary Dx) from Last 3 Months Surgical History Surgery Date Site/Laterality Comments KNEE SURGERY PROCEDURE: HISTORICAL KNEE SURGERY SECTION PROCEDURE: HISTORICAL ; COMMENT: x2 CHOLECYSTECTOMY PROCEDURE: HISTORICAL CHOLECYSTECTOMY BREAST BIOPSY PROCEDURE: IA BIOPSY BREAST OPEN INCISIONAL; COMMENT: benign, benign second biopsy 01/2020, scheduled for excision in 03/2020 TUBAL LIGATION PROCEDURE: HISTORICAL TUBAL LIGATION OTHER SURGICAL HISTORY 12/17/2018 PROCEDURE: IA TOTAL ABDOMINAL HYSTERECT W/WO RMVL TUBE OVARY; COMMENT: fibroid uterus, heavy bleeding, anemia, Eppsteiner- incidental cystotomy repaired Medical History Medical History Date Comments Back pain DX:Back pain Knee pain DX:Knee pain Diabetes mellitus type 2 in obese DX:Diabetes mellitus type 2 in obese BRCA negative DX:BRCA negative ; COMMENT: at [place] Intraoperative bladder injury 12/22/2018 DX :Intraoperative bladder [...] Procedure Name Priority Date/Time Associated Diagnosis Comments IA INJECTION CARPAL TUNNEL THERAPEUTIC Routine 07/27/2025 10:15 AM EDT Bilateral carpal tunnel syndrome PAP SMEAR Routine 11/01/2018 from Last 3 Months or Most Recently Relevant to Health Maintenance Results * IA INJECTION CARPAL TUNNEL THERAPEUTIC (07/27/2025 10:15 AM [...] RESULTING AGENCY - 11/04/2018 1:45 PM EST [id number] THINPREP PAP, IMAGED: NEGATIVE FOR SQUAMOUS INTRAEPITHELIAL [...] Maintenance Insurance MEDICAID - [place] Care Teams Client Support Administrator Relationship Specialty Start Date End Date Pedro Luis Amado [address] [place], [place] PCP - General 11/11/22
--- OUTSIDE RECORDS SUMMARY | 2025-08-25 10:15 | XMS_ITS | Encounter Summary ---
Author Organization [employer] Address [address] [place] [address] [place] [address] Care Team Providers Care Fitter Up Name Role Phone Pedro Luis Amado MD Primary Care Prov ider Encounter Details Date Type Department Care Team (Late st Contact Info) Description 06/26/2023 Abstract [facility] [address] [place], [place] [phone] Pedro Luis Amado MD [address] [place], [place] [phone] Social History Tobacco Use Types Packs/Day Years [...] documented as of this encounter Care Teams Fitter Up Relationship Specialty Start Date End Date Pedro Luis Amado MD [address] [place] [address] PCP - General Internal Medicine 10/10/20 Estiven De La Garza Olive PitterPower Mule Operator 07/31/23 documented as of this encounter
--- OUTSIDE RECORDS SUMMARY | 2025-08-25 10:15 | XMS_ITS | Encounter Summary ---
Author Organization [employer] Address [address] [place] [address] 7 [place] [address] Care Team Providers Care Fire Control Technician B Name Role Phone Pedro Luis Amado MD Primary Care Prov ider Encounter Details Date Type Department Care Team (Late st Contact Info) Description 09/01/2022 Abstract [facility] [address] [place] [address] ProviderEmil MD Social History Tobacco Use Types [...] on filedocumented in this encounter Care Teams Fire Control Technician B Relationship Specialty Start Date End Date Pedro Luis Amado MD [address] [facility] [place] [address] PCP - General Internal Medicine 10/10/20 Estiven De La Garza Perfect Binder SetterEngineering Program Analyst 07/31/23 documented as of this encounter
--- OUTSIDE RECORDS SUMMARY | 2025-08-25 10:15 | XMS_ITS | Encounter Summary ---
Author Organization [employer] Address [address] 7[address] [place] [address] Care Team Providers Care Industrial Aerial Installer Name Role Phone Pedro Luis Amado MD Primary Care Prov ider Encounter Details Date Type Department Care Team (Late st Contact Info) Description 01/19/2024 Orders Only [facility] [address] [place], [place] [phone] ProviderEmil MD Social History Tobacco Use Types [...] documented as of this encounter Care Teams Industrial Aerial Installer Relationship Specialty Start Date End Date MartinezPedro Luis Vu MD [address] [place] [address] PCP - General Internal Medicine 10/10/20 Estiven De La Garza Tray Room WorkerVolunteer Assistant 07/31/23 documented as of this encounter
--- OUTSIDE RECORDS SUMMARY | 2025-08-25 10:16 | XMS_ITS | Encounter Summary ---
Author Organization [employer] Address [address] 7 [place] [address] Care Team Providers Care Bowling Ball Grader And Marker Name Role Phone Pedro Luis Amado MD Primary Care Prov ider Encounter Details Date Type Department Care Team ([facility] st Contact Info) Description 03/05/2023 Orders Only [facility]ED[facility] [address] [place], [place] [phone] Ro Castanon LPN Social History Tobacco Use [...] documented as of this encounter Care Teams Bowling Ball Grader And Marker Relationship Specialty Start Date End Date Pedro Luis Amado MD [address] [place] [address] PCP - General Internal Medicine 10/10/20 Estiven De La Garza Flat SurfacerLacquer Sprayer 07/31/23 documented as of this encounter
--- OUTSIDE RECORDS SUMMARY | 2025-08-25 10:16 | XMS_ITS | Encounter Summary ---
Author Organization [employer] Address [address] [place] [address] 7 [place] [address] Care Team Providers Care Ambulette Driver Name Role Phone Pedro Luis Amado MD Primary Care Prov ider Reason for Visit * Reason Comments Med Refill Encounter Details Date Type Department Care Team ([facility] Contact Info) Description 05/27/2023 Refill [facility]S [address] [place], [place] [phone] Pedro Luis Amado MD [address] [place] [address] Type 2 diabetes mellitus without complication, with long-term current use of insulin ([facility]) Social History Tobacco Use Types Packs/Day [...] complication, with long-term current use of insulin ([facility]) documented in this encounter Additional Health Concerns Assessment Noted Time PHQ-9 Depression Total Score: 2 01/02/20 23 9:06 AM EDT documented as of this encounter Care Teams Ambulette Driver Relationship Specialty Start Date End Date Pedro Luis Amado MD [address] [place] [address] PCP - General Internal Medicine 10/10/20 Estiven De La Garza Side Stitching Machine OperatorSupervisor Pleating 07/31/23 documented as of this encounter
--- OUTSIDE RECORDS SUMMARY | 2025-08-25 10:16 | XMS_ITS | Encounter Summary ---
Author Organization [employer] Address [address] [facility] 7 [place] [address] Care Team Providers Care Equine Science Instructor Name Role Phone Pedro Luis Amado MD Primary Care Prov ider Reason for Visit * Reason Onset Date Comments Results 10/02/2023 Encounter Details Date Type Department Care Team ([facility] st Contact Info) Description 10/02/2023 Telephone [facility]EDS [address] [place], [place] [phone] Pedro Luis Amado MD [address] [place] [address] Results Social History Tobacco Use Types Packs/Day [...] documented as of this encounter Care Teams Equine Science Instructor Relationship Specialty Start Date End Date Pedro Luis Amado MD [address] [place] [address] PCP - General Internal Medicine 10/10/20 Estiven De La Garza Roustabout CrewSupervisor Print Line 07/31/23 documented as of this encounter
--- OUTSIDE RECORDS SUMMARY | 2025-08-25 10:16 | XMS_ITS | Encounter Summary ---
Author Organization [employer] Address [address] [facility] 7 [place] [address] Care Team Providers Care Phlebotomy Program Coordinator Name Role Phone Pedro Luis Amado MD Primary Care Prov ider Reason for Visit * Reason Onset Date Comments Results 09/30/2023 Encounter Details Date Type Department Care Team ([facility] st Contact Info) Description 09/30/2023 Telephone [facility] [address] [place] [address] Pedro Luis Amado MD [address] [place] [address] Results Social History Tobacco Use Types Packs/Day [...] documented as of this encounter Care Teams Phlebotomy Program Coordinator Relationship Specialty Start Date End Date Pedro Luis Amado MD [address] [place] [address] PCP - General Internal Medicine 10/10/20 Estiven De La Garza Weigher PackingJava J2Ee Technical Lead 07/31/23 documented as of this encounter
== END 2025-08-25 10:03 | disposition home or self-care (01) ==
PROVIDERS: PCP Internal Medicine; Visit Provider Physician Assistant Surgical
DX: N61.1 Abscess of the breast and nipple (principal)
CPT/HCPCS: 99213

== ENCOUNTER → 2025-08-25 09:36 | Outpatient (BNVA) | payer MEDICAID, SELFPAY | PROVIDERS: PCP Internal Medicine; Visit Provider Physician Assistant Surgical | DX: Z09 Encounter for follow-up examination after completed treatment for conditions other than malignant neoplasm (principal); N61.1 Abscess of the breast and nipple | CPT/HCPCS: 99212 ==

== ENCOUNTER 2025-09-04 11:53 | Outpatient (REF) | payer MEDICAID, SELFPAY ==
--- NOTE | ~2025-09-04 | US_ITS ---
EXAMINATION(S): 1. MM DIAGNOSTIC DIGITAL BREAST TOMOSYNTHESIS, BILATERAL 2. TARGETED ULTRASOUND OF THE RIGHT BREAST CLINICAL INFORMATION: -Reason for Exam-PALPABLE 2.5CM RT BR LUMP @ 5:00 -According to the patient, she went to the ED when they told her she had an abscess on the right breast where she is feeling the lump. They gave her antibiotic and it has decreased in size. -According to electronic medical records: Patient went to the ED on August 09, 2025. Bedside ultrasound showed 1 cm x 1.5 cm collection suggesting either an abscess or a cyst. Patient did not want to proceed with I&D and was prescribed Keflex for seven days with follow up in the office. On the office of visit on August 25, 2025: Very small amount of residual induration of in the lower quadrant of right breast just lateral to the sternum at 4-5 o'clock region. COMPARISON: Comparison made to multiple prior mammograms, most recent on May 31, 2024, and most remote July 05, 2018. Note that the ultrasound images from August 09, 2025 are not available for review. TECHNIQUE: Digital breast tomosynthesis is performed in both the mediolateral oblique and craniocaudal views along with computer-aided detection (CAD). Synthesized 2D images are generated from the tomosynthesis. Skin BB marker is placed in the lower inner quadrant posterior depth, indicating the location of the palpable concern in the right breast as indicated by the patient. FINDINGS: BREAST COMPOSITION: There are scattered areas of fibroglandular density. RIGHT BREAST: No significant masses, suspicious calcifications or other abnormalities are seen. In particular, no mammographic abnormality adjacent to the skin BB marker in the lower inner quadrant. Targeted ultrasound of the right breast was performed at the location of the palpable concern as indicated by the patient. The survey shows a 1.0 x 0.8 x 1.1 cm superficial ill-defined heterogeneous hypoechoic area at 5 o'clock position 9 cm from the nipple. No abnormal vascularity demonstrated with color Doppler evaluation. LEFT BREAST: No significant masses, suspicious calcifications or other abnormalities are seen. US/US Breast RT Limited Mamm Only IMPRESSION: RIGHT BREAST: No mammographic abnormality adjacent to the skin BB marker. Hypoechoic area measuring 1.1 cm in the area of concern at 5 o'clock position 9 cm from the nipple could represent an area of improving prior abscesses/infectious process. Benign, no evidence of malignancy. Continued clinical follow-up is recommended independent of imaging findings. Otherwise, normal interval follow-up mammogram is recommended in 12 months. LEFT BREAST: Negative, no mammographic evidence of malignancy. Normal interval follow-up is recommended in 12 months. ASSESSMENT: BI-RADS: Category 2: Benign RECOMMENDATION: 1. Patient should be managed based on the clinical impression. 2. Otherwise, routine annual screening mammography. Results were provided to the patient at time of visit by the technologist. This patient's information was entered into a reminder system with a target due date for their next mammogram. Electronically signed by: Cassie Perez MD 09/04/2025 01:24 PM [facility] MOORE
--- OUTSIDE RECORDS SUMMARY | 2025-09-04 15:43 | XMS_ITS | Encounter Summary ---
Author Organization [employer] Address [address] [place] [address] [place] [address] Care Team Providers Care Senior Operator Name Role Phone Pedro Luis Amado MD Primary Care Prov ider Encounter Details Date Type Department Care Team (Late st Contact Info) Description 06/26/2023 Abstract [employer] [address] [place], [place] [phone] Pedro Luis Amado MD [address] [place], [place] [phone] Social History Tobacco Use Types Packs/Day Years [...] documented as of this encounter Care Teams Senior Operator Relationship Specialty Start Date End Date Pedro Luis Amado MD [address] [place] [phone] PCP - General Internal Medicine 10/10/20 Estiven De La Garza [employer] DesignerEnvironmental Studies Program Director 07/31/23 documented as of this encounter
--- OUTSIDE RECORDS SUMMARY | 2025-09-04 15:44 | XMS_ITS | Encounter Summary ---
Author Organization [employer] Address [address] [facility] [address] [place] [address] Care Team Providers Care Heavy Equipment Operator Apprentice Name Role Phone Pedro Luis Amado MD Primary Care Prov ider Reason for Visit * Reason Onset Date Comments Results 10/02/2023 Encounter Details Date Type Department Care Team ([facility] st Contact Info) Description 10/02/2023 Telephone [facility] [address] [place], [place] [phone] Pedro Luis Amado MD [address] [place] [address] Results Social History Tobacco Use Types Packs/Day [...] documented as of this encounter Care Teams Heavy Equipment Operator Apprentice Relationship Specialty Start Date End Date Pedro Luis Amado MD [address] [place] [id number] PCP - General Internal Medicine 10/10/20 Estiven De La Garza [employer]fd[employer] DeveloperSecretary Of Police 07/31/23 documented as of this encounter
--- OUTSIDE RECORDS SUMMARY | 2025-09-04 15:44 | XMS_ITS | Encounter Summary ---
Author Organization [employer] Address [address] [place] [address] [address] [place] [address] Care Team Providers Care Sales Team Member Name Role Phone Pedro Luis Amado MD Primary Care Prov ider Reason for Visit * Reason Comments Med Refill Encounter Details Date Type Department Care Team ([facility] Contact Info) Description 05/27/2023 Refill [facility] MED & PEDS [address] [place], [place] [phone] Pedro Luis Amado MD [address] [place] [address] Type 2 diabetes mellitus without complication, with long-term current use of insulin ([facility]) Social History Tobacco Use Types Packs/Day [...] complication, with long-term current use of insulin ([facility]) documented in this encounter Additional Health Concerns Assessment Noted Time PHQ-9 Depression Total Score: 2 01/02/20 23 9:06 AM EDT documented as of this encounter Care Teams Sales Team Member Relationship Specialty Start Date End Date Pedro Luis Amado MD [address] [place] [id number] PCP - General Internal Medicine 10/10/20 Estiven De La Garza Registered Nurse Surgical ServicesBehavioral Therapist 07/31/23 documented as of this encounter
--- OUTSIDE RECORDS SUMMARY | 2025-09-04 15:44 | XMS_ITS | Clinical Summary ---
Author Organization [employer] Address [address] [place] [address] Care Team Providers Care Emergency Technician Name Role Phone Pedro Luis Amado MD [...] 90 tablet 3 08/09/20 24 2024 Discontinued Active Problems Problem Noted Date [...] Type Department Care Team Description 08/15/2025 Refill [facility] [address] [place] [address] Pedro Luis Amado MD 08/03/2025 2:30 PM EDT Office Visit [facility] [address] [place], [place] [phone] Deb Ulloa MD Breast nodule 08/03/2025 Travel 08/03/2025 Telephone [facility] [address] [place] [address] Pedro Luis Amado MD Nurse Triage 06/22/2025 8:45 AM EDT Telemedicine [facility] [address] [place] [address] Pedro Luis Amado MD Primary hypertension (Primary Dx); Type 2 diabetes mellitus with hyperglycemia, with long-term current use of insulin ([facility]) 06/22/2025 Travel 06/20/2025 Telephone [facility] [address] [place] [address] Pedro Luis Amado MD chart prep 06/06/2025 Refill [facility] [address] [place] [address] Pedro Luis Amado MD from Last 3 [...] Additional history exists Lipid Panel 03/17/2026 03/17/2025, 032 03/2025, 07/16/2023, Additional history exists Mammogram 05/31/2026 09/04/2025, 12/10/2024, 05/31/2024, Additional history exists Alcohol/Substance Use Screening 06/22/2026 [...] topic Meningococcal Vaccine Aged Out No mayra dle eligible based on patient's age to complete this topic RSV under 20 months Aged Out No longe r eligible based on patient's age to complete this topic Rotavirus Vaccines Aged Out No longer eligible based on patient's age to complete this topic Procedures Procedure Name Priority Date/Time Associated Diagnosis Comments BI US BREAST LIMITED RIGHT Urgent 09/04/2025 12:29 PM EST Breast nodule BI MAMMOGRAM DIAGNOSTIC TOMOSYNTHESIS BILATERAL Routine 09/04/2025 11:57 AM EST Breast nodule LIPID PANEL, STANDARD Routine 03/17/2025 10:23 AM EDT Type 2 diabetes mellitus with hyperglycemia, with long-term current use of insulin (CMS/HCC) ALBUMIN, RANDOM URINE W/CREATININE Routine 12/28/2024 9:00 AM EDT Poorly controlled type 2 diabetes mellitus (CMS/HCC) POCT GLYCATED HEMOGLOBIN, TOTAL Routine 12/21/2024 9:18 AM EDT Poorly controlled type 2 diabetes mellitus (CMS/HCC) HEPATITIS C AB W/REFL TO HCV RNA, QN, PCR Routine 10/16/2022 9:27 AM EST Type 2 diabetes mellitus without complication, with long-term current use of insulin (CMS/HCC) HIV 1 RNA, QN PCR W/RFL VENUS (RTI,PI,INTEGRASE) Routine 10/16/2022 9:27 AM EST Type 2 diabetes mellitus without complication, with long-term current use of insulin ([facility]) HM COLONOSCOPY Routine 12/08/2019 10:24 AM EST PAP SMEAR Routine 11/01/2018 12:00 AM EST from Last 3 Months or Most Recently Relevant to Health Maintenance Results * BI US Breast Limited Right (09/04/2025 12:29 PM EST) Anatomical Region Laterality Modality Breast Right Ultrasound 09/04/2025 12:2 9 PM EST Narrative 09/04/2025 1:27 PM EST [facility] [address] [place] [address] Ultrasound Report Signed Patient: Mira Darnell Trav#: [id number] : 1975 Acct:[id number] Age/Sex: 50 / F ADM Date: 09/04/25 Loc: HO.MAMMO Attending Dr: Pedro Luis Sierra MD Ordering Physician: Deb Ulloa MD Date of Service: 09/04/25 Procedure(s): US Breast RT Limited Mamm Only Accession Number(s): [id number] cc: Deb Ulloa MD; Pedro Luis Amado MD Reason for Exam: PALPABLE 2.5CM RT BR LUMP @ 5:00 EXAMINATION(S): 1. MM DIAGNOSTIC DIGITAL BREAST TOMOSYNTHESIS, BILATERAL 2. TARGETED ULTRASOUND OF THE RIGHT BREAST CLINICAL INFORMATION: -Reason for Exam-PALPABLE 2.5CM RT BR LUMP @ 5:00 -According to the patient, she went to the ED when they told her she had an abscess on the right breast where she is feeling the lump. They gave her antibiotic and it has decreased in size. -According to electronic medical records: Patient went to the ED on August 09, 2025. Bedside ultrasound showed 1 cm x 1.5 cm collection suggesting either an abscess or a cyst. Patient did not want to proceed with I D and was prescribed Keflex for seven days with follow up in the office. On the office of visit on August 25, 2025: Very small amount of residual induration of in the lower quadrant of right breast just lateral to the sternum at 4-5 o'clock region. COMPARISON: Comparison made to multiple prior mammograms, most recent on May 31, 2024, and most remote July 05, 2018. Note that the ultrasound images from August 09, 2025 are not available for review. TECHNIQUE: Digital breast tomosynthesis is performed in both the mediolateral oblique and craniocaudal views along with computer-aided detection (CAD). Synthesized 2D images are generated from the tomosynthesis. Skin BB marker is placed in the lower inner quadrant posterior depth, indicating the location of the palpable concern in the right breast as indicated by the patient. FINDINGS: BREAST COMPOSITION: There are scattered areas of fibroglandular density. RIGHT BREAST: No significant masses, suspicious calcifications or other abnormalities are seen. In particular, no mammographic abnormality adjacent to the skin BB marker in the lower inner quadrant. Targeted ultrasound of the right breast was performed at the location of the palpable concern as indicated by the patient. The survey shows a 1.0 x 0.8 x 1.1 cm superficial ill-defined heterogeneous hypoechoic area at 5 o'clock position 9 cm from the nipple. No abnormal vascularity demonstrated with color Doppler evaluation. LEFT BREAST: No significant masses, suspicious calcifications or other abnormalities are seen. US/US Breast RT Limited Mamm Only IMPRESSION: RIGHT BREAST: No mammographic abnormality adjacent to the skin BB marker. Hypoechoic area measuring 1.1 cm in the area of concern at 5 o'clock position 9 cm from the nipple could represent an area of improving prior abscesses/infectious process. Benign, no evidence of malignancy. Continued clinical follow-up is recommended independent of imaging findings. Otherwise, normal interval follow-up mammogram is recommended in 12 months. LEFT BREAST: Negative, no mammographic evidence of malignancy. Normal interval follow-up is recommended in 12 months. ASSESSMENT: BI-RADS: Category 2: Benign RECOMMENDATION: 1. Patient should be managed based on the clinical impression. 2. Otherwise, routine annual screening mammography. Results were provided to the patient at time of visit by the technologist. This patient's information was entered into a reminder system with a target due date for their next mammogram. Electronically signed by: Cassie Perez MD 09/04/2025 01:24 PM EST Dictated By: Cassie Perez MD Signed By: <Electronically signed by Cassie Perez MD in OV> 09/04/25 1324 DD/ 1229 TD/TT: 09/04/25 1251 Senior Financial Reporting Accountant: Procedure Note Donotuseinterpreter, Image - 09/04/2025 [facility] [address] [place], [place] [address] Ultrasound Report Signed Patient: Mira Darnell LM R#: [id number] : 1975Acct:[id number] Age/Sex: 50 / FADM Date: 09/04/25 Loc: HO.MAMMO Attending Dr: Pedro Luis Sierra MD Ordering Physician: Deb Ulloa MD Date of Service: 09/04/25 Procedure(s): US Breast RT Limited Mamm Only Accession Number(s): [id number] cc: Deb Ulloa MD; Pedro Luis Amado MD Reason for Exam: PALPABLE 2.5CM RT BR LUMP @ 5:00 EXAMINATION(S): 1. MM DIAGNOSTIC DIGITAL BREAST TOMOSYNTHESIS, BILATERAL 2. TARGETED ULTRASOUND OF THE RIGHT BREAST CLINICAL INFORMATION: -Reason for Exam-PALPABLE 2.5CM RT BR LUMP @ 5:00 -According to the patient, she went to the ED when they told her she had an abscess on the right breast where she is feeling the lump. They gave her antibiotic and it has decreased in size. -According to electronic medical records: Patient went to the ED on August 09, 2025. Bedside ultrasound showed 1 cm x 1.5 cm collection suggesting either an abscess or a cyst. Patient did not want to proceed with I D and was prescribed Keflex for seven days with follow up in the office. On the office of visit on August 25, 2025: Very small amount of residual induration of in the lower quadrant of right breast just lateral to the sternum at 4-5 o'clock region. COMPARISON: Comparison made to multiple prior mammograms, most recent on May 31, 2024, and most remote July 05, 2018. Note that the ultrasound images from August 09, 2025 are not available for review. TECHNIQUE: Digital breast tomosynthesis is performed in both the mediolateral oblique and craniocaudal views along with computer-aided detection (CAD). Synthesized 2D images are generated from the tomosynthesis. Skin BB marker is placed in the lower inner quadrant posterior depth, indicating the location of the palpable concern in the right breast as indicated by the patient. FINDINGS: BREAST COMPOSITION: There are scattered areas of fibroglandular density. RIGHT BREAST: No significant masses, suspicious calcifications or other abnormalities are seen. In particular, no mammographic abnormality adjacent to the skin BB marker in the lower inner quadrant. Targeted ultrasound of the right breast was performed at the location of the palpable concern as indicated by the patient. The survey shows a 1.0 x 0.8 x 1.1 cm superficial ill-defined heterogeneous hypoechoic area at 5 o'clock position 9 cm from the nipple. No abnormal vascularity demonstrated with color Doppler evaluation. LEFT BREAST: No significant masses, suspicious calcifications or other abnormalities are seen. US/US Breast RT Limited Mamm Only IMPRESSION: RIGHT BREAST: No mammographic abnormality adjacent to the skin BB marker. Hypoechoic area measuring 1.1 cm in the area of concern at 5 o'clock position 9 cm from the nipple could represent an area of improving prior abscesses/infectious process. Benign, no evidence of malignancy. Continued clinical follow-up is recommended independent of imaging findings. Otherwise, normal interval follow-up mammogram is recommended in 12 months. LEFT BREAST: Negative, no mammographic evidence of malignancy. Normal interval follow-up is recommended in 12 months. ASSESSMENT: BI-RADS: Category 2: Benign RECOMMENDATION: 1. Patient should be managed based on the clinical impression. 2. Otherwise, routine annual screening mammography. Results were provided to the patient at time of visit by the technologist. This patient's information was entered into a reminder system with a target due date for their next mammogram. Electronically signed by: Cassie Perez MD 09/04/2025 01:24 PM [facility] [place] Dictated By: Cassie Perez MD Signed By: <Electronically signed by Cassie Perez MD in OV> 09/04/25 1324 DD/ 1229 TD/TT: 09/04/25 1251 Senior Financial Reporting Accountant: us Deb Valentino MD IMG US PROCEDURES Fin al Result * BI Mammogram Diagnostic Tomosynthesis Bilateral (09/04/2025 11:57 AM EST) Anatomical Region Laterality Modality Breast Bilateral Mammography 09/04/2025 11:5 7 AM EST Narrative 09/04/2025 1:27 PM EST [place] [facility] [address] [place] [address] Mammography Report Signed Patient: Mira Darnell R#: [id number] : 1975 Acct:[id number] Age/Sex: 50 / F ADM Date: 09/04/25 Loc: HO.MAMMO Attending Dr: Pedro Luis Sierra MD Ordering Physician: Deb Ulloa MD Results: 2Benign Date of Service: 09/04/25 Follow Up: 1 Year From Orig ina Mammogram Procedure(s): MM tomosynthesis diagnostic BI Accession Number(s): [id number] cc: Deb Ulloa MD; Pedro Luis Amado MD Reason For Exam: PALPABLE 2.5CM RT BR LUMP @ 5:00 EXAMINATION(S): 1. MM DIAGNOSTIC DIGITAL BREAST TOMOSYNTHESIS, BILATERAL 2. TARGETED ULTRASOUND OF THE RIGHT BREAST CLINICAL INFORMATION: -Reason for Exam-PALPABLE 2.5CM RT BR LUMP @ 5:00 -According to the patient, she went to the ED when they told her she had an abscess on the right breast where she is feeling the lump. They gave her antibiotic and it has decreased in size. -According to electronic medical records: Patient went to the ED on August 09, 2025. Bedside ultrasound showed 1 cm x 1.5 cm collection suggesting either an abscess or a cyst. Patient did not want to proceed with I D and was prescribed Keflex for seven days with follow up in the office. On the office of visit on August 25, 2025: Very small amount of residual induration of in the lower quadrant of right breast just lateral to the sternum at 4-5 o'clock region. COMPARISON: Comparison made to multiple prior mammograms, most recent on May 31, 2024, and most remote July 05, 2018. Note that the ultrasound images from August 09, 2025 are not available for review. TECHNIQUE: Digital breast tomosynthesis is performed in both the mediolateral oblique and craniocaudal views along with computer-aided detection (CAD). Synthesized 2D images are generated from the tomosynthesis. Skin BB marker is placed in the lower inner quadrant posterior depth, indicating the location of the palpable concern in the right breast as indicated by the patient. FINDINGS: BREAST COMPOSITION: There are scattered areas of fibroglandular density. RIGHT BREAST: No significant masses, suspicious calcifications or other abnormalities are seen. In particular, no mammographic abnormality adjacent to the skin BB marker in the lower inner quadrant. Targeted ultrasound of the right breast was performed at the location of the palpable concern as indicated by the patient. The survey shows a 1.0 x 0.8 x 1.1 cm superficial ill-defined heterogeneous hypoechoic area at 5 o'clock position 9 cm from the nipple. No abnormal vascularity demonstrated with color Doppler evaluation. LEFT BREAST: No significant masses, suspicious calcifications or other abnormalities are seen. MM/MM tomosynthesis diagnostic BI IMPRESSION: RIGHT BREAST: No mammographic abnormality adjacent to the skin BB marker. Hypoechoic area measuring 1.1 cm in the area of concern at 5 o'clock position 9 cm from the nipple could represent an area of improving prior abscesses/infectious process. Benign, no evidence of malignancy. Continued clinical follow-up is recommended independent of imaging findings. Otherwise, normal interval follow-up mammogram is recommended in 12 months. LEFT BREAST: Negative, no mammographic evidence of malignancy. Normal interval follow-up is recommended in 12 months. ASSESSMENT: BI-RADS: Category 2: Benign RECOMMENDATION: 1. Patient should be managed based on the clinical impression. 2. Otherwise, routine annual screening mammography. Results were provided to the patient at time of visit by the technologist. This patient's information was entered into a reminder system with a target due date for their next mammogram. Electronically signed by: Cassie Perez MD 09/04/2025 01:24 PM [facility] [place] Dictated By: Cassie Perez MD Signed By: <Electronically signed by Cassie Perez MD in OV> 12/01/25 1324 DD/ 1157 TD/TT: 09/04/25 1205 Senior Financial Reporting Accountant: Procedure Note Dongetter, Image - 09/04/2025 [facility] [address] [place], [place] [address] Mammography Report Signed Patient: Mira Darnell R#: [id number] : 1975Acct:[id number] Age/Sex: 50 / FADM Date: 09/04/25 Loc: HO.MAMMO Attending Dr: Pedro Luis Sierra MD Ordering Physician: Deb Ulloaults: 2Benign Date of Service: 09/04/25Follow Up: 1 Year From Orig ina Mammogram Procedure(s): MM tomosynthesis diagnostic BI Accession Number(s): [id number] cc: Deb Ulloa MD; Pedro Luis Amado MD Reason For Exam: PALPABLE 2.5CM RT BR LUMP @ 5:00 EXAMINATION(S): 1. MM DIAGNOSTIC DIGITAL BREAST TOMOSYNTHESIS, BILATERAL 2. TARGETED ULTRASOUND OF THE RIGHT BREAST CLINICAL INFORMATION: -Reason for Exam-PALPABLE 2.5CM RT BR LUMP @ 5:00 -According to the patient, she went to the ED when they told her she had an abscess on the right breast where she is feeling the lump. They gave her antibiotic and it has decreased in size. -According to electronic medical records: Patient went to the ED on August 09, 2025. Bedside ultrasound showed 1 cm x 1.5 cm collection suggesting either an abscess or a cyst. Patient did not want to proceed with I D and was prescribed Keflex for seven days with follow up in the office. On the office of visit on August 25, 2025: Very small amount of residual induration of in the lower quadrant of right breast just lateral to the sternum at 4-5 o'clock region. COMPARISON: Comparison made to multiple prior mammograms, most recent on May 31, 2024, and most remote July 05, 2018. Note that the ultrasound images from August 09, 2025 are not available for review. TECHNIQUE: Digital breast tomosynthesis is performed in both the mediolateral oblique and craniocaudal views along with computer-aided detection (CAD). Synthesized 2D images are generated from the tomosynthesis. Skin BB marker is placed in the lower inner quadrant posterior depth, indicating the location of the palpable concern in the right breast as indicated by the patient. FINDINGS: BREAST COMPOSITION: There are scattered areas of fibroglandular density. RIGHT BREAST: No significant masses, suspicious calcifications or other abnormalities are seen. In particular, no mammographic abnormality adjacent to the skin BB marker in the lower inner quadrant. Targeted ultrasound of the right breast was performed at the location of the palpable concern as indicated by the patient. The survey shows a 1.0 x 0.8 x 1.1 cm superficial ill-defined heterogeneous hypoechoic area at 5 o'clock position 9 cm from the nipple. No abnormal vascularity demonstrated with color Doppler evaluation. LEFT BREAST: No significant masses, suspicious calcifications or other abnormalities are seen. MM/MM tomosynthesis diagnostic BI IMPRESSION: RIGHT BREAST: No mammographic abnormality adjacent to the skin BB marker. Hypoechoic area measuring 1.1 cm in the area of concern at 5 o'clock position 9 cm from the nipple could represent an area of improving prior abscesses/infectious process. Benign, no evidence of malignancy. Continued clinical follow-up is recommended independent of imaging findings. Otherwise, normal interval follow-up mammogram is recommended in 12 months. LEFT BREAST: Negative, no mammographic evidence of malignancy. Normal interval follow-up is recommended in 12 months. ASSESSMENT: BI-RADS: Category 2: Benign RECOMMENDATION: 1. Patient should be managed based on the clinical impression. 2. Otherwise, routine annual screening mammography. Results were provided to the patient at time of visit by the technologist. This patient's information was entered into a reminder system with a target due date for their next mammogram. Electronically signed by: Cassie Perez MD 09/04/2025 01:24 PM [facility] [place] Dictated By: Cassie Perez MD Signed By: <Electronically signed by Cassie Perez MD in OV> 09/04/25 1324 DD/ 1157 TD/TT: 09/04/25 1205 Senior Financial Reporting Accountant: us Deb Valentino MD IMG BI PROCEDURES Fin al Result * (ABNORMAL) Lipid Panel, Standard (03/17/2025 10:23 AM EDT) Triglycerides 52 <150 mg/dL [facility] Comment:Desirable Triglyceri de: less than 150 mg/dLBorderline High Triglyceride 150-199 mg/dLHigh Triglyceride: 200-499 mg/dLVery High Triglyceride: greater than or equal to 5OO mg/dL Cholesterol 96 <200 mg/dL [facility] Comment:Desirable Cholestero l: less than 200 mg/dLBorderline High Cholesterol: 200-239 mg/dLHigh Cholesterol: greater than 239 mg/dL LDL Cholesterol Calculated 47 <100 mg/dL [facility] Comment:Desirable LDL: less than 100 mg/dLNear Optimal/Above Optimal LDL: 110- 129 mg/dLBorderline High LDL: 130-159 mg/dLHigh LDL: 160-189 mg/dLVery High LDL: greater than or equal to 190 mg/dL HDL Cholesterol 39(L) >40 mg/dL [facility] Comment:Desirable HDL: great er than 40 mg/dL Note: This HDL assay may give artificially low results in patients with liver disease. Blood Venous blood specimen / Unknown 03/17/2025 10:23 AM EDT 03/17/2025 2:05 PM EDT us Pedro Luis Sierra MD LAB BLOOD ORDERABL ES Final Result [facility] [address] [place], [place] [phone] * Albumin, Random Urine W/Creatinine (12/28/2024 9:00 AM EDT) Creatinine, Urine 212.92 mg/dL [facility] Microalbumin Urine 18.0 mg/L [facility] Microalbum Creatinine Ratio Ur 8.4 <30 ug/mg cr [facility] Comment:Albumin/Creatinine R atio Reference Ranges: Normal: < 30 ug/mg creatinine Microalbuminuria: 30 - 300 ug/mg creatinineClinical Albuminuria: > 300 ug/mg creatinine Urine (Urine, Random) 12/28/2024 9:00 AM EDT 12/28/2024 2:09 PM EDT Pedro Luis Sierra MD LAB URINE ORDERABL ES Final Result [facility] [address] [place] [phone] * (ABNORMAL) POCT HGB A1C (12/21/2024 9:18 AM EDT) Hemoglobin A1C 7.8(A) 4.0 - 6.0 % QC Media Lot # [id number] Lot# Expiration Date 221 Blood 12/21/2024 9:18 AM EDT Pedro Luis Sierra MD POINT OF CARE TEST ENTER/EDIT ORDERABLES Final Result * HIV-1 RNA, Quantitative, Real-Time PCR with Reflex to Genotype (RTI, PI, Integrase) (10/16/2022 9:27 AM EST) Pathologist [facility] HIV 1 RNA, QN PCR NOT DETECTED copies/mL [facility], HIV 1 RNA, QN PCR NOT DETECTED Log copies/mL [facility], Comment: REFERENCE RANGE: NOT DETECTED copies/mL NOT DETECTED Log copies/mL This test was performed using Real-Time Polymerase Chain Reaction. Reportable range is 20 to 10,000,000 copies/mL (1.30-7.00 Log copies/mL). 10/16/2022 9:27 AM EST 10/16/2022 9:28 AM EST Pedro Luis Sierra MD LAB BLOOD ORDERABL ES Final Result [address], [place] [address] [employer], [address] [facility] [place] [address] * Hepatitis C Antibody with Reflex to HCV, RNA, Quantitative, Real-Time PCR (10/16/2022 9:27 AM EST) Hepatitis C Antibody NON-REACT ASTRID NON-REACT ASTRID [employer] Index <0.02 <1.00 [employer] Comment: HCV antibody was non-reactive. There is no laboratory evidence of HCV infection. In most cases, no further action is required. However, if recent HCV exposure is suspected, a test for HCV RNA (test code 30792) is suggested. For additional information please refer to http://education.[employer]/faq/SFJ35d4 (This link is being provided for informational/ educational purposes only.) Blood Venous blood specimen / Unknown 10/16/2022 9:27 AM EST 10/16/2022 9:28 AM EST Pedro Luis Sierra MD LAB BLOOD ORDERABL ES Final Result [address], [facility] [place] [phone] [employer] [place] [employer] [address] [place] [address], ([address]) [place] [address] * Hm Colonoscopy (12/08/2019 10:24 AM EST) Historical Provider HEALTH MAINTENANCE Final Result * Pap Smear (11/01/2018 12:00 AM EST) Swab Emil Potts MD LAB CYTOLOGY ORDERABLES F inal Result [address], [place] [address] from Last 3 Months or Most Recently Relevant to Health Maintenance Insurance [facility] C3 Care Teams Emergency Technician Relationship Specialty Start Date End Date Pedro Luis Amado MD [address] [place] [address] [place] [id number] PCP - General Internal Medicine 10/10/20 Estiven De La Garza Manager [employer] Tender 07/31/23
--- OUTSIDE RECORDS SUMMARY | 2025-09-04 15:44 | XMS_ITS | Encounter Summary ---
Author Organization [employer] Address [address] [place] [address] Care Team Providers Care Nurse Sexual Assault Name Role Phone Pedro Luis Amado MD Primary Care Prov ider Reason for Visit * Reason Comments Med Refill Encounter Details Date Type Department Care Team ([facility] Contact Info) Description 03/31/2025 Refill [facility] MEDICINE [address] [place] [address] Jocelynn Stanley MD [address] [place] [address] Candidiasis, intertriginous Social History Tobacco Use Types [...] as of this encounter Care Teams Nurse Sexual Assault Relationship Specialty Start Date End Date Pedro Luis Amado MD [address] [place] [id number] PCP - General Internal Medicine 10/10/20 Estiven De La Garza Australian Rules FootballerClinical Applications Manager 07/31/23 documented as of this encounter
--- OUTSIDE RECORDS SUMMARY | 2025-09-04 15:44 | XMS_ITS | Encounter Summary ---
Author Organization [employer] Address [address] 7[address] [place] [address] Care Team Providers Care Special Effects Designer Name Role Phone Pedro Luis Amado MD Primary Care Prov ider Encounter Details Date Type Department Care Team (Late st Contact Info) Description 01/19/2024 Orders Only [facility] MEDICINE [address] [place], [place] [phone] ProviderEmil MD Social History Tobacco Use Types [...] documented as of this encounter Care Teams Special Effects Designer Relationship Specialty Start Date End Date MartinezPedro Luis Vu MD [address] [place] [id number] PCP - General Internal Medicine 10/10/20 Estiven De La Garza Auto DetailerAirline Mechanic 07/31/23 documented as of this encounter
--- OUTSIDE RECORDS SUMMARY | 2025-09-04 15:44 | XMS_ITS | Clinical Summary ---
Author Organization [address] [facility] Address [address] [place] [address] Phone Care Team Providers Care Wardrobe Image Consultant Name Role Phone Pedro Luis Amado Primary Care Provide r Allergies No known active allergies Encounters Date Type Department Care Team Description 07/27/2025 10:15 AM EDT Office Visit Orthopedic Surgery [facility] [address] [facility] [address] [place] [address] Christa Mortensen PA Bilateral carpal tunnel syndrome (Primary Dx) from Last 3 Months Surgical History Surgery Date Site/Laterality Comments KNEE SURGERY PROCEDURE: HISTORICAL KNEE SURGERY SECTION PROCEDURE: HISTORICAL ; COMMENT: x2 CHOLECYSTECTOMY PROCEDURE: HISTORICAL CHOLECYSTECTOMY BREAST BIOPSY PROCEDURE: NC BIOPSY BREAST OPEN INCISIONAL; COMMENT: benign, benign second biopsy 01/2020, scheduled for excision in 03/2020 TUBAL LIGATION PROCEDURE: HISTORICAL TUBAL LIGATION OTHER SURGICAL HISTORY 12/17/2018 PROCEDURE: NC TOTAL ABDOMINAL HYSTERECT W/WO RMVL TUBE OVARY; COMMENT: fibroid uterus, heavy bleeding, anemia, Eppsteiner- incidental cystotomy repaired Medical History Medical History Date Comments Back pain DX:Back pain Knee pain DX:Knee pain Diabetes mellitus type 2 in obese DX:Diabetes mellitus type 2 in obese BRCA negative DX:BRCA negative ; COMMENT: at [facility] Intraoperative bladder injury 12/22/2018 DX :Intraoperative bladder [...] 2) 2024 Depression Screening 10/05/2024 COVID-19 Vaccine ( - season) 2025 01/30/2021, 12/29/2020 Influenza Vaccine [...] Procedure Name Priority Date/Time Associated Diagnosis Comments NC INJECTION CARPAL TUNNEL THERAPEUTIC Routine 07/27/2025 10:15 AM EDT Bilateral carpal tunnel syndrome PAP SMEAR Routine 11/01/2018 from Last 3 Months or Most Recently Relevant to Health Maintenance Results * NC INJECTION CARPAL TUNNEL THERAPEUTIC (07/27/2025 10:15 AM EDT) Christa Zurita PA - 07/27/2025 10:15 AM EDT ARABELLA [...] with patient: Verbal Pre-procedure timeout performed: yes Christa BELL IN CLINIC/BEDSIDE ORDERABLES Final Result * Pap smear (11/01/2018) 11/01/2018 Narrative HISTORICAL TESTING LAB RESULTING AGENCY - 11/04/2018 1:45 PM EST [id number] THINPREP PAP, IMAGED: NEGATIVE FOR SQUAMOUS INTRAEPITHELIAL [...] Maintenance Insurance MEDICAID - [place] Care Teams Wardrobe Image Consultant Relationship Specialty Start Date End Date Pedro Luis Amado [address] [place], [place] PCP - General 11/11/22
--- OUTSIDE RECORDS SUMMARY | 2025-09-04 15:44 | XMS_ITS | Encounter Summary ---
Author Organization [employer] Address [address] [facility] 7 [place] [address] Care Team Providers Care Bench Molder Apprentice Name Role Phone Pedro Luis Amado MD Primary Care Prov ider Encounter Details Date Type Department Care Team ([facility] st Contact Info) Description 03/05/2023 Orders Only [facility] [address] [place], [place] [phone] Ro Castanon LPN Social History Tobacco Use [...] documented as of this encounter Care Teams Bench Molder Apprentice Relationship Specialty Start Date End Date Pedro Luis Amado MD [address] [place] [address] PCP - General Internal Medicine 10/10/20 Estiven De La Garza Fuel Cell RepairerAdult Educator 07/31/23 documented as of this encounter
--- OUTSIDE RECORDS SUMMARY | 2025-09-04 15:44 | XMS_ITS | Encounter Summary ---
Author Organization [employer] Address [address] [place] [address] 7 [place] [address] Care Team Providers Care Physician Practice Manager Name Role Phone Pedro Luis Amado MD Primary Care Prov ider Encounter Details Date Type Department Care Team (Latest Contact Info) Description 08/02/2019 Abstract [facility] CONVERSIONS Dental, Provider, DDS Social [...] on filedocumented in this encounter Care Teams Physician Practice Manager Relationship Specialty Start Date End Date Pedro Luis Amado MD [address] [place] [address] PCP - General Internal Medicine 10/10/20 Estiven De La Garza Textile ExaminerTravograph Operator 07/31/23 documented as of this encounter
--- OUTSIDE RECORDS SUMMARY | 2025-09-04 15:44 | XMS_ITS | Encounter Summary ---
Author Organization [employer] Address [address] [place] [address] 7 [place] [address] Care Team Providers Care Telemetry Tech Name Role Phone Pedro Luis Amado MD Primary Care Prov ider Encounter Details Date Type Department Care Team (Late st Contact Info) Description 09/01/2022 Abstract [facility] MEDICINE [address] [place] [address] ProviderEmil MD Social History Tobacco Use Types [...] on filedocumented in this encounter Care Teams Telemetry Tech Relationship Specialty Start Date End Date Pedro Luis Amado MD [address] [place] [address] PCP - General Internal Medicine 10/10/20 Estiven De La Garza Key CarrierMud Cleaner Operator 07/31/23 documented as of this encounter
--- OUTSIDE RECORDS SUMMARY | 2025-09-04 15:44 | XMS_ITS | Encounter Summary ---
Author Organization [employer] Address [address] [facility] 7 [place] [address] Care Team Providers Care Promotional Demonstrator Name Role Phone Pedro Luis Amado MD Primary Care Prov ider Reason for Visit * Reason Onset Date Comments Results 09/30/2023 Encounter Details Date Type Department Care Team ([facility] st Contact Info) Description 09/30/2023 Telephone [facility] MEDICINE [address] [place] [address] Pedro Luis Amado MD [address] [place] [address] Results Social History Tobacco Use Types Packs/Day [...] documented as of this encounter Care Teams Promotional Demonstrator Relationship Specialty Start Date End Date Pedro Luis Amado MD [address] [place] [id number] PCP - General Internal Medicine 10/10/20 Estiven De La Garza Associate Professor Plant PathologyHydrography Teacher 07/31/23 documented as of this encounter
== END 2025-09-04 11:54 | disposition home or self-care (01) ==
LOC: HO.MAMMO 11:53
PROVIDERS: PCP Internal Medicine; Visit Provider Internal Medicine
DX: N63.0 Unspecified lump in unspecified breast (principal)
CPT/HCPCS: 76642; 77062; 77066

== ENCOUNTER → 2025-09-04 12:00 | Outpatient (BNV) | payer MEDICAID, SELFPAY | PROVIDERS: PCP Internal Medicine; Visit Provider Radiology Body Imaging | DX: N63.11 Unspecified lump in the right breast, upper outer quadrant (principal) | CPT/HCPCS: 76642; 77062; 77066 ==

== ENCOUNTER 2025-09-11 15:48 | Outpatient (AMB) | payer MEDICAID, SELFPAY ==
--- NOTE | 2025-09-11 15:51 | A.OFFVIS_ITS ---
Vital Signs 3 09/11/25 16:00 Height 5 ft 7 in Weight 192 lb BMI 30.1 BP 139/71 Blood Pressure Location Lt brachial Position Sitting Pulse 75 Intake Visit Reasons: mammo results Intake Note: Patient is seen in office for ultrasound and mammogram results. Pt c/o:denies any concerns, here for results mm/us:09/04/25 Dredge Worker Required: No Accompanied by: Self / Same As Patient Allergies shrimp (SHRIMP) Allergy (Intermediate, Verified 09/11/25 16:00) SWELLING tramadol (TRAMADOL) Allergy (Intermediate, Verified 09/11/25 16:00) HEADACHES gadobutrol (From GADAVIST) Allergy (Mild, Verified 09/11/25 16:00) DIFFICULTY BREATHING lactose (LACTOSE) Adverse Reaction (Mild, Verified 09/11/25 16:00) STOMACH UPSET Medication List - Last Reconciled 09/11/25 by Tonny Gamez MD cetirizine 10 mg PO DAILY cholecalciferol (vitamin D3) 50 mcg PO DAILY diclofenac sodium 1% 2 grams topical TID diphenhydramine HCl (Benadryl Allergy) 25 mg PO ONCE PRN docusate sodium 100 mg PO BEDTIME doxycycline hyclate 100 mg PO BID famotidine 20 mg PO BID PRN fluticasone propionate 50 mcg/actuation (Children's Flonase Allergy Relief) 2 sprays intranasal DAILY 30 days glucagon (Glucagon Emergency Kit) 1 mg IM ONCE PRN ibuprofen 600 mg PO Q6H PRN insulin glargine (Lantus U-100 Insulin) 45 units subcut QPM insulin lispro (Humalog KwikPen (U-100) Insulin) 30 units am, 40 units lunch, 35 units dinner subcut 3 times a day; methylcellulose (laxative) (Citrucel) Take one tablet daily X 2 week, follow by two tablets daily thereafter montelukast 10 mg PO QPM peg 3350-electrolytes 236-22.74-6.74 -5.86 gram 240 mL PO Q10M pen needle, diabetic (BD Jahaira 2nd Gen Pen Needle) As directed rosuvastatin 10 mg PO QAM scopolamine base 1 patch transdermal Q3D PRN semaglutide (Rybelsus) 14 mg PO DAILY sennosides (senna) 17.2 mg (2 x 8.6 mg) PO BEDTIME 3 days simethicone (Gas Relief (simethicone)) 125 mg PO ONCE HPI Comments Details: 50-year-old female patient with a strong family history of breast cancer including her mother developed breast cancer the age of 48, maternal aunt with breast cancer at the age of 48, another maternal aunt with breast cancer x2 in her 50s. She has an uncle diagnosed with prostate cancer and a cousin diagnosed with ovarian cancer. She underwent genetic testing along with a sister in both reported to be negative. She underwent hysterectomy for bleeding fibroid at [facility]. She recently developed an infection in the intermammary cleft extending into the right breast along the 3 o'clock position. This was evaluated in the emergency department and a small abscess identified. She was subsequently placed on oral antibiotics and followed up in our office on 08/25/2025. Since this time the lesion has decreased in size but is still palpable. She denies any significant pain or discharge at this time. A mammogram and ultrasound performed on 09/04/2025 revealed no mammographic abnormality at the site of the skin marker. A hypoechoic area measuring 1.1 cm in the area of concern at 5 o'clock position 9 cm from the nipple could represent an area of prior abscess/infectious process. There was no evidence of malignancy (BI-RADS 2). Follow-up mammogram in 12 months is recommended. She reports that she is awaiting an upper endoscopy and colonoscopy later this week. [facility] Medical History Dysphagia Colon cancer screening History of COVID-19 Snoring Somnolence, daytime Chronic constipation Breast cancer screening, high risk patient Hx of migraine headaches Anemia GERD (gastroesophageal reflux disease) Liver cyst Pulmonary nodule Allergic rhinitis Intraductal papilloma Back pain Fibroids Diabetes mellitus Asthma Surgical History History of surgical procedure Hx laparoscopic cholecystectomy History of breast biopsy (~01/2020) History of colonoscopy (~12/08/19) History of hysterectomy (~12/17/18) History of section History of knee surgery Family History Mother History of breast cancer History of hypertension History of diabetes mellitus Son History of asthma History of ADHD Paternal Grandfather History of pancreatic cancer Maternal Uncle History of colon cancer Maternal Aunt History of breast cancer Paternal Grandmother History of diabetes mellitus Paternal Uncle History of rheumatoid arthritis Family/Other Family history of throat cancer Social History Household Members: Spouse and Children Alcohol intake: current Alcohol intake frequency: does not drink Patient Tobacco Use Status: Never used Tobacco Advance Directives Date on File: 12/15/18 Review of Systems Const All systems reviewed & are unremarkable except as noted in HPI and below Physical Exam Vital Signs: Last Vital Signs Pulse 75 09/11/25 16:00 BP 139/71 09/11/25 16:00 BMI result Body Mass Index 30.1 Const General: no acute distress Nutritional Appearance: well nourished Orientation/consciousness: patient oriented x3 HEENT Head: Yes normocephalic and Yes atraumatic Chest Other: See below Chest/axillae images: 2 1. Epidermal inclusion cyst involving the medial right breast along the intergluteal cleft and inframammary crease right breast measuring approximately 1 by 1.5 cm. No fluctuance is noted at this time. Skin General skin exam: no rashes or lesions noted Neuro General: patient oriented x3 Extrem General: Yes no clubbing, cyanosis or edema Assessment & Plan Assessment & Plan (1) Breast abscess: Code(s): N61.1 - Abscess of the breast and nipple Category: Medical Plan 50-year-old female patient with a strong family history of breast cancer presenting with a recent right breast infection most likely related to an epidermal inclusion cyst. This has resolved at this time but the residual cyst is still present and quite large. I recommended excision of this residual cyst as a short-stay surgery to prevent recurrent infection. After discussion of the procedure, risks, and alternatives, she consents to the right breast lumpectomy Orders: Referrals 2 General Surgery Procedure Notification N61.1 - Abscess of the breast and nipple Medications: Refilled 2 doxycycline hyclate 100 mg PO BID 20 caps 0RF N61.1 - Abscess of the breast and nipple Coding Level of Care Code Est Pt Level 4 (27286) Diagnoses Breast abscess N61.1
[2025-09-11 16:00] VITALS: BP 139/71; PULSE 75; BMI 30.1
--- OUTSIDE RECORDS SUMMARY | 2025-09-12 01:23 | XMS_ITS | Encounter Summary ---
Author Organization [employer] Address [address] [place] [address] 7 [place] [address] Care Team Providers Care Siebel Developer Name Role Phone Pedro Luis Amado MD Primary Care Prov ider Encounter Details Date Type Department Care Team (Late st Contact Info) Description 09/01/2022 Abstract [facility] MEDICINE [address] [place] [address] ProviderEmil MD Social History Tobacco Use Types [...] on filedocumented in this encounter Care Teams Siebel Developer Relationship Specialty Start Date End Date Pedro Luis Amado MD [address] [place] [address] PCP - General Internal Medicine 10/10/20 Estiven De La Garza ReplenisherRecord Producer 07/31/23 documented as of this encounter
--- OUTSIDE RECORDS SUMMARY | 2025-09-12 01:23 | XMS_ITS | Encounter Summary ---
Author Organization [employer] Address [address] [place] [address] [place] [address] Care Team Providers Care Belt Operator Name Role Phone Pedro Luis Amado MD Primary Care Prov ider Encounter Details Date Type Department Care Team (Late st Contact Info) Description 06/26/2023 Abstract [facility] [address] [place], [place] [phone] Pedro Luis Amado MD [address] [place], [place] [phone] Social History Tobacco Use Types Packs/Day Years [...] documented as of this encounter Care Teams Belt Operator Relationship Specialty Start Date End Date Pedro Luis Amado MD [address] [place] [address] PCP - General Internal Medicine 10/10/20 Estiven De La Garza Munitions Handler SupervisorPlanting Supervisor 07/31/23 documented as of this encounter
--- OUTSIDE RECORDS SUMMARY | 2025-09-12 01:23 | XMS_ITS | Encounter Summary ---
Author Organization [employer] Address [address] [place] [address] 7 [place] [address] Care Team Providers Care Food Quality Technician Name Role Phone Pedro Luis Amado MD Primary Care Prov ider Reason for Visit * Reason Comments Med Refill Encounter Details Date Type Department Care Team ([facility] Contact Info) Description 05/27/2023 Refill [facility] CHC MED & PEDS [address] [place], [place] [phone] Pedro Luis Amado MD [address] [place] [address] Type 2 diabetes mellitus without complication, with long-term current use of insulin ([facility]) Social History Tobacco Use Types Packs/Day Years [...] complication, with long-term current use of insulin ([facility]) documented in this encounter Additional Health Concerns Assessment Noted Time PHQ-9 Depression Total Score: 2 01/02/20 23 9:06 AM EDT documented as of this encounter Care Teams Food Quality Technician Relationship Specialty Start Date End Date Pedro Luis Amado MD [address] [place] [address] PCP - General Internal Medicine 10/10/20 Estiven De La Garza ScientistAutomobile Engine Assembler 07/31/23 documented as of this encounter
--- OUTSIDE RECORDS SUMMARY | 2025-09-12 01:23 | XMS_ITS | Clinical Summary ---
Author Organization [employer] Address [address] 7[address] [place] [address] Care Team Providers Care Ornamental Painter Name Role Phone Pedro Luis Amado MD [...] Type Department Care Team Description 08/15/2025 Refill [facility] CHC MED & PEDS [address] [place] [address] Pedro Luis Amado MD 08/03/2025 2:30 PM EDT Office Visit [facility] MEDICINE [address] [place] [address] Deb Ulloa MD Breast nodule 08/03/2025 Travel 08/03/[address] [facility] MED & PEDS [address] [place] [address] Pedro Luis Amado MD Nurse Triage 06/22/2025 8:45 AM EDT Telemedicine [facility] MED & PEDS [address] [place] [address] Pedro Luis Amado MD Primary hypertension (Primary Dx); Type 2 diabetes mellitus with hyperglycemia, with long-term current use of insulin ([facility]) 06/22/2025 Travel 06/20/[address] [facility] MED & PEDS [address] [place] [address] Pedro Luis Amado MD chart prep from Last 3 Months Immunizations Immunization Administration [...] Additional history exists Lipid Panel 03/17/2026 03/17/2025, 12/04, 07/16/2023, Additional history exists Alcohol/Substance Use Screening 06/22/2026 06/22/2025 Depression Screening 06/22/2026 06/22/2025, 06/22/20 25 SDOH Screening 06/22/2026 06/22/2025 Disability Screening 08/03/2026 08/03/2025 Tobacco Screening 08/03/2026 08/03/2025 Mammogram 09/04/2026 09/04/2025, 1210/2024, 05/31/2024, Additional history exists DTaP/Tdap/Td Vaccines (4 - Td or Tdap) [...] complication, with long-term current use of insulin ([facility]) HM COLONOSCOPY Routine 12/08/2019 10:24 AM EST PAP SMEAR Routine 11/01/2018 12:00 AM EST from Last 3 Months or Most Recently Relevant to Health Maintenance Results * BI US Breast Limited Right (09/04/2025 12:29 PM EST) Anatomical Region Laterality Modality Breast Right Ultrasound 09/04/2025 12:2 9 PM EST Narrative 09/04/2025 1:27 PM EST [facility] [address] [place] [address] Ultrasound Report Signed Patient: Mira Darnell#: [id number] : 1975 Acct:[id number] Age/Sex: 50 / F ADM Date: 09/04/25 Loc: HO.MAMMO Attending Dr: Pedro Luis Sierra MD Ordering Physician: Deb Ulloa MD Date of Service: 09/04/25 Procedure(s): US Breast RT Limited Mamm Only Accession Number(s): [id number] cc: Deb Ulola MD; Pedro Luis Amado MD Reason for [...] by: Cassie Perez MD 09/04/2025 01:24 PM [facility] Dictated By: Cassie Perez MD Signed By: <Electronically signed by Cassie Perez MD in OV> 12/01/25 1324 DD/ 1229 TD/TT: 09/04/25 1251 General Claims Agent: Procedure Note Donotelijahinterpreter, Image - 09/04/2025 [facility] [address] [place] [address] Ultrasound Report Signed Patient: Mira Darnell LM R#: [id number] : 1975Acct:[id number] Age/Sex: 50 / FADM Date: 09/04/25 Loc: HO.MAMMO Attending Dr: Pedro Luis Sierra MD Ordering Physician: Deb Ulloa MD Date of Service: 09/04/25 Procedure(s): US Breast RT Limited Mamm Only Accession Number(s): [id number] cc: Deb Ulloa MD; Pedro Luis Amado [...] by: Cassie Perez MD 09/04/2025 01:24 PM [facility] Dictated By: Cassie Perez MD Signed By: <Electronically signed by Cassie Perez MD in OV> 09/04/25 1324 DD/ 1229 TD/TT: 09/04/25 1251 General Claims Agent: us Deb Valentino MD IMG US PROCEDURES Fin al Result * BI Mammogram Diagnostic Tomosynthesis Bilateral (09/04/2025 11:57 AM EST) Anatomical Region Laterality Modality Breast Bilateral Mammography 09/04/2025 11:5 7 AM EST Narrative 09/04/2025 1:27 PM EST [facility] [address] [place], [place] [address] Mammography Report Signed Patient: Mira Darnell#: [id number] : 1975 Acct:[id number] Age/Sex: 50 / F ADM Date: 09/04/25 Loc: HO.MAMMO Attending Dr: Pedro Luis Sierra MD Ordering Physician: Deb Ulloa MD Results: 2Benign Date of Service: 09/04/25 Follow Up: 1 Year From [facility] ina Mammogram Procedure(s): MM tomosynthesis diagnostic BI Accession Number(s): [id number] cc: Deb Ulloa MD; Pedro Luis Amado [...] by: Cassie Perez MD 09/04/2025 01:24 PM [facility] Dictated By: Cassie Perez MD Signed By: <Electronically signed by Cassie Perez MD in OV> 09/04/25 1324 DD/ 1157 TD/TT: 09/04/25 1205 General Claims Agent: Procedure Note Donotuseinterpreter, Image - 09/04/2025 [place] [facility] [address] [place], [place] [address] Mammography Report Signed Patient: Mira Darnell LM R#: [id number] : 1975Acct:[id number] Age/Sex: 50 / FADM Date: 09/04/25 Loc: HO.MAMMO Attending Dr: Pedro Luis Sierra MD Ordering Physician: Deb Ulloaults: 2Benign Date of Service: 09/04/25Follow Up: 1 Year From Orig inal Mammogram Procedure(s): MM tomosynthesis diagnostic BI Accession Number(s): [id number] cc: Deb Ulloa MD; Pedro Luis Amado [...] by: Cassie Perez MD 09/04/2025 01:24 PM [facility] Dictated By: Cassie Perez MD Signed By: <Electronically signed by Cassie Perez MD in OV> 09/04/25 1324 DD/ 1157 TD/TT: 09/04/25 1205 General Claims Agent: us Deb Valentino MD IMG BI PROCEDURES Fin al Result * (ABNORMAL) Lipid Panel, Standard (03/17/2025 10:23 AM EDT) Triglycerides 52 <150 mg/dL [facility] Comment:Desirable Triglyceri de: less than 150 mg/dLBorderline High Triglyceride 150-199 mg/dLHigh Triglyceride: 200-499 mg/dLVery High Triglyceride: greater than or equal to 5OO mg/dL Cholesterol 96 <200 mg/dL [facility] Comment:Desirable Cholestero l: less than 200 mg/dLBorderline High Cholesterol: 200-239 mg/dLHigh Cholesterol: greater than 239 mg/dL LDL Cholesterol Calculated 47 <100 mg/dL [facility] Comment:Desirable LDL: less than 100 mg/dLNear Optimal/Above Optimal LDL: 110- 129 mg/dLBorderline High LDL: 130-159 mg/dLHigh LDL: 160-189 mg/dLVery High LDL: greater than or equal to 190 mg/dL HDL Cholesterol 39(L) >40 mg/dL [facility] Comment:Desirable HDL: great er than 40 mg/dL Note: This HDL assay may give artificially low results in patients with liver disease. Blood Venous blood specimen / Unknown 03/17/2025 10:23 AM EDT 03/17/2025 2:05 PM EDT Pedro Luis Sierra MD LAB BLOOD ORDERABL ES Final Result [facility] [address] [place] [phone] * Albumin, Random Urine W/Creatinine (12/28/2024 9:00 AM EDT) Creatinine, Urine 212.92 mg/dL [facility] Microalbumin Urine 18.0 mg/L [facility] Microalbum Creatinine Ratio Ur 8.4 <30 ug/mg cr [facility] Comment:Albumin/Creatinine R atio Reference Ranges: Normal: < 30 ug/mg creatinine Microalbuminuria: 30 - 300 ug/mg creatinineClinical Albuminuria: > 300 ug/mg creatinine Urine (Urine, Random) 12/28/2024 9:00 AM EDT 12/28/2024 2:09 PM EDT Pedro Luis Sierra MD LAB URINE ORDERABL ES Final Result [facility] [address] [place] [address] [phone] * (ABNORMAL) POCT HGB A1C (12/21/2024 9:18 AM EDT) Hemoglobin A1C 7.8(A) 4.0 - 6.0 % QC Media Lot # [id number] Lot# Expiration Date 757 Blood 12/21/2024 9:18 AM EDT Pedro Luis Sierra MD POINT OF CARE TEST ENTER/EDIT ORDERABLES Final Result * HIV-1 RNA, Quantitative, Real-Time PCR with Reflex to Genotype (RTI, PI, Integrase) (10/16/2022 9:27 AM EST) HIV 1 RNA, QN PCR NOT DETECTED copies/mL [facility], HIV 1 RNA, QN PCR NOT DETECTED Log copies/mL [facility], Comment: REFERENCE RANGE: NOT DETECTED copies/mL NOT DETECTED Log copies/mL This test was performed using Real-Time Polymerase Chain Reaction. Reportable range is 20 to 10,000,000 copies/mL (1.30-7.00 Log copies/mL). 10/16/2022 9:27 AM EST 10/16/2022 9:28 AM EST Pedro Luis Sierra MD LAB BLOOD ORDERABL ES Final Result [facility] [address], [place] [address] [facility], [address] [place] [address] * Hepatitis C Antibody with Reflex to HCV, RNA, Quantitative, Real-Time PCR (10/16/2022 9:27 AM EST) Hepatitis C Antibody NON-REACT ASTRID NON-REACT ASTRID [employer] Index <0.02 <1.00 [employer] Comment: HCV antibody was non-reactive. There is no laboratory evidence of HCV infection. In most cases, no further action is required. However, if recent HCV exposure is suspected, a test for HCV RNA (test code 34443) is suggested. For additional information please refer to http://education.Beezik/faq/SKZ88k6 (This link is being provided for informational/ educational purposes only.) Blood Venous blood specimen / Unknown 10/16/2022 9:27 AM EST 10/16/2022 9:28 AM EST Pedro Luis Sierra MD LAB BLOOD ORDERABL ES Final Result [facility] [address] [place] [address], [facility] [place] [address] [employer] [address] [place] [address], ([address]) [place] [address] * Hm Colonoscopy (12/08/2019 10:24 AM EST) Historical Provider HEALTH MAINTENANCE Final Result * Pap Smear (11/01/2018 12:00 AM EST) Swab Historical Katlyn HUNT LAB CYTOLOGY ORDERABLES F inal Result Performing Organization Address City/[facility]/ZIP Co de Phone Number [facility] [address] [place] [address], [place] [address] from Last 3 Months or Most Recently Relevant to Health Maintenance Insurance [facility] C3 Care Teams Ornamental Painter Relationship Specialty Start Date End Date Pedro Luis Amado MD [address] [place] [address] [place] [address] PCP - General Internal Medicine 10/10/20 Estiven De La Garza Victim Witness AdministratorSenior Formulation Scientist 07/31/23
--- OUTSIDE RECORDS SUMMARY | 2025-09-12 01:23 | XMS_ITS | Encounter Summary ---
Author Organization [employer] Address [address] [place] [address] Care Team Providers Care Form Tamper Operator Name Role Phone Pedro Luis Amado MD Primary Care Prov ider Encounter Details Date Type Department Care Team (Late st Contact Info) Description 01/19/2024 Orders Only [facility] MEDICINE [address] [place], [place] [phone] ProviderEmil MD Social History Tobacco Use Types [...] documented as of this encounter Care Teams Form Tamper Operator Relationship Specialty Start Date End Date MartinezPedro Luis Vu MD [address] [place] [address] PCP - General Internal Medicine 10/10/20 Estiven De La Garza Vascular TechFish Bailer 07/31/23 documented as of this encounter
--- OUTSIDE RECORDS SUMMARY | 2025-09-12 01:23 | XMS_ITS | Encounter Summary ---
Author Organization [employer] Address [address] [facility] 7 [place] [address] Care Team Providers Care Textile Designs Sales Representative Name Role Phone Pedro Luis Amado MD Primary Care Prov ider Reason for Visit * Reason Onset Date Comments Results 10/02/2023 Encounter Details Date Type Department Care Team ([facility] st Contact Info) Description 10/02/2023 Telephone [facility] CHC MED & PEDS [address] [place], [place] [phone] Pedro Luis Amado MD [address] [place] [address] Results Social History Tobacco Use Types Packs/Day [...] documented as of this encounter Care Teams Textile Designs Sales Representative Relationship Specialty Start Date End Date Pedro Luis Amado MD [address] [place] [address] PCP - General Internal Medicine 10/10/20 Estiven De La Garza Cardiopulmonary Physical TherapistMicrobiology Manager 07/31/23 documented as of this encounter
--- OUTSIDE RECORDS SUMMARY | 2025-09-12 01:23 | XMS_ITS | Encounter Summary ---
Author Organization [employer] Address [address] [address] 7 [place] [address] Care Team Providers Care Stock Preparation Operator Name Role Phone Pedro Luis Amado MD Primary Care Prov ider Reason for Visit * Reason Onset Date Comments Results 09/30/2023 Encounter Details Date Type Department Care Team ([facility] st Contact Info) Description 09/30/2023 Telephone [facility] MEDICINE [address] [place] [address] Pedro Luis Amado MD [address] [place] [address] Results Social History Tobacco Use Types Packs/Day [...] documented as of this encounter Care Teams Stock Preparation Operator Relationship Specialty Start Date End Date Pedro Luis Amado MD [address] [place] [address] PCP - General Internal Medicine 10/10/20 Estiven De La Garza Bead FlipperGrocery Bagger 07/31/23 documented as of this encounter
--- OUTSIDE RECORDS SUMMARY | 2025-09-12 01:23 | XMS_ITS | Encounter Summary ---
Author Organization [employer] Address [address] 7[address] [place] [address] Care Team Providers Care Agricultural Production Engineer Name Role Phone Pedro Luis Amado MD Primary Care Prov ider Reason for Visit * Reason Comments Med Refill Encounter Details Date Type Department Care Team ([facility] Contact Info) Description 03/31/2025 Refill [facility] MEDICINE [address] [place] [address] Jocelynn Stanley MD [address] [place] [address] Candidiasis, intertriginous Social History Tobacco Use Types [...] documented as of this encounter Care Teams Agricultural Production Engineer Relationship Specialty Start Date End Date Pedro Luis Amado MD [address] [place] [address] PCP - General Internal Medicine 10/10/20 Estiven De La Garza Traffic AdministratorSaw Superintendent 07/31/23 documented as of this encounter
--- OUTSIDE RECORDS SUMMARY | 2025-09-12 01:23 | XMS_ITS | Clinical Summary ---
Author Organization [address] [facility] Address [address] [place] [address] Phone Care Team Providers Care Price Analyst Name Role Phone Pedro Luis Amado Primary Care Provide r Allergies No known active allergies Encounters Date Type Department Care Team Description 07/27/2025 10:15 AM EDT Office Visit Orthopedic Surgery [facility] [address] [facility] [address] [place] [address] Christa Mortensen PA Bilateral carpal tunnel syndrome (Primary Dx) from Last 3 Months Surgical History Surgery Date Site/Laterality Comments KNEE SURGERY PROCEDURE: HISTORICAL KNEE SURGERY SECTION PROCEDURE: HISTORICAL ; COMMENT: x2 CHOLECYSTECTOMY PROCEDURE: HISTORICAL CHOLECYSTECTOMY BREAST BIOPSY PROCEDURE: KS BIOPSY BREAST OPEN INCISIONAL; COMMENT: benign, benign second biopsy 01/2020, scheduled for excision in 03/2020 TUBAL LIGATION PROCEDURE: HISTORICAL TUBAL LIGATION OTHER SURGICAL HISTORY 12/17/2018 PROCEDURE: KS TOTAL ABDOMINAL HYSTERECT W/WO RMVL TUBE OVARY; COMMENT: fibroid uterus, heavy bleeding, anemia, Eppsteiner- incidental cystotomy repaired Medical History Medical History Date Comments Back pain DX:Back pain Knee pain DX:Knee pain Diabetes mellitus type 2 in obese DX:Diabetes mellitus type 2 in obese BRCA negative DX:BRCA negative ; COMMENT: [place] Intraoperative bladder injury 12/22/2018 DX :Intraoperative bladder [...] Orientation Straight 02/28/2025 3: 12 PM EDT Last Filed Vital Signs Vital Sign [...] Depression Screening 10/05/2024 COVID-19 Vaccine ( - 2024- season) 2025 01/30/2021, 12/29/2020 Influenza Vaccine (#1) [...] Procedure Name Priority Date/Time Associated Diagnosis Comments KS INJECTION CARPAL TUNNEL THERAPEUTIC Routine 07/27/2025 10:15 AM EDT Bilateral carpal tunnel syndrome PAP SMEAR Routine 11/01/2018 from Last 3 Months or Most Recently Relevant to Health Maintenance Results * KS INJECTION CARPAL TUNNEL THERAPEUTIC (07/27/2025 10:15 AM [...] RESULTING AGENCY - 11/04/2018 1:45 PM EST [id number] THINPREP PAP, IMAGED: NEGATIVE FOR SQUAMOUS INTRAEPITHELIAL [...] Maintenance Insurance MEDICAID - [place] Care Teams Price Analyst Relationship Specialty Start Date End Date Pedro Luis Amado [address] [place], [place] PCP - General 11/11/22
--- OUTSIDE RECORDS SUMMARY | 2025-09-12 01:23 | XMS_ITS | Encounter Summary ---
Author Organization [employer] Address [address] [facility] 7 [place] [address] Care Team Providers Care Photography And Prints Curator Name Role Phone Pedro Luis Amado MD Primary Care Prov ider Encounter Details Date Type Department Care Team ([facility] st Contact Info) Description 03/05/2023 Orders Only [facility] [address] [place], [place] [id number] Ro Castanon LPN Social History Tobacco Use [...] documented as of this encounter Care Teams Photography And Prints Curator Relationship Specialty Start Date End Date Pedro Luis Amado MD [address] [place] [address] PCP - General Internal Medicine 10/10/20 Estiven De La Garza Technologist Infectious DiseaseRetail Account Manager 07/31/23 documented as of this encounter
--- OUTSIDE RECORDS SUMMARY | 2025-09-12 01:23 | XMS_ITS | Encounter Summary ---
Author Organization [employer] Address [address] [place] [address] 7 [place] [address] Care Team Providers Care Lens Assorter Name Role Phone Pedro Luis Amado MD Primary Care Prov ider Encounter Details Date Type Department Care Team (Latest Contact Info) Description 08/02/2019 Abstract [facility] CONVERSIONS Dental, Provider, DDS Social [...] on filedocumented in this encounter Care Teams Lens Assorter Relationship Specialty Start Date End Date Pedro Luis Amado MD [address] [place] [address] PCP - General Internal Medicine 10/10/20 Estiven De La Garza PlatemakerAirline Ticket Agent 07/31/23 documented as of this encounter
== END 2025-09-11 16:05 | disposition home or self-care (01) ==
LOC: HO.HGS 15:49
PROVIDERS: PCP Internal Medicine; Visit Provider Surgery
DX: N61.1 Abscess of the breast and nipple (principal)
CPT/HCPCS: 99214

== ENCOUNTER → 2025-09-11 15:48 | Outpatient (BNVA) | payer MEDICAID, SELFPAY | PROVIDERS: PCP Internal Medicine; Visit Provider Surgery | DX: N61.1 Abscess of the breast and nipple (principal); Z80.3 Family history of malignant neoplasm of breast | CPT/HCPCS: 99212 ==

== ENCOUNTER 2025-09-13 07:20 | Day surgery (SDC) | payer MEDICAID, SELFPAY ==
--- OUTSIDE RECORDS SUMMARY | 2025-08-23 04:39 | XMS_ITS | Encounter Summary ---
Author Organization [employer] Address [address] [facility] [address] 7[address] [place] [address] Care Team Providers Care Head Host/Hostess Name Role Phone Pedro Luis Amado MD Primary Care Prov ider Reason for Visit * Reason Comments Med Refill Encounter Details Date Type Department Care Team ([facility] Contact Info) Description 03/31/2025 Refill [facility] [address] [place] [address] Jocelynn Stanley MD [address] [place] [address] Candidiasis, intertriginous Social History Tobacco Use Types [...] documented as of this encounter Care Teams Head Host/Hostess Relationship Specialty Start Date End Date Pedro Luis Amado MD [address] [place] [address] PCP - General Internal Medicine 10/10/20 Estiven De La Garza Serging Machine OperatorFilter Press Supervisor 07/31/23 documented as of this encounter
--- OUTSIDE RECORDS SUMMARY | 2025-08-23 04:39 | XMS_ITS | Encounter Summary ---
Author Organization [employer] Address [address] [place] [address] 7 [place] [address] Care Team Providers Care Bobj Developer Name Role Phone Pedro Luis Amado MD Primary Care Prov ider Encounter Details Date Type Department Care Team (Late st Contact Info) Description 09/01/2022 Abstract [facility] MEDICINE [address] [place] [address] ProviderEmil MD Social History Tobacco Use Types [...] on filedocumented in this encounter Care Teams Bobj Developer Relationship Specialty Start Date End Date Pedro Luis Amado MD 505 [facility] [place] [address] PCP - General Internal Medicine 10/10/20 Estiven De La Garza Programming Equipment OperatorMachine Cloth Examiner 07/31/23 documented as of this encounter
--- OUTSIDE RECORDS SUMMARY | 2025-08-23 04:39 | XMS_ITS | Encounter Summary ---
Author Organization [employer] Address [address] [place] [address] 7 [place] [address] Care Team Providers Care Internal Audit Director Name Role Phone Pedro Luis Amado MD Primary Care Prov ider Encounter Details Date Type Department Care Team (Latest Contact Info) Description 08/02/[address] [facility] CONVERSIONS Dental, Provider, DDS Social History [...] on filedocumented in this encounter Care Teams Internal Audit Director Relationship Specialty Start Date End Date Pedro Luis Amado MD [address] [place] [address] PCP - General Internal Medicine 10/10/20 Estiven De La Garza Removable ProsthodontistHospice Team Lead 07/31/23 documented as of this encounter
--- OUTSIDE RECORDS SUMMARY | 2025-08-23 04:40 | XMS_ITS | Encounter Summary ---
Author Organization [employer] Address [address] [place] [address] [place] [address] Care Team Providers Care Nurse Clinician Name Role Phone Pedro Luis Amado MD Primary Care Prov ider Encounter Details Date Type Department Care Team (Late st Contact Info) Description 06/26/2023 Abstract [email or web address] [address] [place], [place] [phone] Pedro Luis Amado MD 505 [place], [place] [phone] Social History Tobacco Use Types Packs/Day Years [...] documented as of this encounter Care Teams Nurse Clinician Relationship Specialty Start Date End Date Pedro Luis Amado MD 505 [place] [address] PCP - General Internal Medicine 10/10/20 Estiven De La Garza Renovation Plant SupervisorResearch Interviewer 07/31/23 documented as of this encounter
--- OUTSIDE RECORDS SUMMARY | 2025-08-23 04:40 | XMS_ITS | Clinical Summary ---
Author Organization [employer] Address [address] 7t [place] [address] Care Team Providers Care Wine Consultant Name Role Phone Pedro Luis Amado MD [...] AREA TWICE DAILY 30 g 1 10/01/20 Active FreeStyle lancets USE DIRECTED FIVE TIMES PER DAY 100 each 3 11/09/19 24 Active famotidine (Pepcid) 20 MG tablet TAKE 1 TABLET(20 MG) BY MOUTH EVERY 12 HOURS 180 tablet 3 08/01/20 Active cholecalciferol VITAMIN D (Vitamin D-3) 50 MCG (1999) capsuleIndication s:Vitamin D deficiency TAKE 1 CAPSULE BY MOUTH EVERY DAY 90 capsule 3 12/28/19 Active Diclofenac Sodium 1 % gel Apply 2 g topically 3 times daily. 100 g 3 12/28/19 Active ibuprofen 600 MG tablet TAKE 1 TABLET BY MOUTH THREE TIMES DAILY WITH FOOD NEEDED FOR PAIN 90 tablet 01/21/20 Active Ketotifen Fumarate 0.035 % solution Administer 1 drop into affected eye(s) 2 times daily. 10 mL 02/24/20 Active losartan (Cozaar) 25 MG tablet Take [...] and then call 911 0.3 mL 03/22/20 25 Active FREESTYLE LITE test strip USE DIRECTED TO TEST BLOOD GLUCOSE THREE TIMES DAILY 100 strip 1 06/07/20 25 Active rosuvastatin (Crestor) 10 MG tablet TAKE 1 TABLET BY MOUTH EVERY MORNING 90 tablet 3 08/17/20 25 Active rosuvastatin (Crestor) 10 MG tablet TAKE ONE TABLET EVERY MORNING 90 tablet 3 08/09/20 24 2024 Discontinued hydrOXYzine HCl (Atarax) 25 MG tablet Take [...] Encounters Date Type Department Care Team Description 08/15/2025 Refill [facility] [address] [place] [address] Pedro Luis Amado MD 08/03/2025 2:30 PM EDT Office Visit [facility] [address] [place] [address] Deb Ulloa MD Breast nodule 08/03/2025 Travel 08/03/2025 Telephone [facility] [address] [place] [address] Pedro Luis Amado MD Nurse Triage 06/22/2025 8:45 AM EDT Telemedicine [facility] [address] [place] [address] Pedro Luis Amado MD Primary hypertension (Primary Dx); Type 2 diabetes mellitus with hyperglycemia, with long-term current use of insulin ([facility]) 06/22/2025 Travel 06/20/2025 Telephone [facility] & PEDS [address] [place] [address] Pedro Luis Amado MD chart prep 06/06/2025 Refill [facility] [address] [place] [address] Pedro Luis Amado MD from Last 3 [...] (2 of 2 - PCV) 06/01/2016 06/01/2015 RSV Patients and Patients Aged 60 years or older (1 - Risk 50-74 years 1-dose series) 2024 Zoster Vaccines (1 of 2) 2024 Diabetes: [...] Td or Tdap) 05/04/2031 05/04/2021, 08/10/2016, 09/21/2013 Cervical Cancer Screening Discontinued Pap Smear Discontinued [...] 10:23 AM EDT) Triglycerides 52 <150 mg/dL [facility] Comment:Desirable Triglyceri de: less than 150 mg/dLBorderline High Triglyceride 150-199 mg/dLHigh Triglyceride: 200-499 mg/dLVery High Triglyceride: greater than or equal to 5OO mg/dL Cholesterol 96 <200 mg/dL [facility] Comment:Desirable Cholestero l: less than 200 mg/dLBorderline High Cholesterol: 200-239 mg/dLHigh Cholesterol: greater than 239 mg/dL LDL Cholesterol Calculated 47 <100 mg/dL [facility] Comment:Desirable LDL: less than 100 mg/dLNear Optimal/Above Optimal LDL: 110- 129 mg/dLBorderline High LDL: 130-159 mg/dLHigh LDL: 160-189 mg/dLVery High LDL: greater than or equal to 190 mg/dL HDL Cholesterol 39(L) >40 mg/dL [facility] Comment:Desirable HDL: great er than 40 mg/dL Note: This HDL assay may give artificially low results in patients with liver disease. Blood Venous blood specimen / Unknown 03/17/2025 10:23 AM EDT 03/17/2025 2:05 PM EDT us Pedro Luis Sierra MD LAB BLOOD ORDERABL ES Final Result [facility] [address] [place] [phone] * Albumin, Random Urine W/Creatinine (12/28/2024 9:00 AM EDT) Creatinine, Urine 212.92 mg/dL [facility] Microalbumin Urine 18.0 mg/L [facility] Microalbum Creatinine Ratio Ur 8.4 <30 ug/mg cr [facility] Comment:Albumin/Creatinine R atio Reference Ranges: Normal: < 30 ug/mg creatinine Microalbuminuria: 30 - 300 ug/mg creatinineClinical Albuminuria: > 300 ug/mg creatinine Urine (Urine, Random) 12/28/2024 9:00 AM EDT 12/28/2024 2:09 PM EDT Pedro Luis Sierra MD LAB URINE ORDERABL ES Final Result [facility] [address] [place] [phone] * (ABNORMAL) POCT HGB A1C (12/21/2024 9:18 AM EDT) Hemoglobin A1C 7.8(A) 4.0 - 6.0 % QC Media Lot # [id number] Lot# Expiration Date Blood 12/21/2024 9:18 AM EDT Pedro Luis Sierra MD POINT OF CARE TEST ENTER/EDIT ORDERABLES Final Result * BI Mammogram Screening Tomosynthesis Bilateral (05/31/2024 3:30 PM EDT) Anatomical Region Laterality Modality Breast Bilateral Mammography 05/31/2024 3:30 PM EDT Narrative 06/24/2024 3:32 PM EDT [facility] [address] [place] [address] Mammography Report Signed Patient: Mira Darnell Trav#: [id number] : 1975 Acct:[id number] Age/Sex: 49 / F ADM Date: 05/31/24 Loc: MAMMO Attending Dr: Pedro Luis Sierra MD Ordering Physician: Pedro Luis Amado MD Res ults: 2Benign Findings Date of Service: 05/31/24 Follow Up: 1 Year From Orig ina Mammogram Procedure(s): MM tomosynthesis screening BI Accession Number(s): [id number] cc: Pedro Luis Amado MD EXAMINATION: MM [...] 06/24/24 1529 DD/ 1530 TD/TT: 05/31/24 1545 Watch Engine Operator: Procedure Note Donotuseinterpreter, Image - 06/24/2024 [facility] [address] [place] [address] Mammography Report Signed Patient: Mira Darnell LM R#: [id number] : 1975Acct:[id number] Age/Sex: 49 / FADM Date: 05/31/24 Loc: MAMMO Attending Dr: Pedro Luis Sierra MD Ordering Physician: Pedro Luis Amado ults: 2Benign Findings Date of Service: 05/31/24Follow Up: 1 Year From Orig ina Mammogram Procedure(s): MM tomosynthesis screening BI Accession Number(s): [id number] cc: Pedro Luis Amado MD EXAMINATION: MM [...] 06/24/24 1529 DD/ 1530 TD/TT: 05/31/24 1545 Watch Engine Operator: us Pedro Luis Sierra MD IM BI PROCEDURES Edited Result - Final * HIV-1 RNA, Quantitative, Real-Time PCR with Reflex to Genotype (RTI, PI, Integrase) (10/16/2022 9:27 AM EST) HIV 1 RNA, QN PCR NOT DETECTED copies/mL [facility], HIV 1 RNA, QN PCR NOT DETECTED Log copies/mL [facility], Comment: REFERENCE RANGE: NOT DETECTED copies/mL NOT DETECTED Log copies/mL This test was performed using Real-Time Polymerase Chain Reaction. Reportable range is 20 to 10,000,000 copies/mL (1.30-7.00 Log copies/mL). 10/16/2022 9:27 AM EST 10/16/2022 9:28 AM EST Pedro Luis Sierra MD LAB BLOOD ORDERABL ES Final Result Performing Organization Address [facility]/ZIP Co de Phone Number [facility] [address] [place] [address], [place] [address] [employer], [address] [place] [address] * Hepatitis C Antibody with Reflex to HCV, RNA, Quantitative, Real-Time PCR (10/16/2022 9:27 AM EST) Hepatitis C Antibody NON-REACT ASTRID NON-REACT ASTRID [employer] [facility] [place] [employer] Index <0.02 <1.00 [facility] Comment: HCV antibody was non-reactive. There is no laboratory evidence of HCV infection. In most cases, no further action is required. However, if recent HCV exposure is suspected, a test for HCV RNA (test code 32568) is suggested. For additional information please refer to http://education.[employer]/faq/NQV41b4 (This link is being provided for informational/ educational purposes only.) Blood Venous blood specimen / Unknown 10/16/2022 9:27 AM EST 10/16/2022 9:28 AM EST Pedro Luis Sierra MD LAB BLOOD ORDERABL ES Final Result Performing Organization Address [facility] Co de Phone Number [facility] [address] [place] [address], [place] [address] [facility] [address] [place] [address], (N[address]) [place] [address] * Hm Colonoscopy (12/08/2019 10:24 AM EST) us Historical Provider HEALTH MAINTENANCE Final Result * Pap Smear (11/01/2018 12:00 AM EST) Swab us Historical Provider LAB CYTOLOGY ORDERABLES F inal Result [facility] [address], [place] [address] from Last 3 Months or Most Recently Relevant to Health Maintenance Insurance [employer] C3 Care Teams Wine Consultant Relationship Specialty Start Date End Date Pedro Luis Amado MD [address] [place] [address] PATY Krishnan [address] PCP - General Internal Medicine 10/10/20 Estiven De La Garza Ruby Software DeveloperModeling And Simulation Analyst 07/31/23
--- OUTSIDE RECORDS SUMMARY | 2025-08-23 04:40 | XMS_ITS | Encounter Summary ---
Author Organization [employer] Address [address] 7t [place] [address] Care Team Providers Care Starting Sheet Tank Operator Name Role Phone Pedro Luis Amado MD Primary Care Prov ider Encounter Details Date Type Department Care Team (Late st Contact Info) Description 01/19/[address] [facility] MEDICINE [address] [place], [place] [phone] ProviderEmil MD Social History Tobacco Use Types [...] documented as of this encounter Care Teams Starting Sheet Tank Operator Relationship Specialty Start Date End Date MartinezPedro Luis Vu MD [address] [place] [address] PCP - General Internal Medicine 10/10/20 Estiven De La Garza Head Neck SurgeonAirframe Technical Officer 07/31/23 documented as of this encounter
--- OUTSIDE RECORDS SUMMARY | 2025-08-23 04:40 | XMS_ITS | Clinical Summary ---
Author Organization [address] [facility] Address [address] [place] [address] Phone Care Team Providers Care Rack Production Worker Name Role Phone Pedro Luis Amado Primary [...] 10:15 AM EDT Office Visit Orthopedic Surgery [address] [place] [phone] Christa Mortensen PA Bilateral carpal tunnel syndrome (Primary Dx) from Last 3 Months Surgical History Surgery Date Site/Laterality Comments KNEE SURGERY PROCEDURE: HISTORICAL KNEE SURGERY SECTION PROCEDURE: HISTORICAL ; COMMENT: x2 CHOLECYSTECTOMY PROCEDURE: HISTORICAL CHOLECYSTECTOMY BREAST BIOPSY PROCEDURE: NJ BIOPSY BREAST OPEN INCISIONAL; COMMENT: benign, benign second biopsy 01/2020, scheduled for excision in 03/2020 TUBAL LIGATION PROCEDURE: HISTORICAL TUBAL LIGATION OTHER SURGICAL HISTORY 12/17/2018 PROCEDURE: NJ TOTAL ABDOMINAL HYSTERECT W/WO RMVL TUBE OVARY; COMMENT: fibroid uterus, heavy bleeding, anemia, Eppsteiner- incidental cystotomy repaired Medical History Medical History Date Comments Back pain DX:Back pain Knee pain DX:Knee pain Diabetes mellitus type 2 in obese DX:Diabetes mellitus type 2 in obese BRCA negative DX:BRCA negative ; COMMENT: at [place] Intraoperative bladder injury 12/22/2018 DX :Intraoperative bladder [...] Procedure Name Priority Date/Time Associated Diagnosis Comments NJ INJECTION CARPAL TUNNEL THERAPEUTIC Routine 07/27/2025 10:15 AM EDT Bilateral carpal tunnel syndrome PAP SMEAR Routine 11/01/2018 from Last 3 Months or Most Recently Relevant to Health Maintenance Results * NJ INJECTION CARPAL TUNNEL THERAPEUTIC (07/27/2025 10:15 AM [...] RESULTING AGENCY - 11/04/2018 1:45 PM EST [id number] THINPREP PAP, IMAGED: NEGATIVE FOR SQUAMOUS INTRAEPITHELIAL [...] Maintenance Insurance MEDICAID - [place] Care Teams Rack Production Worker Relationship Specialty Start Date End Date Pedro Luis Amado [address] [place], [place] PCP - General 11/11/22
--- OUTSIDE RECORDS SUMMARY | 2025-08-23 04:41 | XMS_ITS | Encounter Summary ---
Author Organization [employer] Address [address] [facility] 7 [place] [address] Care Team Providers Care Podiatry Doctor Name Role Phone Pedro Luis Amado MD Primary Care Prov ider Reason for Visit * Reason Onset Date Comments Results 10/02/2023 Encounter Details Date Type Department Care Team ([facility] st Contact Info) Description 10/02/2023 Telephone [facility]EDS [address] [place], [place] [phone] Pedro Luis Amado MD 505 [place] [address] Results Social History Tobacco Use Types Packs/Day [...] documented as of this encounter Care Teams Podiatry Doctor Relationship Specialty Start Date End Date Pedro Luis Amado MD [address] [place] [address] PCP - General Internal Medicine 10/10/20 Estiven De La Garza Occupational Therapy AssistantLock Fitter 07/31/23 documented as of this encounter
--- OUTSIDE RECORDS SUMMARY | 2025-08-23 04:41 | XMS_ITS | Encounter Summary ---
Author Organization [employer] Address [address] [facility] 7 [place] [address] Care Team Providers Care Retail Interior Designer Name Role Phone Pedro Luis Amado MD Primary Care Prov ider Encounter Details Date Type Department Care Team ([facility] st Contact Info) Description 03/05/2023 Orders Only [facility] MED & PEDS [address] [place], [place] [phone] Ro Castanon LPN Social History Tobacco Use [...] documented as of this encounter Care Teams Retail Interior Designer Relationship Specialty Start Date End Date Pedro Luis Amado MD [address] [place] [address] PCP - General Internal Medicine 10/10/20 Estiven De La Garza HemstitcherExtruding Press Operator 07/31/23 documented as of this encounter
--- OUTSIDE RECORDS SUMMARY | 2025-08-23 04:41 | XMS_ITS | Encounter Summary ---
Author Organization [employer] Address [address] [place] [address] 7 [place] [address] Care Team Providers Care Mergers And Acquisitions Associate Name Role Phone Pedro Luis Amado MD Primary Care Prov ider Reason for Visit * Reason Comments Med Refill Encounter Details Date Type Department Care Team ([facility] Contact Info) Description 05/27/2023 Refill [facility] & PEDS [address] [place], [place] [phone] Pedro Luis Amado MD [address] [place] [address] Type 2 diabetes mellitus without complication, with long-term current use of insulin ([facility]) Social History Tobacco Use Types Packs/Day Years [...] complication, with long-term current use of insulin ([facility]) documented in this encounter Additional Health Concerns Assessment Noted Time PHQ-9 Depression Total Score: 2 01/02/20 23 9:06 AM EDT documented as of this encounter Care Teams Mergers And Acquisitions Associate Relationship Specialty Start Date End Date Pedro Luis Amado MD [address] [place] [address] PCP - General Internal Medicine 10/10/20 Estiven De La Garza Corrugator SupervisorTransplant Nurse Practitioner 07/31/23 documented as of this encounter
--- OUTSIDE RECORDS SUMMARY | 2025-08-23 04:41 | XMS_ITS | Encounter Summary ---
Author Organization [employer] Address [address] [facility] 7 [place] [address] Care Team Providers Care Chain Link Fence Installer Name Role Phone Pedro Luis Amado MD Primary Care Prov ider Reason for Visit * Reason Onset Date Comments Results 09/30/2023 Encounter Details Date Type Department Care Team ([facility] st Contact Info) Description 09/30/2023 Telephone [facility] MEDICINE [address] [place] [address] Pedro Luis Amado MD [address] [place] [address] Results Social History Tobacco Use Types Packs/Day [...] documented as of this encounter Care Teams Chain Link Fence Installer Relationship Specialty Start Date End Date Pedro Luis Amado MD [address] [place] [address] PCP - General Internal Medicine 10/10/20 Estiven De La Garza Station Engineer Main LineSecurity Escort 07/31/23 documented as of this encounter
--- NOTE | 2025-09-11 11:01 | HO.ANESPROP2 ---
Documented by User: Soila Doyle NP 09/11/25 11:01 HPI - Anesthesia Eval Consult details Narrative: 50yo F for Upper Endoscopy and Colonoscopy Anesthesia Pre-Procedure Meds Is the patient on any of the following meds?: GLP1/DPP4 PMFSH Active Problems Active Problems: All Active Problems Breast abscess (Acute) Dysphagia (Acute) GERD (gastroesophageal reflux disease) (Acute) Colon cancer screening (Acute) Arthritis, low back (Acute) Muscle spasm (Acute) Intraductal papilloma of left breast (Acute) Spondylosis of lumbar region without myelopathy or radiculopathy (Acute) Coccygeal pain (Acute) Pre-procedural laboratory examination (Acute) Left knee pain (Acute) Sacroiliac joint pain (Acute) Mastodynia (Acute) Snoring (Acute) Somnolence, daytime (Acute) Chronic constipation (Acute) Breast cancer screening, high risk patient (Acute) Pulmonary nodule (Acute) Allergic rhinitis (Acute) Past Medical History Medical History Dysphagia Colon cancer screening History of COVID-19 Snoring Somnolence, daytime Chronic constipation Breast cancer screening, high risk patient Hx of migraine headaches Anemia GERD (gastroesophageal reflux disease) Liver cyst Pulmonary nodule Allergic rhinitis Intraductal papilloma Back pain Fibroids Diabetes mellitus Asthma Family History Family History Mother History of breast cancer History of hypertension History of diabetes mellitus Son History of asthma History of ADHD Paternal Grandfather History of pancreatic cancer Maternal Uncle History of colon cancer Maternal Aunt History of breast cancer Paternal Grandmother History of diabetes mellitus Paternal Uncle History of rheumatoid arthritis Family/Other Family history of throat cancer Family history of problems with anesthesia: No Surgical History Surgical History History of surgical procedure Hx laparoscopic cholecystectomy History of breast biopsy (~01/2020) History of colonoscopy (~12/08/19) History of hysterectomy (~12/17/18) History of section History of knee surgery History of Problems with Anesthesia: No Social History Social History Household Members: Spouse and Children Are you a primary customer care professional to a significant other at home: No Do you presently have visiting nurse or other home services: No Alcohol intake: current Alcohol intake frequency: does not drink Patient Tobacco Use Status: Never used Tobacco Have you been hit, kicked, punched, or otherwise hurt by someone within the past year? If so, by whom?: No Are you DNR?: No Advance Directives: No Advance Directives Information Provided: Yes Advance Directives Date on File: 12/15/18 Meds Allergies Allergy/AdvReac Type Severity Reaction Status Date / Time shrimp (SHRIMP) Allergy Intermediate SWELLING Verified 09/13/25 07:39 tramadol (TRAMADOL) Allergy Intermediate HEADACHES Verified 09/13/25 07:39 gadobutrol (From GADAVIST) Allergy Mild DIFFICULTY Verified 09/13/25 07:39 BREATHING lactose (LACTOSE) AdvReac Mild STOMACH Verified 09/13/25 07:39 UPSET Home Medications ?Medication ?Instructions ?Recorded ?Confirmed ?Last Taken ?Type insulin lispro 100 unit/mL See Rx Instructions subcut TID 08/14/21 09/11/25 Unknown History subcutaneous pen (Humalog KwikPen (U-100) Insulin) famotidine 20 mg tablet 20 mg PO BID PRN Gastric Reflux 11/06/21 09/11/25 Unknown History diclofenac sodium 1 % topical gel 2 g topical TID 03/12/22 09/11/25 Unknown History pen needle, diabetic 32 gauge x #50 ea 09/12/22 05/15/25 Unknown History (BD Jahaira 2nd Gen Pen Needle) glucagon 1 mg solution for 1 mg IM ONCE PRN Hypoglycemia 11/12/23 09/11/25 Unknown History injection (Glucagon Emergency Kit) rosuvastatin 10 mg tablet 10 mg PO QAM 11/12/23 09/11/25 Unknown History cholecalciferol (vitamin D3) 50 50 mcg PO DAILY 11/15/24 09/11/25 Unknown History mcg (2,000 unit) capsule semaglutide 7 mg tablet (Rybelsus) 14 mg PO DAILY 05/15/25 09/11/25 Unknown History insulin glargine 100 unit/mL 45 unit subcut QPM 07/07/25 09/11/25 Unknown History subcutaneous solution (Lantus U-100 Insulin) Assessment and Plan Assessment Anesthesia Assessment: Chart Reviewed Final Anesthetic Review Family History of Problems with Anesthesia: No History of Problems with Anesthesia: No Documented by User: Nel Beltre MD 09/13/25 08:13 [facility] Past Medical History Medical History Dysphagia Colon cancer screening History of COVID-19 Snoring Somnolence, daytime Chronic constipation Breast cancer screening, high risk patient Hx of migraine headaches Anemia GERD (gastroesophageal reflux disease) Liver cyst Pulmonary nodule Allergic rhinitis Intraductal papilloma Back pain Fibroids Diabetes mellitus Asthma Family History Family History Mother History of breast cancer History of hypertension History of diabetes mellitus Son History of asthma History of ADHD Paternal Grandfather History of pancreatic cancer Maternal Uncle History of colon cancer Maternal Aunt History of breast cancer Paternal Grandmother History of diabetes mellitus Paternal Uncle History of rheumatoid arthritis Family/Other Family history of throat cancer Surgical History Surgical History History of surgical procedure Hx laparoscopic cholecystectomy History of breast biopsy (~01/2020) History of colonoscopy (~12/08/19) History of hysterectomy (~12/17/18) History of section History of knee surgery Social History Social History Household Members: Spouse and Children Are you a primary customer care professional to a significant other at home: No Do you presently have visiting nurse or other home services: No Alcohol intake: current Alcohol intake frequency: does not drink Patient Tobacco Use Status: Never used Tobacco Have you been hit, kicked, punched, or otherwise hurt by someone within the past year? If so, by whom?: No Are you DNR?: No Advance Directives: No Advance Directives Information Provided: Yes Advance Directives Date on File: 12/15/18 Meds Allergies Allergy/AdvReac Type Severity Reaction Status Date / Time shrimp (SHRIMP) Allergy Intermediate SWELLING Verified 09/13/25 07:39 tramadol (TRAMADOL) Allergy Intermediate HEADACHES Verified 09/13/25 07:39 gadobutrol (From GADAVIST) Allergy Mild DIFFICULTY Verified 09/13/25 07:39 BREATHING lactose (LACTOSE) AdvReac Mild STOMACH Verified 09/13/25 07:39 UPSET Home Medications ?Medication ?Instructions ?Recorded ?Confirmed ?Last Taken ?Type insulin lispro 100 unit/mL See Rx Instructions subcut TID 08/14/21 09/11/25 Unknown History subcutaneous pen (Humalog KwikPen (U-100) Insulin) famotidine 20 mg tablet 20 mg PO BID PRN Gastric Reflux 11/06/21 09/11/25 Unknown History diclofenac sodium 1 % topical gel 2 g topical TID 03/12/22 09/11/25 Unknown History pen needle, diabetic 32 gauge x #50 ea 09/12/22 05/15/25 Unknown History (BD Jahaira 2nd Gen Pen Needle) glucagon 1 mg solution for 1 mg IM ONCE PRN Hypoglycemia 11/12/23 09/11/25 Unknown History injection (Glucagon Emergency Kit) rosuvastatin 10 mg tablet 10 mg PO QAM 11/12/23 09/11/25 Unknown History cholecalciferol (vitamin D3) 50 50 mcg PO DAILY 11/15/24 09/11/25 Unknown History mcg (2,000 unit) capsule semaglutide 7 mg tablet (Rybelsus) 14 mg PO DAILY 05/15/25 09/11/25 Unknown History insulin glargine 100 unit/mL 45 unit subcut QPM 07/07/25 09/11/25 Unknown History subcutaneous solution (Lantus U-100 Insulin) Exam Airway Mallampati Class: II (missing a couple, denies anything loose) TM Dist: >3cm Neck ROM: Full Heart: rrr Lungs: cta Assessment and Plan Assessment Anesthesia Assessment: Anesthesia Plan Discussed Final Anesthetic Review NPO: Yes ASA Class: III Final Preanesthetic Review: No Changes in Pt Med Stat, Meds/Allgs Chart Reviewed and Consent Obtained/Reviewed Patient Risk: Intermediate Procedure Risk: Intermediate Anesthetic Plan Anesthetic Plan: GA Disposition: Standard PACU
[2025-09-11 11:11] VITALS: BMI 30.1
[2025-09-13 07:36] VITALS: BMI 29.8
[2025-09-13] MEDS: Lactated Ringers 1,000 ML 100 ML IVCONT (07:43)
[2025-09-13 07:59] VITALS: BP 125/64; PULSE 81; RESP 18; TEMP 36.6; O2SAT 97
[2025-09-13 08:01] LABS: Glucose, Whole Blood 77 mg/dL (60-115)
--- NOTE | 2025-09-13 08:14 | MHC.SHP ---
Pre-Procedural Eval Section A - 24 Hr Update-Section A only Date of Service: 09/13/25 Section B - Complete if H&P > 30 days Chief Complaint: screening,gerd,dysphagia Relevant Family History (Specify if Yes): No Relevant Social History: None Present Medications: see Short Stay Collaborative assessment Medical History: Significant History (Dysphagia Colon cancer screening History of COVID-19 Snoring Somnolence, daytime Chronic constipation Breast cancer screening, high risk patient Hx of migraine headaches Anemia GERD (gastroesophageal reflux disease) Liver cyst Pulmonary nodule Allergic rhinitis Intraductal papilloma Back pain Fibroi) History of Previous Operations: Relevant previous surgery/procedure and date(s) (History of surgical procedure Hx laparoscopic cholecystectomy History of breast biopsy (~01/2020) History of colonoscopy (~12/08/19) History of hysterectomy (~12/17/18) History of section History of knee surgery) Allergies: Allergies Allergy/AdvReac Type Severity Reaction Status Date / Time shrimp (SHRIMP) Allergy Intermediate SWELLING Verified 09/13/25 07:39 tramadol (TRAMADOL) Allergy Intermediate HEADACHES Verified 09/13/25 07:39 gadobutrol (From GADAVIST) Allergy Mild DIFFICULTY Verified 09/13/25 07:39 BREATHING lactose (LACTOSE) AdvReac Mild STOMACH Verified 09/13/25 07:39 UPSET Review of Systems Sugical H&P ROS: Negative: Constitution, Cardiovascular, Respiratory, Neurological, Psychiatric, Hem-Onc, Allergic/Immunologic, Gastrointestinal, Genitourinary, Musculoskeletal, Integumentary, Endocrine and Eyes/Ears/Nose/Throat Exam Surgical H&P Exam: Normal: HEENT, Normal: Heart, Normal: Lungs, Normal: Extremities, Normal: Abdomen, Normal: Skin and Normal: Neurological Plan Diagnosis/Plan: Unchanged I have reviewed the history and physical and performed a pertinent physical examination on my patient. No changes have occurred unless specified. Time Spent With Patient Time: Total time managing care of this patient today ____ minutes.
--- NOTE | 2025-09-13 08:56 | P.OPN-COLO_ITS ---
Colonoscopy Operative Note Operative Note Date of Service: 09/13/25 Narrative: Operative Information Procedure Description: EGD, Colonoscopy Indication: dysphagia and screening Anesthesia: MAC FLEXIBLE TRANSORAL UPPER GASTROINTESTINAL ENDOSCOPY AND COLONOSCOPY PROCEDURE NOTE UPPER ENDOSCOPY Consent: Indications for the procedure and potential complications of bleeding, perforation, reaction to medications and missed diagnosis were discussed with the patient and informed consent was obtained. Instrument: Olympus GIF H 190 J mid size upper endoscope Monitoring: Vital signs and clinical assessment, continuous EKG monitoring, Pulse oximetry, Carbon Dioxide monitoring and blood pressure monitoring were done throughout the procedure. Procedure: The patient was placed in the left lateral decubitis position and pre-procedure medications were administered and a bite block was placed. The endoscope was inserted into the mouth and advanced under direct vision to the third part of duodenum. A careful inspection was made as the upper endoscope was withdrawn including a retroflexed examination of the proximal stomach; Findings and interventions are described below. Findings: Larynx:normal Esophagus: GE junction at 40 cm, diaphragm hiatus at 40 cm, mild esophagitis, bx taken from GEJ, distal and proximal esophagus - balloon dilation to 20 mm at LES and UES -no tears seen Stomach: Patchy erythema. Biopsies were obtained. Grade 2 flap valve on retroflexed examination of the cardia. Duodenum: Normal bulb and descending duodenum, Intervention: Biopsies as noted above, balloon dilation COLONOSCOPY Instrument: Olympus variable stiffness pediatric scope 190L Colonoscopy Monitoring: Vital signs and clinical assessment, continuous EKG monitoring, Pulse oximetry, Carbon Dioxide monitoring and blood pressure monitoring were done throughout the procedure. Colon withdrawal time was 8 minutes. Procedure: The patient was placed in the left lateral decubitis position and pre-procedure medications were administered. After a digital rectal examination of the ano-rectum, the video colonoscope was inserted into the rectum and advanced through the colon to the cecum/TI. The colonoscope was slowly withdrawn in a retrograde panoramic fashion and the colon mucosa was carefully examined including a retroflexed view of the rectum. Findings and interventions are described below. Procedure Difficulty: easy Findings: Terminal Ileum-normal Cecum:normal Right sided retroflexion: normal Ascending Colon: normal Transverse Colon -normal Descending Colon:normal Sigmoid Colon: normal Rectum: Retroflexion with small internal hemorrhoids, grade I Anorectum - normal Colon preparation: [place] Bowel Preparation Scale Right colon; 2 Transverse colon: 2 Left colon; 2 (0 = Unprepared colon segment with mucosa not seen due to solid stool that cannot be cleared. 1 = Portion of mucosa of the colon segment seen, but other areas of the colon segment not well seen due to staining, residual stool and/or opaque liquid. 2 = Minor amount of residual staining, small fragments of stool and/or opaque liquid, but mucosa of colon segment seen well. 3 = Entire mucosa of colon segment seen well with no residual staining, small fragments of stool or opaque liquid) Impression and Post Procedure Diagnosis: Endoscopy Findings: mild esophagitis gastritis Colonoscopy Findings: internal hemorrhoids Plan: Await Pathology results Repeat Colonoscopy in 10 years or earlier if clinically indicated High fiber diet leaflet avoid straining at stool, epsom salts and sitz bath, anusol supps or cream If h pylori pos then treat Above findings were reviewed with the patient and relevant handouts were provided if indicated.
[2025-09-13 09:00] VITALS: BP 101/60; PULSE 87; RESP 16; TEMP 36.7; O2SAT 97
[2025-09-13 09:15] VITALS: BP 116/64; PULSE 75; RESP 16; TEMP 36.7; O2SAT 97
== END 2025-09-13 10:01 | disposition home or self-care (01) ==
PROVIDERS: PCP Internal Medicine; Visit Provider Internal Medicine Gastroenterology
PROC: (CPT 45378; principal; 2025-09-13 08:30)
DX: Z12.11 Encounter for screening for malignant neoplasm of colon (principal); R13.10 Dysphagia, unspecified; K21.00 Gastro-esophageal reflux disease with esophagitis, without bleeding; E11.9 Type 2 diabetes mellitus without complications; K59.09 Other constipation; K64.0 First degree hemorrhoids; A04.8 Other specified bacterial intestinal infections; K29.70 Gastritis, unspecified, without bleeding
CPT/HCPCS: 45378; 43239; 43249; 82947; 88305; 88313; 88342; C1726; J2704

== ENCOUNTER → 2025-09-13 07:20 | Outpatient (BNV) | payer MEDICAID, SELFPAY | PROVIDERS: PCP Internal Medicine; Visit Provider Internal Medicine Gastroenterology | DX: Z12.11 Encounter for screening for malignant neoplasm of colon (principal); K64.0 First degree hemorrhoids; R13.10 Dysphagia, unspecified; K20.90 Esophagitis, unspecified without bleeding; K29.70 Gastritis, unspecified, without bleeding | CPT/HCPCS: 43249; 45378 ==